=== PATIENT | male | born 1960 | race Two or more races ===

== ENCOUNTER 2024-07-18 13:12 | Inpatient (IN) | payer OTHER, SELFPAY ==
[2024-07-18] VITALS (12 sets, daily range): BP systolic 154–252; BP diastolic 83–129; PULSE 72–96; RESP 14–19; TEMP 36.5–36.6; O2SAT 94–98; BMI 29.2
--- NOTE | 2024-07-18 13:23 | EDNOTE_ITS ---
ED Fall Injury RME/HPI General Chief Complaint: Fall Stated Complaint: FALL Time Seen by Provider: 07/18/24 13:28 Arrival date/time: 07/18/24 13:12 RME / HPI RME / HPI Narrative: 64 year old male presents to the ED [facility] from work for evaluation after fall today. Per medics, patient reported he was about 6-8 feet above ground on a ladder cutting a tree branch. Reportedly the branch hit the ladder causing the patient to lose his balance and fall, landing on his back (mostly on the left side). Medic state on their arrival patient was ambulatory and walked towards the ambulance. State the patient complained of pain mostly to the left upper back. Also complained of mild pain to his neck that is aggravated with movements. On examination patient had no apparent neuro deficits and lung sounds clear and equal. Prehosptial BS 232, blood pressure 226/120. While in the ED patient became diaphoretic and complained of feeling dizzy. Denies any chest pain, shortness of breath, difficulty or painful breathing. Related Data Previous Rx's ?Medication ?Instructions ?Recorded albuterol sulfate 90 mcg/actuation 2 puff inhalation Q ID PRN 06/01/21 aerosol inhaler shortness of breath or wheez ing #8.5 grams azithromycin 250 mg tablet See Rx Instructions PO .COM PLEX #6 06/01/21 tabs metformin 500 mg tablet 500 mg PO BID #60 tabs 06/01 acetaminophen 500 mg capsule 1,000 mg (2 x 500 mg) PO Q6H PRN 06/02/21 fever or pain #30 caps Allergies Allergy/AdvReac Type Severity Reaction Status Date / Time No Known Allergies Allergy Verified 07/18/24 13:21 Review of Systems Review of Systems Narrative Review of Systems: Constitutional: SEE HPI. DENIES; Fevers Eyes: DENIES; Loss of vision Head/Ear/Nose: DENIES; Loss of hearing Throat: DENIES; Dysphagia Cardiovascular: DENIES; Chest pain, dyspnea or syncope Respiratory: DENIES; Shortness of breath Gastrointestinal: DENIES; Rectal bleeding or melena. Genitourinary: DENIES; Dysuria (painful or difficult urination) Musculoskeletal: SEE HPI Skin: DENIES; Rash Neurological: DENIES; Loss of function or movement Psychiatric: DENIES; recent major life stressor, emotional problem, illicit drug use or abuse Endocrinology: DENIES; Weight change Hematologic/Lymphatic: DENIES; Abnormal bruising Allergic/Immunologic: DENIES; Urticaria (hives) Past Medical History Past Medical History CARDIAC: Negative Congestive Heart Failure RESPIRATORY: Negative Chronic Obstructive Pulmonary Disease (COPD) GENITOURINARY: Negative Renal Disease ENDOCRINE: Negative Diabetes Mellitus Type 1 or Diabetes Mellitus Type 2 Social History SMOKING STATUS: Current every day smoker ED Exam Narrative Physical exam: Physical Exam: (Detailed trauma arrived NOT in C-spine) Constitutional upon initial evaluation: Vital signs reviewed. Well-appearing. No acute distress. O2 saturation is normal on RA. No obvious injury or pain. Primary Survey upon initial evaluation: Airway: Patent and non-obstructed; Breathing: Non-labored with normal respirations. Circulation: Not-Hypotensive; All extremities are warm and have normal/immediate capillary refill. Disability: Alert, cordial, interactive and cooperative. No apparent brain injury and has a normal mental status Exposures: No apparent thermal exposure. Patient arrived not in spinal immobilization and denied c-spine tenderness. Secondary Survey Head & Scalp: Normocephalic, atraumatic. Face: The face is without injury, deformity or tenderness. Ears: Left pinna has no injury and appears normal. Right pinna has no injury and appears normal. Left ear canal has no injury and no discharge/drainage. Right ear canal has no injury and no discharge/drainage. The left tympanic membrane is visualized and has no hemotympanum and appears normal. The right tympanic membrane is visualized and has no hemotympanum and appears normal. Eyes: The sclera are anicteric. OS: Left orbit has no swelling, no discoloration and appears normal. Left eyelid has no swelling, no discoloration and appears normal. The left conjunctiva has no injection, no discharge and no subconjunctival hemorrhage. The left cornea appears normal and the anterior chamber has no obvious violation and no hyphema. OD: Right orbit has no swelling, no discoloration and appears normal. Right eyelid has no swelling, no discoloration and appears normal. The right conjunctiva has no injection, no discharge and no subconju nctival hemorrhage. The right cornea appears normal and the anterior chamber has no obvious violation and no hyphema. Nose: The nose is without deformity, discharge or tenderness. Throat: The mucous membranes have no apparent injury and appear pink and moist. The oral cavity and tongue have no apparent injury and appears normal. The gums and teeth have no apparent injury and appear normal. There is no trismus. Neck/Cervical sign: The neck appears normal. There is no cervical spine pain on palpation. The patient moves the head and neck with no limitation and no pain and displays FULL active ROM. There is no trapezius tenderness. There is no apparent wound, injury, mass or adenopathy. Chest/Thorax/Thoracic spine: The chest wall is normal in size and symmetry. There is no subcutaneous emphysema and no crepitus. The patient displays normal respiratory effort without retractions or accessory muscle use. Left posterior chest has an abrasion and ecchymosis with severe pain on palpation of the lateral posterior thorax and lateral to the scapula area. O therwise the left posterior thorax appears normal Auscultation reveals good air movement with no wheezes and no rales with normal breath sounds. Right chest has good air movement with no wheezes and no rales with normal breath sounds. There is no anterior chest wall or sternal tenderness. There is no lateral rib pain. There is no posterior thoracic pain. There is no spine pain or tenderness on palpation or percussion. Cardiovascular: Auscultation: Regular rate and rhythm; No murmurs, rubs, or gallops; Gastrointestinal: The abdomen is non-distended appears normal. There is no ecchymosis. The abdomen is soft, non-tender with no rebound tenderness and no guarding. There are no hernias. There is no mass. Bowel sounds are present and normal. No CVA tenderness. Pelvis: Stable and non-tender on firm palpation over pubis and iliac wings. There is no visible deformity. Rectal: Not examined no apparent injury no injury Genital Urinary: The external genitalia has no injury, no discharge and appears normal. Lumbar/Sacral: There is no lumbar or sacral pain. There is no L/S spinal tenderness. Extremities/Musculoskeletal: LUE: The clavicle and arm have no apparent injury, are non-tender and has full range of motion. RUE: The clavicle and arm have no apparent injury, are non-tender and has full range of motion. LLE: The left hip, femur, knee, tibia/fibula, ankle and foot have no apparent injury, are non-tender and with full range of motion. RLE: The right hip, femur, knee, tibia/fibula, ankle and foot have no apparent injury, are non-tender and with full range of motion. Skin: No lacerations. No abrasions. The skin appears warm and dry. No rashes. No petechia. No purpura. No abnormal bruising. Mental Status/Psychiatric: Mental status is normal for age and situation. Neurological: The patient is oriented to name and situation. The patient is interactive, cordial, and cooperative and follows commands. The patient has normal speech. The pupils are equal and reactive light. The eye movements appear normal with no diplopia. No obvious focal motor deficits. Per EMS patient was ambulatory at the scene but was not tested here. Course Quality Measures none Orders Category Date Time Status Bedside Blood Glucose NOW Care 07/18/24 13:[address] Screening NOW Care 07/18/24 13:[address] Screening X1 Care 07/18/24 13:29 Completed Syrup Maker Cook NOW Care 07/18/24 13:29 Active EKG (ED ONLY) *Do not use* NOW Care 07/18/24 13:29 Completed Insert IV NOW Care 07/18/24 13:29 Active MRI Screening NOW Care 07/18/24 15:57 Active NPO NOW Care 07/18/24 13:[address] cervical spine wo con Stat Exams 07/18/24 13:[address] chest abdomen pelvis w Stat Exams 07/18/24 13:[address] head/brain wo con Stat Exams 07/18/24 13:[address] thoracic spine wo con Stat Exams 07/18/24 13:28 Completed EKG (ED Only) Stat Exams 07/18/24 13:29 Draft XR chest 1V portable Stat Exams 07/18/24 13:29 Completed Alcohol, Blood Medical Stat Lab 07/18/24 13:40 Completed CBC Stat Lab 07/18/24 13:40 Completed Comprehensive Metabolic Panel Stat Lab 07/18/24 13:40 Completed Drug Screen,Urine Stat Lab 07/18/24 17:21 Received Lactate (Lactic Acid) Stat Lab 07/18/24 13:40 Completed Lactic Acid, 3 HR Stat Lab 07/18/24 17:16 Received Lipase Stat Lab 07/18/24 13:40 Completed Partial Thromboplastin Time Stat Lab 07/18/24 13:40 Completed Prothrombin Time with INR Stat Lab 07/18/24 13:40 Completed Type and Screen Stat Lab 07/18/24 13:40 Completed Urinalysis Stat Lab 07/18/24 17:21 Received Urinalysis, C/S if Indicated Stat Lab 07/18/24 17:21 Received Enalaprilat Inj [Vasotec Inj] Med 07/18/24 17:19 Once 1.25 mg IVP X1 ONE HYDROmorphone INJ [Dilaudid Inj] Med 07/18/24 16:43 Discontinued 1 mg IVP X1 ONE Labetalol IV [Trandate IV] Med 07/18/24 17:19 Once 10 mg IVP X1 ONE Morphine Inj Med 07/18/24 13:27 Discontinued 5 mg IVP X1 ONE Morphine Inj Med 07/18/24 15:46 Discontinued 5 mg IVP X1 ONE Ondansetron Inj [Zofran Inj] Med 07/18/24 13:28 Discontinued 4 mg IV X1 ONE Sodium Chloride 0.9% 1000 ml [Ns] 1,000 ml Med 07/18/24 17:30 Ordered IV 150 mls/hr Sodium Chloride 0.9% 1000 ml [Ns] 1,000 ml Med 07/18/24 13:28 Discontinued IV 999 mls/hr Sodium Chloride 0.9% 500 ml [Ns] 500 ml Med 07/18/24 17:30 Ordered IV 999 mls/hr Tet,Diphth,Pertuss(Acell)-Tdap [Boostrix Vacc] Med 07/18/24 13:35 Discontinued 0.5 ml IMI .ONCE ONE hydrALAZINE INJ [Apresoline Inj] Med 07/18/24 15:46 Discontinued 20 mg IV X1 ONE hydrALAZINE INJ [Apresoline Inj] Med 07/18/24 17:19 Once 20 mg IV X1 ONE Vital Signs Vital signs: Vital Signs Temperature 97.8 F 07/18/24 13:13 Pulse Rate 79 07/18/24 13:13 Respiratory Rate 19 07/18/24 13:13 Blood Pressure 236/126 H 07/18/24 13:13 Pulse Oximetry (%) 97 07/18/24 13:13 Oxygen Delivery Method Room Air 07/18/24 13:13 Pulse ox is 97% on room air which is adequate. Fall MDM Narrative MDM Narrative:: Patient is 64-year-old who fell from a ladder with his feet at approximately 6 feet after a branch she was cutting struck the ladder and destabilized the ladders footing. He appears to have a contusion to the left posterior thorax with ecchymosis and lots of pain. On arrival he is diaphoretic he is he is quite hypertensive with a systolic in the 222 range. I made a goal to treat his pain we will image him to see if he is got any intrathoracic significant injuries. Clinically he is breathing well his O2 sat is good there is no crepitance and there is no subcutaneous air at this time. The head and neck do not appear to have any injury although he has some slight tenderness to the neck and head area but he is moving them freely. But he does have significant distracting pain. Also his abdomen and anterior chest do not appear to have any injury. His pelvis is stable. Lower extremities unremarkable is got some abrasions on them but the hips femurs knees and tib-fib ankle feet are all within normal limits. Medical workup is ordered and pending at 1330 hrs. Note patient is significant elevated blood pressures with his pain and the systolics are up to the 225-240 range for short time. Patient initially got some hydralazine and pain medicine got some more pain medicine and got some Dilaudid and her blood pressures came down to systolics in the 180 range. He was much more comfortable than they have drifted up to the 190 range. Clearly has hypertensive urgency and labs came back as follows white count 10.5 hemoglobin 17.0 PT 11.4 INR 1 sodium 138 potassium 3.5 chloride 101 CO2 25.3 BUN 20 creatinine 1.1 glucose is elevated to 69 lactic acid is 3.2 transaminases are elevated at 7457 and total bilirubin 0.4. Ethyl alcohol was negative. CT scan of the head his imaging results came back as follows CT scan of the head came back negative CT scan of the chest abdomen pelvis revealed no hemopneumothorax. There is a acute fracture of the left fourth rib and transverse process fractures of the lumbar spine at levels [address] dictation is a little uncertain so I confirmed this with Dr. De Leon. Initial plain chest x-ray was done which was negative for any hemopneumothorax. Cervical spine CT came back negative for fracture. I called the hospitalist and discussed the case at length and they agree admit the patient for intractable pain since there is no evidence of internal organ injury on the CT scans. He also where the hypertensive urgency and the multiple medications that have been prescribed I will require close follow-up. Patient data External records reviewed:: [facility] previous records (I reviewed ED visit on 06/02/2021 for covid-19) and EMS form Clinical information provided by:: patient and EMS Social determinants that could affect healthcare access:: none Patient has the following chronic illnesses:: none reported How is presenting disease/condition affected by chronic disease/condition?: no chronic disease Evaluation data The following diagnostics were reviewed and interpreted by me:: lab results, radiology exam(s) and EKG tracing(s) (sinus rhythm, rate 75, no STEMI) Lab and/or radiology exams considered but not ordered:: none Interpretation Summary: Ordering Physician: Leandro Clark MD Date of Service: 07/18/24 Procedure(s): CT thoracic spine wo con Accession Number(s): [id number] cc: eLandro Clark MD; Gunnar Hoskins MD; NO PRIMARY/FAMILY,PHYSICIAN~ Examination: CT thoracic spine, without contrast. 2-D sagittal reconstructions. 2-D coronal reconstructions. 3-D reconstructions. Date and time of exam:July 18, 2024, 1359 hrs. Indications: Patient fell today with injury to the back, in CTDI: vol (mGy):23.4 DLP: (mGycm):800 Technique: Multiple 1.25 mm axial sections of the thoracic spine without intravenous contrast have been obtained. 2-D sagittal and coronal reconstructions have been obtained. 3-D reconstructions have been obtained. Low dose protocols were performed. One or more of the following dose reduction techniques were used; automated exposure control, adjustment of the mA and/or KV according to patient size, use of iterative reconstruction technique. Findings: Prominent osteopenia. Mild kyphosis dorsal spine Moderate to advanced diffuse thoracic disc narrowing No acute thoracic fracture No focal thoracic disc protrusion No focal thoracic disc protrusion Impression: No acute thoracic fracture Dictated By: Gunnar Hoskins MD Signed By: <Electronically signed by Gunnar Hoskins MD in OV> 07/18/24 1512 Ordering Physician: Leandro Clark MD Date of Service: 07/18/24 Procedure(s): CT cervical spine wo con Accession Number(s): [id number] cc: Leandro Clark MD; Gunnar Hoskins MD; NO PRIMARY/FAMILY,PHYSICIAN~ Examination: CT cervical spine without contrast 2-D sagittal reconstructions 2-D coronal reconstructions 3-D reconstructions. Exam date and time:July 18, 2024, 1354 hrs. Indications: Patient fell today with injury to the neck, neck pain CTDI:vol (mGy) 8.79 DLP: (mGycm) 198 Technique: Multiple 2 mm axial sections of the cervical spine have been obtained. The coronal and sagittal reconstructions have been obtained. 3-D reconstructions have been obtained. Low dose protocols were performed. One or more of the following dose reduction techniques were used; automated exposure control, adjustment of the mA and/or KV according to patient size, use of iterative reconstruction technique. Findings: Axial sections demonstrate intact base of the skull. C1 exhibit satisfactory relationship to the odontoid. No acute cervical vertebral body fracture seen. Alignment posterior spinous processes satisfactory. Impression: No acute cervical fracture. Dictated By: Gunnar Hoskins MD Signed By: <Electronically signed by Gunnar Hoskins MD in OV> 07/18/24 1508 Ordering Physician: Leandro Clark MD Date of Service: 07/18/24 Procedure(s): XR chest 1V portable Accession Number(s): [id number] cc: Leandro Clark MD; Gunnar Hoskins MD~ Examination: AP chest single view Technique: AP portable semiupright chest single view Exam date and time: July 18 22,025, 1240 hrs. Comparison May 31, 2021 Indications: Patient fell today with injury to the chest, chest pain Findings: Mild prominence left ventricle No pneumothorax Multiple left rib deformities Impression: No pneumothorax Recommend left rib series follow-up Dictated By: Gunnar Hoskins MD Signed By: <Electronically signed by Gunnar Hoskins MD in OV> 07/18/24 1353 Ordering Physician: Leandro Clark MD Date of Service: 07/18/24 Procedure(s): CT chest abdomen pelvis w Accession Number(s): [id number] cc: Leandro Clark MD; Gunnar Hoskins MD; NO PRIMARY/FAMILY,PHYSICIAN~ Examination: CT chest with intravenous contrast CT abdomen with intravenous contrast CT pelvis with intravenous contrast 2-D coronal and sagittal reconstructions Time of exam: July 19, 19992024 1410 hrs. Indications: Patient fell today with into the chest and abdomen, chest pain abdomen pain CTDI: vol (mGy) : 19.8 DLP: (mGycm): 850 Technique: Multiple axial images of the chest, abdomen and pelvis with intravenous contrast, 3.0 mm slice thickness. Images obtained post intravenous injection Isovue 370 60 cc. 2-D sagittal and coronal reconstructions. Low dose protocols were performed. One or more of the following dose reduction techniques were used; automated exposure control, adjustment of the mA and/or KV according to patient size, use of iterative reconstruction technique. Findings: Thoracic aorta pulmonary arteries intact No hemopericardium No pneumothorax pulmonary contusion or hemothorax The sternum thoracic and lumbar vertebral bodies appear intact No acute displaced fracture left fourth rib Acute fractures left second and fourth transverse processes Iliac bones and hips appear intact No liver splenic or renal laceration Abdominal aorta intact No free blood in the abdomen or pelvis Urinary bladder intact Impression: Acute displaced fracture left fourth rib No hemopericardium, pneumothorax pulmonary contusion or hemothorax No liver splenic or renal laceration Acute fractures left second fourth transverse processes Abdominal aorta intact No free blood in the abdomen or pelvis Dictated By: Gunnar Hoskins MD Signed By: <Electronically signed by Gunnar Hoskins MD in OV> 07/18/24 1540 Ordering Physician: Leandro Clark MD Date of Service: 07/18/24 Procedure(s): CT head/brain wo [facility] Accession Number(s): [id number] cc: Leandro Clark MD; Gunnar Hoskins MD; NO PRIMARY/FAMILY,PHYSICIAN~ Examination: CT brain head without contrast. 2-D sagittal coronal reconstructions Date and time of exam:July 18, 2024, 1354 hrs. Indications: Patient fell today with injury to the head, head pain CTDI: vol (mGy):49.6 DLP: (mGycm):1008 Technique: Multiple CT axial sections of the brain have been obtained, 5 mm slice thickness. Contrast has not been administered. 2-D sagittal, coronal reconstructions have been obtained Low dose protocols were performed. One or more of the following dose reduction techniques were used; automated exposure control, adjustment of the mA and/or KV according to patient size, use of iterative reconstruction technique. Findings: No significant ventricular enlargement. Small cerebral calcifications Intra-axial or extra-axial hemorrhage density is not seen. No mass effect or midline shift Basal cisterns are not remarkable. Fourth ventricle is midline. Cranial vault intact. Impression: Negative for acute hemorrhage, mass effect or midline shift Dictated By: Gunnar Hoskins MD Signed By: <Electronically signed by Gunnar Hoskins MD in OV> 07/18/24 4130 Medications / Prescriptions Medications or Prescriptions considered but not ordered:: None Medication administrations:: Medication Administration History Enalaprilat (Enalaprilat Inj 1.25 Mg/Ml Vial) 1.25 mg IVP X1 ONE Stop: 07/18/24 17:20 Hydralazine HCl (Hydralazine Inj 20 Mg/Ml Vial) 20 mg IV X1 ONE Stop: 07/18/24 17:20 Sodium Chloride (Ns) 1,000 mls @ 150 mls/hr IV .Q6H40M ONE Stop: 07/19/24 00:09 Sodium Chloride (Ns) 500 mls @ 999 mls/hr IV .Q31M ONE Stop: 07/18/24 18:00 Labetalol HCl (Labetalol Inj 5 Mg/Ml Vial 20 Ml) 10 mg IVP X1 ONE Stop: 07/18/24 17:20 Discontinued Medications Diphtheria/Tetanus/Acell Pertussis (Diphth,Pertuss(Acell),Tet Vac 0.5 Ml Syr- Adult) 0.5 ml IMi .ONCE ONE Stop: 07/18/24 13:36 Last Admin: 07/18/24 16:11 Dose: 0.5 ml Documented By: RD Hydralazine HCl (Hydralazine Inj 20 Mg/Ml Vial) 20 mg IV X1 ONE Stop: 07/18/24 15:47 Last Admin: 07/18/24 16:09 Dose: 20 mg Documented By: RD Hydromorphone HCl (Hydromorphone Inj 2 Mg/Ml Vial) 1 mg IVP X1 ONE Stop: 07/18/24 16:44 Last Admin: 07/18/24 16:50 Dose: 1 mg Documented By: JOSE Sodium Chloride (Ns) 1,000 mls @ 999 mls/hr IV .Q1H1M ONE Stop: 07/18/24 14:28 Last Infusion: 07/18/24 15:05 Dose: Infused Documented By: Admin: 07/18/24 13:39 Dose: 999 mls/hr Documented By: RYANN Morphine Sulfate (Morphine Sulf Inj 10 Mg/Ml Vial) 5 mg IVP X1 ONE Stop: 07/18/24 13:28 Last Admin: 07/18/24 13:37 Dose: 5 mg Documented By: RYANN Morphine Sulfate (Morphine Sulf Inj 10 Mg/Ml Vial) 5 mg IVP X1 ONE Stop: 07/18/24 15:47 Last Admin: 07/18/24 16:10 Dose: 5 mg Documented By: JOSE Ondansetron HCl (Ondansetron Inj 2 Mg/Ml Inj 2 Ml) 4 mg IV X1 ONE; Protocol Stop: 07/18/24 13:29 Last Admin: 07/18/24 13:39 Dose: 4 mg Documented By: RYANN See above Consultations Consultation(s) initiated? (list below): Yes Diagnosis Fall Differential Diagnosis: syncope, dislocation of shoulder region, fracture of wrist, compression fracture, concussion with loss of consciousness and concussion without loss of consciousness Most likely diagnosis given after review of the tests above:: Fall from a high distance with contusion of the left thorax with a rib fracture on the left and 2 transverse process lumbar fractures and hypertensive emergency urgency as the systolics went up to 245. Will admit him for intractable pain and manage his blood pressure. Admission Indicated Admission indicated?: indicated Admission Request Was there a request for admission?: Yes Admission Attestation Admission request attestation: Discussed case with [] from Hospitalist service regarding admission. Discussed patients ED course, exam findings, labs, and radiology results. The Hospitalist [agrees,declines] to accept the patient for admission. Disposition Plan Disposition Plan: Admit (Hospitalist resident Dr. Damon) Critical Care Time Critical Care Time Critical Care Time: Yes Total Critical Care Time (min.): 55 Attestation: Patient had a fall from 6 to 8 feet with contusion to the thorax with fractures of the lumbar processes and a single rib fracture with no pulmonary contusion and no hemopneumothorax. His blood pressure has been up to 240 requiring multiple IV meds to control his blood pressure. High mechanism the high probability of sudden, clinically significant deterioration in the patient's condition required the highest level of my preparedness to intervene urgently. The services I provided to this patient were to treat and/or prevent clinically significant deterioration. Services included the following: chart data review, reviewing nursing notes and/or old charts, documentation time, consultant electronics collaboration regarding findings and treatment options, medication orders and management, direct patient care, vital sign assessments and ordering, interpreting and reviewing diagnostic studies and lab tests. Aggregate critical care time includes only time during which I was engaged in work directly related to the patient's care, as described above, whether at bedside or elsewhere in the Emergency Department. It did not include time spent performing other reported procedures or the services of residents, students, nurses or physician assistants. Discharge Plan Plan Patient Disposition: Admit Acute Care w/in Hospital Disposition Comment: Hospitalist admit Prescriptions/Referrals Prescriptions/Med Rec: No Action acetaminophen 500 mg capsule 1,000 mg PO Q6H PRN (Reason: fever or pain) Qty: 30 0RF azithromycin 250 mg tablet See Rx Instructions .ROUTE .COMPLEX Qty: 6 0RF Rx Instructions: For 250 mg dose pack: take 500 mg today (day 1), then 250 mg for 4 days (days 2-5) albuterol sulfate 90 mcg/actuation HFA aerosol inhaler 2 puff inhalation QID PRN (Reason: shortness of breath or wheezing) Qty: 8.5 0RF metformin 500 mg tablet 500 mg PO BID Qty: 60 0RF Referrals: No Primary/Family,Physician [Primary Care Provider] - In 1 week Problem List Clinical Impression: Fall, Chest wall contusion, Fracture of rib, Closed fracture of transverse process of lumbar vertebra, Intractable pain, Hypertensive urgency, Hyperglycemia Impression comment: Patient fell 8 feet from a ladder Patient/Caregiver Discharge Instructions Print Language: Qatari Stand Alone Forms: [employer] Info., Patient Portal Info Letter
--- NOTE | 2024-07-18 13:28 | XR_ITS ---
Examination: CT thoracic spine, without contrast. 2-D sagittal reconstructions. 2-D coronal reconstructions. 3-D reconstructions. Date and time of exam:July 18, 2024, 1359 hrs. Indications: Patient fell today with injury to the back, in CTDI: vol (mGy):23.4 DLP: (mGycm):800 Technique: Multiple 1.25 mm axial sections of the thoracic spine without intravenous contrast have been obtained. 2-D sagittal and coronal reconstructions have been obtained. 3-D reconstructions have been obtained. Low dose protocols were performed. One or more of the following dose reduction techniques were used; automated exposure control, adjustment of the mA and/or KV according to patient size, use of iterative reconstruction technique. Findings: Prominent osteopenia. Mild kyphosis dorsal spine Moderate to advanced diffuse thoracic disc narrowing No acute thoracic fracture No focal thoracic disc protrusion No focal thoracic disc protrusion Impression: No acute thoracic fracture
--- NOTE | 2024-07-18 13:29 | XR_ITS ---
Examination: CT brain head without contrast. 2-D sagittal coronal reconstructions Date and time of exam:July 18, 2024, 1354 hrs. Indications: Patient fell today with injury to the head, head pain CTDI: vol (mGy):49.6 DLP: (mGycm):1008 Technique: Multiple CT axial sections of the brain have been obtained, 5 mm slice thickness. Contrast has not been administered. 2-D sagittal, coronal reconstructions have been obtained Low dose protocols were performed. One or more of the following dose reduction techniques were used; automated exposure control, adjustment of the mA and/or KV according to patient size, use of iterative reconstruction technique. Findings: No significant ventricular enlargement. Small cerebral calcifications Intra-axial or extra-axial hemorrhage density is not seen. No mass effect or midline shift Basal cisterns are not remarkable. Fourth ventricle is midline. Cranial vault intact. Impression: Negative for acute hemorrhage, mass effect or midline shift
--- NOTE | 2024-07-18 13:29 | XR_ITS ---
Examination: CT cervical spine without contrast 2-D sagittal reconstructions 2-D coronal reconstructions 3-D reconstructions. Exam date and time:July 18, 2024, 1354 hrs. Indications: Patient fell today with injury to the neck, neck pain CTDI:vol (mGy) 8.79 DLP: (mGycm) 198 Technique: Multiple 2 mm axial sections of the cervical spine have been obtained. The coronal and sagittal reconstructions have been obtained. 3-D reconstructions have been obtained. Low dose protocols were performed. One or more of the following dose reduction techniques were used; automated exposure control, adjustment of the mA and/or KV according to patient size, use of iterative reconstruction technique. Findings: Axial sections demonstrate intact base of the skull. C1 exhibit satisfactory relationship to the odontoid. No acute cervical vertebral body fracture seen. Alignment posterior spinous processes satisfactory. Impression: No acute cervical fracture.
--- NOTE | 2024-07-18 13:29 | XR_ITS ---
Examination: CT chest with intravenous contrast CT abdomen with intravenous contrast CT pelvis with intravenous contrast 2-D coronal and sagittal reconstructions Time of exam: July 19, 19992024 1410 hrs. Indications: Patient fell today with into the chest and abdomen, chest pain abdomen pain CTDI: vol (mGy) : 19.8 DLP: (mGycm): 850 Technique: Multiple axial images of the chest, abdomen and pelvis with intravenous contrast, 3.0 mm slice thickness. Images obtained post intravenous injection Isovue 370 60 cc. 2-D sagittal and coronal reconstructions. Low dose protocols were performed. One or more of the following dose reduction techniques were used; automated exposure control, adjustment of the mA and/or KV according to patient size, use of iterative reconstruction technique. Findings: Thoracic aorta pulmonary arteries intact No hemopericardium No pneumothorax pulmonary contusion or hemothorax The sternum thoracic and lumbar vertebral bodies appear intact No acute displaced fracture left fourth rib Acute fractures left second and fourth transverse processes Iliac bones and hips appear intact No liver splenic or renal laceration Abdominal aorta intact No free blood in the abdomen or pelvis Urinary bladder intact Impression: Acute displaced fracture left fourth rib No hemopericardium, pneumothorax pulmonary contusion or hemothorax No liver splenic or renal laceration Acute fractures left second fourth transverse processes Abdominal aorta intact No free blood in the abdomen or pelvis
--- NOTE | 2024-07-18 13:29 | XR_ITS ---
Examination: AP chest single view Technique: AP portable semiupright chest single view Exam date and time: July 18 22,025, 1240 hrs. Comparison May 31, 2021 Indications: Patient fell today with injury to the chest, chest pain Findings: Mild prominence left ventricle No pneumothorax Multiple left rib deformities Impression: No pneumothorax Recommend left rib series follow-up
--- NOTE | 2024-07-18 13:29 | EKG_ITS ---
[facility] Test Date: 2024-07-18 Pat Name: KATHIE ORO Department: Room: - Gender: Male Rn Oncology: : 1960 Requested By: Leandro Clark Order Number: [id number] Reading MD: Leandro Clark Measurements Intervals [place] Rate: 75 P: 93 TN: 178 QRS: 80 QRSD: 105 T: 104 QT: 396 QTc: 445 Interpretive Statements SINUS RHYTHM WITH OCCASIONAL SUPRAVENTRICULAR PREMATURE COMPLEXES INCOMPLETE RIGHT BUNDLE BRANCH BLOCK [90+ ms QRS DURATION, TERMINAL R IN V1/V2, 40+ ms S IN I/aVL/V4/V5/V6] SEPTAL MYOCARDIAL INFARCTION , OF INDETERMINATE AGE [40+ ms Q WAVE IN V1/V2] No previous ECG available for comparison /store/S0/[id number]/ecg/[id number].pdf
[2024-07-18] MEDS: MORPHINE SULF INJ 10 MG/ML VIAL 5 MG IVP ×2 (13:37→16:10)
[2024-07-18] MEDS: ONDANSETRON INJ 2 MG/ML INJ 2 ML 4 MG IV (13:39)
[2024-07-18] MEDS: SODIUM CHLORIDE 0.9% 1000 ML 1,000 ML 999 ML IV (13:39)
[2024-07-18 13:53] LABS: Lactate (Lactic Acid) 3.2 mMol/L (0.4-2.0)
[2024-07-18 13:57] LABS: Basophils # (Auto) 0.1 Thou/mm3 (0.0-0.2); Basophils % (Auto) 1 % (0-2.5); Eosinophils # (Auto) 0.1 Thou/mm3 (0.0-0.5); Eosinophils % (Auto) 1 % (0-10); Hematocrit 48.5 % (41.0-53.0); Immature Granulocytes % (Auto) 1 % (0-0); Immature Granulocytes Auto 0.08 Thou/mm3 (0.00-0.00); Lymphocytes # (Auto) 2.8 Thou/mm3 (1.0-4.8); Lymphocytes % (Auto) 27 % (10-50); Mean Corpuscular HGB Conc 35.1 g/dl (31.0-37.0); Mean Corpuscular Hemoglobin 31.1 pg (25.0-35.0); Mean Corpuscular Volume 89 fL (80-100); Monocytes # (Auto) 0.8 Thou/mm3 (0.0-0.8); Monocytes % (Auto) 7 % (0-12); Neutrophils # (Auto) 6.7 Thou/mm3 (1.8-7.7); Neutrophils % (Auto) 63 % (37-80); Nucleated Red Blood Cell % 0 /100 WBC (0); Platelet Count 331 Thou/mm3 (140-440); RDW Standard Deviation 38.3 fL (35.1-43.9); Red Blood Count 5.47 Miln/mm3 (4.50-5.90); White Blood Count 10.5 Thou/mm3 (3.8-10.6)
[2024-07-18 14:15] LABS: Partial Thromboplastin Time 22.3 Seconds (22.0-36.0); Prothrombin Time 11.4 Seconds (9.0-12.2)
[2024-07-18 14:16] LABS: Alanine Aminotransferase 57 U/L (10-49); Albumin, Serum 4.3 gm/dL (3.4-4.8); Albumin/Globulin Ratio 1.3 (1.2-2.2); Alcohol, Blood Medical < 3.0 mg/dL (0-10.0); Alkaline Phosphatase 80 U/L (46-116); Anion Gap 13 (7-16); Aspartate Amino Transferase 74 U/L (0-34); BUN/Creatinine Ratio 18 Ratio (12-20); Bilirubin,Total 0.4 mg/dL (0.3-1.2); Blood Urea Nitrogen 20 mg/dL (9-23); Calcium 9.4 mg/dL (8.3-10.6); Calcium (Corrected) 9.4 mg/dL (8.5-10.1); Carbon Dioxide 25.3 mMol/L (20.0-31.0); Chloride 101 mMol/L (98-107); Creatinine (Component) 1.1 mg/dL (0.6-1.3); Globulin 3.2 gm/dL (2.3-3.5); Glucose 269 mg/dL (74-106); Lipase 52 U/L (12-53); Osmolality,Calculated 289 (275-295); Potassium 3.5 mMol/L (3.4-5.1); Sodium 139 mMol/L (136-145); Total Protein 7.5 gm/dL (5.7-8.2); eGFR > 60 See Note
[2024-07-18] MEDS: hydrALAZINE INJ 20 MG/ML VIAL IV (16:09)
[2024-07-18] MEDS: DIPHTH,PERTUSS(ACELL),TET VAC 0.5 ML SYR- ADULT IMi (16:11)
--- NOTE | 2024-07-18 16:44 | PC.NURSE ---
Received verbal order from ER provider fro 1 mg Dilaudid IV x 1.
[2024-07-18 16:46] LABS: Reflex Lactate? Y
[2024-07-18] MEDS: HYDROmorphone INJ 2 MG/ML VIAL 1 MG IVP ×2 (16:50→18:25)
[2024-07-18 17:27] LABS: Lactic Acid, 3 HR 2.5 mMol/L (0.4-2.0)
[2024-07-18 17:30] LABS: Collection Type, Urine Clean Catch; Squamous Epithelial Cell,Urine 0 /hpf (0-5)
[2024-07-18 17:38] LABS: Bilirubin,Urine Negative (Negative); Blood,Urine Trace (Negative); Clarity,Urine Clear (Clear/Hazy); Color,Urine Colorless (Lt Yel-Yel); Culture Indicated,Urine Not Indicated; Glucose, Urine 4+ (Negative); Ketones,Urine 1+ (Negative); Leukocyte Esterase,Urine Negative (Negative); Nitrite,Urine Negative (Negative); PH,Urine 6.5 (5.0-7.0); Protein,Urine Trace (Neg - Trace); RBC,Urine 1 /hpf (0-3); Specific Gravity,Urine 1.027 (1.001-1.035); Urobilinogen,Urine Negative mg/dL (0.0-1.0); WBC,Urine < 1 /hpf (0-5)
[2024-07-18 17:44] LABS: Amphetamine/Methamp Scrn,U Positive (Negative); Barbiturate Screen,Urine Negative (Negative); Benzodiazepines Screen,Urine Negative (Negative); Benzoylecgonine Screen, Ur Negative (Negative); Fentanyl Screen,Urine Negative (Negative); Opiate Screen,Urine Positive (Negative); THC Screen,Urine Negative (Negative)
[2024-07-18] MEDS: LABETALOL INJ 5 MG/ML VIAL 20 ML 10 MG IVP (17:56)
[2024-07-18] MEDS: SODIUM CHLORIDE 0.9% 1000 ML 1,000 ML 150 ML IV (17:59)
[2024-07-18] MEDS: SODIUM CHLORIDE 0.9% 500 ML 500 ML 999 ML IV (17:59)
--- NOTE | 2024-07-18 18:04 | PC.NURSE ---
PATIENT STATES PAIN 7/10. RECEIVED VERBAL ORDER FROM ER PROVIDER, DR DC, FOR 1 MG DILAUDID IV X 1.
--- NOTE | 2024-07-18 18:14 | PD.RESHP ---
Documentation for date of: 07/18/24 [facility] History of Present Illness Chief complaint: Fall History of present illness: 64-year-old male with past medical history of hypertension was brought to the ED due to a fall. Patient this morning 07/18/2024 was on top of a tree cutting a branch when he fell from the tree and landed on his back. Patient denies any loss of consciousness or syncope prior to the event. At the time of the fall patient did not experience any pain however on transit to the ED patient started developing 10 out of 10 pain more pronounced on the back. At this time patient denies any fever, chills, shortness of breath, chest pain, abdominal pain, nausea, vomiting, numbness or tingling in all 4 extremities. Patient will be admitted for intractable pain secondary to a fall and the [facility] protocol. ED course: Vitals on arrival 236/126, HR 79, O2 sat 97% on room air. Labs significant for hemoglobin 17, glucose 269, lactic acid 2.5, AST 74, ALT 57, urinalysis shows plus for glucose, +1 ketones. U tox shows positive for opiates, methamphetamine. Head CT negative, cervical and thoracic spine CT negative, CT abdomen chest pelvis negative for any acute internal bleeding. EKG shows sinus tachycardia. In the ED patient received morphine, Zofran, 2.5 L NS, hydralazine, tetanus shot, PMHx: As above SX Hx: None Social Hx: Used to smoke marijuana claims he stopped after the of his son, has been drinking every day for 14 years at least 2 to 3, 12 ounce beers. FHx: unknown Review of Systems Review of Systems Narrative Review of Systems: Narrative ROS GENERAL: Denies fevers/chills or diaphoresis. HEENT: Denies headache or visual/hearing changes. Denies nasal discharge. NEURO: Denies unusual weakness or difficulty speaking. CARDIO: Denies chest pain or palpitations. PULM: Denies SOB, coughing, or wheezing. GI: Denies abdominal pain, N/V/C/D/reflux/gas, bright red blood per rectum or melena. Reports having BMs. URO: Denies burning/itching/pain/urinary changes. MSK/EXT/SKIN: +back pain, issues/changes in upper or lower extremities, itchiness, or superficial pain. PSYCH: Cooperative, pleasant mood & affect. The rest of the review of systems is otherwise negative. Exam Vital Signs Temp Pulse Resp BP Pulse Ox O2 Del Method O2 Flow Rate 97.7 F 78 15 154/83 H 96 Nasal Cannula 2 07/18/24 18:09 07/18/24 18:09 07/18/24 18:09 07/18/24 18:09 07/18/24 18:09 07/18/24 18:09 07/18/24 18:09 Narrative Exam Physical Exam GENERAL: acute distress, AAOx3 HEENT: Moist mucosa. Eyes open,cross eyed CARDIO: Heart RRR, no obvious murmurs PULM: No noted coughing/dyspnea CTA B/L, no R/W/R GI: Abdomen soft, nondistended, no pain on palpation. BSx4 SKIN/MSK/EXT: back pain on palpation. Pedal pulses present B/L NEURO: AAOx3, no focal neuro deficits, able to move all 4 extremities Results: Labs 07/19/24 04:46 07/19/24 04:46 Labs: Short CBC 07/18/24 Range/Units 13:40 WBC 10.5 (3.8-10.6) Thou/mm3 Hgb 17.0 H (13.5-16.0) g/dL Hct 48.5 (41.0-53.0) % Plt Count 331 (140-440) Thou/mm3 BMP 07/18/24 13:40 Sodium 139 Potassium 3.5 Chloride 101 Carbon Dioxide 25.3 BUN 20 Creatinine 1.1 Glucose 269 H Calcium 9.4 Liver Function 07/18/24 Range/Units 13:40 Total Bilirubin 0.4 (0.3-1.2) mg/dL AST 74 H (0-34) U/L ALT 57 H (10-49) U/L Alkaline Phosphatase 80 (46-116) U/L Albumin 4.3 (3.4-4.8) gm/dL Urine 07/18/24 Range/Units 17:21 Urine Color Colorless A (Lt Yel-Yel) Urine Clarity Clear (Clear/Hazy) Urine pH 6.5 (5.0-7.0) Ur Specific [place] 1.027 (1.001-1.035) Urine Protein Trace (Neg - Trace) Urine Glucose (UA) 4+ A (Negative) Quality Measures Quality Measures none Medications Home Medications and Allergies Home Medications ?Medication ?Instructions ?Recorded ?Confirmed ?Type No Known Home Medications 07/19/24 07/19/24 History Allergies Allergy/AdvReac Type Severity Reaction Status Date / Time No Known Allergies Allergy Verified 07/18/24 13:21 Visit Medications Acetaminophen (Acetaminophen 325 Mg Tablet) 650 mg PO Q6H PRN PRN Reason: Fever >101.5 Stop: 08/17/24 18:02 Acetaminophen (Acetaminophen 325 Mg Tablet) 650 mg PO Q6H PRN PRN Reason: PAIN SCALE 1-3 (mild Stop: 08/17/24 18:02 Hydrocodone Bitart/Acetaminophen (Hydrocodone/Apap 10/325 Tab) 1 tab PO Q6H PRN PRN Reason: PAIN SCALE 4-10(Mod-Sev Stop: 07/23/24 18:02 Folic Acid (Folic Acid 1 Mg Tablet) 1 mg PO BID JOSEMANUEL Stop: 07/23/24 20:59 Gabapentin (Gabapentin 300 Mg Capsule) 300 mg PO Q6H JOSEMANUEL Stop: 08/17/24 18:14 Hydromorphone HCl (Hydromorphone Inj 2 Mg/Ml Vial) 1 mg IVP Q4HR PRN; Protocol PRN Reason: BREAKTHROUGH PAIN Stop: 07/23/24 18:02 Sodium Chloride (Ns) 1,000 mls @ 150 mls/hr IV .Q6H40M ONE Stop: 07/19/24 00:09 Last Admin: 07/18/24 17:59 Dose: 150 mls/hr Lorazepam (Lorazepam 0.5 Mg Tablet) 0.5 mg PO Q4HR PRN PRN Reason: CIWA Score 2-6 Stop: 07/23/24 18:07 Lorazepam (Lorazepam 2 Mg/Ml Vial) 0.5 mg IV Q2HR PRN PRN Reason: CIWA SCORE 7-13 Stop: 07/23/24 18:07 Lorazepam (Lorazepam 2 Mg/Ml Vial) 1 mg IV Q2HR PRN PRN Reason: CIWA SCORE 14-19 Stop: 07/23/24 18:07 Lorazepam (Lorazepam 2 Mg/Ml Vial) 2 mg IV Q2HR PRN PRN Reason: CIWA SCORE 20-25 Stop: 07/23/24 18:07 Ondansetron HCl (Ondansetron Inj 2 Mg/Ml Inj 2 Ml) 4 mg IV Q6H PRN; Protocol PRN Reason: NAUSEA OR VOMITING Stop: 08/17/24 18:02 Thiamine HCl (Thiamine 100 Mg Tablet) 100 mg PO BID JOSEMANUEL Stop: 07/23/24 20:59 Discontinued Medications Diphtheria/Tetanus/Acell Pertussis (Diphth,Pertuss(Acell),Tet Vac 0.5 Ml Syr- Adult) 0.5 ml IMi .ONCE ONE Stop: 07/18/24 13:36 Last Admin: 07/18/24 16:11 Dose: 0.5 ml Enalaprilat (Enalaprilat Inj 1.25 Mg/Ml Vial) 1.25 mg IVP X1 ONE Stop: 07/18/24 17:20 Hydralazine HCl (Hydralazine Inj 20 Mg/Ml Vial) 20 mg IV X1 ONE Stop: 07/18/24 15:47 Last Admin: 07/18/24 16:09 Dose: 20 mg Hydralazine HCl (Hydralazine Inj 20 Mg/Ml Vial) 20 mg IV X1 ONE Stop: 07/18/24 17:20 Hydromorphone HCl (Hydromorphone Inj 2 Mg/Ml Vial) 1 mg IVP X1 ONE Stop: 07/18/24 16:44 Last Admin: 07/18/24 16:50 Dose: 1 mg Hydromorphone HCl (Hydromorphone Inj 2 Mg/Ml Vial) 1 mg IVP X1 ONE Stop: 07/18/24 18:05 Sodium Chloride (Ns) 1,000 mls @ 999 mls/hr IV .Q1H1M ONE Stop: 07/18/24 14:28 Last Infusion: 07/18/24 15:05 Dose: Infused Sodium Chloride (Ns) 500 mls @ 999 mls/hr IV .Q31M ONE Stop: 07/18/24 18:00 Last Admin: 07/18/24 17:59 Dose: 999 mls/hr Labetalol HCl (Labetalol Inj 5 Mg/Ml Vial 20 Ml) 10 mg IVP X1 ONE Stop: 07/18/24 17:20 Last Admin: 07/18/24 17:56 Dose: 10 mg Morphine Sulfate (Morphine Sulf Inj 10 Mg/Ml Vial) 5 mg IVP X1 ONE Stop: 07/18/24 13:28 Last Admin: 07/18/24 13:37 Dose: 5 mg Morphine Sulfate (Morphine Sulf Inj 10 Mg/Ml Vial) 5 mg IVP X1 ONE Stop: 07/18/24 15:47 Last Admin: 07/18/24 16:10 Dose: 5 mg Ondansetron HCl (Ondansetron Inj 2 Mg/Ml Inj 2 Ml) 4 mg IV X1 ONE; Protocol Stop: 07/18/24 13:29 Last Admin: 07/18/24 13:39 Dose: 4 mg Assessment & Plan Plan 64-year-old male with past medical history of hypertension who came to the ED after a fall from a tree. Will be admitted for intractable pain and CIWA protocol. #Intractable pain #Displaced left fourth rib fracture #Acute fractures of left second and fourth lumbar transverse processes 07/18/2024 was on top of a tree cutting a branch when he fell from the tree and landed on his back. Patient denies any loss of consciousness or syncope prior to the event. At the time of the fall patient did not experience any pain however on transit to the ED patient started developing 10 out of 10 pain more pronounced on the back Head CT negative, cervical and thoracic spine CT negative, CT abdomen chest pelvis negative for any acute internal bleeding ? Tylenol ? [place] 10 p.o. ? Dilaudid for breakthrough pain #Hypertensive urgency Patient arrived with systolic blood pressure over 250 Already corrected more than 25% ? Labetalol 10 mg IV as needed for SBP > 220 #Alcohol use disorder #Substance use disorder Patient is an everyday drinker has been drinking every day for the past 14 years Patient denies any drug use however on urine toxicology patient is positive for opioids and methamphetamine positive for opioids likely due to pain medications received in the ED. ? On CIWA protocol with as needed Ativan ? Thiamine ? Folate ? consider social science instructor referall Case discussed with my attending Dr. Johana Cox MD PGY-1 Disposition: Med tele Fluids: None Feeding: regular Thrombo prophylaxis: SCDs Gastric Ulcer prophylaxis: none CODE STATUS: Full code Attending Provider Attestation/Addendum I attest that I was physically present for the evaluation, physical examination, lab and imaging review of the patient with the residents. I discussed the case with the residents and agree with the findings and plans of care as documented above. Patient is a 64 years old male with past medical history of hypertension who presented to the ED after a fall. Patient had accidental fall while he was cutting a branch of a tree and landed on his back. Denies any lightheadedness, dizziness or syncopal episode before the fall. Denies hitting his head, loss of consciousness. He started having 10/10 pain on his back and decided to visit the ED. In the ED, his blood pressure was very high 236/126 on presentation, rest of the vitals are within normal limits. Lab results show lactate of 2.5, AST 74 ALT 57. Urine toxicology is positive for opiates, methamphetamine. Head CT, cervical spine CT were both negative. CT chest/abdomen/pelvis showed left-sided rib fractures. We will admit the patient for management of intractable pain secondary to rib fractures and hypertensive urgency. Patient also drinks alcohol every day. We will start him on analgesic regimen, as needed labetalol for blood pressure control, thiamine, multivitamin and CIWA protocol. Terra Vaughn MD
[2024-07-18] MEDS: GABAPENTIN 300 MG CAPSULE PO ×2 (19:09→23:46)
[2024-07-18] MEDS: FOLIC ACID 1 MG TABLET PO (21:08)
[2024-07-18] MEDS: THIAMINE 100 MG TABLET PO (21:08)
[2024-07-18] MEDS: amLODIPine BESYLATE 5 MG TABLET PO (22:37)
--- NOTE | 2024-07-18 23:55 | PC.NURSE ---
Notified Dr. Ngo regarding patient's BP of 187/95, HR 87. patient not c/o pain, discomfort. No PRNs on board, patient was given amlodipine about an hour ago but BP remains about the same. Per Dr. Ngo patient's BP has been reduced over 25% since admission and going down slowly. To notify MD if SBP > 200, DBP > 100.
[2024-07-19] VITALS (12 sets, daily range): BP systolic 157–187; BP diastolic 80–95; PULSE 76–99; RESP 15–19; TEMP 36.1–37.7; O2SAT 94–97
[2024-07-19] MEDS: amLODIPine BESYLATE 5 MG TABLET PO (00:14)
[2024-07-19] MEDS: LORazepam 0.5 MG TABLET PO (04:32)
--- NOTE | 2024-07-19 04:42 | PC.NURSE ---
informed Dr. Paniagua regarding patient's BP of 168/83, per MD, no PRNs need to be given. Patient has PRN labatelol IV 5 mg, patient is on a box but per protocol, cannot be given on med/surg floor. Notified Dr. Paniagua of this if they wanted to changed PRN BP medication, per MD keep order for now. Notify MD if SBP > 200.
[2024-07-19 05:57] LABS: Basophils % (Auto) 0 % (0-2.5); Eosinophils % (Auto) 0 % (0-10); Hematocrit 42.6 % (41.0-53.0); Hemoglobin 15.2 g/dL (13.5-16.0); Immature Granulocytes % (Auto) 0 % (0-0); Immature Granulocytes Auto 0.06 Thou/mm3 (0.00-0.00); Lymphocytes # (Auto) 0.8 Thou/mm3 (1.0-4.8); Lymphocytes % (Auto) 6 % (10-50); Mean Corpuscular HGB Conc 35.7 g/dl (31.0-37.0); Mean Corpuscular Hemoglobin 32.2 pg (25.0-35.0); Mean Corpuscular Volume 90 fL (80-100); Monocytes # (Auto) 0.8 Thou/mm3 (0.0-0.8); Monocytes % (Auto) 6 % (0-12); Neutrophils % (Auto) 88 % (37-80); Nucleated Red Blood Cell % 0 /100 WBC (0); Platelet Count 518 Thou/mm3 (140-440); RDW Standard Deviation 40.4 fL (35.1-43.9); Red Blood Count 4.72 Miln/mm3 (4.50-5.90); White Blood Count 13.6 Thou/mm3 (3.8-10.6)
[2024-07-19] MEDS: GABAPENTIN 300 MG CAPSULE PO ×2 (06:12→12:10)
[2024-07-19 06:30] LABS: Alanine Aminotransferase 45 U/L (10-49); Albumin, Serum 3.9 gm/dL (3.4-4.8); Albumin/Globulin Ratio 1.3 (1.2-2.2); Alkaline Phosphatase 72 U/L (46-116); Anion Gap 13 (7-16); Aspartate Amino Transferase 44 U/L (0-34); BUN/Creatinine Ratio 16 Ratio (12-20); Bilirubin,Total 0.6 mg/dL (0.3-1.2); Blood Urea Nitrogen 16 mg/dL (9-23); Calcium 8.6 mg/dL (8.3-10.6); Calcium (Corrected) 8.7 mg/dL (8.5-10.1); Carbon Dioxide 23.9 mMol/L (20.0-31.0); Chloride 99 mMol/L (98-107); Estimated Creatinine Clearance 90.2 mL/min (>60); Glucose 337 mg/dL (74-106); Magnesium 1.8 mg/dL (1.6-2.6); Osmolality,Calculated 286 (275-295); Phosphorous 3.4 mg/dL (2.4-5.1); Potassium 3.5 mMol/L (3.4-5.1); Sodium 136 mMol/L (136-145); Total Protein 6.9 gm/dL (5.7-8.2); eGFR > 60 See Note
[2024-07-19] MEDS: amLODIPine BESYLATE 5 MG TABLET 10 MG PO (08:19)
[2024-07-19] MEDS: THIAMINE 100 MG TABLET PO (08:19)
[2024-07-19] MEDS: FOLIC ACID 1 MG TABLET PO (08:19)
[2024-07-19 08:28] LABS: Lactate (Lactic Acid) 3.2 mMol/L (0.4-2.0)
[2024-07-19 08:41] LABS: Glucose Estimated Average 209 mg/dL (80-131); Hemoglobin A1C 8.9 % Hgb (4.8-6.0)
--- NOTE | 2024-07-19 10:22 | XR_ITS ---
Examination: CT brain head without contrast. 2-D sagittal coronal reconstructions Date and time of exam:07/19/2024, 10:45 AM Indication facial droop COMPARISON: 07/18/2024 CTDI: vol (mGy):51.4 DLP: (mGycm):1060 Technique: Multiple CT axial sections of the brain have been obtained, 5 mm slice thickness. Contrast has not been administered. 2-D sagittal, coronal reconstructions have been obtained Low dose protocols were performed. One or more of the following dose reduction techniques were used; automated exposure control, adjustment of the mA and/or KV according to patient size, use of iterative reconstruction technique. Findings: Interval low density changes images in the cerebellum. Findings are most prominent in the posterior portion of the cerebellum on the left and extend across the midline to the medial portion of the right cerebellum. No significant ventricular enlargement. Intra-axial or extra-axial hemorrhage density is not seen. No mass effect or midline shift Basal cisterns remain patent. Fourth ventricle is midline. Cranial vault intact. Impression: Interval low density changes in cerebellum as above. Findings consistent with recent/evolving infarct. MRI exam may provide additional diagnostic information. Negative for acute hemorrhage, mass effect or midline shift
--- NOTE | 2024-07-19 11:04 | XR_ITS ---
Examination: CTA carotids with intravenous contrast CTA brain, head with intravenous contrast. 2-D sagittal, coronal reconstructions. 3-D reconstructions. Exam date and time: 07/19/2024 1110 hrs. Indications: Stroke alert, onset focal neurologic deficit today CTDI: vol (mGy) 17.3 DLP: (mGycm) 172 Technique: Multiple CTA axial brain, head carotid images post intravenous contrast injection 75 cc, Isovue-370. 2-D sagittal, coronal reconstructions. 3-D reconstructions, 3-D post processing including vascular maximum intensity projection images. Low dose protocols were performed. One or more of the following dose reduction techniques were used; automated exposure control, adjustment of the mA and/or KV according to patient size, use of iterative reconstruction technique. Findings: No significant common carotid carotid bifurcation or internal carotid artery stenoses Dominant left vertebral artery with no significant stenoses No cerebral large vessel arterial occlusions thrombus or dissection Impression: No significant neck arterial stenoses No cerebral large vessel occlusions or thrombus
[2024-07-19 11:26] LABS: Reflex Lactate? Y
[2024-07-19] MEDS: INSULIN LISPRO (AdmeLOG) 1 UNIT/0.01 ML UNIT SC (12:06)
[2024-07-19] MEDS: Aspirin 325 MG TABLET PO (12:10)
[2024-07-19] MEDS: RINGERS LACTATED 1000 ML 1,000 ML 100 ML IV (12:13)
[2024-07-19 12:28] LABS: Lactic Acid, 3 HR 2.2 mMol/L (0.4-2.0)
--- NOTE | 2024-07-19 12:40 | ESDS_ITS ---
Planned Discharge Date 07/19/24 DS: Providers Provider Date of admission: 07/18/24 18:03 Primary care physician: Physician No Primary/Family Admitting Provider: Terra Vaughn MD Attending Provider on Admission: Terra Vaughn MD Consults: 07/18/24 22:48 Referral Physical Therapy Routine Comment: Physician Instructions: Referral Respiratory Therapy Routine Comment: 07/19/24 09:18 Consult to Orthopedic Stat Comment: Consulting Provider: Raymond Llamas 07/19/24 12:03 Referral - Fat Pressroom Worker Stat Service Needed for Transfer: Neurosurgery Addl Comments:: Patient will require neurosurgery services for decompression of the skull. 07/19/24 12:26 Consult to Neurology / Tele-Neurology Stat Comment: Consulting Provider: Tevin Kirk 07/19/24 12:30 Referral Speech Therapy Stat Comment: Attending Provider on DC: Terra Vaughn MD Discharging Provider: Alvaro Cox MD Anticipated date of discharge: 07/19/24 DS: Diagnosis Problem List Completed Was Problem List Reviewed/Reconciled?: Yes Hospital Course Hospital Course Hospital course: 64-year-old male with past medical history of hypertension was brought to the ED due to a fall. Patient this morning 07/18/2024 was on top of a tree cutting a branch when he fell from the tree and landed on his back. Patient denies any loss of consciousness or syncope prior to the event. At the time of the fall patient did not experience any pain however on transit to the ED patient started developing 10 out of 10 pain more pronounced on the back. In the ED initial head CT was negative for any acute hemorrhage, midline shift, or mass effect. Patient will be admitted for intractable pain secondary to a fall and the CIWA protocol. During hospital stay patient's pain was managed with p.o. and IV medications. However on examination the next day 07/19/2024 patient was complaining of left-sided drooping of the face, blurry vision, dizziness and unable to walk. Patient was evaluated and had equal strength across all 4 extremities, left-sided drooping of the face. Stroke alert was called and teleneurology was consulted was found that NIHSS of 6. Head CT was done and showed hypodensity changes in the cerebellum most prominent in the posterior portion of the cerebellum on the left and extended across the midline to the medial portion of the right cerebellum. At this time teleneurology recommended to transfer the patient for possible neurosurgical evaluation with possible bur hole procedure for brain decompression as stroke can likely evolve. At this time patient is medically stable for transfer. Patient is requiring Neurosurgical evaluation at this time not available at this institution. Patient is pending facility to accept the case. Problem list: #Acute cerebellar CVA #Intractable pain #Displaced left fourth rib fracture #Acute fractures of left second and fourth lumbar transverse processes #Hypertensive urgency #Newly diagnosed Diabetes mellitus #Alcohol use disorder #Substance use disorder Case discussed with my senior Dr. Kirk PGY-[address] Johana Cox MD PGY-1 Time Spent with Patient Time attestation: Total time spent providing and/or coordinating discharge services: Exam Vital Signs Temp Pulse Resp BP Pulse Ox O2 Del Method O2 Flow Rate 98.1 F 95 18 170/82 H 94 L Room Air 2 07/19/24 08:00 07/19/24 08:19 07/19/24 08:00 07/19/24 08:19 07/19/24 08:00 07/19/24 08:00 07/19/24 00:00 Discharge Plan Plan Patient Disposition: [facility] Facility Pt Being Transferred to: [facility] Needed for Transfer: Neurosurgery Patient condition on transfer: Stable Prescriptions/Referrals Prescriptions/Med Rec: No Action No Known Home Medications Referrals: No Primary/Family,Physician [Primary Care Provider] - Patient/Caregiver Discharge Instructions Print Language: Chinese Stand Alone Forms: [facility] Award Info., Patient Portal Info Letter Discharge Order Discharge Orders: Discharge (Routine); Ordered 07/19/24 Ordered By: Alvaro Cox Quality Discharge Quality Measures VTE prophylaxis MD Attestestation MD Attestation I attest that I was physically present for the evaluation, physical examination, lab and imaging review of the patient with the residents. I discussed the case with the residents and agree with the findings and plans of care as documented above. Patient is a 64 years old male with past medical history of hypertension who presented to the ED after a fall. Patient had accidental fall while he was cutting a branch of a tree and landed on his back. He was then admitted to medical floor for management of intractable pain secondary to displaced left fourth rib fracture, acute fractures of left second and fourth lumbar transverse processes and hypertensive urgency. He also drinks alcohol regularly and was started on CIWA protocol. Patient is also found to have elevated glucose and hemoglobin A1c of 8.9. Has been started on insulin regimen. This morning, a rapid response was called as patient started having diminished sensation on left side of his face. The nurse also stated that he is having left facial droop. He also stated that patient was not able to transfer overnight due to being unsteady. Had NIHSS score of 6 at the bedside, stroke alert was called, patient underwent CT head and teleneurology consult/stroke workup. Discussed with teleneurologist, stated that patient has a large infarct which is recent/evolving on left side of the cerebellum extending across the midline to medial portion of right cerebellum. She also stated that she is concerned as the infarction is large, starting to have some edema which gets worse in day 3-5. She also mentioned that with large infarct, there is a risk for hemorrhagic conversion. Recommended to start patient on aspirin and start transfer process to facility with neurosurgery backup if the edema is to worsen. Discussed with in-house teleneurology and transfer nurse and started the process. Terra Vaughn MD
--- NOTE | 2024-07-19 13:01 | PC.CC ---
Addendum entered by Lani Jacques RN 07/19/24 17:03: I called [facility] and I let them know patient has been picked up and is on his way by [facility]. Addendum entered by Lani Jacques RN 07/19/24 17:00: Patient left to [facility] with [facility]. I gave number to Joelle to call and give report. Packet given to ambulance along wiht CD. Addendum entered by Lani Jacques RN 07/19/24 15:39: Patient has been accepted by Dr. Jimenes with [facility]. [facility] states patient will be going to the ED at [facility]. The number to call and give report is [phone]. I called for a CD and I completed paperwork. Addendum entered by Ailyn Betts RN 07/19/24 13:07: 12:52 called [facility] to initiate transfer request. Spoke to [facility], faxed over information and pushed over images. Original Note: 1203-received referral for neurosurgery for decompression of the skull.
--- NOTE | 2024-07-19 14:00 | PD.TNEURO ---
Tele Neuro Consultation Consultation Date 07/19/24 Most Recent Vital Signs Last Vital Signs Temp 98.6 F 07/19/24 12:00 Pulse 95 07/19/24 12:00 Resp 15 07/19/24 12:00 BP 180/90 H 07/19/24 12:00 Pulse Ox 94 L 07/19/24 12:00 O2 Del Method Aerosol Mask 07/19/24 12:00 O2 Flow Rate 2 07/19/24 00:00 Laboratory-Coagulation Panel PT 11.4 Seconds (9.0-12.2) 07/18/24 13:40 INR 1.0 (0.9-1.3) 07/18/24 13:40 APTT 22.3 Seconds (22.0-36.0) 07/18/24 13:40 Consultation Narrative [facility] Tele[facility]urology Consult Services Patient Name:???Phu Melendez Date of :???1960 Identification Number:??? Date of Service:???07/19/2024 10:36:07 Diagnosis:?I63.89 - Cerebrovascular accident (CVA) due to other mechanism (HCCC) Impression: ?64 y/o with HTN, substance abuse with L sided ataxia from cerebellar infarction. NIHSS = 4. BP elevated. CT/head with L cerebellar hemispheric infarction extending to the R hemisphere, no hemorrhage. ?CTA without LVO. Not a lytic candidate due to size of infarct/vascular territory and actual LKW (has been unable to walk since prior to this am). CT/head yesterday without evidence of infarction. ?Recomend: ASA 325 now and 81 daily thereafter. BP 160-180s. Neurosurgical consultation as days 3-5 most at risk of post CVA edema, which could cause herniation. ECHO, PT/OT given fall risk. CERTIFIED WELLNESS PROGRAM COORDINATOR evals. Tele. MRI/brain. HbA1c. Neuro f/u. Our recommendations are outlined below. Recommendations: ? Stroke/Telemetry Floor ? Neuro Checks ? Bedside Swallow Eval ? DVT Prophylaxis ? IV Fluids, Normal Saline ? Head of Bed 30 Degrees ? Euglycemia and Avoid Hyperthermia (PRN Acetaminophen) Sign Out: ? Discussed with Emergency Department Provider Advanced Imaging:CTA Head and Neck Completed. LVO:No Patient in not a candidate for JIMMIE Metrics: Last Known Well: 07/19/2024 09:15:00 Dispatch Time: 07/19/2024 10:36:06 Initial Response Time: 07/19/2024 10:39:02Symptoms: N/T L face, L facial droop. Initial patient interaction: 07/19/2024 10:45:11 NIHSS Assessment Completed: 07/19/2024 11:01:39Patient is not a candidate for Thrombolytic. Thrombolytic Medical Decision: 07/19/2024 11:01:40Patient was not deemed candidate for Thrombolytic because of following reasons: Significant head trauma or stroke in previous 3 months . I personally Reviewed the CT Head and it Showed a L cerebellar infarction, > 2/3 of hemisphere. no hemorrhage. wik CT/head negative yesterday at 1354 Radiologist was not called back for review of advanced imaging. Primary Provider Notified of Diagnostic Impression and Management Plan on: 07/19/2024 11:40:57 Spoke With: Trinity Able to Reach 07/19/2024 11:40:57 History of Present Illness:Patient is a 64 year old Male. Inpatient stroke alert was called for symptoms of N/T L face, L facial droop. 64 y/o with HTN, substance abuse. Admitted s/p fall 6' from tree, rib fx, intractable pain. At 1013 he had L facial droop, numbness but had no symptoms at 0915 at administration of am meds. Had meth, opioids, EtOH on board. On CIWA--rec'd lorazepam this am. Not able to walk since admission--per patient. Seen making transfer to bedside commode, very unsteady. ? Past Medical History: ?Hypertension Medications: No Anticoagulant use? No Antiplatelet use Reviewed EMR for current medications Allergies:? Reviewed Social History: Drug Use: Yes Family History: There is no family history of premature cerebrovascular disease pertinent to this consultation ROS : 14 Points Review of Systems was performed and was negative except mentioned in HPI. Past Surgical History: There Is No Surgical History Contributory To Today?s Visit ? Examination: BP(170/82),?Pulse(78),?Blood Glucose(315) 1A: Level of Consciousness - Alert; keenly responsive?+ 0 1B: Ask Month and Age - Both Questions Right?+ 0 1C: Blink Eyes & Squeeze Hands - Performs Both Tasks?+ 0 2: Test Horizontal Extraocular Movements - Normal?+ 0 3: Test Visual Chery - No Visual Loss?+ 0 4: Test Facial Palsy (Use Grimace if Obtunded) - Normal symmetry?+ 0 5A: Test Left Arm Motor Drift - No Drift for 10 Seconds?+ 0 5B: Test Right Arm Motor Drift - No Drift for 10 Seconds?+ 0 6A: Test Left Leg Motor Drift - No Drift for 5 Seconds?+ 0 6B: Test Right Leg Motor Drift - No Drift for 5 Seconds?+ 0 7: Test Limb Ataxia (FNF/Heel-Hagan) - Ataxia in 2 Limbs?+ 2 8: Test Sensation - Mild-Moderate Loss: Less Sharp/More Dull?+ 1 9: Test Language/Aphasia - Normal; No aphasia?+ 0 10: Test Dysarthria - Mild-Moderate Dysarthria: Slurring but can be understood?+ 1 11: Test Extinction/Inattention - No abnormality?+ 0 NIHSS Score:?4 NIHSS Free Text :?OD exophoria--chronic/lifelong ?LT on L is different/stronger Pre-Morbid Modified Gibson Scale:0 Points = No symptoms at all Spoke with :Juan This consult was conducted in real time using interactive audio and video technology. Patient was informed of the technology being used for this visit and agreed to proceed. Patient located in hospital and provider located at home/office setting. Patient is being evaluated for possible acute neurologic impairment and high probability of imminent or life-threatening deterioration. I spent total of 35 minutes providing care to this patient, including time for face to face visit via telemedicine, review of medical records, imaging studies and discussion of findings with providers, the patient and/or family. Dr Erma Mcguire [facility] For Inpatient follow-up with [facility] physician please call [facility] at . As we are not an outpatient service for any post hospital discharge needs please contact the hospital for assistance. If you have any questions for the [facility] physicians or need to reconsult for clinical or diagnostic changes please contact us via [facility] at . ?
--- NOTE | 2024-07-19 16:50 | PC.NURSE ---
pt.transferred to [facility] via ambulance with all personal belongings.phone report given to Renata,triage nurse.pt.brothcurt Titus was notified.
== END 2024-07-19 16:45 | disposition short-term general hospital (02) | DRG 205 ==
LOC: SERX 17:33 → SERHOLD 18:58 → S3NX 22:24 → S2NX 07-19 11:25
PROVIDERS: Student in an Organized Health Care Education/Training Program; Admitting Provider Student in an Organized Health Care Education/Training Program; Emergency Provider Emergency Medicine; Visit Provider Student in an Organized Health Care Education/Training Program
DX: S22.32XA Fracture of one rib, left side, initial encounter for closed fracture (principal); I63.549 Cerebral infarction due to unspecified occlusion or stenosis of unspecified cerebellar artery; S32.028A Other fracture of second lumbar vertebra, initial encounter for closed fracture; S32.048A Other fracture of fourth lumbar vertebra, initial encounter for closed fracture; I16.0 Hypertensive urgency; E11.65 Type 2 diabetes mellitus with hyperglycemia; F17.200 Nicotine dependence, unspecified, uncomplicated; I10 Essential (primary) hypertension; F10.10 Alcohol abuse, uncomplicated; R29.810 Facial weakness; R29.706 NIHSS score 6; R27.0 Ataxia, unspecified; W14.XXXA Fall from tree, initial encounter; Z79.84 Long term (current) use of oral hypoglycemic drugs; Z79.899 Other long term (current) drug therapy
CPT/HCPCS: 36415; 70450; 70496; 70498; 71045; 71260; 72125; 72128; 74177; 80053; 80307; 80320; 81001; 83036; 83605; 83690; 83735; 84100; 85025; 85610; 85730; 86850; 86900; 86901; 90715; 92610; 93225; A4649; J0360; J1815; J2270; J2405; J3490; J7030; J7040; J7120; Q9967; A9270; G0480; J1920

== ENCOUNTER 2024-08-18 19:07 | Inpatient (IN) | payer OTHER, SELFPAY ==
[2024-08-18 19:20] VITALS: PULSE 82; RESP 15; O2SAT 95
[2024-08-18 20:00] VITALS: BP 135/72; PULSE 63; PULSE 65; RESP 10; TEMP 37; O2SAT 99
--- NOTE | 2024-08-18 20:35 | EVENTNT_ITS ---
Documentation for date of: 08/18/24 Event Note Event Note: Mr. Melendez fell off a 6-foot ladder at work on 07/18/24 and was found to have a displaced fracture of the left fourth rib, as well as acute fractures of the left second and fourth lumbar transverse processes. During hospitalization, hypodensity changes were noted in the cerebellum, most prominent in the posterior portion on the left side, extending across the midline to the medial portion of the right cerebellum. He was transferred to [facility] on 07/19 for further evaluation. His ICU course was complicated by progressive neurologic decline, necessitating intubation and sedation, followed by tracheostomy and PEG placement. Imaging revealed extensive infarcts in the bilateral cerebral hemispheres and corpus callosum, raising concerns for multifocal vascular territory infarcts and a possible vasculitis or encephalomyelitis process. He developed MSSA pneumonia with bacteremia, which was treated with cefepime and later transitioned to Ancef. He also experienced right upper extremity superficial thrombophlebitis and persistent SIRS. Despite treatment, he remained nonverbal and nonresponsive, with severe anasarca and a poor neurologic prognosis. Palliative care was involved. DNR/full treatment. He is being transferred back for continued supportive and possibly palliative care.
--- NOTE | 2024-08-18 21:01 | XR_ITS ---
Examination: AP chest single view Technique one AP portable semiupright chest single view Exam date and time: August 18, 2024 2129 hrs. Indications: Chest pain shortness of breath today Comparison: July 18, 2024 Findings: Interval extensive bilateral lung opacity Mild prominence left ventricle Tracheostomy tube tip 5.6 cm above myles Impression: Interval extensive bilateral pneumonia
[2024-08-18 21:35] LABS: Basophils % (Auto) 0 % (0-2.5); Eosinophils # (Auto) 0.1 Thou/mm3 (0.0-0.5); Eosinophils % (Auto) 1 % (0-10); Hematocrit 24.1 % (41.0-53.0); Immature Granulocytes % (Auto) 1 % (0-0); Immature Granulocytes Auto 0.05 Thou/mm3 (0.00-0.00); Lymphocytes # (Auto) 1.3 Thou/mm3 (1.0-4.8); Lymphocytes % (Auto) 14 % (10-50); Mean Corpuscular Hemoglobin 30.1 pg (25.0-35.0); Mean Corpuscular Volume 94 fL (80-100); Monocytes # (Auto) 0.9 Thou/mm3 (0.0-0.8); Monocytes % (Auto) 9 % (0-12); Neutrophils # (Auto) 7.1 Thou/mm3 (1.8-7.7); Neutrophils % (Auto) 75 % (37-80); Nucleated Red Blood Cell % 0 /100 WBC (0); Platelet Count 363 Thou/mm3 (140-440); RDW Standard Deviation 44.7 fL (35.1-43.9); Red Blood Count 2.56 Miln/mm3 (4.50-5.90); White Blood Count 9.4 Thou/mm3 (3.8-10.6)
[2024-08-18 21:36] LABS: Hemoglobin 7.7 g/dL (13.5-16.0)
[2024-08-18 22:04] LABS: Alanine Aminotransferase 14 U/L (10-49); Albumin, Serum 3.6 gm/dL (3.4-4.8); Albumin/Globulin Ratio 1.2 (1.2-2.2); Alkaline Phosphatase 142 U/L (46-116); Anion Gap 9 (7-16); Aspartate Amino Transferase 29 U/L (0-34); BUN/Creatinine Ratio 27 Ratio (12-20); Bilirubin,Total 0.5 mg/dL (0.3-1.2); Blood Urea Nitrogen 16 mg/dL (9-23); Calcium 8.4 mg/dL (8.3-10.6); Calcium (Corrected) 8.7 mg/dL (8.5-10.1); Carbon Dioxide 26.9 mMol/L (20.0-31.0); Chloride 104 mMol/L (98-107); Creatinine (Component) 0.6 mg/dL (0.6-1.3); Estimated Creatinine Clearance 239.1 mL/min (>60); Glucose 135 mg/dL (74-106); Osmolality,Calculated 282 (275-295); Potassium 3.5 mMol/L (3.4-5.1); Sodium 140 mMol/L (136-145); Total Protein 6.6 gm/dL (5.7-8.2); eGFR > 60 See Note
--- NOTE | 2024-08-18 22:17 | PD.RESHP ---
Documentation for date of: 08/18/24 [facility] History of Present Illness History of present illness: The patient is a 64-year-old male with significant past medical history of uncontrolled hypertension and diabetes mellitus type 2 who was initially admitted to [facility] on 07/18/2024 after he had a fall from 6 feet ladder while cutting tree branches at work, was transferred to [facility] after being found to have acute cerebellar stroke and displaced fracture of the left fourth rib, as well as acute fractures of the left second and fourth lumbar transverse processes for further neurosurgical management , was transferred back to [facility] on 08/18/2024. His ICU course in [facility] was complicated by progressive neurological decline, requiring further intubation and sedation, followed by tracheostomy and PEG tube placement. History was obtained from chart review. Imaging revealed extensive infarct in the bilateral cerebral hemispheres and corpus callosum, raising concerns for multifocal vascular territory infract and a possible vasculitis or encephalomyelitis process. He also developed MSSA pneumonia with bacteremia, was initially treated with cefepime and later switched to cefazolin. He was also found to have right upper extremity superficial thrombophlebitis and persistent SIRS. He has currently remained nonverbal and nonresponsive with severe anasarca and poor neurological prognosis. He is being transferred back to our facility with DNR/full treatment, requiring continuing supportive care and possible palliative care. During presentation, his vitals were stable with blood pressure 135/72, RR 10, saturating 99% on mechanical ventilation. Labs revealed hemoglobin 7.7, CMP fairly stable and CXR revealed interval extensive bilateral pneumonia. PMH: As mentioned above SHX: Tracheostomy and PEG tube placement Family history: Unobtainable Social history: Unobtainable Medications: Polyethylene glycol 17 g twice daily, bisacodyl 10 mg rectally daily, cefazolin 2 g IV 3 times daily, cholecalciferol 1000 units daily, carvedilol 12.5 Mg twice daily, insulin glargine 15 units daily, enoxaparin 40 Mg daily, hydralazine 100 Mg 3 times daily, baclofen 5 mg 3 times daily, doxazosin 1 mg daily, amlodipine 10 mg daily, thiamine 100 Mg daily, atorvastatin 80 Mg daily, multivitamin 1 tab daily, aspirin 81 Mg daily, esomeprazole 40 Mg daily, losartan 100 Mg daily, insulin regular 0 to 18 units 4 times daily, Lasix, senna docusate 2 tablets daily at night as needed for constipation, acetaminophen 500 mg every 6 hourly as needed for fever, fentanyl 50 mcg every 2 hourly as for agitation, DuoNeb as needed every 4 hourly for wheezing, hydralazine 10 mg IV every 4 hourly and labetalol 10 mg every 4 hourly as needed for hypertensive urgency. Allergies: No known drug allergies Patient is currently admitted to telemetry unit. Review of Systems Review of Systems ROS Unobtainable: unobtainable due to mental status and due to endotracheal tube Exam Vital Signs Temp Pulse Resp BP Pulse Ox O2 Del Method 98.6 F 63 10 L 135/72 H 99 Mechanical Ventilation 08/18/24 20:00 08/18/24 20:00 08/18/24 20:00 08/18/24 20:00 08/18/24 20:00 08/18/24 20:00 Narrative Exam General: No acute distress, comfortable in bed HEENT: Moist mucous membranes, oropharynx clear, pupils bilaterally reactive left 6 mm and right 4 mm Neck: Supple, No masses, No JVD CVS: S1S2 Regular rate and rhythm, No murmurs, rubs or gallops Lungs: Normal respiratory effort and rate, on vent Abd: Soft, NT/ND, +BS, no organomegaly, on PEG tube Ext: Anasarca, warm and well perfused Skin: No rash Psych: Unobtainable Neuro: Sensation: Withdraws from pain stimulus in bilateral lower extremity and right upper extremity, no withdrawal in left upper extremity, moving right side spontaneously Cranial nerves: CN palsy, limited cranial nerve exam due to patient's participation Results: Labs 08/18/24 21:09 08/18/24 21:09 Labs: Short CBC 08/18/24 Range/Units 21:09 WBC 9.4 (3.8-10.6) Thou/mm3 Hgb 7.7 L (13.5-16.0) g/dL Hct 24.1 L (41.0-53.0) % Plt Count 363 D (140-440) Thou/mm3 BMP 08/18/24 21:09 Sodium 140 Potassium 3.5 Chloride 104 Carbon Dioxide 26.9 BUN 16 Creatinine 0.6 Glucose 135 H Calcium 8.4 Liver Function 08/18/24 Range/Units 21:09 Total Bilirubin 0.5 (0.3-1.2) mg/dL AST 29 (0-34) U/L ALT 14 (10-49) U/L Alkaline Phosphatase 142 H (46-116) U/L Albumin 3.6 (3.4-4.8) gm/dL Quality Measures Quality Measures VTE prophylaxis Medications Home Medications and Allergies Home Medications ?Medication ?Instructions ?Recorded ?Confirmed ?Type No Known Home Medications 07/19/24 07/19/24 History Allergies Allergy/AdvReac Type Severity Reaction Status Date / Time No Known Allergies Allergy Verified 07/18/24 13:21 Visit Medications Acetaminophen (Acetaminophen 325 Mg Tablet) 650 mg PO Q6H PRN PRN Reason: Fever >100.5 Stop: 09/17/24 21:28 Hydrocodone Bitart/Acetaminophen (Hydrocodone/Apap 5/325 Tablet) 1 tab GT Q4HR PRN PRN Reason: PAIN SCALE 4-6 (Moderate Stop: 08/23/24 21:28 Albuterol/Ipratropium (Albuterol/Ipratropium (Duoneb) Rt Yelena 3 Ml Nebu) 3 ml INH Q4HRRT PRN PRN Reason: sob or wheeze Stop: 09/17/24 22:59 Amlodipine Besylate (Amlodipine Besylate 5 Mg Tablet) 10 mg GT QDAY [facility]SEMANUEL Stop: 09/18/24 08:59 Aspirin (Aspirin 81 Mg Chew) 81 mg GT QDAY [facility]SEMANUEL Stop: 09/18/24 08:59 Atorvastatin Calcium (Atorvastatin Calcium 20 Mg Tablet) 80 mg GT HS [facility]SEMANUEL Stop: 09/18/24 20:59 Baclofen (Baclofen 10 Mg Tablet) 5 mg GT TID JOSEMANUEL Stop: 09/17/24 21:59 Bisacodyl (Bisacodyl 10 Mg Supp) 10 mg AK QDAY PRN; Protocol PRN Reason: CONSTIPATION Stop: 09/17/24 21:40 Carvedilol (Carvedilol 12.5 Mg Tablet) 12.5 mg GT BIDWM JOSEMANUEL Stop: 09/18/24 07:59 Dextrose (Dextrose 50%-Water Inj 50 Ml Syringe) 25 ml IV Q15MIN PRN PRN Reason: BG 50-70 responsive npo pt Stop: 09/17/24 21:28 Dextrose (Dextrose 50%-Water Inj 50 Ml Syringe) 50 ml IV Q15MIN PRN PRN Reason: BG <50 OR BG <70 & pt unresponsive Stop: 09/17/24 21:28 Doxazosin Mesylate (Doxazosin Mesylate 1 Mg Tablet) 1 mg GT HS [facility] Stop: 09/18/24 20:59 Enoxaparin Sodium (Enoxaparin Sod Inj 40 Mg/0.4 Ml Syringe) 40 mg SC QDAY [facility] Stop: 09/02/24 08:59 Fentanyl Citrate (Fentanyl Cit Inj 50 Mcg/Ml Amp 2ml) 50 mcg IV Q2H PRN PRN Reason: Breakthrough Pain or agitation Stop: 08/23/24 21:46 Glucagon (Glucagon Inj 1 Mg Vial) 1 mg IM Q15MIN PRN PRN Reason: BG <70, and no IV access Hydralazine HCl (Hydralazine Hcl 25 Mg Tablet) 100 mg GT TID [facility] Stop: 09/17/24 21:59 Hydralazine HCl (Hydralazine Inj 20 Mg/Ml Vial) 10 mg IV Q4H PRN PRN Reason: SBP >180 or DBP >120 and HR <70 Stop: 09/17/24 21:51 Cefazolin Sodium (Ancef 2gm Ivpb) 2 gm in 100 mls @ 100 mls/hr IV Q8HR [facility] Stop: 08/25/24 21:59 Insulin Glargine (Insulin Glargine (Lantus) 5 Unit/0.05 Ml (Per 5 Units)) 15 unit SC QDAY [facility] Stop: 09/18/24 08:59 Insulin Human Lispro (Insulin Lispro (Admelog) 1 Unit/0.01 Ml Unit) 0 unit SC Q6HR [facility]; Protocol Stop: 09/18/24 00:00 Labetalol HCl (Labetalol Inj 5 Mg/Ml Vial 20 Ml) 10 mg IVP Q4H PRN PRN Reason: SBP>180 or DBP >120 and HR >70 Stop: 09/17/24 21:51 Losartan Potassium (Losartan Potassium 25 Mg Tablet) 100 mg GT QDAY [facility] Stop: 09/18/24 08:59 Multivitamins (Multivitamins Tablet) 1 tab PO QDAY [facility] Stop: 09/18/24 08:59 Ondansetron HCl (Ondansetron Inj 2 Mg/Ml Inj 2 Ml) 4 mg IV Q6H PRN; Protocol PRN Reason: NAUSEA OR VOMITING Stop: 09/17/24 21:28 Pantoprazole Sodium (Pantoprazole Inj 40 Mg Vial) 40 mg IVP QDAY [facility] Stop: 09/18/24 08:59 Polyethylene Glycol (Polyethylene Glycol 17 Gm Packet) 17 gm GT BID [facility] Stop: 09/17/24 21:44 Sennosides (Senna/Docusate Sod 1 Tab Tablet) 2 tab PO HS [facility]SE[facility]UEL; Protocol Stop: 09/18/24 20:59 Thiamine HCl (Thiamine 100 Mg Tablet) 100 mg GT QDAY [facility] Stop: 09/18/24 08:59 Vitamin D (Cholecalciferol (Vitamin D3) 1,000 Iu Tablet) 1,000 iu GT QDAY [facility] Stop: 09/18/24 08:59 Assessment & Plan Plan The patient is a 64-year-old male with significant past medical history of uncontrolled hypertension and diabetes mellitus type 2 who was initially admitted to [facility] on 07/18/2024 after he had a fall from 6 feet ladder while cutting tree branches at work, was transferred to [facility] after being found to have acute cerebellar stroke and displaced fracture of the left fourth rib, as well as acute fractures of the left second and fourth lumbar transverse processes for further neurosurgical management , was transferred back to [facility] on 08/18/2024. He is being transferred back to our facility with DNR/full treatment, requiring continuing supportive care and possible palliative care. Patient is currently admitted to telemetry unit. #Acute ischemic multifocal multiple vascular territory stroke MRI on 08/09/2024 at [facility] revealed extensive area of restricted diffusion involving both cerebral hemispheres, right centrum semimobile, corpus callosum, and posterior fossa, with possible acute disseminated encephalomyelitis or vasculitis related etiology, CTh on 413 revealed improving mass effect associated with known infarcts without new process - Continue to monitor on telemetry unit - Continue on aspirin 81 Mg daily and Lipitor 80 Mg daily at night - Sodium goal 140-150 - Maintain normotension #Diabetes mellitus type 2 A1c ordered - Lantus 15 units daily - Sliding scale insulin level 2 with lispro every 6 hour #MSSA bacteremia Patient initially had MSSA pneumonia, and was treated with cefepime for 10 days, blood culture positive with 1/2 positive blood cultures for MSSA Echo done on 08/12/2024 revealed LVEF 55 to 60%, poorly visualized valves, no pericardial effusion - Repeat blood culture ordered - Continue with cefazolin 2 g every 8 hourly until 09/20/2024 - Follow-up on anti-MOG serum, aquaporin 4 antibody from [facility] - VDRL negative, cryptococcal negative, AFB, fungal cultures negative to date as per record #Uncontrolled hypertension The patient's blood pressure was continuously sustained above 200 mmhg - SBP goal less than 160 mmHg - Losartan 100 Mg daily - Hydralazine 100 Mg every 8 hourly - Amlodipine 10 mg daily - Carvedilol 12.5 Mg twice daily - Labetalol/hydralazine IV as needed #Chronic respiratory failure Initially intubated for increased work of breathing, not improving on BiPAP, s/p trach and PEG on 08/05/2024, and was noted to have adenovirus positive on 08/04/2024 - Had not elevated to 30 degree - Peridex oral hygiene every 4 hourly - ABG as needed #Glaucoma of left eye - Follow-up outpatient ophthalmology #Urinary retention - Indwelling Hutchins, Hutchins care - Continue doxazosin 1 mg daily #Myoclonus Spontaneous contraction to noxious stimuli - Baclofen 5 mg 3 times daily #Vitamin D deficiency - Vitamin D 1000 units daily Health maintenance: Dispo: Patient is transferred back from [facility] after undergoing tracheostomy and PEG tube placement, currently admitted to telemetry unit Diet: Via PEG tube DVT prophylaxis: Subcu enoxaparin 40 Mg daily CODE STATUS: DNR The patient's management plan was discussed with my attending physician MD Eric Fritz MD, PGY2 Attending Provider Attestation/Addendum Pt was evaluated and plan formulated together with the housestaff team. I have reviewed the residents note above and agree with most of its content. Please refer to the residents note for additional details.
[2024-08-18 22:38] VITALS: BP 135/72; PULSE 60
[2024-08-18] MEDS: POLYETHYLENE GLYCOL 17 GM PACKET GT (22:38)
[2024-08-18] MEDS: BACLOFEN 10 MG TABLET 5 MG GT (22:38)
[2024-08-18] MEDS: hydrALAZINE HCL 25 MG TABLET 100 MG GT (22:38)
[2024-08-18] MEDS: ceFAZolin/D5W 2 GM IV 2 GM/100 ML BAG IV (22:46)
[2024-08-18 23:00] VITALS: PULSE 75; RESP 13; O2SAT 96
[2024-08-19] VITALS (17 sets, daily range): BP systolic 107–142; BP diastolic 55–87; PULSE 52–86; RESP 13–20; TEMP 36.1–36.6; O2SAT 94–98; BMI 31.8; BMI 31.7
[2024-08-19] MEDS: BACLOFEN 10 MG TABLET 5 MG GT ×3 (05:35→21:53)
[2024-08-19] MEDS: ceFAZolin/D5W 2 GM IV 2 GM/100 ML BAG IV ×3 (05:35→21:53)
[2024-08-19] MEDS: hydrALAZINE HCL 25 MG TABLET 100 MG GT ×3 (05:35→21:53)
[2024-08-19 05:51] LABS: Basophils % (Auto) 0 % (0-2.5); Eosinophils # (Auto) 0.1 Thou/mm3 (0.0-0.5); Eosinophils % (Auto) 2 % (0-10); Hematocrit 23.8 % (41.0-53.0); Immature Granulocytes % (Auto) 1 % (0-0); Immature Granulocytes Auto 0.04 Thou/mm3 (0.00-0.00); Lymphocytes # (Auto) 1.6 Thou/mm3 (1.0-4.8); Lymphocytes % (Auto) 20 % (10-50); Mean Corpuscular HGB Conc 31.9 g/dl (31.0-37.0); Mean Corpuscular Hemoglobin 29.9 pg (25.0-35.0); Mean Corpuscular Volume 94 fL (80-100); Monocytes # (Auto) 0.7 Thou/mm3 (0.0-0.8); Monocytes % (Auto) 10 % (0-12); Neutrophils # (Auto) 5.2 Thou/mm3 (1.8-7.7); Neutrophils % (Auto) 68 % (37-80); Nucleated Red Blood Cell % 0 /100 WBC (0); Platelet Count 355 Thou/mm3 (140-440); RDW Standard Deviation 44.7 fL (35.1-43.9); Red Blood Count 2.54 Miln/mm3 (4.50-5.90); White Blood Count 7.7 Thou/mm3 (3.8-10.6)
[2024-08-19 05:55] LABS: Hemoglobin 7.6 g/dL (13.5-16.0)
[2024-08-19 06:17] LABS: Glucose Estimated Average 189 mg/dL (80-131); Hemoglobin A1C 8.2 % Hgb (4.8-6.0)
[2024-08-19 06:27] LABS: Alanine Aminotransferase 11 U/L (10-49); Albumin, Serum 3.4 gm/dL (3.4-4.8); Albumin/Globulin Ratio 1.2 (1.2-2.2); Alkaline Phosphatase 140 U/L (46-116); Anion Gap 8 (7-16); Aspartate Amino Transferase 26 U/L (0-34); BUN/Creatinine Ratio 22 Ratio (12-20); Bilirubin,Total 0.5 mg/dL (0.3-1.2); Blood Urea Nitrogen 13 mg/dL (9-23); Calcium 8.3 mg/dL (8.3-10.6); Calcium (Corrected) 8.8 mg/dL (8.5-10.1); Carbon Dioxide 28.3 mMol/L (20.0-31.0); Cardiac Risk Estimate 2.6 RATIO (4.0-6.7); Chloride 106 mMol/L (98-107); Cholesterol 63 mg/dL (132-200); Creatinine (Component) 0.6 mg/dL (0.6-1.3); Estimated Creatinine Clearance 151.5 mL/min (>60); Globulin 2.9 gm/dL (2.3-3.5); Glucose 116 mg/dL (74-106); HDL Cholesterol 24 mg/dL (40-60); LDL Cholesterol,Calculated 25 mg/dL (0-130); Magnesium 2.1 mg/dL (1.6-2.6); Osmolality,Calculated 284 (275-295); Phosphorous 3.2 mg/dL (2.4-5.1); Potassium 3.3 mMol/L (3.4-5.1); Sodium 142 mMol/L (136-145); Thyroid Stimulating Hormone 1.18 uIU/mL (0.55-4.78); Total Protein 6.3 gm/dL (5.7-8.2); Triglycerides 69 mg/dL (30-150); eGFR > 60 See Note
[2024-08-19] MEDS: POTASSIUM CHLORIDE 10% 20 MEQ/15 ML UDC 40 MEQ GT (09:09)
[2024-08-19] MEDS: ENOXAPARIN SOD INJ 40 MG/0.4 ML SYRINGE SC (09:10)
[2024-08-19] MEDS: LOSARTAN POTASSIUM 25 MG TABLET 100 MG GT (09:10)
[2024-08-19] MEDS: MULTIVITAMINS TABLET 1 TAB PO (09:10)
[2024-08-19] MEDS: ASPIRIN 81 MG CHEW GT (09:11)
[2024-08-19] MEDS: PANTOPRAZOLE INJ 40 MG VIAL IVP (09:11)
[2024-08-19] MEDS: amLODIPine BESYLATE 5 MG TABLET 10 MG GT (09:11)
[2024-08-19] MEDS: POLYETHYLENE GLYCOL 17 GM PACKET GT (09:11)
[2024-08-19] MEDS: CHOLECALCIFEROL (Vitamin D3) 1,000 IU TABLET 1000 IU GT (09:12)
[2024-08-19] MEDS: carVEDILOL 12.5 MG TABLET GT (09:12)
[2024-08-19] MEDS: THIAMINE 100 MG TABLET GT (09:13)
--- NOTE | 2024-08-19 10:54 | PC.DIETICIAN ---
Nutrition prescription Glucerna 1.2 at 45 ml/hr via PEG tube by pump. Advance 10 ml every 8 hrs to goal rate of 65 ml/hr x 24 hrs. If no IV fluids, water flushes of 30 ml/hr (or per MD).
--- NOTE | 2024-08-19 13:09 | ESPR_ITS ---
<Statement entered by Bayron Foley MD - 08/22/24 13:01> I reviewed above note and agree with findings and plans. I have also personally examined the patient with medicine team and went over assessment and plan with medical team including advisory internship and resident physician. Documentation for date of: 08/19/24 Senior resident attestation: Patient is a 64-year-old male, status post trach and PEG, DNR status but full treatment. Transferred back from [facility] following hospitalization for multiple medical problems including ischemic stroke including multiple vascular territories, possible embolic stroke versus vasculitis/encephalitis, on antibiotics cefazolin through September 20 for MSSA bacteremia and possible infective endocarditis,, patient unable to tolerate YANELIS at [facility]. Other medical problems include anemia, anasarca, diabetes mellitus and hypertension. Will get cardiology and neurology on board, possible YANELIS if cardiology agrees. Continue antibiotics as recommended by [facility] ID specialist. #Concern for infective endocarditis #MSSA bacteremia #Ischemic stroke, likely embolic #DM Patient evaluated and examined at the bedside, plan of care discussed with rest of the team including my attending physician, except as noted. Quresh PGY2 Subjective Subjective Interval history: Patient is a 64-year-old male with a limited past medical history of alcohol use disorder and possible history of meth use disorder who was initially admitted on 07/19/2024 secondary to intractable pain from the left fourth rib and fractures of the 2nd and 4th lumbar transverse processes with hypertensive urgency after sustaining a fall from a 6 foot ladder. Upon admission patient began to complain of blurry vision and left-sided facial droop. Stroke alert called and CT head showed low density changes in the cerebellum on the left and extended across the midline in the medial portion of the right cerebellum. Patient was subsequently transferred to [facility] given risk of herniation. Upon arrival to [facility] patient was initially really admitted to the neuro CCU for acute ischemic stroke and eventually upgraded on 07/24/2024 to ICU as Glascow score of 11. MRI on 07/30 showed acute infarcts in the bilateral corpus callosum and repeat MRI on 08 09 showed ischemia in both cerebral hemisphere, right centrum semi-Avolio, corpus callosum, posterior fossa. Patient was trached and pegged and eventually downgraded back to neuro CCU on . In addition patient was treated for bacteremia shown to be MSSA given positive blood cultures 1 out of 2. Patient was started on cefazolin to be continued until September 20, 2024. Patient returned overnight to [facility] where care was assumed on 08/18/2024. Spoke with family decision maker, Phu Melendez, who stated their hope is that their is improvement with his fathers medical prognosis. They would like to place patient in a subacute within [place]. Patient's son stated that YANELIS failed during ICU stay as they were unable to perform the procedure while the patient was intubated. Patient's son was unaware that patient was using meth/amphetamines. ANASARCA developed after ICU stay. Phu Melendez (Son), call [phone]. Exam Vital Signs Temp Pulse Resp BP Pulse Ox O2 Del Method FiO2 97.0 F 52 L 19 136/67 H 98 Mechanical Ventilation 40 08/19/24 08:00 08/19/24 11:43 08/19/24 08:00 08/19/24 09:12 08/19/24 11:43 08/19/24 08:00 08/19/24 11:43 Narrative Exam General Appearance: Alert & Oriented X0, well-nourished male who is lying in bed in no acute distress, with lower pedal edema noted 2+ and mild scrotal swelling as well. HEENT: Skull symmetrical and atraumatic. Conjunctivae pin and moist. Pupils equal, round, reactive to light and accommodation (PERRL). External ear without lesion or discharge. Straight, nares patient, mucosa pink, no discharge. No thyroid nodule appreciated. No cervical lymphadenopathy. Cardio: Normal Rate and Rhythm with S1 and S2 heart sounds. No murmurs or extra heart sounds auscultated. No bruits on carotid auscultation. No peripheral edema or cyanosis. Lungs: Symmetric with good expansion. Chest and back non-tender. Breath sounds vesicular without crackles up upper airway sounds, likely secondary to being on trach. Abdomen: Non-tender, Non-distended, Normal Reactive Bowel Sounds Neuro: YES Alert, NO cooperative, No oriented to person, NO place, and NO time. unable to follow commands, no motor function. Objective Labs 08/20/24 04:46 08/20/24 04:46 Labs: Laboratory Results - last 24 hr 08/18/24 08/19/24 21:09 05:03 WBC 9.4 7.7 RBC 2.56 L 2.54 L Hgb 7.7 L 7.6 L Hct 24.1 L 23.8 L MCV 94 94 MCH 30.1 29.9 MCHC 32.0 31.9 RDW Std Deviation 44.7 H 44.7 H Plt Count 363 D 355 Neut % (Auto) 75 68 Lymph % (Auto) 14 20 Nicholas % (Auto) 9 10 Eos % (Auto) 1 2 Baso % (Auto) 0 0 Neut # (Auto) 7.1 5.2 Lymph # (Auto) 1.3 1.6 Nicholas # (Auto) 0.9 H 0.7 Eos # (Auto) 0.1 0.1 Baso # (Auto) 0.0 0.0 Immature Gran # (Auto) 0.05 H 0.04 H Absolute Nucleated RBC 0.00 0.00 Immature Gran % 1 H 1 H Nucleated RBC % 0 0 Sodium 140 142 Potassium 3.5 3.3 L Chloride 104 106 Carbon Dioxide 26.9 28.3 Anion Gap 9 8 BUN 16 13 Creatinine 0.6 0.6 Estim Creat Clear Calc 239.1 151.5 eGFR > 60 > 60 BUN/Creatinine Ratio 27 H 22 H Glucose [address] Glu mg/dL 189 H Hemoglobin A1c 8.2 H Calculated Osmolality 282 284 Calcium 8.4 8.3 Corrected Calcium 8.7 8.8 Phosphorus 3.2 Magnesium 2.1 Total Bilirubin 0.5 0.5 AST 29 26 ALT 14 11 Alkaline Phosphatase 142 H 140 H Total Protein 6.6 6.3 Albumin 3.6 3.4 Globulin 3.0 2.9 Albumin/Globulin Ratio 1.2 1.2 Triglycerides 69 Cholesterol 63 L LDL Cholesterol, Calc 25 HDL Cholesterol 24 L Cholesterol/HDL Ratio 2.6 L TSH 1.18 Quality Measures Quality Measures VTE prophylaxis Assessment & Plan Assessment Current Active Medications: Generic Name Dose Route Start Last Admin Trade Name Freq PRN Reason Stop Dose Admin Acetaminophen 650 mg 08/18/24 21:29 Acetaminophen 325 Mg Tablet PO 09/17/24 21:28 Q6H PRN Fever >100.5 Hydrocodone Bitart/Acetaminophen 1 tab 08/18/24 21:29 Hydrocodone/Apap 5/325 Tablet GT 08/23/24 21:28 Q4HR PRN PAIN SCALE 4-6 (Moderate Albuterol/Ipratropium 3 ml 08/18/24 21:52 Albuterol/Ipratropium (Duoneb) Rt Yelena 3 Ml Nebu INH 09/17/24 22:59 Q4HRRT PRN sob or wheeze Amlodipine Besylate 10 mg 08/19/24 09:00 08/19/24 09:11 Amlodipine Besylate 5 Mg Tablet GT 09/18/24 08:59 10 mg QDAY JOSEMANUEL Administration Aspirin 81 mg 08/19/24 09:00 08/19/24 09:11 Aspirin 81 Mg Chew GT 09/18/24 08:59 81 mg QDAY JOSEMANUEL Administration Atorvastatin Calcium 80 mg 08/19/24 21:00 Atorvastatin Calcium 20 Mg Tablet GT 09/18/24 20:59 HS JOSEMANUEL Baclofen 5 mg 08/18/24 22:00 08/19/24 05:35 Baclofen 10 Mg Tablet GT 09/17/24 21:59 5 mg TID JOSEMANUEL Administration Bisacodyl 10 mg 08/18/24 21:41 Bisacodyl 10 Mg Supp NH 09/17/24 21:40 QDAY PRN CONSTIPATION Protocol Carvedilol 12.5 mg 08/19/24 08:00 08/19/24 09:12 Carvedilol 12.5 Mg Tablet GT 09/18/24 07:59 12.5 mg BIDWM JOSEMANUEL Administration Dextrose 25 ml 08/18/24 21:29 Dextrose 50%-Water Inj 50 Ml Syringe IV 09/17/24 21:28 Q15MIN PRN BG 50-70 responsive npo pt Dextrose 50 ml 08/18/24 21:29 Dextrose 50%-Water Inj 50 Ml Syringe IV 09/17/24 21:28 Q15MIN PRN BG <50 OR BG <70 & pt unresponsive Doxazosin Mesylate 1 mg 08/19/24 21:00 Doxazosin Mesylate 1 Mg Tablet GT 09/18/24 20:59 HS JOSEMANUEL Enoxaparin Sodium 40 mg 08/19/24 09:00 08/19/24 09:10 Enoxaparin Sod Inj 40 Mg/0.4 Ml Syringe SC 09/02/24 08:59 40 mg QDAY JOSEMANUEL Administration Fentanyl Citrate 50 mcg 08/18/24 21:47 Fentanyl Cit Inj 50 Mcg/Ml Amp 2ml IV 08/23/24 21:46 Q2H PRN Breakthrough Pain or agitation Glucagon 1 mg 08/18/24 21:29 Glucagon Inj 1 Mg Vial IM Q15MIN PRN BG <70, and no IV access Hydralazine HCl 100 mg 08/18/24 22:00 08/19/24 05:35 Hydralazine Hcl 25 Mg Tablet GT 09/17/24 21:59 100 mg TID JOSEMANUEL Administration Hydralazine HCl 10 mg 08/18/24 21:52 Hydralazine Inj 20 Mg/Ml Vial IV 09/17/24 21:51 Q4H PRN SBP >180 or DBP >120 and HR <70 Cefazolin Sodium 2 gm in 100 mls @ 100 mls/hr 08/18/24 22:00 08/19/24 05:35 Ancef 2gm Ivpb IV 09/20/24 21:00 100 mls/hr Q8HR JOSEMANUEL Administration Insulin Glargine 15 unit 08/19/24 09:00 08/19/24 08:49 Insulin Glargine (Lantus) 5 Unit/0.05 Ml (Per 5 Units) SC 09/18/24 08:59 Not Given QDAY [facility] Insulin Human Lispro 0 unit 08/19/24 00:00 08/19/24 11:45 Insulin Lispro (Admelog) 1 Unit/0.01 Ml Unit SC 09/18/24 00:00 Not Given Q6HR [facility] Protocol Labetalol HCl 10 mg 08/18/24 21:52 Labetalol Inj 5 Mg/Ml Vial 20 Ml IVP 09/17/24 21:51 Q4H PRN SBP>180 or DBP >120 and HR >70 Losartan Potassium 100 mg 08/19/24 09:00 08/19/24 09:10 Losartan Potassium 25 Mg Tablet GT 09/18/24 08:59 100 mg QDAY JOSEMANUEL Administration Multivitamins 1 tab 08/19/24 09:00 08/19/24 09:10 Multivitamins Tablet PO 09/18/24 08:59 1 tab QDAY JOSEMANUEL Administration Ondansetron HCl 4 mg 08/18/24 21:29 Ondansetron Inj 2 Mg/Ml Inj 2 Ml IV 09/17/24 21:28 Q6H PRN NAUSEA OR VOMITING Protocol Pantoprazole Sodium 40 mg 08/19/24 09:00 08/19/24 09:11 Pantoprazole Inj 40 Mg Vial IVP 09/18/24 08:59 40 mg QDAY JOSEMANUEL Administration Polyethylene Glycol 17 gm 08/18/24 21:45 08/19/24 09:11 Polyethylene Glycol 17 Gm Packet GT 09/17/24 21:44 17 gm BID JOSEMANUEL Administration Sennosides 2 tab 08/19/24 21:00 Senna/Docusate Sod 1 Tab Tablet PO 09/18/24 20:59 HS JOSEMANUEL Protocol Thiamine HCl 100 mg 08/19/24 09:00 08/19/24 09:13 Thiamine 100 Mg Tablet GT 09/18/24 08:59 100 mg QDAY JOSEMANUEL Administration Vitamin D 1,000 iu 08/19/24 09:00 08/19/24 09:12 Cholecalciferol (Vitamin D3) 1,000 Iu Tablet GT 09/18/24 08:59 1,000 iu QDAY JOSEMANUEL Administration Plan Patient is a 64-year-old male with a limited past medical history of alcohol use disorder and possible history of meth use disorder who was initially admitted on 07/19/2024 secondary to intractable pain from the left fourth rib and fractures of the 2nd and 4th lumbar transverse processes who was then transfered to [facility] for cerebellar stroke and now returned to [facility] on 08/18/2024 for subacute placement and bacteremia w/ ischemic stroke. #CVA #Ischemic stroke #Cerebellar Stroke & Cerebellar Hemispheres MRI on 08/09/2024 at [facility] revealed extensive area of restricted diffusion involving both cerebral hemispheres, right centrum semimobile, corpus callosum, and posterior fossa, with possible acute disseminated encephalomyelitis or vasculitis related etiology, CTh on 413 revealed improving mass effect associated with known infarcts without new process Plan: - Continue to monitor on telemetry unit - Continue on aspirin 81 Mg daily and Lipitor 80 Mg daily at night - Sodium goal 140-150 - Maintain normotension -Consider Neurology Consult #MSSA bacteremia Patient initially had MSSA pneumonia, and was treated with cefepime for 10 days, blood culture positive with 1/2 positive blood cultures for MSSA-->per son, family is open to YANELIS but is understanding of patient's prognosis. Rule out endocarditis. [facility] Echo done on 08/12/2024: LVEF 55 to 60%, poorly visualized valves, no pericardial effusion Plan: - Repeat blood culture ordered - Continue with cefazolin 2 g every 8 hourly until 09/20/2024 - Follow-up on anti-MOG serum, aquaporin 4 antibody from [facility] - VDRL negative, cryptococcal negative, AFB, fungal cultures negative to date as per record -Cardiology consulted, appreciate recommendations. #Diabetes mellitus type 2 Per chart review patient was started on Lantus at [facility], limited history if patient was being treated prior to admission for diabetes. A1c on admission 8.2 Plan: - Lantus 15 units daily - Sliding scale insulin level 2 with lispro every 6 hour #Uncontrolled hypertension The patient's blood pressure was continuously sustained above 200 mhg likely secondary to stroke but has been well controlled since admission. Plan: - SBP goal less than 160 mmHg - Losartan 100 Mg daily - Hydralazine 100 Mg every 8 hourly - Amlodipine 10 mg daily - Carvedilol 12.5 Mg twice daily - Labetalol/hydralazine IV as needed #Chronic respiratory failure Initially intubated for increased work of breathing, not improving on BiPAP, s/p trach and PEG on 08/05/2024, and was noted to have adenovirus positive on 08/04/2024 Plan: - Had not elevated to 30 degree - Peridex oral hygiene every 4 hourly - ABG as needed #Glaucoma of left eye - Follow-up outpatient ophthalmology #Urinary retention - Indwelling Hutchins, Hutchins care - Continue doxazosin 1 mg daily #Myoclonus Spontaneous contraction to noxious stimuli - Baclofen 5 mg 3 times daily #Vitamin D deficiency - Vitamin D 1000 units daily Health maintenance: Dispo: Patient is transferred back from [facility] after undergoing tracheostomy and PEG tube placement, currently admitted to telemetry unit and subacute placement Diet: Via PEG tube DVT prophylaxis: Subcu enoxaparin 40 Mg daily CODE STATUS: DNR - The patient's plan was discussed with attending Dr. Foley and senior residents Dr. Joe Malagon MD PGY1 Internal Medicine
[2024-08-19] MEDS: INSULIN LISPRO (AdmeLOG) 1 UNIT/0.01 ML UNIT SC (17:05)
--- NOTE | 2024-08-19 18:55 | ESCONSULT_ITS ---
<Statement entered by Ben Hutton MD - 08/20/24 00:20> I have personally seen and examined the patient separately on the above date of service and discussed the plan of care with the resident. I reviewed the resident Dr. Angelo Orellana consultation progress note and agree with the resident findings and plan in the note above and have also edited the documentation to reflect my findings and plan. 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 Patient did have some facial droop at that point of time and was diagnosed with a CVA. Due to the risk of herniation patient was transferred to [facility] for neurosurgical evaluation. Patient did have post CVA edema suspected and eventually had a hypodensity in the right corpus callosum and required intubation and mechanical ventilation and eventual tracheostomy and PEG tube placement. Patient was made DNR and DNI but wanted to continue full medical treatment. Patient was sent back to [facility] on on 08/18/2024. Patient was diagnosed with apparently MSSA bacteremia at the outside hospital and was treated with IV antibiotics. Here patient had again repeat blood cultures positive with 1 out of 2 of MSSA. Echocardiac was done on 08/12/2024 did show normal LV function, RV function, trace to mild valvular abnormalities but with poorly visualized valves. Cardiology now consulted for further evaluation of rule out endocarditis given the MSSA bacteremia. 1. MSSA bacteremia 2. Ischemic stroke/CVA involving the cerebral also the corpus callosum 3. Type 2 diabetes mellitus 4. Chronic respiratory failure status post tracheostomy on mechanical ventilation 5. Hypertension 6. Status post PEG tube During my interview patient unable to verbalize anything in the family or friends are at the bedside but unable to provide any kind of history. Will need to find out if patient had any history of cirrhosis and any history of previous gastric ulcers or bleeding and any kind of previous esophageal interventions or any kind of strictures. No corroborative history of available at the present point of time. Recommend the primary team to obtain more corroborative history for the patient and Plan for a YANELIS once the history is confirmed to rule out any kind of contraindications for performing the procedure as it will be high risk procedure for this patient. YANELIS is an appropriate procedure for this patient given his indication of MSSA bacteremia and also has a history of CVA. Will follow-up with the patient tomorrow morning once more history is obtained. Plan for a YANELIS after that. Management of rest of the medical conditions as per primary team and other consultants. Thank you for the consult and allowing me to participate in the care of the patient. Cardiology will continue to follow. Ben Hutton M.D. 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 He was found to have acute displaced fracture of left fourth rib as well as acute fractures of left second and fourth lumbar transverse processes and during hospital stay developed left-sided facial drooping, blurry vision, dizziness, and ataxia and CT head showed hypodensity in posterior cerebellum that extended to right hemisphere without hemorrhage and teleneurology recommended neurosurgical consultation for risk of post-CVA edema and risk of herniation. Patient transferred to [facility] for further management and per records, hospital course complicated by progressive neurological decline as repeat CT head revealed evolved hypodensity in right corpus callosum, requiring intubation and sedation, and eventually tracheostomy and PEG tube placement on 08/05. GOC meeting held with family and decision was made for DNR/full treatment. On 08/18/2024, patient was transferred back to [facility]. Of note, he developed MSSA pneumonia and bacteremia and initially treated with IV antibiotics with concern for possible infective endocarditis. YANELIS attempted during hospital course at [facility] but was unable to be obtained at that time due to technical difficulties while being intubated. TTE on 08/12 at [facility] showed LVEF 55-60%, poorly visualized valves, no pericardial effusion. Cardiology consulted to re-attempt YANELIS while in-house to rule out endocarditis. cc:: cc: Bayron Foley MD Review of Systems Review of Systems ROS Unobtainable: unobtainable due to mental status and due to endotracheal tube Exam Vital Signs Temp Pulse Resp BP Pulse Ox O2 Del Method FiO2 97.7 F 86 15 138/63 H 97 Mechanical Ventilation 40 08/19/24 16:00 08/19/24 16:00 08/19/24 16:00 08/19/24 16:00 08/19/24 16:00 08/19/24 16:00 08/19/24 11:43 Narrative Exam General: tracheostomy in place on MV, eyes open to voice, does not follow commands HEENT: NC/AT, mucous membranes moist, bilateral sclera anicteric Cardiovascular: regular rate and rhythm, S1/S2 present, no murmurs appreciated Pulmonary: clear to auscultation bilaterally, no rales/rhonchi/wheezes Abdominal: soft, non-tender, non-distended, no rebound/guarding, normal bowel sounds present Musculoskeletal: upper extremities edematous, normal ROM Skin: warm and dry, intact, no rashes Neuro: unable to assess Results Labs 08/19/24 05:03 08/19/24 05:03 Labs: Short CBC 08/18/24 08/19/24 Range/Units 21:09 05:03 WBC 9.4 7.7 (3.8-10.6) Thou/mm3 Hgb 7.7 L 7.6 L (13.5-16.0) g/dL Hct 24.1 L 23.8 L (41.0-53.0) % Plt Count 363 D 355 (140-440) Thou/mm3 BMP 08/18/24 08/19/24 21:09 05:03 Sodium 140 142 Potassium 3.5 3.3 L Chloride 104 106 Carbon Dioxide 26.9 28.3 BUN 16 13 Creatinine 0.6 0.6 Glucose 135 H 116 H Calcium 8.4 8.3 Liver Function 08/18/24 08/19/24 Range/Units 21:09 05:03 Total Bilirubin 0.5 0.5 (0.3-1.2) mg/dL AST 29 26 (0-34) U/L ALT 14 11 (10-49) U/L Alkaline Phosphatase 142 H 140 H (46-116) U/L Albumin 3.6 3.4 (3.4-4.8) gm/dL Quality Measures Quality Measures VTE prophylaxis Medications Home Medications and Allergies Home Medications ?Medication ?Instructions ?Recorded ?Confirmed ?Type No Known Home Medications 07/19/2408/05 History Allergies Allergy/AdvReac Type Severity Reaction Status Date / Time No Known Allergies Allergy Verified 07/18/24 13:21 Visit Medications Acetaminophen (Acetaminophen 325 Mg Tablet) 650 mg PO Q6H PRN PRN Reason: Fever >100.5 Stop: 09/17/24 21:28 Hydrocodone Bitart/Acetaminophen (Hydrocodone/Apap 5/325 Tablet) 1 tab GT Q4HR PRN PRN Reason: PAIN SCALE 4-6 (Moderate Stop: 08/23/24 21:28 Albuterol/Ipratropium (Albuterol/Ipratropium (Duoneb) Rt Yelena 3 Ml Nebu) 3 ml INH Q4HRRT PRN PRN Reason: sob or wheeze Stop: 09/17/24 22:59 Amlodipine Besylate (Amlodipine Besylate 5 Mg Tablet) 10 mg GT QDAY JOSEMANUEL Stop: 09/18/24 08:59 Last Admin: 08/19/24 09:11 Dose: 10 mg Aspirin (Aspirin 81 Mg Chew) 81 mg GT QDAY JOSEMANUEL Stop: 09/18/24 08:59 Last Admin: 08/19/24 09:11 Dose: 81 mg Atorvastatin Calcium (Atorvastatin Calcium 20 Mg Tablet) 80 mg GT HS JOSEMANUEL Stop: 09/18/24 20:59 Baclofen (Baclofen 10 Mg Tablet) 5 mg GT TID JOSEMANUEL Stop: 09/17/24 21:59 Last Admin: 08/19/24 14:48 Dose: 5 mg Bisacodyl (Bisacodyl 10 Mg Supp) 10 mg MO QDAY PRN; Protocol PRN Reason: CONSTIPATION Stop: 09/17/24 21:40 Carvedilol (Carvedilol 12.5 Mg Tablet) 12.5 mg GT BIDWM [facility] Stop: 09/18/24 07:59 Last Admin: 08/19/24 16:56 Dose: Not Given Dextrose (Dextrose 50%-Water Inj 50 Ml Syringe) 25 ml IV Q15MIN PRN PRN Reason: BG 50-70 responsive npo pt Stop: 09/17/24 21:28 Dextrose (Dextrose 50%-Water Inj 50 Ml Syringe) 50 ml IV Q15MIN PRN PRN Reason: BG <50 OR BG <70 & pt unresponsive Stop: 09/17/24 21:28 Doxazosin Mesylate (Doxazosin Mesylate 1 Mg Tablet) 1 mg GT HS [facility] Stop: 09/18/24 20:59 Enoxaparin Sodium (Enoxaparin Sod Inj 40 Mg/0.4 Ml Syringe) 40 mg SC QDAY [facility] Stop: 09/02/24 08:59 Last Admin: 08/19/24 09:10 Dose: 40 mg Fentanyl Citrate (Fentanyl Cit Inj 50 Mcg/Ml Amp 2ml) 50 mcg IV Q2H PRN PRN Reason: Breakthrough Pain or agitation Stop: 08/23/24 21:46 Glucagon (Glucagon Inj 1 Mg Vial) 1 mg IM Q15MIN PRN PRN Reason: BG <70, and no IV access Hydralazine HCl (Hydralazine Hcl 25 Mg Tablet) 100 mg GT TID [facility] Stop: 09/17/24 21:59 Last Admin: 08/19/24 14:47 Dose: 100 mg Hydralazine HCl (Hydralazine Inj 20 Mg/Ml Vial) 10 mg IV Q4H PRN PRN Reason: SBP >180 or DBP >120 and HR <70 Stop: 09/17/24 21:51 Cefazolin Sodium (Ancef 2gm Ivpb) 2 gm in 100 mls @ 100 mls/hr IV Q8HR [facility] Stop: 08/26/24 13:59 Last Admin: 08/19/24 15:09 Dose: 100 mls/hr Insulin Glargine (Insulin Glargine (Lantus) 5 Unit/0.05 Ml (Per 5 Units)) 15 unit SC QDAY [facility] Stop: 09/18/24 08:59 Last Admin: 08/19/24 08:49 Dose: Not Given Insulin Human Lispro (Insulin Lispro (Admelog) 1 Unit/0.01 Ml Unit) 0 unit SC Q6HR [facility]; Protocol Stop: 09/18/24 00:00 Last Admin: 08/19/24 17:05 Dose: 2 unit Labetalol HCl (Labetalol Inj 5 Mg/Ml Vial 20 Ml) 10 mg IVP Q4H PRN PRN Reason: SBP>180 or DBP >120 and HR >70 Stop: 09/17/24 21:51 Losartan Potassium (Losartan Potassium 25 Mg Tablet) 100 mg GT QDAY JOSEMANUEL Stop: 09/18/24 08:59 Last Admin: 08/19/24 09:10 Dose: 100 mg Multivitamins (Multivitamins Tablet) 1 tab PO QDAY JOSEMANUEL Stop: 09/18/24 08:59 Last Admin: 08/19/24 09:10 Dose: 1 tab Ondansetron HCl (Ondansetron Inj 2 Mg/Ml Inj 2 Ml) 4 mg IV Q6H PRN; Protocol PRN Reason: NAUSEA OR VOMITING Stop: 09/17/24 21:28 Pantoprazole Sodium (Pantoprazole Inj 40 Mg Vial) 40 mg IVP QDAY JOSEMANUEL Stop: 09/18/24 08:59 Last Admin: 08/19/24 09:11 Dose: 40 mg Polyethylene Glycol (Polyethylene Glycol 17 Gm Packet) 17 gm GT BID JOSEMANUEL Stop: 09/17/24 21:44 Last Admin: 08/19/24 09:11 Dose: 17 gm Sennosides (Senna/Docusate Sod 1 Tab Tablet) 2 tab PO HS JOSEMANUEL; Protocol Stop: 09/18/24 20:59 Thiamine HCl (Thiamine 100 Mg Tablet) 100 mg GT QDAY JOSEMANUEL Stop: 09/18/24 08:59 Last Admin: 08/19/24 09:13 Dose: 100 mg Vitamin D (Cholecalciferol (Vitamin D3) 1,000 Iu Tablet) 1,000 iu GT QDAY JOSEMANUEL Stop: 09/18/24 08:59 Last Admin: 08/19/24 09:12 Dose: 1,000 iu Discontinued Medications Cefazolin Sodium (Ancef 2gm Ivpb) 2 gm in 100 mls @ 100 mls/hr IV Q8HR JOSEMANUEL Stop: 09/20/24 21:00 Last Admin: 08/19/24 15:04 Dose: Not Given Potassium Chloride (Potassium Chloride 10% 20 Meq/15 Ml Udc) 40 meq GT X1 ONE Stop: 08/19/24 07:59 Last Admin: 08/19/24 09:09 Dose: 40 meq Assessment & Plan Plan Phu Melendez is a 64-year-old male with history of uncontrolled hypertension and type 2 diabetes mellitus who was initially admitted to [facility] on 07/18/2024 for acute displaced fracture of left fourth rib as well as acute fractures of left second and fourth lumbar transverse processes. During hospital stay developed left-sided facial drooping, blurry vision, dizziness, and ataxia and CT head showed hypodensity in posterior cerebellum that extended to right hemisphere without hemorrhage and teleneurology recommended neurosurgical consultation for risk of post-CVA edema and risk of herniation. Transferred to [facility] for further management and per records, hospital course complicated by progressive neurological decline as repeat CT head revealed evolved hypodensity in right corpus callosum, requiring intubation and sedation, and eventually tracheostomy and PEG tube placement on 08/05. GOC meeting held with family and decision was made for DNR/full treatment. On 08/18/2024, patient was transferred back to [facility]. Cardiology consulted for YANELIS while in-house to rule out endocarditis given MSSA bacteremia. #MSSA bacteremia #? Infective endocarditis Patient initially had MSSA pneumonia, and was treated with cefepime for 10 days, blood culture positive with 1/2 positive blood cultures for MSSA TTE done on 08/12/2024 revealed LVEF 55 to 60%, poorly visualized valves, no pericardial effusion. YANELIS attempted but per family, unable to be done due to technical difficulties while intubated. ? Plan for YANELIS in ICU if arrangements can be made given that patient is on MV ? Once arrangements made, NPO after midnight #CVA #Ischemic stroke in cerebellum and cerebral hemispheres #Type 2 diabetes mellitus #MSSA bacteremia #Uncontrolled hypertension #Chronic respiratory failure #Glaucoma of left eye #Urinary retention #Myoclonus #Vitamin D deficiency ? Management of above conditions per primary team ----- Plan discussed with attending physician Dr. Brennen Orellana MD PGY-1 Internal Medicine
[2024-08-19] MEDS: ATORVASTATIN CALCIUM 20 MG TABLET 80 MG GT (21:54)
[2024-08-20] VITALS (27 sets, daily range): BP systolic 110–162; BP diastolic 61–91; PULSE 54–77; RESP 12–20; TEMP 36.1–36.5; O2SAT 96–100
[2024-08-20] MEDS: BACLOFEN 10 MG TABLET 5 MG GT ×2 (05:28→21:11)
[2024-08-20] MEDS: ceFAZolin/D5W 2 GM IV 2 GM/100 ML BAG IV ×2 (05:28→22:01)
[2024-08-20] MEDS: hydrALAZINE HCL 25 MG TABLET 100 MG GT ×2 (05:29→21:12)
[2024-08-20] MEDS: INSULIN LISPRO (AdmeLOG) 1 UNIT/0.01 ML UNIT SC ×2 (05:29→12:18)
[2024-08-20 05:44] LABS: Basophils % (Auto) 0 % (0-2.5); Eosinophils # (Auto) 0.1 Thou/mm3 (0.0-0.5); Eosinophils % (Auto) 1 % (0-10); Hematocrit 26.5 % (41.0-53.0); Immature Granulocytes % (Auto) 0 % (0-0); Immature Granulocytes Auto 0.04 Thou/mm3 (0.00-0.00); Lymphocytes # (Auto) 1.3 Thou/mm3 (1.0-4.8); Lymphocytes % (Auto) 13 % (10-50); Mean Corpuscular HGB Conc 32.1 g/dl (31.0-37.0); Mean Corpuscular Hemoglobin 30.2 pg (25.0-35.0); Mean Corpuscular Volume 94 fL (80-100); Monocytes # (Auto) 0.9 Thou/mm3 (0.0-0.8); Monocytes % (Auto) 9 % (0-12); Neutrophils # (Auto) 7.7 Thou/mm3 (1.8-7.7); Neutrophils % (Auto) 77 % (37-80); Nucleated Red Blood Cell % 0 /100 WBC (0); Platelet Count 393 Thou/mm3 (140-440); RDW Standard Deviation 44.7 fL (35.1-43.9); Red Blood Count 2.81 Miln/mm3 (4.50-5.90)
[2024-08-20 06:11] LABS: Alanine Aminotransferase 10 U/L (10-49); Albumin, Serum 3.4 gm/dL (3.4-4.8); Albumin/Globulin Ratio 1.1 (1.2-2.2); Alkaline Phosphatase 152 U/L (46-116); Anion Gap 8 (7-16); Aspartate Amino Transferase 26 U/L (0-34); BUN/Creatinine Ratio 23 Ratio (12-20); Bilirubin,Total 0.6 mg/dL (0.3-1.2); Blood Urea Nitrogen 14 mg/dL (9-23); Calcium 8.4 mg/dL (8.3-10.6); Calcium (Corrected) 8.9 mg/dL (8.5-10.1); Carbon Dioxide 25.8 mMol/L (20.0-31.0); Chloride 106 mMol/L (98-107); Creatinine (Component) 0.6 mg/dL (0.6-1.3); Estimated Creatinine Clearance 151.5 mL/min (>60); Globulin 3.1 gm/dL (2.3-3.5); Glucose 182 mg/dL (74-106); Osmolality,Calculated 284 (275-295); Phosphorous 3.1 mg/dL (2.4-5.1); Potassium 3.6 mMol/L (3.4-5.1); Sodium 140 mMol/L (136-145); Total Protein 6.5 gm/dL (5.7-8.2); eGFR > 60 See Note
[2024-08-20 06:25] LABS: Hemoglobin 8.5 g/dL (13.5-16.0)
[2024-08-20] MEDS: PANTOPRAZOLE INJ 40 MG VIAL IVP (08:23)
[2024-08-20] MEDS: ENOXAPARIN SOD INJ 40 MG/0.4 ML SYRINGE SC (08:24)
[2024-08-20] MEDS: LOSARTAN POTASSIUM 25 MG TABLET 100 MG GT (08:24)
[2024-08-20] MEDS: amLODIPine BESYLATE 5 MG TABLET 10 MG GT (08:24)
[2024-08-20] MEDS: ASPIRIN 81 MG CHEW GT (08:24)
[2024-08-20] MEDS: CHOLECALCIFEROL (Vitamin D3) 1,000 IU TABLET 1000 IU GT (08:24)
[2024-08-20] MEDS: POLYETHYLENE GLYCOL 17 GM PACKET GT ×2 (08:25→21:12)
[2024-08-20] MEDS: carVEDILOL 12.5 MG TABLET GT ×2 (08:25→18:42)
[2024-08-20] MEDS: POTASSIUM CHLORIDE 10% 20 MEQ/15 ML UDC 40 MEQ GT (08:25)
[2024-08-20] MEDS: MULTIVITAMINS TABLET 1 TAB PO (08:25)
[2024-08-20] MEDS: THIAMINE 100 MG TABLET GT (08:31)
[2024-08-20] MEDS: INSULIN GLARGINE (Lantus) 5 UNIT/0.05 ML (PER 5 UNITS) 15 UNIT SC (08:31)
--- NOTE | 2024-08-20 09:21 | ECHO_ITS ---
Transesophageal Echo Report Ht (in): 70 Wt (lb): 229 Exam Location: [facility] Status: Inpatient [employer]er: ANN Solorzano^^^^ Indications: Procedure Performed: BP: 149 / 91 HR: 87 Technical Quality: Very technically difficult study FINDINGS Left Ventricle The left ventricle is not well visualized. Right Ventricle The right ventricle not well visualized. Left Atrium Left atrium not well visualized. Right Atrium Right atrium is not well visualized. Atrial Appendages Left atrial appendage not well visualized. Atrial Septum The interatrial septum not well visualized. Aorta The aortic root and proximal ascending aorta are not well visualized. Mitral Valve The mitral valve is not well visualized. Aortic Valve The aortic valve is not well visualized. Tricuspid Valve The tricuspid valve is not well visualized. Pulmonic Valve The pulmonic valve is not well visualized. Vessels Inferior vena cava not well visualized. CONCLUSIONS Indication: Bacteremia-rule out endocarditis YANELIS attempted but probe could not be passed beyond the oropharyngeal cavity in spite of maximum sedation. Procedure was terminated and primary team informed of the same. Ben Hutton (Electronically Signed) Final Date: 20 August 2024 20:01
[2024-08-20] MEDS: MUPIROCIN OINT 2% 15 GM TUBE TOP ×2 (09:24→21:13)
--- NOTE | 2024-08-20 13:04 | PD.RESPRO ---
Documentation for date of: 08/20/24 Subjective Subjective Interval history: No acute overnight events noted. Seen and examined at bedside, remains on mechanical ventilation and saturating 99% on 40% FiO2. Spoke to son over the phone and updated him regarding need for YANELIS. He states that patient did not regularly see doctors or go to the hospital, and thus is confident that patient has never had any esophageal procedures done or any history of esophageal pathologies, history of gastric ulcers or episodes of hematemesis/hemoptysis. Vital signs stable. Labs reviewed and globin 8.5, K 3.6, Mg 2.0. Otherwise labs unremarkable. Exam Vital Signs Temp Pulse Resp BP Pulse Ox O2 Del Method FiO2 97.1 F 60 14 129/68 99 Mechanical Ventilation 40 08/20/24 12:00 08/20/24 12:20 08/20/24 12:00 08/20/24 12:00 08/20/24 12:20 08/20/24 12:00 08/20/24 12:20 Narrative Exam General: tracheostomy in place on MV, eyes open to voice, does not follow commands HEENT: NC/AT, mucous membranes moist, bilateral sclera anicteric Cardiovascular: regular rate and rhythm, S1/S2 present, no murmurs appreciated Pulmonary: clear to auscultation bilaterally, no rales/rhonchi/wheezes Abdominal: soft, non-tender, non-distended, no rebound/guarding, normal bowel sounds present Musculoskeletal: upper extremities edematous, normal ROM Skin: warm and dry, intact, no rashes Neuro: unable to assess Objective Labs 08/20/24 04:46 08/20/24 04:46 Labs: Laboratory Results - last 24 hr 08/20/24 04:46 WBC 10.0 RBC 2.81 L Hgb 8.5 L Hct 26.5 L MCV 94 MCH 30.2 MCHC 32.1 RDW Std Deviation 44.7 H Plt Count 393 D Neut % (Auto) 77 Lymph % (Auto) 13 Rice % (Auto) 9 Eos % (Auto) 1 Baso % (Auto) 0 Neut # (Auto) 7.7 Lymph # (Auto) 1.3 Rice # (Auto) 0.9 H Eos # (Auto) 0.1 Baso # (Auto) 0.0 Immature Gran # (Auto) 0.04 H Absolute Nucleated RBC 0.00 Immature Gran % 0 Nucleated RBC % 0 Sodium 140 Potassium 3.6 Chloride 106 Carbon Dioxide 25.8 Anion Gap 8 BUN 14 Creatinine 0.6 Estim Creat Clear Calc 151.5 eGFR > 60 BUN/Creatinine Ratio 23 H Glucose 182 H D Calculated Osmolality 284 Calcium 8.4 Corrected Calcium 8.9 Phosphorus 3.1 Magnesium 2.0 Total Bilirubin 0.6 AST 26 ALT 10 Alkaline Phosphatase 152 H Total Protein 6.5 Albumin 3.4 Globulin 3.1 Albumin/Globulin Ratio 1.1 L Quality Measures Quality Measures VTE prophylaxis Assessment & Plan Assessment Current Active Medications: Generic Name Dose Route Start Last Admin Trade Name Freq PRN Reason Stop Dose Admin Acetaminophen 650 mg 08/18/24 21:29 Acetaminophen 325 Mg Tablet PO 09/17/24 21:28 Q6H PRN Fever >100.5 Hydrocodone Bitart/Acetaminophen 1 tab 08/18/24 21:29 Hydrocodone/Apap 5/325 Tablet GT 08/23/24 21:28 Q4HR PRN PAIN SCALE 4-6 (Moderate Albuterol/Ipratropium 3 ml 08/18/24 21:52 Albuterol/Ipratropium (Duoneb) Rt Yelena 3 Ml Nebu INH 09/17/24 22:59 Q4HRRT PRN sob or wheeze Amlodipine Besylate 10 mg 08/19/24 09:00 08/20/24 08:24 Amlodipine Besylate 5 Mg Tablet GT 09/18/24 08:59 10 mg QDAY JOSEMANUEL Administration Aspirin 81 mg 08/19/24 09:00 08/20/24 08:24 Aspirin 81 Mg Chew GT 09/18/24 08:59 81 mg QDAY JOSEMANUEL Administration Atorvastatin Calcium 80 mg 08/19/24 21:00 08/19/24 21:54 Atorvastatin Calcium 20 Mg Tablet GT 09/18/24 20:59 80 mg HS JOSEMANUEL Administration Baclofen 5 mg 08/18/24 22:00 08/20/24 05:28 Baclofen 10 Mg Tablet GT 09/17/24 21:59 5 mg TID JOSEMANUEL Administration Bisacodyl 10 mg 08/18/24 21:41 Bisacodyl 10 Mg Supp CO 09/17/24 21:40 QDAY PRN CONSTIPATION Protocol Carvedilol 12.5 mg 08/19/24 08:00 08/20/24 08:25 Carvedilol 12.5 Mg Tablet GT 09/18/24 07:59 12.5 mg BIDWM JOSEMANUEL Administration Dextrose 25 ml 08/18/24 21:29 Dextrose 50%-Water Inj 50 Ml Syringe IV 09/17/24 21:28 Q15MIN PRN BG 50-70 responsive npo pt Dextrose 50 ml 08/18/24 21:29 Dextrose 50%-Water Inj 50 Ml Syringe IV 09/17/24 21:28 Q15MIN PRN BG <50 OR BG <70 & pt unresponsive Doxazosin Mesylate 1 mg 08/19/24 21:00 08/19/24 21:55 Doxazosin Mesylate 1 Mg Tablet 09/18/24 20:59 Not Given HS JOSEMANUEL Enoxaparin Sodium 40 mg 08/19/24 09:00 08/20/24 08:24 Enoxaparin Sod Inj 40 Mg/0.4 Ml Syringe SC 09/02/24 08:59 40 mg QDAY JOSEMANUEL Administration Fentanyl Citrate 50 mcg 08/18/24 21:47 Fentanyl Cit Inj 50 Mcg/Ml Amp 2ml IV 08/23/24 21:46 Q2H PRN Breakthrough Pain or agitation Glucagon 1 mg 08/18/24 21:29 Glucagon Inj 1 Mg Vial IM Q15MIN PRN BG <70, and no IV access Hydralazine HCl 100 mg 08/18/24 22:00 08/20/24 05:29 Hydralazine Hcl 25 Mg Tablet 09/17/24 21:59 100 mg TID JOSEMANUEL Administration Hydralazine HCl 10 mg 08/18/24 21:52 Hydralazine Inj 20 Mg/Ml Vial IV 09/17/24 21:51 Q4H PRN SBP >180 or DBP >120 and HR <70 Cefazolin Sodium 2 gm in 100 mls @ 100 mls/hr 08/19/24 14:00 08/20/24 05:28 Ancef 2gm Ivpb IV 08/26/24 13:59 100 mls/hr Q8HR JOSEMANUEL Administration Insulin Glargine 15 unit 08/19/24 09:00 08/20/24 08:31 Insulin Glargine (Lantus) 5 Unit/0.05 Ml (Per 5 Units) SC 09/18/24 08:59 15 unit QDAY JOSEMANUEL Administration Insulin Human Lispro 0 unit 08/19/24 00:00 08/20/24 12:18 Insulin Lispro (Admelog) 1 Unit/0.01 Ml Unit SC 09/18/24 00:00 2 unit Q6HR JOSEMANUEL Administration Protocol Labetalol HCl 10 mg 08/18/24 21:52 Labetalol Inj 5 Mg/Ml Vial 20 Ml IVP 09/17/24 21:51 Q4H PRN SBP>180 or DBP >120 and HR >70 Losartan Potassium 100 mg 08/19/24 09:00 08/20/24 08:24 Losartan Potassium 25 Mg Tablet GT 09/18/24 08:59 100 mg QDAY JOSEMANUEL Administration Multivitamins 1 tab 08/19/24 09:00 08/20/24 08:25 Multivitamins Tablet PO 09/18/24 08:59 1 tab QDAY JOSEMANUEL Administration Mupirocin 0 gm 08/20/24 09:00 08/20/24 09:24 Mupirocin Oint 2% 15 Gm Tube TOP 08/25/24 08:59 1 appl BID JOSEMANUEL Administration Ondansetron HCl 4 mg 08/18/24 21:29 Ondansetron Inj 2 Mg/Ml Inj 2 Ml IV 09/17/24 21:28 Q6H PRN NAUSEA OR VOMITING Protocol Pantoprazole Sodium 40 mg 08/19/24 09:00 08/20/24 08:23 Pantoprazole Inj 40 Mg Vial IVP 09/18/24 08:59 40 mg QDAY JOSEMANUEL Administration Polyethylene Glycol 17 gm 08/18/24 21:45 08/20/24 08:25 Polyethylene Glycol 17 Gm Packet GT 09/17/24 21:44 17 gm BID JOSEMANUEL Administration Sennosides 2 tab 08/19/24 21:00 08/19/24 21:54 Senna/Docusate Sod 1 Tab Tablet PO 09/18/24 20:59 Not Given HS JOSEMANUEL Protocol Thiamine HCl 100 mg 08/19/24 09:00 08/20/24 08:31 Thiamine 100 Mg Tablet GT 09/18/24 08:59 100 mg QDAY JOSEMANUEL Administration Vitamin D 1,000 iu 08/19/24 09:00 08/20/24 08:24 Cholecalciferol (Vitamin D3) 1,000 Iu Tablet GT 09/18/24 08:59 1,000 iu QDAY JOSEMANUEL Administration Mikal Melendez is a 64-year-old male with history of uncontrolled hypertension and type 2 diabetes mellitus who was initially admitted to [facility] on 07/18/2024 for acute displaced fracture of left fourth rib as well as acute fractures of left second and fourth lumbar transverse processes. During hospital stay developed left-sided facial drooping, blurry vision, dizziness, and ataxia and CT head showed hypodensity in posterior cerebellum that extended to right hemisphere without hemorrhage and teleneurology recommended neurosurgical consultation for risk of post-CVA edema and risk of herniation. Transferred to [facility] for further management and per records, hospital course complicated by progressive neurological decline as repeat CT head revealed evolved hypodensity in right corpus callosum, requiring intubation and sedation, and eventually tracheostomy and PEG tube placement on 08/05. GOC meeting held with family and decision was made for DNR/full treatment. On 08/18/2024, patient was transferred back to [facility]. Cardiology consulted for YANELIS while in-house to rule out endocarditis given MSSA bacteremia. #MSSA bacteremia #? Infective endocarditis Patient initially had MSSA pneumonia, and was treated with cefepime for 10 days, blood culture positive with 1/2 positive blood cultures for MSSA TTE done on 08/12/2024 revealed LVEF 55 to 60%, poorly visualized valves, no pericardial effusion. YANELIS attempted at [facility] but per family, unable to be done due to technical difficulties while intubated. ? YANELIS attempted in afternoon but was unsuccessful; suspect possible increased esophageal tone in setting of recent stroke as unable to pass probe #CVA #Ischemic stroke in cerebellum and cerebral hemispheres #Type 2 diabetes mellitus #MSSA bacteremia #Uncontrolled hypertension #Chronic respiratory failure #Glaucoma of left eye #Urinary retention #Myoclonus #Vitamin D deficiency ? Management of above conditions per primary team ----- Plan discussed with attending physician Dr. Brennen Orellana MD PGY-1 Internal Medicine Attending Provider Attestation/Addendum I have personally seen and examined the patient separately on the above date of service and discussed the plan of care with the resident. I reviewed the resident Dr. Angelo Orellana consultation progress note and agree with the resident findings and plan in the note above and have also edited the documentation to reflect my findings and plan. Ben Hutton M.D. Interventional Cardiology
--- NOTE | 2024-08-20 13:36 | ESCONSULT_ITS ---
HPI Data of Consult Requesting Physician: Bayron Foley MD Admitting Provider: Terra Vaughn MD Attending Provider: Bayron Foley MD Primary Care Provider: Physician No Primary/Family Consult Narrative History of present illness: 64-year-old man with past medical history of uncontrolled hypertension diabetes mellitus type 2, substance use disorder who was transferred back to [facility]. Patient was initially admitted on 07/18/2024 after he had a fall from 6 feet ladder and during hospital patient was altered and was found to have acute cerebral stroke was transferred to [facility] neurosurgical management. The patient was transferred back to [facility] on 08/18/2024. Per chart review ICU course in [facility] was complicated by progressive neurological decline, requiring further intubation and sedation, followed by tracheostomy and PEG tube placement. Per medical record [facility] brain MRI showed extensive infarct in the bilateral cerebral hemispheres and corpus callosum, raising concerns for multifocal vascular territory infract and a possible vasculitis or encephalomyelitis process. Patient presents MSSA's bacteremia for which cardiology which he wants to rule out possible endocarditis. Neurology was consulted for possible repeat MRI to rule out possible septic emboli stroke. ROS: Obtainable due to patient altered mental status Past medical history: Uncontrolled hypertension, diabetes mellitus type 2, substance use disorder, cerebellar stroke, displaced rib fractures Past surgical history: Tracheostomy and PEG tube placement Family history: Unknown Social history: Used to drink alcohol and methamphetamine Travel history: None relevant Allergies: Unknown allergy cc:: cc: Bayron Foley MD Exam Vital Signs Temp Pulse Resp BP Pulse Ox O2 Del Method FiO2 97.1 F 60 14 129/68 99 Mechanical Ventilation 40 08/20/24 12:00 08/20/24 12:20 08/20/24 12:00 08/20/24 12:00 08/20/24 12:20 08/20/24 12:00 08/20/24 12:20 Narrative Exam General: No acute distress, AOx0, frail HEENT: NC/AT, sluggish pupils, EOMI, Good conjugate gaze, moist mucous membranes, tracheostomy tube in place connected to mechanical ventilator Neck: Supple, No masses, No adenopathy, carotid pulse 2+ bilaterally without bruits, No JVD, normal range of motion. Chest: Symmetrical, atraumatic, and with equal expansion , Nontender on palpation no deformity and no crepitus. CVS: S1 and S2 present, Regular rate and rhythm, No murmurs, rubs or gallops perceived during auscultation. Lungs: Normal respiratory effort, CTAB, no wheezing, rhonchi or rales perceived during auscultation, No intercostal or subcostal retraction. Abdomen : Soft, PEG tube in place, no tenderness to palpation, no guarding ,no rebound, +BS Extremities: Bilateral upper and lower extremity edema. Skin: Intact, no rashes, no lesions, no erythema or jaundice noted Neuro: AOx0, not following commands, non verbal, responds to noxious stimuli, not able to track on bilateral upper and lower extremities, gait: Not evaluated Psych: Difficult to assess the patient mental status Results Labs 08/21/24 05:05 08/20/24 04:46 Labs: Short CBC 08/20/24 Range/Units 04:46 WBC 10.0 (3.8-10.6) Thou/mm3 Hgb 8.5 L (13.5-16.0) g/dL Hct 26.5 L (41.0-53.0) % Plt Count 393 D (140-440) Thou/mm3 BMP 08/20/24 04:46 Sodium 140 Potassium 3.6 Chloride 106 Carbon Dioxide 25.8 BUN 14 Creatinine 0.6 Glucose 182 H D Calcium 8.4 Liver Function 08/20/24 Range/Units 04:46 Total Bilirubin 0.6 (0.3-1.2) mg/dL AST 26 (0-34) U/L ALT 10 (10-49) U/L Alkaline Phosphatase 152 H (46-116) U/L Albumin 3.4 (3.4-4.8) gm/dL Quality Measures Quality Measures VTE prophylaxis Medications Home Medications and Allergies Home Medications ?Medication ?Instructions ?Recorded ?Confirmed ?Type No Known Home Medications 07/19/2408/05 History Allergies Allergy/AdvReac Type Severity Reaction Status Date / Time No Known Allergies Allergy Verified 07/18/24 13:21 Visit Medications Acetaminophen (Acetaminophen 325 Mg Tablet) 650 mg PO Q6H PRN PRN Reason: Fever >100.5 Stop: 09/17/24 21:28 Hydrocodone Bitart/Acetaminophen (Hydrocodone/Apap 5/325 Tablet) 1 tab GT Q4HR PRN PRN Reason: PAIN SCALE 4-6 (Moderate Stop: 08/23/24 21:28 Albuterol/Ipratropium (Albuterol/Ipratropium (Duoneb) Rt Yelena 3 Ml Nebu) 3 ml INH Q4HRRT PRN PRN Reason: sob or wheeze Stop: 09/17/24 22:59 Amlodipine Besylate (Amlodipine Besylate 5 Mg Tablet) 10 mg GT QDAY JOSEMANUEL Stop: 09/18/24 08:59 Last Admin: 08/20/24 08:24 Dose: 10 mg Aspirin (Aspirin 81 Mg Chew) 81 mg GT QDAY JOSEMANUEL Stop: 09/18/24 08:59 Last Admin: 08/20/24 08:24 Dose: 81 mg Atorvastatin Calcium (Atorvastatin Calcium 20 Mg Tablet) 80 mg GT HS [facility] Stop: 09/18/24 20:59 Last Admin: 08/19/24 21:54 Dose: 80 mg Baclofen (Baclofen 10 Mg Tablet) 5 mg GT TID JOSEMANUEL Stop: 09/17/24 21:59 Last Admin: 08/20/24 05:28 Dose: 5 mg Bisacodyl (Bisacodyl 10 Mg Supp) 10 mg MT QDAY PRN; Protocol PRN Reason: CONSTIPATION Stop: 09/17/24 21:40 Carvedilol (Carvedilol 12.5 Mg Tablet) 12.5 mg GT BIDWM [facility] Stop: 09/18/24 07:59 Last Admin: 08/20/24 08:25 Dose: 12.5 mg Dextrose (Dextrose 50%-Water Inj 50 Ml Syringe) 25 ml IV Q15MIN PRN PRN Reason: BG 50-70 responsive npo pt Stop: 09/17/24 21:28 Dextrose (Dextrose 50%-Water Inj 50 Ml Syringe) 50 ml IV Q15MIN PRN PRN Reason: BG <50 OR BG <70 & pt unresponsive Stop: 09/17/24 21:28 Doxazosin Mesylate (Doxazosin Mesylate 1 Mg Tablet) 1 mg GT HS [facility] Stop: 09/18/24 20:59 Last Admin: 08/19/24 21:55 Dose: Not Given Enoxaparin Sodium (Enoxaparin Sod Inj 40 Mg/0.4 Ml Syringe) 40 mg SC QDAY JOSEMANUEL Stop: 09/02/24 08:59 Last Admin: 08/20/24 08:24 Dose: 40 mg Fentanyl Citrate (Fentanyl Cit Inj 50 Mcg/Ml Amp 2ml) 50 mcg IV Q2H PRN PRN Reason: Breakthrough Pain or agitation Stop: 08/23/24 21:46 Glucagon (Glucagon Inj 1 Mg Vial) 1 mg IM Q15MIN PRN PRN Reason: BG <70, and no IV access Hydralazine HCl (Hydralazine Hcl 25 Mg Tablet) 100 mg GT TID [facility] Stop: 09/17/24 21:59 Last Admin: 08/20/24 05:29 Dose: 100 mg Hydralazine HCl (Hydralazine Inj 20 Mg/Ml Vial) 10 mg IV Q4H PRN PRN Reason: SBP >180 or DBP >120 and HR <70 Stop: 09/17/24 21:51 Cefazolin Sodium (Ancef 2gm Ivpb) 2 gm in 100 mls @ 100 mls/hr IV Q8HR [facility] Stop: 08/26/24 13:59 Last Admin: 08/20/24 05:28 Dose: 100 mls/hr Insulin Glargine (Insulin Glargine (Lantus) 5 Unit/0.05 Ml (Per 5 Units)) 15 unit SC QDAY [facility] Stop: 09/18/24 08:59 Last Admin: 08/20/24 08:31 Dose: 15 unit Insulin Human Lispro (Insulin Lispro (Admelog) 1 Unit/0.01 Ml Unit) 0 unit SC Q6HR [facility]; Protocol Stop: 09/18/24 00:00 Last Admin: 08/20/24 12:18 Dose: 2 unit Labetalol HCl (Labetalol Inj 5 Mg/Ml Vial 20 Ml) 10 mg IVP Q4H PRN PRN Reason: SBP>180 or DBP >120 and HR >70 Stop: 09/17/24 21:51 Losartan Potassium (Losartan Potassium 25 Mg Tablet) 100 mg GT QDAY [facility] Stop: 09/18/24 08:59 Last Admin: 08/20/24 08:24 Dose: 100 mg Multivitamins (Multivitamins Tablet) 1 tab PO QDAY [facility] Stop: 09/18/24 08:59 Last Admin: 08/20/24 08:25 Dose: 1 tab Mupirocin (Mupirocin Oint 2% 15 Gm Tube) 0 gm TOP BID [facility] Stop: 08/25/24 08:59 Last Admin: 08/20/24 09:24 Dose: 1 appl Ondansetron HCl (Ondansetron Inj 2 Mg/Ml Inj 2 Ml) 4 mg IV Q6H PRN; Protocol PRN Reason: NAUSEA OR VOMITING Stop: 09/17/24 21:28 Pantoprazole Sodium (Pantoprazole Inj 40 Mg Vial) 40 mg IVP QDAY [facility] Stop: 09/18/24 08:59 Last Admin: 08/20/24 08:23 Dose: 40 mg Polyethylene Glycol (Polyethylene Glycol 17 Gm Packet) 17 gm GT BID [facility] Stop: 09/17/24 21:44 Last Admin: 08/20/24 08:25 Dose: 17 gm Sennosides (Senna/Docusate Sod 1 Tab Tablet) 2 tab PO HS [facility]; Protocol Stop: 09/18/24 20:59 Last Admin: 08/19/24 21:54 Dose: Not Given Thiamine HCl (Thiamine 100 Mg Tablet) 100 mg GT QDAY [facility] Stop: 09/18/24 08:59 Last Admin: 08/20/24 08:31 Dose: 100 mg Vitamin D (Cholecalciferol (Vitamin D3) 1,000 Iu Tablet) 1,000 iu GT QDAY [facility] Stop: 09/18/24 08:59 Last Admin: 08/20/24 08:24 Dose: 1,000 iu Discontinued Medications Cefazolin Sodium (Ancef 2gm Ivpb) 2 gm in 100 mls @ 100 mls/hr IV Q8HR [facility] Stop: 09/20/24 21:00 Last Admin: 08/19/24 15:04 Dose: Not Given Potassium Chloride (Potassium Chloride 10% 20 Meq/15 Ml Udc) 40 meq GT X1 ONE Stop: 08/19/24 07:59 Last Admin: 08/19/24 09:09 Dose: 40 meq Potassium Chloride (Potassium Chloride 10% 20 Meq/15 Ml Udc) 40 meq PO X1 ONE Stop: 08/20/24 07:38 Last Admin: 08/20/24 08:46 Dose: Not Given Potassium Chloride (Potassium Chloride 10% 20 Meq/15 Ml Udc) 40 meq GT X1 ONE Stop: 08/20/24 07:38 Last Admin: 08/20/24 08:25 Dose: 40 meq Assessment & Plan Plan #Bilateral cerebral infarct brain MRI showed extensive infarct in the bilateral cerebral hemispheres and corpus callosum, raising concerns for multifocal vascular territory infract and a possible vasculitis or encephalomyelitis process. CT head on 08/17 revealed improving mass effect associated with known infarcts without new process We will order EEG to assess if patient has brain activity as well as brain MRI without contrast Plan: ? Continue aspirin 81 mg p.o. daily ? Continue atorvastatin 80 mg p.o. daily ? EEG ordered ? Brain MRI without contrast ordered #MSSA bacteremia #Diabetes mellitus type 2 #Uncontrolled hypertension #Chronic respiratory failure #Glaucoma of left eye #Urinary retention #Myoclonus #Vitamin D deficiency Patient discussed with my attending Dr Yelena Whitmore MD PGY-3 Disclaimer: Despite multiple revisions, due to the dictation software being used, the document bellow may not be free of grammatical errors including phonetic/typographic errors. However, this does not deter from our commitment to providing health care in the patient's best interest in mind. Attending Provider Attestation/Addendum I personally have seen and examined the patient at the bedside and I agree with the resident's findings, assessment and plan of care. Will follow-up with the MRI brain without contrast and EEG for prognosis. His condition is critical and his prognosis is poor clinically
--- NOTE | 2024-08-20 13:53 | ESPR_ITS ---
<Statement entered by Bayron Foley MD - 08/26/24 13:48> I reviewed above note and agree with findings and plans. I have also personally examined the patient with medicine team and went over assessment and plan with medical team including process engineering intern and resident physician. Documentation for date of: 08/20/24 Senior resident attestation: Patient is a 64-year-old male, status post trach and PEG, DNR status but full treatment. Transferred back from [facility] following hospitalization for multiple medical problems including ischemic stroke including multiple vascular territories, possible embolic stroke versus vasculitis/encephalitis, on antibiotics cefazolin through September 20 for MSSA bacteremia and possible infective endocarditis, patient unable to tolerate YANELIS at [facility]. Other medical problems include anemia, anasarca, diabetes mellitus and hypertension. Will get cardiology and neurology on board, possible YANELIS if cardiology agrees. Continue antibiotics as recommended by [facility] ID specialist. Cardiology was consulted, following the patient, unsuccessful attempted YANELIS as unable to pass scope, neurology following the patient, ordered repeat MRI and EEG. #MSSA bacteremia #Concern for infective endocarditis?prior unsuccessful YANELIS at [facility], as well as unsuccessful attempt at YANELIS again today, patient currently stays on cefazolin through September 20 per ID recommendations from [facility]. #Ischemic stroke, likely embolic?repeat MRI ordered to rule out septic emboli. #DM Patient evaluated and examined at the bedside, plan of care discussed with rest of the team including my attending physician, except as noted. Quresh PGY2 Subjective Subjective Interval history: No overnight events. Patient continues to be alert but not oriented x 0. Cardiology consulted, possible YANELIS in ICU, currently NPO if procedure moves forward. Neurology consulted given ischemic stroke. Pending recommendations for possible repeat MRI. Continue cefazolin until September 20, 2024 for MSSA bacteremia. Exam Vital Signs Temp Pulse Resp BP Pulse Ox O2 Del Method FiO2 97.1 F 60 14 129/68 99 Mechanical Ventilation 40 08/20/24 12:00 08/20/24 12:20 08/20/24 12:08/20/24 12:00 08/20/24 12:20 08/20/24 12:08/20/24 12:20 Narrative Exam General Appearance: Alert & Oriented X0, well-nourished male who is lying in bed in no acute distress, with lower pedal edema noted 2+ and mild scrotal swelling as well. HEENT: Skull symmetrical and atraumatic. Conjunctivae pin and moist. Pupils equal, round, reactive but slow to react to light and accommodation (PERRL). External ear without lesion or discharge. Straight, nares patient, mucosa pink, no discharge. No thyroid nodule appreciated. No cervical lymphadenopathy. Cardio: Normal Rate and Rhythm with S1 and S2 heart sounds. No murmurs or extra heart sounds auscultated. No bruits on carotid auscultation. No peripheral edema or cyanosis. Lungs: Symmetric with good expansion. Chest and back non-tender. Breath sounds vesicular without crackles up upper airway sounds, likely secondary to being on trach. Abdomen: Non-tender, Non-distended, Normal Reactive Bowel Sounds Neuro: YES Alert, NO cooperative, No oriented to person, NO place, and NO time. unable to follow commands, no motor function. Objective Labs 08/21/24 05:05 08/21/24 05:05 Labs: Laboratory Results - last 24 hr 08/20/24 04:46 WBC 10.0 RBC 2.81 L Hgb 8.5 L Hct 26.5 L MCV 94 MCH 30.2 MCHC 32.1 RDW Std Deviation 44.7 H Plt Count 393 D Neut % (Auto) 77 Lymph % (Auto) 13 [place] % (Auto) 9 Eos % (Auto) 1 Baso % (Auto) 0 Neut # (Auto) 7.7 Lymph # (Auto) 1.3 [place] # (Auto) 0.9 H Eos # (Auto) 0.1 Baso # (Auto) 0.0 Immature Gran # (Auto) 0.04 H Absolute Nucleated RBC 0.00 Immature Gran % 0 Nucleated RBC % 0 Sodium 140 Potassium 3.6 Chloride 106 Carbon Dioxide 25.8 Anion Gap 8 BUN 14 Creatinine 0.6 Estim Creat Clear Calc 151.5 eGFR > 60 BUN/Creatinine Ratio 23 H Glucose 182 H D Calculated Osmolality 284 Calcium 8.4 Corrected Calcium 8.9 Phosphorus 3.1 Magnesium 2.0 Total Bilirubin 0.6 AST 26 ALT 10 Alkaline Phosphatase 152 H Total Protein 6.5 Albumin 3.4 Globulin 3.1 Albumin/Globulin Ratio 1.1 L Quality Measures Quality Measures VTE prophylaxis Assessment & Plan Assessment Current Active Medications: Generic Name Dose Route Start Last Admin Trade Name Freq PRN Reason Stop Dose Admin Acetaminophen 650 mg 04/14/25 21:29 Acetaminophen 325 Mg Tablet PO 09/17/24 21:28 Q6H PRN Fever >100.5 Hydrocodone Bitart/Acetaminophen 1 tab 08/18/24 21:29 Hydrocodone/Apap 5/325 Tablet GT 08/23/24 21:28 Q4HR PRN PAIN SCALE 4-6 (Moderate Albuterol/Ipratropium 3 ml 08/18/24 21:52 Albuterol/Ipratropium (Duoneb) Rt Yelena 3 Ml Nebu INH 09/17/24 22:59 Q4HRRT PRN sob or wheeze Amlodipine Besylate 10 mg 08/19/24 09:00 08/20/24 08:24 Amlodipine Besylate 5 Mg Tablet GT 09/18/24 08:59 10 mg QDAY JOSEMANUEL Administration Aspirin 81 mg 08/19/24 09:00 08/20/24 08:24 Aspirin 81 Mg Chew GT 09/18/24 08:59 81 mg QDAY JOSEMANUEL Administration Atorvastatin Calcium 80 mg 08/19/24 21:00 08/19/24 21:54 Atorvastatin Calcium 20 Mg Tablet GT 09/18/24 20:59 80 mg HS JOSEMANUEL Administration Baclofen 5 mg 08/18/24 22:00 08/20/24 05:28 Baclofen 10 Mg Tablet GT 09/17/24 21:59 5 mg TID JOSEMANUEL Administration Bisacodyl 10 mg 08/18/24 21:41 Bisacodyl 10 Mg Supp MS 09/17/24 21:40 QDAY PRN CONSTIPATION Protocol Carvedilol 12.5 mg 08/19/24 08:00 08/20/24 08:25 Carvedilol 12.5 Mg Tablet GT 09/18/24 07:59 12.5 mg BIDWM JOSEMANUEL Administration Dextrose 25 ml 08/18/24 21:29 Dextrose 50%-Water Inj 50 Ml Syringe IV 09/17/24 21:28 Q15MIN PRN BG 50-70 responsive npo pt Dextrose 50 ml 08/18/24 21:29 Dextrose 50%-Water Inj 50 Ml Syringe IV 09/17/24 21:28 Q15MIN PRN BG <50 OR BG <70 & pt unresponsive Doxazosin Mesylate 1 mg 08/19/24 21:00 08/19/24 21:55 Doxazosin Mesylate 1 Mg Tablet GT 09/18/24 20:59 Not Given HS JOSEMANUEL Enoxaparin Sodium 40 mg 08/19/24 09:00 08/20/24 08:24 Enoxaparin Sod Inj 40 Mg/0.4 Ml Syringe SC 09/02/24 08:59 40 mg QDAY JOSEMANUEL Administration Fentanyl Citrate 50 mcg 08/18/24 21:47 Fentanyl Cit Inj 50 Mcg/Ml Amp 2ml IV 08/23/24 21:46 Q2H PRN Breakthrough Pain or agitation Glucagon 1 mg 08/18/24 21:29 Glucagon Inj 1 Mg Vial IM Q15MIN PRN BG <70, and no IV access Hydralazine HCl 100 mg 08/18/24 22:00 08/20/24 05:29 Hydralazine Hcl 25 Mg Tablet GT 09/17/24 21:59 100 mg TID JOSEMANUEL Administration Hydralazine HCl 10 mg 08/18/24 21:52 Hydralazine Inj 20 Mg/Ml Vial IV 09/17/24 21:51 Q4H PRN SBP >180 or DBP >120 and HR <70 Cefazolin Sodium 2 gm in 100 mls @ 100 mls/hr 08/19/24 14:00 08/20/24 05:28 Ancef 2gm Ivpb IV 08/26/24 13:59 100 mls/hr Q8HR JOSEMANUEL Administration Insulin Glargine 15 unit 08/19/24 09:00 08/20/24 08:31 Insulin Glargine (Lantus) 5 Unit/0.05 Ml (Per 5 Units) SC 09/18/24 08:59 15 unit QDAY JOSEMANUEL Administration Insulin Human Lispro 0 unit 08/19/24 00:00 08/20/24 12:18 Insulin Lispro (Admelog) 1 Unit/0.01 Ml Unit SC 09/18/24 00:00 2 unit Q6HR JOSEMANUEL Administration Protocol Labetalol HCl 10 mg 08/18/24 21:52 Labetalol Inj 5 Mg/Ml Vial 20 Ml IVP 09/17/24 21:51 Q4H PRN SBP>180 or DBP >120 and HR >70 Losartan Potassium 100 mg 08/19/24 09:00 08/20/24 08:24 Losartan Potassium 25 Mg Tablet GT 09/18/24 08:59 100 mg QDAY JOSEMANUEL Administration Multivitamins 1 tab 08/19/24 09:00 08/20/24 08:25 Multivitamins Tablet PO 09/18/24 08:59 1 tab QDAY JOSEMANUEL Administration Mupirocin 0 gm 08/20/24 09:00 08/20/24 09:24 Mupirocin Oint 2% 15 Gm Tube TOP 08/25/24 08:59 1 appl BID JOSEMANUEL Administration Ondansetron HCl 4 mg 08/18/24 21:29 Ondansetron Inj 2 Mg/Ml Inj 2 Ml IV 09/17/24 21:28 Q6H PRN NAUSEA OR VOMITING Protocol Pantoprazole Sodium 40 mg 08/19/24 09:00 08/20/24 08:23 Pantoprazole Inj 40 Mg Vial IVP 09/18/24 08:59 40 mg QDAY JOSEMANUEL Administration Polyethylene Glycol 17 gm 08/18/24 21:45 08/20/24 08:25 Polyethylene Glycol 17 Gm Packet GT 09/17/24 21:44 17 gm BID JOSEMANUEL Administration Sennosides 2 tab 08/19/24 21:00 08/19/24 21:54 Senna/Docusate Sod 1 Tab Tablet PO 09/18/24 20:59 Not Given HS JOSEMANUEL Protocol Thiamine HCl 100 mg 08/19/24 09:00 08/20/24 08:31 Thiamine 100 Mg Tablet GT 09/18/24 08:59 100 mg QDAY JOSEMANUEL Administration Vitamin D 1,000 iu 08/19/24 09:00 08/20/24 08:24 Cholecalciferol (Vitamin D3) 1,000 Iu Tablet GT 09/18/24 08:59 1,000 iu QDAY JOSEMANUEL Administration Plan Patient is a 64-year-old male with a limited past medical history of alcohol use disorder and possible history of meth use disorder who was initially admitted on 07/19/2024 secondary to intractable pain from the left fourth rib and fractures of the 2nd and 4th lumbar transverse processes who was then transfered to [facility] for cerebellar stroke and now returned to [facility] on 08/18/2024 for subacute placement and bacteremia w/ ischemic stroke. #Ischemic stroke, involving Cerebellar & Cerebral Hemispheres MRI on 08/09/2024 at [facility] revealed extensive area of restricted diffusion involving both cerebral hemispheres, right centrum semimobile, corpus callosum, and posterior fossa. Repeat CT head at [facility] on 4/13 revealed improving mass effect associated with known infarcts without new process. ddx: less likely secondary to infectious cause as VDRL negative, cryptococcal negative, AFB, fungal cultures negative to date as per record Plan: - Continue to monitor on telemetry unit - Continue on aspirin 81 Mg daily and Lipitor 80 Mg daily at night - Sodium goal 140-150 - Maintain normotension -Neurlogy consulted, Dr. Kirk, appreciate recommendations. #MSSA bacteremia #Concern for infective endocarditis Patient initially had MSSA pneumonia, and was treated with cefepime for 10 days, blood culture positive with 1/2 positive blood cultures for MSSA-->per son, family is open to YANELIS but is understanding of patient's prognosis. Rule out endocarditis. [facility] Echo done on 08/12/2024: LVEF 55 to 60%, poorly visualized valves, no pericardial effusion Plan: - Continue with cefazolin 2 g every 8 hourly until 09/20/2024 -Mupirocin for nasal -Blood cultures Negative 24 hours - Follow-up on anti-MOG serum, aquaporin 4 antibody from [facility] -Cardiology consulted, Dr. Hutton, appreciate recommendations. #Diabetes mellitus type 2 Per chart review patient was started on Lantus at [facility], limited history if patient was being treated prior to admission for diabetes. A1c on admission 8.2 Plan: - Lantus 15 units daily - Sliding scale insulin level 2 with lispro every 6 hour #Hypertension #Uncontrolled hypertension, improved The patient's blood pressure was continuously sustained above 200 mhg likely secondary to stroke but has been well controlled since admission. Plan: - SBP goal less than 160 mmHg - Losartan 100 Mg daily - Hydralazine 100 Mg every 8 hourly - Amlodipine 10 mg daily - Carvedilol 12.5 Mg twice daily - Labetalol/hydralazine IV as needed #Chronic respiratory failure Initially intubated for increased work of breathing, not improving on BiPAP, s/p trach and PEG on 08/05/2024, and was noted to have adenovirus positive on 08/04/2024 Plan: - Had not elevated to 30 degree - Peridex oral hygiene every 4 hourly - ABG as needed #ANASARCA, improved Likely secondary to statis given inability to move and mild scrotal swelling. Plan -Consider lasix if need be. #Glaucoma of left eye - Follow-up outpatient ophthalmology #Urinary retention - Indwelling Hutchins, Hutchins care - Continue doxazosin 1 mg daily #Myoclonus Spontaneous contraction to noxious stimuli - Baclofen 5 mg 3 times daily #Vitamin D deficiency - Vitamin D 1000 units daily Health maintenance: Dispo: Patient is transferred back from [facility] after undergoing tracheostomy and PEG tube placement, currently admitted to telemetry unit and subacute placement Diet: Via PEG tube DVT prophylaxis: Subcu enoxaparin 40 Mg daily CODE STATUS: DNR - The patient's plan was discussed with attending Dr. Foley and senior residents Dr. Joe Malagon MD PGY1 Internal Medicine
--- NOTE | 2024-08-20 14:47 | PC.NURSE ---
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 transferred via [facility] with Radha LAY and Yulissa CRAIG.
--- NOTE | 2024-08-20 15:19 | PC.SS ---
rounding note: Patient was transferred to our hospital from [facility]. Patient is on vent/trache/peg. He was transferred to [facility] and returned two days ago. Patient was initially admitted for a CVA. Patient's son, is Phu Melendez Jr. and is the medical decision maker. Patient is a DNR. SS met with the [facility] nurse. Patient is non verbal. He is not alert. Patient hospital stay and subacute will be paid for by . SS spoke to ALIREZA Agee at [facility] and they have accepted patient for placement. Patient is on i.v. antibiotics. Pending Neuro Recs. Phu Melendez Jr., son,
[2024-08-20] MEDS: MIDAZOLAM INJ 1 MG/ML VIAL 2 ML 6 MG IV (15:45)
[2024-08-20] MEDS: fentaNYL CIT INJ 50 mCg/ML AMP 2ML 100 MCG IV (15:45)
[2024-08-20] MEDS: BENZOCAINE 20% (Hurricaine) SPRAY 1 DOSE TOP (16:12)
[2024-08-20] MEDS: SENNA/DOCUSATE SOD 1 TAB TABLET 2 TAB PO (21:11)
[2024-08-20] MEDS: ATORVASTATIN CALCIUM 20 MG TABLET 80 MG GT (21:11)
[2024-08-20] MEDS: DOXAZOSIN MESYLATE 1 MG TABLET GT (21:12)
[2024-08-21] VITALS (16 sets, daily range): BP systolic 132–170; BP diastolic 69–85; PULSE 63–97; RESP 14–24; TEMP 35.7–36.7; O2SAT 96–98
--- NOTE | 2024-08-21 00:14 | RESP.EEG ---
EEG COMPLETED AND READY FOR REVIEW.
[2024-08-21] MEDS: ceFAZolin/D5W 2 GM IV 2 GM/100 ML BAG IV ×3 (05:44→21:12)
[2024-08-21] MEDS: hydrALAZINE HCL 25 MG TABLET 100 MG GT ×3 (05:44→21:09)
[2024-08-21] MEDS: BACLOFEN 10 MG TABLET 5 MG GT ×3 (05:45→21:08)
[2024-08-21 05:49] LABS: Basophils # (Auto) 0.1 Thou/mm3 (0.0-0.2); Basophils % (Auto) 1 % (0-2.5); Eosinophils # (Auto) 0.1 Thou/mm3 (0.0-0.5); Eosinophils % (Auto) 1 % (0-10); Hematocrit 26.5 % (41.0-53.0); Immature Granulocytes % (Auto) 0 % (0-0); Immature Granulocytes Auto 0.04 Thou/mm3 (0.00-0.00); Lymphocytes # (Auto) 1.2 Thou/mm3 (1.0-4.8); Lymphocytes % (Auto) 13 % (10-50); Mean Corpuscular HGB Conc 31.7 g/dl (31.0-37.0); Mean Corpuscular Hemoglobin 30.1 pg (25.0-35.0); Mean Corpuscular Volume 95 fL (80-100); Monocytes # (Auto) 0.7 Thou/mm3 (0.0-0.8); Monocytes % (Auto) 8 % (0-12); Neutrophils # (Auto) 7.4 Thou/mm3 (1.8-7.7); Neutrophils % (Auto) 77 % (37-80); Nucleated Red Blood Cell % 0 /100 WBC (0); Platelet Count 352 Thou/mm3 (140-440); RDW Standard Deviation 45.6 fL (35.1-43.9); Red Blood Count 2.79 Miln/mm3 (4.50-5.90); White Blood Count 9.6 Thou/mm3 (3.8-10.6)
[2024-08-21 05:53] LABS: Hemoglobin 8.4 g/dL (13.5-16.0)
[2024-08-21 06:09] LABS: Alanine Aminotransferase 10 U/L (10-49); Albumin, Serum 3.4 gm/dL (3.4-4.8); Alkaline Phosphatase 141 U/L (46-116); Anion Gap 7 (7-16); Aspartate Amino Transferase 24 U/L (0-34); BUN/Creatinine Ratio 24 Ratio (12-20); Bilirubin,Total 0.5 mg/dL (0.3-1.2); Blood Urea Nitrogen 12 mg/dL (9-23); Calcium 8.5 mg/dL (8.3-10.6); Carbon Dioxide 25.6 mMol/L (20.0-31.0); Chloride 108 mMol/L (98-107); Creatinine (Component) 0.5 mg/dL (0.6-1.3); Estimated Creatinine Clearance 181.9 mL/min (>60); Globulin 3.3 gm/dL (2.3-3.5); Glucose 137 mg/dL (74-106); Magnesium 1.9 mg/dL (1.6-2.6); Osmolality,Calculated 282 (275-295); Phosphorous 3.4 mg/dL (2.4-5.1); Potassium 3.6 mMol/L (3.4-5.1); Sodium 141 mMol/L (136-145); Total Protein 6.7 gm/dL (5.7-8.2); eGFR > 60 See Note
[2024-08-21] MEDS: Magnesium Sulfate 2 GM Ivpb 2 GM/50 ML BAG IV (08:03)
[2024-08-21] MEDS: POTASSIUM CHLORIDE 10% 20 MEQ/15 ML UDC 40 MEQ GT (08:04)
[2024-08-21] MEDS: POLYETHYLENE GLYCOL 17 GM PACKET GT ×2 (08:04→20:16)
[2024-08-21] MEDS: THIAMINE 100 MG TABLET GT (08:04)
[2024-08-21] MEDS: ENOXAPARIN SOD INJ 40 MG/0.4 ML SYRINGE SC (08:04)
[2024-08-21] MEDS: PANTOPRAZOLE INJ 40 MG VIAL IVP (08:04)
[2024-08-21] MEDS: ASPIRIN 81 MG CHEW GT (08:04)
[2024-08-21] MEDS: CHOLECALCIFEROL (Vitamin D3) 1,000 IU TABLET 1000 IU GT (08:05)
[2024-08-21] MEDS: MULTIVITAMINS TABLET 1 TAB PO (08:05)
[2024-08-21] MEDS: carVEDILOL 12.5 MG TABLET GT ×2 (08:14→17:35)
[2024-08-21] MEDS: INSULIN GLARGINE (Lantus) 5 UNIT/0.05 ML (PER 5 UNITS) 16 UNIT SC (08:15)
[2024-08-21] MEDS: LOSARTAN POTASSIUM 25 MG TABLET 100 MG GT (08:15)
[2024-08-21] MEDS: amLODIPine BESYLATE 5 MG TABLET 10 MG GT (08:15)
[2024-08-21] MEDS: MUPIROCIN OINT 2% 15 GM TUBE TOP ×2 (08:16→20:16)
--- NOTE | 2024-08-21 09:16 | PD.RESPRO ---
Documentation for date of: 08/21/24 Subjective Subjective Interval history: No acute overnight events noted. Seen and examined at bedside, remains on mechanical ventilation and saturating 98% on 50% FiO2. Underwent YANELIS yesterday [place] [address] but was unable to perform, but probe could not be passed beyond the oropharyngeal cavity despite maximum sedation and so procedure was terminated and primary team informed of the same. Otherwise, labs reviewed and hemoglobin stable at 8.4, K 3.6, Mg 1.9, but otherwise labs unremarkable. Exam Vital Signs Temp Pulse Resp BP Pulse Ox O2 Del Method FiO2 96.9 F 71 19 144/73 H 98 Mechanical Ventilation 40 08/21/24 04:00 08/21/24 08:15 08/21/24 04:00 08/21/24 08:15 08/21/24 07:31 08/21/24 04:00 08/21/24 07:31 Narrative Exam General: tracheostomy in place on MV, eyes open to voice, does not follow commands HEENT: NC/AT, mucous membranes moist, bilateral sclera anicteric Cardiovascular: regular rate and rhythm, S1/S2 present, no murmurs appreciated Pulmonary: clear to auscultation bilaterally, no rales/rhonchi/wheezes Abdominal: soft, non-tender, non-distended, no rebound/guarding, normal bowel sounds present Musculoskeletal: upper extremities edematous, normal ROM Skin: warm and dry, intact, no rashes Neuro: unable to assess Objective Labs 08/22/24 04:32 08/22/24 04:32 Labs: Laboratory Results - last 24 hr 08/21/24 05:05 WBC 9.6 RBC 2.79 L Hgb 8.4 L Hct 26.5 L MCV 95 MCH 30.1 MCHC 31.7 RDW Std Deviation 45.6 H Plt Count 352 D Neut % (Auto) 77 Lymph % (Auto) 13 [place] % (Auto) 8 Eos % (Auto) 1 Baso % (Auto) 1 Neut # (Auto) 7.4 Lymph # (Auto) 1.2 [place] # (Auto) 0.7 Eos # (Auto) 0.1 Baso # (Auto) 0.1 Immature Gran # (Auto) 0.04 H Absolute Nucleated RBC 0.00 Immature Gran % 0 Nucleated RBC % 0 Sodium 141 Potassium 3.6 Chloride 108 H Carbon Dioxide 25.6 Anion Gap 7 BUN 12 Creatinine 0.5 L Estim Creat Clear Calc 181.9 eGFR > 60 BUN/Creatinine Ratio 24 H Glucose 137 H Calculated Osmolality 282 Calcium 8.5 Corrected Calcium 9.0 Phosphorus 3.4 Magnesium 1.9 Total Bilirubin 0.5 AST 24 ALT 10 Alkaline Phosphatase 141 H Total Protein 6.7 Albumin 3.4 Globulin 3.3 Albumin/Globulin Ratio 1.0 L Quality Measures Quality Measures VTE prophylaxis Assessment & Plan Assessment Current Active Medications: Generic Name Dose Route Start Last Admin Trade Name Freq PRN Reason Stop Dose Admin Acetaminophen 650 mg 08/18/24 21:29 Acetaminophen 325 Mg Tablet PO 09/17/24 21:28 Q6H PRN Fever >100.5 Hydrocodone Bitart/Acetaminophen 1 tab 08/18/24 21:29 Hydrocodone/Apap 5/325 Tablet GT 08/23/24 21:28 Q4HR PRN PAIN SCALE 4-6 (Moderate Albuterol/Ipratropium 3 ml 08/18/24 21:52 Albuterol/Ipratropium (Duoneb) Rt Yelena 3 Ml Nebu INH 09/17/24 22:59 Q4HRRT PRN sob or wheeze Amlodipine Besylate 10 mg 08/19/24 09:00 08/21/24 08:15 Amlodipine Besylate 5 Mg Tablet GT 09/18/24 08:59 10 mg QDAY JOSEMANUEL Administration Aspirin 81 mg 08/19/24 09:00 08/21/24 08:04 Aspirin 81 Mg Chew GT 09/18/24 08:59 81 mg QDAY JOSEMANUEL Administration Atorvastatin Calcium 80 mg 08/19/24 21:00 08/20/24 21:11 Atorvastatin Calcium 20 Mg Tablet GT 09/18/24 20:59 80 mg HS JOSEMANUEL Administration Baclofen 5 mg 08/18/24 22:00 08/21/24 05:45 Baclofen 10 Mg Tablet GT 09/17/24 21:59 5 mg TID JOSEMANUEL Administration Bisacodyl 10 mg 08/18/24 21:41 Bisacodyl 10 Mg Supp IA 09/17/24 21:40 QDAY PRN CONSTIPATION Protocol Carvedilol 12.5 mg 08/19/24 08:00 08/21/24 08:14 Carvedilol 12.5 Mg Tablet GT 09/18/24 07:59 12.5 mg BIDWM JOSEMANUEL Administration Dextrose 25 ml 08/18/24 21:29 Dextrose 50%-Water Inj 50 Ml Syringe IV 09/17/24 21:28 Q15MIN PRN BG 50-70 responsive npo pt Dextrose 50 ml 08/18/24 21:29 Dextrose 50%-Water Inj 50 Ml Syringe IV 09/17/24 21:28 Q15MIN PRN BG <50 OR BG <70 & pt unresponsive Doxazosin Mesylate 1 mg 08/19/24 21:00 08/20/24 21:12 Doxazosin Mesylate 1 Mg Tablet GT 09/18/24 20:59 1 mg HS JOSEMANUEL Administration Enoxaparin Sodium 40 mg 08/19/24 09:00 08/21/24 08:04 Enoxaparin Sod Inj 40 Mg/0.4 Ml Syringe SC 09/02/24 08:59 40 mg QDAY JOSEMANUEL Administration Fentanyl Citrate 50 mcg 08/18/24 21:47 Fentanyl Cit Inj 50 Mcg/Ml Amp 2ml IV 08/23/24 21:46 Q2H PRN Breakthrough Pain or agitation Glucagon 1 mg 08/18/24 21:29 Glucagon Inj 1 Mg Vial IM Q15MIN PRN BG <70, and no IV access Hydralazine HCl 100 mg 08/18/24 22:00 08/21/24 05:44 Hydralazine Hcl 25 Mg Tablet GT 09/17/24 21:59 100 mg TID JOSEMANUEL Administration Hydralazine HCl 10 mg 08/18/24 21:52 Hydralazine Inj 20 Mg/Ml Vial IV 09/17/24 21:51 Q4H PRN SBP >180 or DBP >120 and HR <70 Cefazolin Sodium 2 gm in 100 mls @ 100 mls/hr 08/19/24 14:00 08/21/24 07:19 Ancef 2gm Ivpb IV 09/20/24 08:29 Infused Q8HR JOSEMANUEL Infusion Insulin Glargine 16 unit 08/21/24 09:00 08/21/24 08:15 Insulin Glargine (Lantus) 5 Unit/0.05 Ml (Per 5 Units) SC 09/20/24 08:59 16 unit QDAY JOSEMANUEL Administration Insulin Human Lispro 0 unit 08/19/24 00:00 08/21/24 05:38 Insulin Lispro (Admelog) 1 Unit/0.01 Ml Unit SC 09/18/24 00:00 Not Given Q6HR JOSEMANUEL Protocol Labetalol HCl 10 mg 08/18/24 21:52 Labetalol Inj 5 Mg/Ml Vial 20 Ml IVP 09/17/24 21:51 Q4H PRN SBP>180 or DBP >120 and HR >70 Losartan Potassium 100 mg 08/19/24 09:00 08/21/24 08:15 Losartan Potassium 25 Mg Tablet GT 09/18/24 08:59 100 mg QDAY JOSEMANUEL Administration Multivitamins 1 tab 08/19/24 09:00 08/21/24 08:05 Multivitamins Tablet PO 09/18/24 08:59 1 tab QDAY JOSEMANUEL Administration Mupirocin 0 gm 08/20/24 09:00 08/21/24 08:16 Mupirocin Oint 2% 15 Gm Tube TOP 08/25/24 08:59 1 appl BID JOSEMANUEL Administration Ondansetron HCl 4 mg 08/18/24 21:29 Ondansetron Inj 2 Mg/Ml Inj 2 Ml IV 09/17/24 21:28 Q6H PRN NAUSEA OR VOMITING Protocol Pantoprazole Sodium 40 mg 08/19/24 09:00 08/21/24 08:04 Pantoprazole Inj 40 Mg Vial IVP 09/18/24 08:59 40 mg QDAY JOSEMANUEL Administration Polyethylene Glycol 17 gm 08/18/24 21:45 08/21/24 08:04 Polyethylene Glycol 17 Gm Packet GT 09/17/24 21:44 17 gm BID JOSEMANUEL Administration Sennosides 2 tab 08/19/24 21:00 08/20/24 21:11 Senna/Docusate Sod 1 Tab Tablet PO 09/18/24 20:59 2 tab HS JOSEMANUEL Administration Protocol Thiamine HCl 100 mg 08/19/24 09:00 08/21/24 08:04 Thiamine 100 Mg Tablet GT 09/18/24 08:59 100 mg QDAY JOSEMANUEL Administration Vitamin D 1,000 iu 08/19/24 09:00 08/21/24 08:05 Cholecalciferol (Vitamin D3) 1,000 Iu Tablet GT 09/18/24 08:59 1,000 iu QDAY JOSEMANUEL Administration Plan Phu Melendez is a 64-year-old male with history of uncontrolled hypertension and type 2 diabetes mellitus who was initially admitted to [facility] on 07/18/2024 for acute displaced fracture of left fourth rib as well as acute fractures of left second and fourth lumbar transverse processes. During hospital stay developed left-sided facial drooping, blurry vision, dizziness, and ataxia and CT head showed hypodensity in posterior cerebellum that extended to right hemisphere without hemorrhage and teleneurology recommended neurosurgical consultation for risk of post-CVA edema and risk of herniation. Transferred to [facility] for further management and per records, hospital course complicated by progressive neurological decline as repeat CT head revealed evolved hypodensity in right corpus callosum, requiring intubation and sedation, and eventually tracheostomy and PEG tube placement on 08/05. GOC meeting held with family and decision was made for DNR/full treatment. On 08/18/2024, patient was transferred back to [facility]. Cardiology consulted for YANEILS while in-house to rule out endocarditis given MSSA bacteremia. #MSSA bacteremia #? Infective endocarditis Patient initially had MSSA pneumonia, and was treated with cefepime for 10 days, blood culture positive with 1/2 positive blood cultures for MSSA TTE done on 08/12/2024 revealed LVEF 55 to 60%, poorly visualized valves, no pericardial effusion. YANELIS attempted at [facility] but per family, unable to be done due to technical difficulties while intubated. ? YANELIS attempted in afternoon but was unsuccessful; suspect possible increased esophageal tone in setting of recent stroke as unable to pass probe #Type 2 diabetes mellitus A1c 8.2% on 08/2024 Goal blood sugar range of 140-180 #Uncontrolled hypertension Noted to be on multiple blood pressure medications with BP ranging in 130s-150s/70s, suspect to be secondary to CVA. ? Amlodipine 10 mg daily ? Carvedilol 12.5 mg BID ? Hydralazine 100 mg TID ? Labetolol 10 mg PRN ? 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 Management of above conditions per primary team ----- Plan discussed with attending physician Dr. Brennen Orellana MD PGY-1 Internal Medicine Attending Provider Attestation/Addendum I have personally seen and examined the patient separately on the above date of service and discussed the plan of care with the resident. I reviewed the resident Dr. Angelo Orellana consultation progress note and agree with the resident findings and plan in the note above and have also edited the documentation to reflect my findings and plan. Ben Hutton M.D. Interventional Cardiology
--- NOTE | 2024-08-21 11:15 | PD.RESPRO ---
Documentation for date of: 08/21/24 Subjective Subjective Interval history: No overnight acute events This morning at the bedside patient is AO x 0, nonverbal, responding to noxious stimuli, not able to track, presenting myoclonus on right U/L extremities. YANELIS was unsuccessful to rule out possible endocarditis. EEG was taken pending report, primary team wants to rule out possibility of septic emboli for which they would like to have brain MRI with and without contrast. Due to patient critical condition prognosis is guarded. Exam Vital Signs Temp Pulse Resp BP Pulse Ox O2 Del Method FiO2 97.7 F 71 20 144/73 H 98 Room Air 50 08/21/24 08:00 08/21/24 08:15 08/21/24 08:00 08/21/24 08:15 08/21/24 08:00 08/21/24 08:00 08/21/24 08:00 Narrative Exam General: No acute distress, AOx0, frail HEENT: NC/AT, sluggish pupils, EOMI, Good conjugate gaze, moist mucous membranes, tracheostomy tube in place connected to mechanical ventilator Neck: Supple, No masses, No adenopathy, carotid pulse 2+ bilaterally without bruits, No JVD, normal range of motion. Chest: Symmetrical, atraumatic, and with equal expansion , Nontender on palpation no deformity and no crepitus. CVS: S1 and S2 present, Regular rate and rhythm, No murmurs, rubs or gallops perceived during auscultation. Lungs: Normal respiratory effort, CTAB, no wheezing, rhonchi or rales perceived during auscultation, No intercostal or subcostal retraction. Abdomen : Soft, PEG tube in place, no tenderness to palpation, no guarding ,no rebound, +BS Extremities: Bilateral upper and lower extremity edema. Skin: Intact, no rashes, no lesions, no erythema or jaundice noted Neuro: AOx0, not following commands, non verbal, responds to noxious stimuli, not able to track gait: Not evaluated, myoclonus on right U/L extremities Psych: Difficult to assess the patient mental status Objective Labs 08/21/24 05:05 08/21/24 05:05 Labs: Laboratory Results - last 24 hr 08/21/24 05:05 WBC 9.6 RBC 2.79 L Hgb 8.4 L Hct 26.5 L MCV 95 MCH 30.1 MCHC 31.7 RDW Std Deviation 45.6 H Plt Count 352 D Neut % (Auto) 77 Lymph % (Auto) 13 [place] % (Auto) 8 Eos % (Auto) 1 Baso % (Auto) 1 Neut # (Auto) 7.4 Lymph # (Auto) 1.2 [place] # (Auto) 0.7 Eos # (Auto) 0.1 Baso # (Auto) 0.1 Immature Gran # (Auto) 0.04 H Absolute Nucleated RBC 0.00 Immature Gran % 0 Nucleated RBC % 0 Sodium 141 Potassium 3.6 Chloride 108 H Carbon Dioxide 25.6 Anion Gap 7 BUN 12 Creatinine 0.5 L Estim Creat Clear Calc 181.9 eGFR > 60 BUN/Creatinine Ratio 24 H Glucose 137 H Calculated Osmolality 282 Calcium 8.5 Corrected Calcium 9.0 Phosphorus 3.4 Magnesium 1.9 Total Bilirubin 0.5 AST 24 ALT 10 Alkaline Phosphatase 141 H Total Protein 6.7 Albumin 3.4 Globulin 3.3 Albumin/Globulin Ratio 1.0 L Quality Measures Quality Measures VTE prophylaxis Assessment & Plan Assessment Current Active Medications: Generic Name Dose Route Start Last Admin Trade Name Freq PRN Reason Stop Dose Admin Acetaminophen 650 mg 08/18/24 21:29 Acetaminophen 325 Mg Tablet PO 09/17/24 21:28 Q6H PRN Fever >100.5 Hydrocodone Bitart/Acetaminophen 1 tab 08/18/24 21:29 Hydrocodone/Apap 5/325 Tablet GT 08/23/24 21:28 Q4HR PRN PAIN SCALE 4-6 (Moderate Albuterol/Ipratropium 3 ml 08/18/24 21:52 Albuterol/Ipratropium (Duoneb) Rt Yelena 3 Ml Nebu INH 09/17/24 22:59 Q4HRRT PRN sob or wheeze Amlodipine Besylate 10 mg 08/19/24 09:00 08/21/24 08:15 Amlodipine Besylate 5 Mg Tablet GT 09/18/24 08:59 10 mg QDAY JOSEMANUEL Administration Aspirin 81 mg 08/19/24 09:00 08/21/24 08:04 Aspirin 81 Mg Chew GT 09/18/24 08:59 81 mg QDAY JOSEMANUEL Administration Atorvastatin Calcium 80 mg 08/19/24 21:00 08/20/24 21:11 Atorvastatin Calcium 20 Mg Tablet GT 09/18/24 20:59 80 mg HS JOSEMANUEL Administration Baclofen 5 mg 08/18/24 22:00 08/21/24 05:45 Baclofen 10 Mg Tablet GT 09/17/24 21:59 5 mg TID JOSEMANUEL Administration Bisacodyl 10 mg 08/18/24 21:41 Bisacodyl 10 Mg Supp [place] 09/17/24 21:40 QDAY PRN CONSTIPATION Protocol Carvedilol 12.5 mg 08/19/24 08:00 08/21/24 08:14 Carvedilol 12.5 Mg Tablet GT 09/18/24 07:59 12.5 mg BIDWM JOSEMANUEL Administration Dextrose 25 ml 08/18/24 21:29 Dextrose 50%-Water Inj 50 Ml Syringe IV 09/17/24 21:28 Q15MIN PRN BG 50-70 responsive npo pt Dextrose 50 ml 08/18/24 21:29 Dextrose 50%-Water Inj 50 Ml Syringe IV 09/17/24 21:28 Q15MIN PRN BG <50 OR BG <70 & pt unresponsive Doxazosin Mesylate 1 mg 08/19/24 21:00 08/20/24 21:12 Doxazosin Mesylate 1 Mg Tablet GT 09/18/24 20:59 1 mg HS JOSEMANUEL Administration Enoxaparin Sodium 40 mg 08/19/24 09:00 08/21/24 08:04 Enoxaparin Sod Inj 40 Mg/0.4 Ml Syringe SC 09/02/24 08:59 40 mg QDAY JOSEMANUEL Administration Fentanyl Citrate 50 mcg 08/18/24 21:47 Fentanyl Cit Inj 50 Mcg/Ml Amp 2ml IV 08/23/24 21:46 Q2H PRN Breakthrough Pain or agitation Glucagon 1 mg 08/18/24 21:29 Glucagon Inj 1 Mg Vial IM Q15MIN PRN BG <70, and no IV access Hydralazine HCl 100 mg 08/18/24 22:00 08/21/24 05:44 Hydralazine Hcl 25 Mg Tablet GT 09/17/24 21:59 100 mg TID JOSEMANUEL Administration Hydralazine HCl 10 mg 08/18/24 21:52 Hydralazine Inj 20 Mg/Ml Vial IV 09/17/24 21:51 Q4H PRN SBP >180 or DBP >120 and HR <70 Cefazolin Sodium 2 gm in 100 mls @ 100 mls/hr 08/19/24 14:00 08/21/24 07:19 Ancef 2gm Ivpb IV 09/20/24 08:29 Infused Q8HR JOSEMANUEL Infusion Insulin Glargine 16 unit 08/21/24 09:00 08/21/24 08:15 Insulin Glargine (Lantus) 5 Unit/0.05 Ml (Per 5 Units) SC 09/20/24 08:59 16 unit QDAY JOSEMANUEL Administration Insulin Human Lispro 0 unit 08/19/24 00:00 08/21/24 05:38 Insulin Lispro (Admelog) 1 Unit/0.01 Ml Unit SC 09/18/24 00:00 Not Given Q6HR JOSEMANUEL Protocol Labetalol HCl 10 mg 08/18/24 21:52 Labetalol Inj 5 Mg/Ml Vial 20 Ml IVP 09/17/24 21:51 Q4H PRN SBP>180 or DBP >120 and HR >70 Losartan Potassium 100 mg 08/19/24 09:00 08/21/24 08:15 Losartan Potassium 25 Mg Tablet GT 09/18/24 08:59 100 mg QDAY JOSEMANUEL Administration Multivitamins 1 tab 08/19/24 09:00 08/21/24 08:05 Multivitamins Tablet PO 09/18/24 08:59 1 tab QDAY JOSEMANUEL Administration Mupirocin 0 gm 08/20/24 09:00 08/21/24 08:16 Mupirocin Oint 2% 15 Gm Tube TOP 08/25/24 08:59 1 appl BID JOSEMANUEL Administration Ondansetron HCl 4 mg 08/18/24 21:29 Ondansetron Inj 2 Mg/Ml Inj 2 Ml IV 09/17/24 21:28 Q6H PRN NAUSEA OR VOMITING Protocol Pantoprazole Sodium 40 mg 08/19/24 09:00 08/21/24 08:04 Pantoprazole Inj 40 Mg Vial IVP 09/18/24 08:59 40 mg QDAY JOSEMANUEL Administration Polyethylene Glycol 17 gm 08/18/24 21:45 08/21/24 08:04 Polyethylene Glycol 17 Gm Packet GT 09/17/24 21:44 17 gm BID JOSEMANUEL Administration Sennosides 2 tab 08/19/24 21:00 08/20/24 21:11 Senna/Docusate Sod 1 Tab Tablet PO 09/18/24 20:59 2 tab HS JOSEMANUEL Administration Protocol Thiamine HCl 100 mg 08/19/24 09:00 08/21/24 08:04 Thiamine 100 Mg Tablet GT 09/18/24 08:59 100 mg QDAY JOSEMANUEL Administration Vitamin D 1,000 iu 08/19/24 09:00 08/21/24 08:05 Cholecalciferol (Vitamin D3) 1,000 Iu Tablet GT 09/18/24 08:59 1,000 iu QDAY JOSEMANUEL Administration Plan Bilateral cerebral infarct brain MRI showed extensive infarct in the bilateral cerebral hemispheres and corpus callosum, raising concerns for multifocal vascular territory infract and a possible vasculitis or encephalomyelitis process. CT head on 08/17 revealed improving mass effect associated with known infarcts without new process We will order EEG to assess if patient has brain activity as well as brain MRI without contrast I spoke with primary team and they want to rule out septic emboli stroke for which they would like to have brain MRI with and without contrast Due to patient critical condition patient has poor prognosis Plan: ? Continue aspirin 81 mg p.o. daily ? Continue atorvastatin 80 mg p.o. daily ? EEG pending report ? Pending brain MRI with and without close contrast #MSSA bacteremia #Diabetes mellitus type 2 #Uncontrolled hypertension #Chronic respiratory failure #Glaucoma of left eye #Urinary retention #Myoclonus #Vitamin D deficiency Patient discussed with my attending Dr Yelena Whitmore MD PGY-3 Disclaimer: Despite multiple revisions, due to the dictation software being used, the document bellow may not be free of grammatical errors including phonetic/typographic errors. However, this does not deter from our commitment to providing health care in the patient's best interest in mind. Attending Provider Attestation/Addendum I personally have seen and examined the patient at the bedside and agree with resident findings, assessment and plan of care. Will follow-up with EEG. MRI brain: Pending. Patient's mental status is declining and his prognosis continues to be poor.
[2024-08-21] MEDS: INSULIN LISPRO (AdmeLOG) 1 UNIT/0.01 ML UNIT SC ×2 (12:02→23:23)
--- NOTE | 2024-08-21 12:49 | ESPR_ITS ---
<Statement entered by Bayron Foley MD - 09/01/24 13:16> I reviewed above note and agree with findings and plans. I have also personally examined the patient with medicine team and went over assessment and plan with medical team including post graduate internship and resident physician. Documentation for date of: 08/21/24 Senior resident attestation: Patient is a 64-year-old male, status post trach and PEG, DNR status but full treatment. Transferred back from [facility] following hospitalization for multiple medical problems including ischemic stroke including multiple vascular territories, possible embolic stroke versus vasculitis/encephalitis, on antibiotics cefazolin through September 20 for MSSA bacteremia and possible infective endocarditis, patient unable to tolerate YANELIS at [facility]. Other medical problems include anemia, anasarca, diabetes mellitus and hypertension. Will get cardiology and neurology on board, possible YANELIS if cardiology agrees. Continue antibiotics as recommended by [facility] ID specialist. Cardiology was consulted, following the patient, unsuccessful attempted YANELIS as unable to pass scope, neurology following the patient, ordered repeat MRI and EEG. Pending neuro recs, pt can be discharged to Subacute and complete antibiotics for possible infective endocarditis. #MSSA bacteremia #Possible infective endocarditis?prior unsuccessful YANELIS at [facility], as well as unsuccessful attempt at YANELIS again today, patient currently stays on cefazolin through September 20 per ID recommendations from [facility]. #Ischemic stroke, likely embolic?repeat MRI ordered to rule out septic emboli. #Encephalopathjy, multifactorial, pt is in vegative state, Per medical records palliative services were offered at [facility] but family not agreeable at that time, Neurology follwoing the pateint, have ordered EEg and MRI brain, pending neuro recs. #DM Patient evaluated and examined at the bedside, plan of care discussed with rest of the team including my attending physician, except as noted. Quresh PGY2 Subjective Subjective Interval history: No overnight events. No change in patient status, remains alert but not orientated X 0, unable to follow commands, and non-verbal. Lack of purposeful response to stimuli to tactile or auditory. YANELIS unsuccessful as procedure could not continue past oropharyngeal cavity. Pending EEG and MRI per cardiology recommendations. Continue cefempime. Exam Vital Signs Temp Pulse Resp BP Pulse Ox O2 Del Method FiO2 97.7 F 71 20 144/73 H 98 Room Air 50 08/21/24 08:00 08/21/24 08:15 08/21/24 08:00 08/21/24 08:15 08/21/24 08:00 08/21/24 08:00 08/21/24 12:00 Narrative Exam General Appearance: Alert & Oriented X0, well-nourished male who is lying in bed in no acute distress, with lower pedal edema noted 2+ and mild scrotal swelling as well. HEENT: Skull symmetrical and atraumatic. Conjunctivae pin and moist. External ear without lesion or discharge. Straight, nares patient, mucosa pink, no discharge. No thyroid nodule appreciated. No cervical lymphadenopathy. Cardio: Normal Rate and Rhythm with S1 and S2 heart sounds. No murmurs or extra heart sounds auscultated. No bruits on carotid auscultation. No peripheral edema or cyanosis. Lungs: Symmetric with good expansion. Chest and back non-tender. Breath sounds vesicular without crackles up upper airway sounds, likely secondary to being on trach. Abdomen: Non-tender, Non-distended, Normal Reactive Bowel Sounds Neuro: YES Alert, NO cooperative, No oriented to person, NO place, and NO time. unable to follow commands, no motor function. Objective Labs 08/21/24 05:05 08/21/24 05:05 Labs: Laboratory Results - last 24 hr 08/21/24 05:05 WBC 9.6 RBC 2.79 L Hgb 8.4 L Hct 26.5 L MCV 95 MCH 30.1 MCHC 31.7 RDW Std Deviation 45.6 H Plt Count 352 D Neut % (Auto) 77 Lymph % (Auto) 13 [place] % (Auto) 8 Eos % (Auto) 1 Baso % (Auto) 1 Neut # (Auto) 7.4 Lymph # (Auto) 1.2 [place] # (Auto) 0.7 Eos # (Auto) 0.1 Baso # (Auto) 0.1 Immature Gran # (Auto) 0.04 H Absolute Nucleated RBC 0.00 Immature Gran % 0 Nucleated RBC % 0 Sodium 141 Potassium 3.6 Chloride 108 H Carbon Dioxide 25.6 Anion Gap 7 BUN 12 Creatinine 0.5 L Estim Creat Clear Calc 181.9 eGFR > 60 BUN/Creatinine Ratio 24 H Glucose 137 H Calculated Osmolality 282 Calcium 8.5 Corrected Calcium 9.0 Phosphorus 3.4 Magnesium 1.9 Total Bilirubin 0.5 AST 24 ALT 10 Alkaline Phosphatase 141 H Total Protein 6.7 Albumin 3.4 Globulin 3.3 Albumin/Globulin Ratio 1.0 L Quality Measures Quality Measures VTE prophylaxis Assessment & Plan Assessment Current Active Medications: Generic Name Dose Route Start Last Admin Trade Name Freq PRN Reason Stop Dose Admin Acetaminophen 650 mg 08/18/24 21:29 Acetaminophen 325 Mg Tablet PO 09/17/24 21:28 Q6H PRN Fever >100.5 Hydrocodone Bitart/Acetaminophen 1 tab 08/18/24 21:29 Hydrocodone/Apap 5/325 Tablet GT 08/23/24 21:28 Q4HR PRN PAIN SCALE 4-6 (Moderate Albuterol/Ipratropium 3 ml 08/18/24 21:52 Albuterol/Ipratropium (Duoneb) Rt Yelena 3 Ml Nebu INH 09/17/24 22:59 Q4HRRT PRN sob or wheeze Amlodipine Besylate 10 mg 08/19/24 09:00 08/21/24 08:15 Amlodipine Besylate 5 Mg Tablet GT 09/18/24 08:59 10 mg QDAY JOSEMANUEL Administration Aspirin 81 mg 08/19/24 09:00 08/21/24 08:04 Aspirin 81 Mg Chew GT 09/18/24 08:59 81 mg QDAY JOSEMANUEL Administration Atorvastatin Calcium 80 mg 08/19/24 21:00 08/20/24 21:11 Atorvastatin Calcium 20 Mg Tablet GT 09/18/24 20:59 80 mg HS JOSEMANUEL Administration Baclofen 5 mg 08/18/24 22:00 08/21/24 05:45 Baclofen 10 Mg Tablet GT 09/17/24 21:59 5 mg TID JOSEMANUEL Administration Bisacodyl 10 mg 08/18/24 21:41 Bisacodyl 10 Mg Supp ME 09/17/24 21:40 QDAY PRN CONSTIPATION Protocol Carvedilol 12.5 mg 08/19/24 08:00 08/21/24 08:14 Carvedilol 12.5 Mg Tablet GT 09/18/24 07:59 12.5 mg BIDWM JOSEMANUEL Administration Dextrose 25 ml 08/18/24 21:29 Dextrose 50%-Water Inj 50 Ml Syringe IV 09/17/24 21:28 Q15MIN PRN BG 50-70 responsive npo pt Dextrose 50 ml 08/18/24 21:29 Dextrose 50%-Water Inj 50 Ml Syringe IV 09/17/24 21:28 Q15MIN PRN BG <50 OR BG <70 & pt unresponsive Doxazosin Mesylate 1 mg 08/19/24 21:00 08/20/24 21:12 Doxazosin Mesylate 1 Mg Tablet GT 09/18/24 20:59 1 mg HS JOSEMANUEL Administration Enoxaparin Sodium 40 mg 08/19/24 09:00 08/21/24 08:04 Enoxaparin Sod Inj 40 Mg/0.4 Ml Syringe SC 09/02/24 08:59 40 mg QDAY JOSEMANUEL Administration Fentanyl Citrate 50 mcg 08/18/24 21:47 Fentanyl Cit Inj 50 Mcg/Ml Amp 2ml IV 08/23/24 21:46 Q2H PRN Breakthrough Pain or agitation Glucagon 1 mg 08/18/24 21:29 Glucagon Inj 1 Mg Vial IM Q15MIN PRN BG <70, and no IV access Hydralazine HCl 100 mg 08/18/24 22:00 08/21/24 05:44 Hydralazine Hcl 25 Mg Tablet GT 09/17/24 21:59 100 mg TID JOSEMANUEL Administration Hydralazine HCl 10 mg 08/18/24 21:52 Hydralazine Inj 20 Mg/Ml Vial IV 09/17/24 21:51 Q4H PRN SBP >180 or DBP >120 and HR <70 Cefazolin Sodium 2 gm in 100 mls @ 100 mls/hr 08/19/24 14:00 08/21/24 07:19 Ancef 2gm Ivpb IV 09/20/24 08:29 Infused Q8HR JOSEMANUEL Infusion Insulin Glargine 16 unit 08/21/24 09:00 08/21/24 08:15 Insulin Glargine (Lantus) 5 Unit/0.05 Ml (Per 5 Units) SC 09/20/24 08:59 16 unit QDAY JOSEMANUEL Administration Insulin Human Lispro 0 unit 08/19/24 00:00 08/21/24 12:02 Insulin Lispro (Admelog) 1 Unit/0.01 Ml Unit SC 09/18/24 00:00 2 unit Q6HR JOSEMANUEL Administration Protocol Labetalol HCl 10 mg 08/18/24 21:52 Labetalol Inj 5 Mg/Ml Vial 20 Ml IVP 09/17/24 21:51 Q4H PRN SBP>180 or DBP >120 and HR >70 Losartan Potassium 100 mg 08/19/24 09:00 08/21/24 08:15 Losartan Potassium 25 Mg Tablet GT 09/18/24 08:59 100 mg QDAY JOSEMANUEL Administration Multivitamins 1 tab 08/19/24 09:00 08/21/24 08:05 Multivitamins Tablet PO 09/18/24 08:59 1 tab QDAY JOSEMANUEL Administration Mupirocin 0 gm 08/20/24 09:00 08/21/24 08:16 Mupirocin Oint 2% 15 Gm Tube TOP 08/25/24 08:59 1 appl BID JOSEMANUEL Administration Ondansetron HCl 4 mg 08/18/24 21:29 Ondansetron Inj 2 Mg/Ml Inj 2 Ml IV 09/17/24 21:28 Q6H PRN NAUSEA OR VOMITING Protocol Pantoprazole Sodium 40 mg 08/19/24 09:00 08/21/24 08:04 Pantoprazole Inj 40 Mg Vial IVP 09/18/24 08:59 40 mg QDAY JOSEMANUEL Administration Polyethylene Glycol 17 gm 08/18/24 21:45 08/21/24 08:04 Polyethylene Glycol 17 Gm Packet GT 09/17/24 21:44 17 gm BID JOSEMANUEL Administration Sennosides 2 tab 08/19/24 21:00 08/20/24 21:11 Senna/Docusate Sod 1 Tab Tablet PO 09/18/24 20:59 2 tab HS JOSEMANUEL Administration Protocol Thiamine HCl 100 mg 08/19/24 09:00 08/21/24 08:04 Thiamine 100 Mg Tablet GT 09/18/24 08:59 100 mg QDAY JOSEMANUEL Administration Vitamin D 1,000 iu 08/19/24 09:00 08/21/24 08:05 Cholecalciferol (Vitamin D3) 1,000 Iu Tablet GT 09/18/24 08:59 1,000 iu QDAY JOSEMANUEL Administration Plan Patient is a 64-year-old male with a limited past medical history of alcohol use disorder and possible history of meth use disorder who was initially admitted on 07/19/2024 secondary to intractable pain from the left fourth rib and fractures of the 2nd and 4th lumbar transverse processes who was then transfered to [facility] for cerebellar stroke and now returned to [facility] on 08/18/2024 for subacute placement and bacteremia w/ ischemic stroke. #MSSA bacteremia #Concern for infective endocarditis Patient initially had MSSA pneumonia, and was treated with cefepime for 10 days, blood culture positive with 1/2 positive blood cultures for MSSA. YANELIS procedure unable to procceed past oropharyngeal cavity, continue to treat MSSA bacteremia. [facility] Echo done on 08/12/2024: LVEF 55 to 60%, poorly visualized valves, no pericardial effusion Plan: - Continue with cefazolin 2 g every 8 hourly until 09/20/2024 -Mupirocin for nasal -Blood cultures Negative 24 hours - Follow-up on anti-MOG serum, aquaporin 4 antibody from [facility] -Cardiology consulted, Dr. Hutton, appreciate recommendations. #Acute ischemic stroke, multifocal, likely embolic #Cerebellar & Cerebral Hemispheres MRI on 08/09/2024 at [facility] revealed extensive area of restricted diffusion involving both cerebral hemispheres, right centrum semimobile, corpus callosum, and posterior fossa. Repeat CT head at [facility] on 08/17 revealed improving mass effect associated with known infarcts without new process. ddx: less likely secondary to infectious cause as VDRL negative, cryptococcal negative, AFB, fungal cultures negative to date as per record Plan: - Continue to monitor on telemetry unit - Continue on aspirin 81 Mg daily and Lipitor 80 Mg daily at night - Sodium goal 140-150 - Maintain normotension -Neurlogy consulted, Dr. Kirk, appreciate recommendations. #Diabetes mellitus type 2 Per chart review patient was started on Lantus at [facility], limited history if patient was being treated prior to admission for diabetes. A1c on admission 8.2 Plan: - Lantus 15 units daily - Sliding scale insulin level 2 with lispro every 6 hour #Hypertension #Uncontrolled hypertension, improved The patient's blood pressure was continuously sustained above 200 mhg likely secondary to stroke but has been well controlled since admission. Plan: - SBP goal less than 160 mmHg - Losartan 100 Mg daily - Hydralazine 100 Mg every 8 hourly - Amlodipine 10 mg daily - Carvedilol 12.5 Mg twice daily - Labetalol/hydralazine IV as needed #Chronic respiratory failure Initially intubated for increased work of breathing, not improving on BiPAP, s/p trach and PEG on 08/05/2024, and was noted to have adenovirus positive on 08/04/2024 Plan: - Had not elevated to 30 degree - Peridex oral hygiene every 4 hourly - ABG as needed #ANASARCA, improved Likely secondary to statis given inability to move and mild scrotal swelling. Plan -Consider lasix if need be. #Glaucoma of left eye - Follow-up outpatient ophthalmology #Urinary retention - Indwelling Hutchins, Hutchins care - Continue doxazosin 1 mg daily #Myoclonus Spontaneous contraction to noxious stimuli - Baclofen 5 mg 3 times daily #Vitamin D deficiency - Vitamin D 1000 units daily Health maintenance: Dispo: Patient is transferred back from [facility] after undergoing tracheostomy and PEG tube placement, currently admitted to telemetry unit and subacute placement Diet: Via PEG tube DVT prophylaxis: Subcu enoxaparin 40 Mg daily CODE STATUS: DNR - The patient's plan was discussed with attending Dr. Foley and senior residents Dr. Joe Malagon MD PGY1 Internal Medicine
[2024-08-21] MEDS: DOXAZOSIN MESYLATE 1 MG TABLET GT (20:04)
[2024-08-21] MEDS: ATORVASTATIN CALCIUM 20 MG TABLET 80 MG GT (20:05)
[2024-08-21] MEDS: SENNA/DOCUSATE SOD 1 TAB TABLET 2 TAB PO (20:11)
[2024-08-22] VITALS (17 sets, daily range): BP systolic 131–163; BP diastolic 61–77; PULSE 61–86; RESP 14–22; TEMP 36.3–37.2; O2SAT 96–99; BMI 30.9
--- NOTE | 2024-08-22 | XR_ITS ---
Examination: MRI of brain without intravenous contrast. MRI brain with intravenous contrast. Date and time of exam:August 22, 2024 1433 hours INDICATIONS: Stroke alert July 19, 2024 onset focal neurologic deficit including facial droop Technique: Multiple axial and sagittal images of the brain to been obtained. Siemens high-resolution 1.52 Anna short bore scanner utilized. Sagittal sections, T1 weighted images, TR 500, TE 14, are performed. Axial sections proton-density and T2-weighted images have been obtained. Inversion recovery axial images, TR 9260, TE 111, TR 2500. Diffusion weighted images, axial sections, TR 4800, TE 128, B value 1000. Axial sections, ADC map, TR 4800, TE 128. Axial and coronal images were also obtained post 19 cc gadolinium administered intravenously. Findings:: Enlargement of the sella turcica is not present. The optic chiasm and infundibular stalk are not remarkable. There is no localized enlargement of the medulla or shell. Fourth ventricle and cerebellar tonsils appear normal in position. No subacute area of hemorrhage density is seen. Fourth ventricle is midline. Mass in the cerebellopontine angle region is not evident. 7th and 8th nerve complexes exhibit symmetry Globes are symmetrical Orbital musculature including medial lateral rectus muscles do not exhibit abnormality Increased white matter signal is prominent Effacement of the cortical sulcal markings is not identified. Mass effect upon the ventricular system is not identified. Diffusion-weighted images demonstrate numerous embolic type infarcts right and left cerebellar hemispheres bilateral occipital lobes, posterior corpus callosum, bilateral frontal lobes, right caudate nucleus, extensive infarcts in the parietal lobes Contrast images demonstrate post infarct enhancement bilateral cerebellar hemispheres, left posterior and right posterior temporal lobes occipital lobes, parietal lobes posterior corpus callosum Impression: Extensive embolic type acute infarcts as above
[2024-08-22] MEDS: hydrALAZINE HCL 25 MG TABLET 100 MG GT ×3 (05:20→21:34)
[2024-08-22] MEDS: BACLOFEN 10 MG TABLET 5 MG GT ×3 (05:21→21:34)
[2024-08-22] MEDS: ceFAZolin/D5W 2 GM IV 2 GM/100 ML BAG IV (05:24)
[2024-08-22 05:38] LABS: Basophils % (Auto) 0 % (0-2.5); Eosinophils # (Auto) 0.1 Thou/mm3 (0.0-0.5); Eosinophils % (Auto) 1 % (0-10); Hematocrit 23.8 % (41.0-53.0); Immature Granulocytes % (Auto) 0 % (0-0); Immature Granulocytes Auto 0.05 Thou/mm3 (0.00-0.00); Lymphocytes # (Auto) 1.2 Thou/mm3 (1.0-4.8); Lymphocytes % (Auto) 10 % (10-50); Mean Corpuscular HGB Conc 32.4 g/dl (31.0-37.0); Mean Corpuscular Hemoglobin 30.2 pg (25.0-35.0); Mean Corpuscular Volume 93 fL (80-100); Monocytes # (Auto) 0.9 Thou/mm3 (0.0-0.8); Monocytes % (Auto) 7 % (0-12); Neutrophils # (Auto) 9.7 Thou/mm3 (1.8-7.7); Neutrophils % (Auto) 81 % (37-80); Nucleated Red Blood Cell % 0 /100 WBC (0); Platelet Count 328 Thou/mm3 (140-440); RDW Standard Deviation 45.2 fL (35.1-43.9); Red Blood Count 2.55 Miln/mm3 (4.50-5.90)
[2024-08-22 05:39] LABS: Hemoglobin 7.7 g/dL (13.5-16.0)
[2024-08-22 06:17] LABS: Alanine Aminotransferase 7 U/L (10-49); Albumin, Serum 3.3 gm/dL (3.4-4.8); Albumin/Globulin Ratio 1.1 (1.2-2.2); Alkaline Phosphatase 141 U/L (46-116); Anion Gap 8 (7-16); Aspartate Amino Transferase 21 U/L (0-34); BUN/Creatinine Ratio 18 Ratio (12-20); Bilirubin,Total 0.4 mg/dL (0.3-1.2); Blood Urea Nitrogen 11 mg/dL (9-23); Calcium 8.4 mg/dL (8.3-10.6); Carbon Dioxide 26.4 mMol/L (20.0-31.0); Chloride 105 mMol/L (98-107); Creatinine (Component) 0.6 mg/dL (0.6-1.3); Estimated Creatinine Clearance 149.8 mL/min (>60); Globulin 3.1 gm/dL (2.3-3.5); Glucose 148 mg/dL (74-106); Magnesium 2.1 mg/dL (1.6-2.6); Osmolality,Calculated 279 (275-295); Phosphorous 3.6 mg/dL (2.4-5.1); Potassium 3.6 mMol/L (3.4-5.1); Sodium 139 mMol/L (136-145); Total Protein 6.4 gm/dL (5.7-8.2); eGFR > 60 See Note
--- NOTE | 2024-08-22 07:00 | ECHO_ITS ---
Transthoracic Echo Report Ht (in): 70 Wt (lb): 216 Exam Location: Echo Lab Status: Inpatient Long Term: [facility] Indications: Procedure Performed: BP: 125 / 62 HR: 76 Technical Quality: Technically difficult study MEASUREMENTS (Male / Female) Normal Values 2D ECHO LA Volume Index 30.9 cm?/m? 16 - 28 cm?/m? M-MODE Aortic Root Diameter MM 2.5 cm LA Systolic Diameter MM 5.0 cm LA Ao Ratio MM 2.0 AV Cusp Separation MM 1.5 cm DOPPLER AV Peak Velocity 141.0 cm/s AV Peak Gradient 8.0 mmHg AV Mean Gradient 4.0 mmHg AV Velocity Time Integral 29.0 cm LVOT Peak Velocity 109.0 cm/s LVOT Peak Gradient 4.8 mmHg LVOT Velocity Time Integral 20.2 cm MV Area PHT 3.7 cm? MR Peak Velocity 263.0 cm/s MR Peak Gradient 27.7 mmHg Mitral E Point Velocity 102.0 cm/s Mitral A Point Velocity 63.1 cm/s Mitral E to A Ratio 1.6 LV E' Lateral Velocity 9.6 cm/s Mitral E to LV E' Lateral Ratio 10.7 LV E' Septal Velocity 8.3 cm/s Mitral E to LV E' Septal Ratio 12.3 TR Peak Velocity 244.5 cm/s TR Peak Gradient 23.9 mmHg FINDINGS Left Ventricle Normal left ventricular size, wall thickness, systolic function with no obvious regional wall motion abnormalities. Normal left ventricular diastolic filling pattern for age. The ejection fraction is visually estimated at 55%. Right Ventricle The right ventricle is normal in size and systolic function. The estimated right ventricular systolic pressure, 38 mmHg. RAP 15. Left Atrium The left atrium is normal by two-dimensional, color flow and Doppler imaging with no structural abnormalities, no thrombus formation present. Right Atrium The right atrium is normal by two-dimensional imaging, color flow and Doppler imaging with no structural abnormalities, no thrombus formation present. Atrial Septum The interatrial septum appears normal with no evidence of a shunt. Aorta The aorta is normal by two-dimensional, color flow and Doppler interrogation. Mitral Valve Mild mitral annular calcification. Trace mitral regurgitation. Aortic Valve The aortic valve is trileaflet and normal by two-dimensional, color flow and Doppler interrogation. There is no significant aortic valve regurgitation. Tricuspid Valve There is mild tricuspid valve regurgitation. Pulmonic Valve The pulmonic valve is not well visualized. There is no significant pulmonic valve regurgitation. Vessels Dilated inferior vena cava. Pericardium The pericardium is normal by two-dimensional imaging. There is no significant pericardial effusion. CONCLUSIONS Indication: R/O vegetations No clear valvular vegetations. Consider YANELIS if high index of suspicion. Normal LV size and function. Estimated EF 55-60%. Normal diastolic function. RV is normal in size and systolic function. The estimated RVSP, 38 mmHg. RAP 15. Mild MAC. Trace MR. Mild TR. Dilated IVC. Ben Hutton (Electronically Signed) Final Date: 24 August 2024 13:41
--- NOTE | 2024-08-22 08:43 | PD.RESPRO ---
Documentation for date of: 08/22/24 Subjective Subjective Interval history: No acute overnight events noted. Seen and examined at bedside, remains on mechanical ventilation and saturating 98% on 50% FiO2. Labs and imaging reviewed. Exam Vital Signs Temp Pulse Resp BP Pulse Ox O2 Del Method FiO2 97.8 F 70 15 138/65 H 98 Mechanical Ventilation 40 08/22/24 08:00 08/22/24 08:00 08/22/24 08:00 08/22/24 08:00 08/22/24 08:00 08/22/24 08:00 08/22/24 07:18 Narrative Exam General: tracheostomy in place on MV, eyes open to voice, does not follow commands HEENT: NC/AT, mucous membranes moist, bilateral sclera anicteric Cardiovascular: regular rate and rhythm, S1/S2 present, no murmurs appreciated Pulmonary: clear to auscultation bilaterally, no rales/rhonchi/wheezes Abdominal: soft, non-tender, non-distended, no rebound/guarding, normal bowel sounds present Musculoskeletal: upper extremities edematous, normal ROM Skin: warm and dry, intact, no rashes Neuro: unable to assess Objective Labs 08/23/24 05:08 08/23/24 05:08 Labs: Laboratory Results - last 24 hr 08/22/24 04:32 WBC 12.0 H RBC 2.55 L Hgb 7.7 L Hct 23.8 L MCV 93 MCH 30.2 MCHC 32.4 RDW Std Deviation 45.2 H Plt Count 328 Neut % (Auto) 81 H Lymph % (Auto) 10 [place] % (Auto) 7 Eos % (Auto) 1 Baso % (Auto) 0 Neut # (Auto) 9.7 H Lymph # (Auto) 1.2 [place] # (Auto) 0.9 H Eos # (Auto) 0.1 Baso # (Auto) 0.0 Immature Gran # (Auto) 0.05 H Absolute Nucleated RBC 0.00 Immature Gran % 0 Nucleated RBC % 0 Sodium 139 Potassium 3.6 Chloride 105 Carbon Dioxide 26.4 Anion Gap 8 BUN 11 Creatinine 0.6 Estim Creat Clear Calc 149.8 eGFR > 60 BUN/Creatinine Ratio 18 Glucose 148 H Calculated Osmolality 279 Calcium 8.4 Corrected Calcium 9.0 Phosphorus 3.6 Magnesium 2.1 Total Bilirubin 0.4 AST 21 ALT 7 L Alkaline Phosphatase 141 H Total Protein 6.4 Albumin 3.3 L Globulin 3.1 Albumin/Globulin Ratio 1.1 L Quality Measures Quality Measures VTE prophylaxis Assessment & Plan Assessment Current Active Medications: Generic Name Dose Route Start Last Admin Trade Name Freq PRN Reason Stop Dose Admin Acetaminophen 650 mg 08/18/24 21:29 Acetaminophen 325 Mg Tablet PO 09/17/24 21:28 Q6H PRN Fever >100.5 Hydrocodone Bitart/Acetaminophen 1 tab 08/18/24 21:29 Hydrocodone/Apap 5/325 Tablet GT 08/23/24 21:28 Q4HR PRN PAIN SCALE 4-6 (Moderate Albuterol/Ipratropium 3 ml 08/18/24 21:52 Albuterol/Ipratropium (Duoneb) Rt Yelena 3 Ml Nebu INH 09/17/24 22:59 Q4HRRT PRN sob or wheeze Amlodipine Besylate 10 mg 08/19/24 09:00 08/21/24 08:15 Amlodipine Besylate 5 Mg Tablet GT 09/18/24 08:59 10 mg QDAY JOSEMANUEL Administration Aspirin 81 mg 08/19/24 09:00 08/21/24 08:04 Aspirin 81 Mg Chew GT 09/18/24 08:59 81 mg QDAY JOSEMANUEL Administration Atorvastatin Calcium 80 mg 08/19/24 21:00 08/21/24 20:05 Atorvastatin Calcium 20 Mg Tablet GT 09/18/24 20:59 80 mg HS JOSEMANUEL Administration Baclofen 5 mg 08/18/24 22:00 08/22/24 05:21 Baclofen 10 Mg Tablet GT 09/17/24 21:59 5 mg TID JOSEMANUEL Administration Bisacodyl 10 mg 08/18/24 21:41 Bisacodyl 10 Mg Supp AK 09/17/24 21:40 QDAY PRN CONSTIPATION Protocol Carvedilol 12.5 mg 08/19/24 08:00 08/21/24 17:35 Carvedilol 12.5 Mg Tablet GT 09/18/24 07:59 12.5 mg BIDWM JOSEMANUEL Administration Dextrose 25 ml 08/18/24 21:29 Dextrose 50%-Water Inj 50 Ml Syringe IV 09/17/24 21:28 Q15MIN PRN BG 50-70 responsive npo pt Dextrose 50 ml 08/18/24 21:29 Dextrose 50%-Water Inj 50 Ml Syringe IV 09/17/24 21:28 Q15MIN PRN BG <50 OR BG <70 & pt unresponsive Doxazosin Mesylate 1 mg 08/19/24 21:00 08/21/24 20:04 Doxazosin Mesylate 1 Mg Tablet GT 09/18/24 20:59 1 mg HS JOSEMANUEL Administration Enoxaparin Sodium 40 mg 08/19/24 09:00 08/21/24 08:04 Enoxaparin Sod Inj 40 Mg/0.4 Ml Syringe SC 09/02/24 08:59 40 mg QDAY JOSEMANUEL Administration Fentanyl Citrate 50 mcg 08/18/24 21:47 Fentanyl Cit Inj 50 Mcg/Ml Amp 2ml IV 08/23/24 21:46 Q2H PRN Breakthrough Pain or agitation Glucagon 1 mg 08/18/24 21:29 Glucagon Inj 1 Mg Vial IM Q15MIN PRN BG <70, and no IV access Hydralazine HCl 100 mg 08/18/24 22:00 08/22/24 05:20 Hydralazine Hcl 25 Mg Tablet GT 09/17/24 21:59 100 mg TID JOSEMANUEL Administration Hydralazine HCl 10 mg 08/18/24 21:52 Hydralazine Inj 20 Mg/Ml Vial IV 09/17/24 21:51 Q4H PRN SBP >180 or DBP >120 and HR <70 Cefazolin Sodium 2 gm in 100 mls @ 100 mls/hr 08/19/24 14:00 08/22/24 07:10 Ancef 2gm Ivpb IV 09/20/24 08:29 Infused Q8HR [facility] Infusion Insulin Glargine 16 unit 08/21/24 09:00 08/21/24 08:15 Insulin Glargine (Lantus) 5 Unit/0.05 Ml (Per 5 Units) SC 09/20/24 08:59 16 unit QDAY [facility] Administration Insulin Human Lispro 0 unit 08/19/24 00:00 08/22/24 05:28 Insulin Lispro (Admelog) 1 Unit/0.01 Ml Unit SC 09/18/24 00:00 Not Given Q6HR [facility] Protocol Labetalol HCl 10 mg 08/18/24 21:52 Labetalol Inj 5 Mg/Ml Vial 20 Ml IVP 09/17/24 21:51 Q4H PRN SBP>180 or DBP >120 and HR >70 Losartan Potassium 100 mg 04/15/25 09:00 08/21/24 08:15 Losartan Potassium 25 Mg Tablet GT 09/18/24 08:59 100 mg QDAY JOSEMANUEL Administration Multivitamins 1 tab 08/19/24 09:00 08/21/24 08:05 Multivitamins Tablet PO 09/18/24 08:59 1 tab QDAY JOSEMANUEL Administration Mupirocin 0 gm 08/20/24 09:00 08/21/24 20:16 Mupirocin Oint 2% 15 Gm Tube TOP 08/25/24 08:59 1 appl BID JOSEMANUEL Administration Ondansetron HCl 4 mg 08/18/24 21:29 Ondansetron Inj 2 Mg/Ml Inj 2 Ml IV 09/17/24 21:28 Q6H PRN NAUSEA OR VOMITING Protocol Pantoprazole Sodium 40 mg 08/19/24 09:00 08/21/24 08:04 Pantoprazole Inj 40 Mg Vial IVP 09/18/24 08:59 40 mg QDAY JOSEMANUEL Administration Polyethylene Glycol 17 gm 08/18/24 21:45 08/21/24 20:16 Polyethylene Glycol 17 Gm Packet GT 09/17/24 21:44 17 gm BID JOSEMANUEL Administration Sennosides 2 tab 08/19/24 21:00 08/21/24 20:11 Senna/Docusate Sod 1 Tab Tablet PO 09/18/24 20:59 2 tab HS JOSEMANUEL Administration Protocol Thiamine HCl 100 mg 08/19/24 09:00 08/21/24 08:04 Thiamine 100 Mg Tablet GT 09/18/24 08:59 100 mg QDAY JOSEMANUEL Administration Vitamin D 1,000 iu 08/19/24 09:00 08/21/24 08:05 Cholecalciferol (Vitamin D3) 1,000 Iu Tablet GT 09/18/24 08:59 1,000 iu QDAY JOSEMANUEL Administration Plan Phu Melendez is a 64-year-old male with history of uncontrolled hypertension and type 2 diabetes mellitus who was initially admitted to [facility] on 07/18/2024 for acute displaced fracture of left fourth rib as well as acute fractures of left second and fourth lumbar transverse processes. During hospital stay developed left-sided facial drooping, blurry vision, dizziness, and ataxia and CT head showed hypodensity in posterior cerebellum that extended to right hemisphere without hemorrhage and teleneurology recommended neurosurgical consultation for risk of post-CVA edema and risk of herniation. Transferred to [facility] for further management and per records, hospital course complicated by progressive neurological decline as repeat CT head revealed evolved hypodensity in right corpus callosum, requiring intubation and sedation, and eventually tracheostomy and PEG tube placement on 08/05. GOC meeting held with family and decision was made for DNR/full treatment. On 08/18/2024, patient was transferred back to [facility]. Cardiology consulted for AYNELIS while in-house to rule out endocarditis given MSSA bacteremia. #MSSA bacteremia #? Infective endocarditis Patient initially had MSSA pneumonia, and was treated with cefepime for 10 days, blood culture positive with 1/2 positive blood cultures for MSSA TTE done on 08/12/2024 revealed LVEF 55 to 60%, poorly visualized valves, no pericardial effusion. YANELIS attempted at [facility] but per family, unable to be done due to technical difficulties while intubated. Recommendations: -We will reassess and determine the appropriate next steps and see if we can repeat the YANELIS. #Type 2 diabetes mellitus A1c 8.2% on 08/2024 Goal blood sugar range of 140-180 #Uncontrolled hypertension Noted to be on multiple blood pressure medications with BP ranging in 130s-150s/70s, suspect to be secondary to CVA. ? Amlodipine 10 mg daily ? Carvedilol 12.5 mg BID ? Hydralazine 100 mg TID ? Labetolol 10 mg PRN ? 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 Management of above conditions per primary team ----- Plan discussed with attending physician Dr. Brennen Hull MD PGY-3 Internal Medicine Attending Provider Attestation/Addendum I have personally seen and examined the patient separately on the above date of service and discussed the plan of care with the resident. I reviewed the resident Dr. Efra Hull consultation progress note and agree with the resident findings and plan in the note above and have also edited the documentation to reflect my findings and plan. Cardiology initially consulted for bacteremia and to rule out endocarditis. YANELIS was attempted but unfortunately YANELIS could not be completed and the probe could not be passed beyond the oropharyngeal space. Unclear etiology for now and apparently YANELIS was also attempted at [facility] where he was transferred recently and stayed there for almost a month. Recommend to continue antibiotics for longer term at least 4 to 6 weeks to treat for possible endocarditis as it could not be ruled out. Discussed with the primary team. Cardiology will sign off for now and please call us with any questions or concerns. Ben Hutton M.D. Interventional Cardiology
[2024-08-22] MEDS: ASPIRIN 81 MG CHEW GT (08:46)
[2024-08-22] MEDS: ENOXAPARIN SOD INJ 40 MG/0.4 ML SYRINGE SC (08:46)
[2024-08-22] MEDS: POTASSIUM CHLORIDE 10% 20 MEQ/15 ML UDC 40 MEQ GT (08:46)
[2024-08-22] MEDS: PANTOPRAZOLE INJ 40 MG VIAL IVP (08:46)
[2024-08-22] MEDS: POLYETHYLENE GLYCOL 17 GM PACKET GT ×2 (08:47→20:07)
[2024-08-22] MEDS: INSULIN GLARGINE (Lantus) 5 UNIT/0.05 ML (PER 5 UNITS) 16 UNIT SC (08:47)
[2024-08-22] MEDS: LOSARTAN POTASSIUM 25 MG TABLET 100 MG GT (08:47)
[2024-08-22] MEDS: MULTIVITAMINS TABLET 1 TAB PO (08:48)
[2024-08-22] MEDS: MUPIROCIN OINT 2% 15 GM TUBE TOP ×2 (08:48→20:07)
[2024-08-22] MEDS: carVEDILOL 12.5 MG TABLET GT ×2 (08:48→17:35)
[2024-08-22] MEDS: THIAMINE 100 MG TABLET GT (08:48)
[2024-08-22] MEDS: CHOLECALCIFEROL (Vitamin D3) 1,000 IU TABLET 1000 IU GT (08:48)
[2024-08-22] MEDS: amLODIPine BESYLATE 5 MG TABLET 10 MG GT (08:48)
--- NOTE | 2024-08-22 09:15 | PC.SS ---
Follow up note: Patient to possibly d/c to subacute today. Pending ID rec'. MRI pending. Son remains medical decision maker
--- NOTE | 2024-08-22 09:58 | ESPR_ITS ---
Subjective Subjective Interval history: non communicative man with hx of dm. neuro compromise and resp failure with trach and peg at [facility] sent her for palliative eval and placement. to be on ancef thru 09/20. no S in data presented but reportedly. ancef recommended by [facility] ID team Exam Vital Signs Temp Pulse Resp BP Pulse Ox O2 Del Method FiO2 97.8 F 70 15 138/65 H 98 Mechanical Ventilation 40 08/22/24 08:00 08/22/24 08:48 08/22/24 08:00 08/22/24 08:48 08/22/24 08:00 08/22/24 08:00 08/22/24 07:18 Narrative Exam no line. on vent. 40% non communicative, even in belgian. Objective - Internal Medicine Labs 08/22/24 04:32 08/22/24 04:32 Labs: Laboratory Results - last 24 hr 08/22/24 04:32 WBC 12.0 H RBC 2.55 L Hgb 7.7 L Hct 23.8 L MCV 93 MCH 30.2 MCHC 32.4 RDW Std Deviation 45.2 H Plt Count 328 Neut % (Auto) 81 H Lymph % (Auto) 10 [place] % (Auto) 7 Eos % (Auto) 1 Baso % (Auto) 0 Neut # (Auto) 9.7 H Lymph # (Auto) 1.2 [place] # (Auto) 0.9 H Eos # (Auto) 0.1 Baso # (Auto) 0.0 Immature Gran # (Auto) 0.05 H Absolute Nucleated RBC 0.00 Immature Gran % 0 Nucleated RBC % 0 Sodium 139 Potassium 3.6 Chloride 105 Carbon Dioxide 26.4 Anion Gap 8 BUN 11 Creatinine 0.6 Estim Creat Clear Calc 149.8 eGFR > 60 BUN/Creatinine Ratio 18 Glucose 148 H Calculated Osmolality 279 Calcium 8.4 Corrected Calcium 9.0 Phosphorus 3.6 Magnesium 2.1 Total Bilirubin 0.4 AST 21 ALT 7 L Alkaline Phosphatase 141 H Total Protein 6.4 Albumin 3.3 L Globulin 3.1 Albumin/Globulin Ratio 1.1 L Assessment & Plan A&P Narrative apparent cva with neuro compromise resp failure with staph pneumonia and bacteremia, team unable to do lillian rx planned thru 09/20. ok to move to Rocephin 2 gm/day to finish rx please do weekly cbc, renal panel, esr on iv rx and remove line at end of rx. can check superficially on Sunday Time Spent With Patient Time: Total time spent is greater than 50% in coordination of care (as documented) at patient's floor/unit and/or counseling patient:
--- NOTE | 2024-08-22 10:44 | ESCONSULT_ITS ---
<Statement entered by Glen Rodriguez MD - 08/25/24 10:31> pt seen with resident. all findings confirmed. pt not that interactive. HPI Data of Consult Patient: new to practice Consult date: 08/22/24 Requesting Physician: Bayron Foley MD Admitting Provider: Terra Vaughn MD Attending Provider: Bayron Foley MD Primary Care Provider: Physician No Primary/Family Consult Narrative Reason for consult: MSSA Pneumonia and Bactremia History of present illness: 64-year-old male with past medical history of hypertension, type 2 diabetes who was initially admitted to [facility] on July 18 following a fall from a 6 feet ladder at work and was discovered to then have a acute cerebellar stroke and displaced fracture of the left fourth right rib along with fractures of the left 2nd and 4th lumbar transverse processes. He was later transferred to [facility] where he continued to decline neurologically and due to a low GCS score required intubation and sedation. CT head imaging there revealed extensive infarct in the bilateral cerebral hemispheres and corpus callosum giving concern for a multifocal vascular territory infarct or vasculitis. Patient did not show signs of clinical improvement so underwent a tracheostomy and PEG tube placement. He developed a MSSA pneumonia with bacteremia for which he was initially placed on cefepime that was later transitioned to cefazolin. Patient was scheduled to be on cefazolin until September 20. PMH: As mentioned above SHX: Tracheostomy and PEG tube placement Family history: Unobtainable Social history: Unobtainable Medications: Polyethylene glycol 17 g twice daily, bisacodyl 10 mg rectally daily, cefazolin 2 g IV 3 times daily, cholecalciferol 1000 units daily, carvedilol 12.5 Mg twice daily, insulin glargine 15 units daily, enoxaparin 40 Mg daily, hydralazine 100 Mg 3 times daily, baclofen 5 mg 3 times daily, doxazosin 1 mg daily, amlodipine 10 mg daily, thiamine 100 Mg daily, atorvastatin 80 Mg daily, multivitamin 1 tab daily, aspirin 81 Mg daily, esomeprazole 40 Mg daily, losartan 100 Mg daily, insulin regular 0 to 18 units 4 times daily, Lasix, senna docusate 2 tablets daily at night as needed for constipation, acetaminophen 500 mg every 6 hourly as needed for fever, fentanyl 50 mcg every 2 hourly as for agitation, DuoNeb as needed every 4 hourly for wheezing, hydralazine 10 mg IV every 4 hourly and labetalol 10 mg every 4 hourly as needed for hypertensive urgency. Allergies: No known drug allergies. cc:: cc: Bayron Foley MD Review of Systems Review of Systems ROS Unobtainable: unobtainable due to mental status Exam Vital Signs Temp Pulse Resp BP Pulse Ox O2 Del Method FiO2 97.8 F 70 15 138/65 H 98 Mechanical Ventilation 40 08/22/24 08:00 08/22/24 08:48 08/22/24 08:00 08/22/24 08:48 08/22/24 08:00 08/22/24 08:00 08/22/24 08:00 Narrative Exam General Appearance: Alert & Oriented X0, well-nourished male who is lying in bed in no acute distress, on mechanical ventilation and PEG tube in place HEENT: Skull symmetrical and atraumatic. Conjunctivae pin and moist. External ear without lesion or discharge. Straight, nares patient, mucosa pink, no discharge. No thyroid nodule appreciated. No cervical lymphadenopathy. Cardio: Normal Rate and Rhythm with S1 and S2 heart sounds. No murmurs or extra heart sounds auscultated. No bruits on carotid auscultation. No peripheral edema or cyanosis. Lungs: Symmetric with good expansion. Chest and back non-tender. Abdomen: Non-tender, Non-distended, Normal Reactive Bowel Sounds Neuro: YES Alert, NO cooperative, No oriented to person, NO place, and NO time. unable to follow commands, no motor function. Results Labs 08/22/24 04:32 08/22/24 04:32 Labs: Short CBC 08/22/24 Range/Units 04:32 WBC 12.0 H (3.8-10.6) Thou/mm3 Hgb 7.7 L (13.5-16.0) g/dL Hct 23.8 L (41.0-53.0) % Plt Count 328 (140-440) Thou/mm3 BMP 08/22/24 04:32 Sodium 139 Potassium 3.6 Chloride 105 Carbon Dioxide 26.4 BUN 11 Creatinine 0.6 Glucose 148 H Calcium 8.4 Liver Function 08/22/24 Range/Units 04:32 Total Bilirubin 0.4 (0.3-1.2) mg/dL AST 21 (0-34) U/L ALT 7 L (10-49) U/L Alkaline Phosphatase 141 H (46-116) U/L Albumin 3.3 L (3.4-4.8) gm/dL Quality Measures Quality Measures VTE prophylaxis Medications Home Medications and Allergies Allergies Allergy/AdvReac Type Severity Reaction Status Date / Time No Known Allergies Allergy Verified 07/18/24 13:21 Visit Medications Acetaminophen (Acetaminophen 325 Mg Tablet) 650 mg PO Q6H PRN PRN Reason: Fever >100.5 Stop: 09/17/24 21:28 Hydrocodone Bitart/Acetaminophen (Hydrocodone/Apap 5/325 Tablet) 1 tab GT Q4HR PRN PRN Reason: PAIN SCALE 4-6 (Moderate Stop: 08/23/24 21:28 Albuterol/Ipratropium (Albuterol/Ipratropium (Duoneb) Rt Yelena 3 Ml Nebu) 3 ml INH Q4HRRT PRN PRN Reason: sob or wheeze Stop: 09/17/24 22:59 Amlodipine Besylate (Amlodipine Besylate 5 Mg Tablet) 10 mg GT QDAY [facility] Stop: 09/18/24 08:59 Last Admin: 08/22/24 08:48 Dose: 10 mg Aspirin (Aspirin 81 Mg Chew) 81 mg GT QDAY JOSEMANUEL Stop: 09/18/24 08:59 Last Admin: 08/22/24 08:46 Dose: 81 mg Atorvastatin Calcium (Atorvastatin Calcium 20 Mg Tablet) 80 mg GT HS [facility] Stop: 09/18/24 20:59 Last Admin: 08/21/24 20:05 Dose: 80 mg Baclofen (Baclofen 10 Mg Tablet) 5 mg GT TID JOSEMANUEL Stop: 09/17/24 21:59 Last Admin: 08/22/24 05:21 Dose: 5 mg Bisacodyl (Bisacodyl 10 Mg Supp) 10 mg ME QDAY PRN; Protocol PRN Reason: CONSTIPATION Stop: 09/17/24 21:40 Carvedilol (Carvedilol 12.5 Mg Tablet) 12.5 mg GT BIDWM [facility] Stop: 09/18/24 07:59 Last Admin: 08/22/24 08:48 Dose: 12.5 mg Dextrose (Dextrose 50%-Water Inj 50 Ml Syringe) 25 ml IV Q15MIN PRN PRN Reason: BG 50-70 responsive npo pt Stop: 09/17/24 21:28 Dextrose (Dextrose 50%-Water Inj 50 Ml Syringe) 50 ml IV Q15MIN PRN PRN Reason: BG <50 OR BG <70 & pt unresponsive Stop: 09/17/24 21:28 Doxazosin Mesylate (Doxazosin Mesylate 1 Mg Tablet) 1 mg GT HS [facility] Stop: 09/18/24 20:59 Last Admin: 08/21/24 20:04 Dose: 1 mg Enoxaparin Sodium (Enoxaparin Sod Inj 40 Mg/0.4 Ml Syringe) 40 mg SC QDAY [facility] Stop: 09/02/24 08:59 Last Admin: 08/22/24 08:46 Dose: 40 mg Fentanyl Citrate (Fentanyl Cit Inj 50 Mcg/Ml Amp 2ml) 50 mcg IV Q2H PRN PRN Reason: Breakthrough Pain or agitation Stop: 08/23/24 21:46 Glucagon (Glucagon Inj 1 Mg Vial) 1 mg IM Q15MIN PRN PRN Reason: BG <70, and no IV access Hydralazine HCl (Hydralazine Hcl 25 Mg Tablet) 100 mg GT TID [facility] Stop: 09/17/24 21:59 Last Admin: 08/22/24 05:20 Dose: 100 mg Hydralazine HCl (Hydralazine Inj 20 Mg/Ml Vial) 10 mg IV Q4H PRN PRN Reason: SBP >180 or DBP >120 and HR <70 Stop: 09/17/24 21:51 Cefazolin Sodium (Ancef 2gm Ivpb) 2 gm in 100 mls @ 100 mls/hr IV Q8HR [facility] Stop: 09/20/24 08:29 Last Infusion: 08/22/24 07:10 Dose: Infused Insulin Glargine (Insulin Glargine (Lantus) 5 Unit/0.05 Ml (Per 5 Units)) 16 unit SC QDAY [facility] Stop: 09/20/24 08:59 Last Admin: 08/22/24 08:47 Dose: 16 unit Insulin Human Lispro (Insulin Lispro (Admelog) 1 Unit/0.01 Ml Unit) 0 unit SC Q6HR [facility]; Protocol Stop: 09/18/24 00:00 Last Admin: 08/22/24 05:28 Dose: Not Given Labetalol HCl (Labetalol Inj 5 Mg/Ml Vial 20 Ml) 10 mg IVP Q4H PRN PRN Reason: SBP>180 or DBP >120 and HR >70 Stop: 09/17/24 21:51 Losartan Potassium (Losartan Potassium 25 Mg Tablet) 100 mg GT QDAY [facility] Stop: 09/18/24 08:59 Last Admin: 08/22/24 08:47 Dose: 100 mg Multivitamins (Multivitamins Tablet) 1 tab PO QDAY [facility] Stop: 09/18/24 08:59 Last Admin: 08/22/24 08:48 Dose: 1 tab Mupirocin (Mupirocin Oint 2% 15 Gm Tube) 0 gm TOP BID [facility] Stop: 08/25/24 08:59 Last Admin: 08/22/24 08:48 Dose: 1 appl Ondansetron HCl (Ondansetron Inj 2 Mg/Ml Inj 2 Ml) 4 mg IV Q6H PRN; Protocol PRN Reason: NAUSEA OR VOMITING Stop: 09/17/24 21:28 Pantoprazole Sodium (Pantoprazole Inj 40 Mg Vial) 40 mg IVP QDAY [facility] Stop: 09/18/24 08:59 Last Admin: 08/22/24 08:46 Dose: 40 mg Polyethylene Glycol (Polyethylene Glycol 17 Gm Packet) 17 gm GT BID [facility] Stop: 09/17/24 21:44 Last Admin: 08/22/24 08:47 Dose: 17 gm Sennosides (Senna/Docusate Sod 1 Tab Tablet) 2 tab PO HS [facility]; Protocol Stop: 09/18/24 20:59 Last Admin: 08/21/24 20:11 Dose: 2 tab Thiamine HCl (Thiamine 100 Mg Tablet) 100 mg GT QDAY [facility] Stop: 09/18/24 08:59 Last Admin: 08/22/24 08:48 Dose: 100 mg Vitamin D (Cholecalciferol (Vitamin D3) 1,000 Iu Tablet) 1,000 iu GT QDAY [facility] Stop: 09/18/24 08:59 Last Admin: 08/22/24 08:48 Dose: 1,000 iu Discontinued Medications Benzocaine (Benzocaine 20% (Hurricaine) [place] 1 Dose) 0 dose TOP X1 ONE Stop: 08/20/24 15:45 Last Admin: 08/20/24 16:12 Dose: 1 dose Fentanyl Citrate (Fentanyl Cit Inj 50 Mcg/Ml Amp 2ml) 100 mcg IV X1 ONE Stop: 08/20/24 15:46 Last Admin: 08/20/24 15:45 Dose: 100 mcg Cefazolin Sodium (Ancef 2gm Ivpb) 2 gm in 100 mls @ 100 mls/hr IV Q8HR [facility] Stop: 09/20/24 21:00 Last Admin: 08/19/24 15:04 Dose: Not Given Magnesium Sulfate (Magnesium Sulfate Ivpb) 2 gm in 50 mls @ 25 mls/hr IV X1 ONE Stop: 08/21/24 09:09 Last Infusion: 08/21/24 12:18 Dose: Infused Insulin Glargine (Insulin Glargine (Lantus) 5 Unit/0.05 Ml (Per 5 Units)) 15 unit SC QDAY [facility] Stop: 09/18/24 08:59 Last Admin: 08/20/24 08:31 Dose: 15 unit Midazolam HCl (Midazolam Inj 1 Mg/Ml Vial 2 Ml) 6 mg IV X1 ONE Stop: 08/20/24 15:46 Last Admin: 08/20/24 15:45 Dose: 6 mg Potassium Chloride (Potassium Chloride 10% 20 Meq/15 Ml Udc) 40 meq GT X1 ONE Stop: 08/19/24 07:59 Last Admin: 08/19/24 09:09 Dose: 40 meq Potassium Chloride (Potassium Chloride 10% 20 Meq/15 Ml Udc) 40 meq PO X1 ONE Stop: 08/20/24 07:38 Last Admin: 08/20/24 08:46 Dose: Not Given Potassium Chloride (Potassium Chloride 10% 20 Meq/15 Ml Udc) 40 meq GT X1 ONE Stop: 08/20/24 07:38 Last Admin: 08/20/24 08:25 Dose: 40 meq Potassium Chloride (Potassium Chloride 10% 20 Meq/15 Ml Udc) 40 meq GT X1 ONE Stop: 08/21/24 07:12 Last Admin: 08/21/24 08:04 Dose: 40 meq Potassium Chloride (Potassium Chloride 10% 20 Meq/15 Ml Udc) 40 meq GT X1 ONE Stop: 08/22/24 07:50 Last Admin: 08/22/24 08:46 Dose: 40 meq Assessment & Plan Plan #MSSA Bactremia #MSSA pneumonia Patient was transferred from [facility] with diagnosis of MSSA bacteremia on cefazolin till September 20 Blood cultures here remain negative Unable to assess if patient had a line infection but currently does not have any lines requiring removal YANELIS attempted at [facility] and [facility] with the inability to pass the scope Continue with Ancef until September 20 Will order HIV and hepatitis C testing Unable to rule out if all of this stems from embolic phenomena with valvular vegetations so recommend to continue with antibiotic therapy for total of 6 weeks #Acute ischemic stroke, multifocal, likely embolic #Cerebellar & Cerebral Hemispheres #Uncontrolled hypertension #Type 2 diabetes #Generalized anasarca #Chronic urinary retention #myoclonus #vitamin D deficiency - Management as per primary team Plan of care discussed with supervising attending Dr. Michael Houston M.D. PGY-3
--- NOTE | 2024-08-22 12:26 | PD.RESPRO ---
Documentation for date of: 08/22/24 Subjective Subjective Interval history: No overnight acute events This morning at the bedside patient is AO x 0, nonverbal, non responding to noxious stimuli, not able to track, EEG was normal, pending brain MRI, otherwise patient mentation is declining and overall has a poor prognosis. due to patient critical condition prognosis is guarded. Exam Vital Signs Temp Pulse Resp BP Pulse Ox O2 Del Method FiO2 97.8 F 70 15 138/65 H 98 Mechanical Ventilation 40 08/22/24 08:00 08/22/24 08:48 08/22/24 08:00 08/22/24 08:48 08/22/24 08:00 08/22/24 08:00 08/22/24 12:00 Narrative Exam General: No acute distress, AOx0, frail HEENT: NC/AT, sluggish pupils, EOMI, Good conjugate gaze, moist mucous membranes, tracheostomy tube in place connected to mechanical ventilator Neck: Supple, No masses, No adenopathy, carotid pulse 2+ bilaterally without bruits, No JVD, normal range of motion. Chest: Symmetrical, atraumatic, and with equal expansion , Nontender on palpation no deformity and no crepitus. CVS: S1 and S2 present, Regular rate and rhythm, No murmurs, rubs or gallops perceived during auscultation. Lungs: Normal respiratory effort, CTAB, no wheezing, rhonchi or rales perceived during auscultation, No intercostal or subcostal retraction. Abdomen : Soft, PEG tube in place, no tenderness to palpation, no guarding ,no rebound, +BS Extremities: Bilateral upper and lower extremity edema. Skin: Intact, no rashes, no lesions, no erythema or jaundice noted Neuro: AOx0, not following commands, non verbal,non responds to noxious stimuli, not able to track gait: Not evaluated Psych: Difficult to assess the patient mental status Objective Labs 08/24/24 04:37 08/24/24 04:37 Labs: Laboratory Results - last 24 hr 08/22/24 04:32 WBC 12.0 H RBC 2.55 L Hgb 7.7 L Hct 23.8 L MCV 93 MCH 30.2 MCHC 32.4 RDW Std Deviation 45.2 H Plt Count 328 Neut % (Auto) 81 H Lymph % (Auto) 10 [place] % (Auto) 7 Eos % (Auto) 1 Baso % (Auto) 0 Neut # (Auto) 9.7 H Lymph # (Auto) 1.2 [place] # (Auto) 0.9 H Eos # (Auto) 0.1 Baso # (Auto) 0.0 Immature Gran # (Auto) 0.05 H Absolute Nucleated RBC 0.00 Immature Gran % 0 Nucleated RBC % 0 Sodium 139 Potassium 3.6 Chloride 105 Carbon Dioxide 26.4 Anion Gap 8 BUN 11 Creatinine 0.6 Estim Creat Clear Calc 149.8 eGFR > 60 BUN/Creatinine Ratio 18 Glucose 148 H Calculated Osmolality 279 Calcium 8.4 Corrected Calcium 9.0 Phosphorus 3.6 Magnesium 2.1 Total Bilirubin 0.4 AST 21 ALT 7 L Alkaline Phosphatase 141 H Total Protein 6.4 Albumin 3.3 L Globulin 3.1 Albumin/Globulin Ratio 1.1 L Quality Measures Quality Measures VTE prophylaxis Assessment & Plan Assessment Current Active Medications: Generic Name Dose Route Start Last Admin Trade Name Freq PRN Reason Stop Dose Admin Acetaminophen 650 mg 08/18/24 21:29 Acetaminophen 325 Mg Tablet PO 09/17/24 21:28 Q6H PRN Fever >100.5 Hydrocodone Bitart/Acetaminophen 1 tab 08/18/24 21:29 Hydrocodone/Apap 5/325 Tablet GT 08/23/24 21:28 Q4HR PRN PAIN SCALE 4-6 (Moderate Albuterol/Ipratropium 3 ml 08/18/24 21:52 Albuterol/Ipratropium (Duoneb) Rt Yelena 3 Ml Nebu INH 09/17/24 22:59 Q4HRRT PRN sob or wheeze Amlodipine Besylate 10 mg 08/19/24 09:00 08/22/24 08:48 Amlodipine Besylate 5 Mg Tablet GT 09/18/24 08:59 10 mg QDAY JOSEMANUEL Administration Aspirin 81 mg 08/19/24 09:00 08/22/24 08:46 Aspirin 81 Mg Chew GT 09/18/24 08:59 81 mg QDAY JOSEMANUEL Administration Atorvastatin Calcium 80 mg 08/19/24 21:00 08/21/24 20:05 Atorvastatin Calcium 20 Mg Tablet GT 09/18/24 20:59 80 mg HS JOSEMANUEL Administration Baclofen 5 mg 08/18/24 22:00 08/22/24 05:21 Baclofen 10 Mg Tablet GT 09/17/24 21:59 5 mg TID JOSEMANUEL Administration Bisacodyl 10 mg 08/18/24 21:41 Bisacodyl 10 Mg Supp DE 09/17/24 21:40 QDAY PRN CONSTIPATION Protocol Carvedilol 12.5 mg 08/19/24 08:00 08/22/24 08:48 Carvedilol 12.5 Mg Tablet GT 09/18/24 07:59 12.5 mg BIDWM JOSEMANUEL Administration Dextrose 25 ml 08/18/24 21:29 Dextrose 50%-Water Inj 50 Ml Syringe IV 09/17/24 21:28 Q15MIN PRN BG 50-70 responsive npo pt Dextrose 50 ml 08/18/24 21:29 Dextrose 50%-Water Inj 50 Ml Syringe IV 09/17/24 21:28 Q15MIN PRN BG <50 OR BG <70 & pt unresponsive Doxazosin Mesylate 1 mg 08/19/24 21:00 08/21/24 20:04 Doxazosin Mesylate 1 Mg Tablet GT 09/18/24 20:59 1 mg HS JOSEMANUEL Administration Enoxaparin Sodium 40 mg 08/19/24 09:00 08/22/24 08:46 Enoxaparin Sod Inj 40 Mg/0.4 Ml Syringe SC 09/02/24 08:59 40 mg QDAY JOSEMANUEL Administration Fentanyl Citrate 50 mcg 08/18/24 21:47 Fentanyl Cit Inj 50 Mcg/Ml Amp 2ml IV 08/23/24 21:46 Q2H PRN Breakthrough Pain or agitation Glucagon 1 mg 08/18/24 21:29 Glucagon Inj 1 Mg Vial IM Q15MIN PRN BG <70, and no IV access Hydralazine HCl 100 mg 08/18/24 22:00 08/22/24 05:20 Hydralazine Hcl 25 Mg Tablet GT 09/17/24 21:59 100 mg TID JOSEMANUEL Administration Hydralazine HCl 10 mg 08/18/24 21:52 Hydralazine Inj 20 Mg/Ml Vial IV 09/17/24 21:51 Q4H PRN SBP >180 or DBP >120 and HR <70 Cefazolin Sodium 2 gm in 100 mls @ 100 mls/hr 08/19/24 14:00 08/22/24 07:10 Ancef 2gm Ivpb IV 09/20/24 08:29 Infused Q8HR JOSEMANUEL Infusion Insulin Glargine 16 unit 08/21/24 09:00 08/22/24 08:47 Insulin Glargine (Lantus) 5 Unit/0.05 Ml (Per 5 Units) SC 09/20/24 08:59 16 unit QDAY JOSEMANUEL Administration Insulin Human Lispro 0 unit 08/19/24 00:00 08/22/24 11:52 Insulin Lispro (Admelog) 1 Unit/0.01 Ml Unit SC 09/18/24 00:00 Not Given Q6HR JOSEMANUEL Protocol Labetalol HCl 10 mg 08/18/24 21:52 Labetalol Inj 5 Mg/Ml Vial 20 Ml IVP 09/17/24 21:51 Q4H PRN SBP>180 or DBP >120 and HR >70 Losartan Potassium 100 mg 08/19/24 09:00 08/22/24 08:47 Losartan Potassium 25 Mg Tablet GT 09/18/24 08:59 100 mg QDAY JOSEMANUEL Administration Multivitamins 1 tab 08/19/24 09:00 08/22/24 08:48 Multivitamins Tablet PO 09/18/24 08:59 1 tab QDAY JOSEMANUEL Administration Mupirocin 0 gm 08/20/24 09:00 08/22/24 08:48 Mupirocin Oint 2% 15 Gm Tube TOP 08/25/24 08:59 1 appl BID JOSEMANUEL Administration Ondansetron HCl 4 mg 08/18/24 21:29 Ondansetron Inj 2 Mg/Ml Inj 2 Ml IV 09/17/24 21:28 Q6H PRN NAUSEA OR VOMITING Protocol Pantoprazole Sodium 40 mg 08/19/24 09:00 08/22/24 08:46 Pantoprazole Inj 40 Mg Vial IVP 09/18/24 08:59 40 mg QDAY JOSEMANUEL Administration Polyethylene Glycol 17 gm 08/18/24 21:45 08/22/24 08:47 Polyethylene Glycol 17 Gm Packet GT 09/17/24 21:44 17 gm BID JOSEMANUEL Administration Sennosides 2 tab 08/19/24 21:00 08/21/24 20:11 Senna/Docusate Sod 1 Tab Tablet PO 09/18/24 20:59 2 tab HS JOSEMANUEL Administration Protocol Thiamine HCl 100 mg 08/19/24 09:00 08/22/24 08:48 Thiamine 100 Mg Tablet GT 09/18/24 08:59 100 mg QDAY JOSEMANUEL Administration Vitamin D 1,000 iu 08/19/24 09:00 08/22/24 08:48 Cholecalciferol (Vitamin D3) 1,000 Iu Tablet GT 09/18/24 08:59 1,000 iu QDAY JOSEMANUEL Administration Plan Bilateral cerebral infarct brain MRI showed extensive infarct in the bilateral cerebral hemispheres and corpus callosum, raising concerns for multifocal vascular territory infract and a possible vasculitis or encephalomyelitis process. CT head on 08/17 revealed improving mass effect associated with known infarcts without new process We will order EEG to assess if patient has brain activity as well as brain MRI without contrast I spoke with primary team and they want to rule out septic emboli stroke for which they would like to have brain MRI with and without contrast EEG was normal otherwise patient mentation is declining and overall has poor prognosis Plan: ? Continue aspirin 81 mg p.o. daily ? Continue atorvastatin 80 mg p.o. daily ? Pending brain MRI with and without close contrast #MSSA bacteremia #Diabetes mellitus type 2 #Uncontrolled hypertension #Chronic respiratory failure #Glaucoma of left eye #Urinary retention #Myoclonus #Vitamin D deficiency Patient discussed with my attending Dr Yelena Whitmore MD PGY-3 Disclaimer: Despite multiple revisions, due to the dictation software being used, the document bellow may not be free of grammatical errors including phonetic/typographic errors. However, this does not deter from our commitment to providing health care in the patient's best interest in mind. Attending Provider Attestation/Addendum I personally have seen and examined the patient at the bedside and agree with resident's findings, assessment and plan of care. His condition is unchanged and his prognosis is poor even though his EEG is normal. noted that he is in the process of getting subacute placement.
--- NOTE | 2024-08-22 13:54 | ESCONSULT_ITS ---
RE: KATHIE ORO : 1960 DATE OF CONSULTATION: 08/22/2024 REFERRING PHYSICIAN: Dr. Foley. REASON FOR CONSULTATION: Staphylococcus aureus bacteremia, respiratory failure, and neurologic impairment in a 64-year-old. HISTORY OF PRESENT ILLNESS: The patient is an unfortunate 64-year-old man with significant neurologic impairment. He went to [facility] while ago and developed Staphylococcus aureus bacteremia that was relatively transient and because of his neurologic impairment and potential transfer to [facility] was placed on prolonged antibiotics. note that no trans esophageal echocardiogramwas done for a variety of reasons. Attempt was made here as well, but was unsuccessful. PAST MEDICAL HISTORY: Include diabetes and hypertension. His A1c is not noted. SURGICAL HISTORY: Includes prior trach and PEG, both done at [facility]. ALLERGIES: NONE NOTED. IMMUNIZATIONS: Unavailable. FAMILY HISTORY: Noncontributory. SOCIAL HISTORY: Similarly, noncontributory. There is apparently someone who has a stay in his healthcare, but I am not certain if the formal power of cashier associate has been granted. PHYSICAL EXAMINATION: The patient is noncommunicative. 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 He was determined to have Staphylococcus aureus pneumonia at least . ASSESSMENT: 1. Staphylococcus aureus bacteremia with TRIAGE LICENSED PRACTICAL NURSE lesions. 2. Diabetes. 3. Hypertension. 4. Possible stroke. RECOMMENDATIONS: The patient has respiratory failure and dietary failure as well. He is going to get intravenous antibiotics based on recommendations from [facility]. They apparently saw him when he was more ill and so because he is unresponsive unless the family determines to make him out of comfort care only, then we will finish the planned treatment in mid September as planned. I will check on him superficially again on Sunday. DT: 11:41:55 TT: 12:42:00 Ref: [id number] - TID: [id number] MTDD
--- NOTE | 2024-08-22 14:19 | PD.RESDS ---
Planned Discharge Date 08/22/24 DS: Providers Provider Date of admission: 08/18/24 20:35 Primary care physician: Physician No Primary/Family Admitting Provider: Terra Vaughn MD Attending Provider on Admission: Bayron Foley MD Consults: 08/19/24 07:59 Referral Registered Dietitian Stat Comment: Instructions: Patient is a transfer and on a PEG tube, will need to restart home feeding. Thank you. 08/19/24 11:48 Consult to Cardiology Routine Comment: Consulting Provider: Ben Hutton Instructions: PMH of HTN DM type 2 trachead and PEG after CVA -Transfer back from [facility] for cerebellar stroke -Bacteremia, rule out endocarditis, YANELIS or TTE 08/20/24 11:13 Consult to Neurology / Tele-Neurology Routine Comment: Consulting Provider: Tevin Kirk 08/20/24 18:53 Referral Nutritional Services Routine Comment: Referral Wound Care Routine Comment: 08/21/24 09:22 Consult to Infectious Diseases Routine Comment: MSSA bactermia, unable to do YANELIS to rule out IE Consulting Provider: Glen Rodriguez Attending Provider on DC: Carly Malagon MD Discharging Provider: Carly Malagon MD Hospital Course Hospital Course Hospital course: No overnight acute events This morning at the bedside patient is AO x 0, nonverbal, non responding to noxious stimuli, not able to track, EEG was normal, pending brain MRI, otherwise patient mentation is declining and overall has a poor prognosis. due to patient critical condition prognosis is guarded. Senior resident attestation: Patient is a 64-year-old male, status post trach and PEG, DNR status but full treatment. Transferred back from [facility] following hospitalization for multiple medical problems including ischemic stroke including multiple vascular territories, possible embolic stroke versus vasculitis/encephalitis, on antibiotics cefazolin through September 20 for MSSA bacteremia and possible infective endocarditis, patient unable to tolerate YANELIS at [facility]. Other medical problems include anemia, anasarca, diabetes mellitus and hypertension. Will get cardiology and neurology on board, possible YANELIS if cardiology agrees. Continue antibiotics as recommended by [facility] ID specialist. Cardiology was consulted, following the patient, unsuccessful attempted YANELIS as unable to pass scope, neurology following the patient, ordered repeat MRI and EEG. Pending neuro recs, pt can be discharged to Subacute and complete antibiotics for possible infective endocarditis. Overall prognosis is guarded. Antibiotics changed to ceftriaxone #MSSA bacteremia #Possible infective endocarditis?prior unsuccessful YANELIS at [facility], as well as unsuccessful attempt at YANELIS again today, patient currently stays on cefazolin through September 20 per ID recommendations from [facility]. Per inhouse ID , dr Rodriguez, can finish Rx with Ceftriaxone 2gm qday, #Ischemic stroke, likely embolic?repeat MRI showed Extensive embolic type acute infarcts , per neuro recs continue asprin and statin. #Encephalopathjy, multifactorial, pt is in vegetative state, Per medical records palliative services were offered at [facility] but family not agreeable at that time, Neurology following the patient, EEg normal, and repeat MRI showed Extensive embolic type acute infarcts . #DM Patient evaluated and examined at the bedside, plan of care discussed with rest of the team including my attending physician, except as noted. Quresh PGY2 Time Spent with Patient Time attestation: Total time spent providing and/or coordinating discharge services: Exam Vital Signs Temp Pulse Resp BP Pulse Ox O2 Del Method FiO2 97.4 F 68 18 131/61 H 97 Mechanical Ventilation 40 08/22/24 12:00 08/22/24 14:01 08/22/24 12:00 08/22/24 14:01 08/22/24 13:50 08/22/24 12:00 08/22/24 13:50 Discharge Plan Plan Patient Disposition: er Skilled [facility] (SNF) Patient condition on transfer: Stable Care Plan Goals: Instructions: -Please complete anitbiotic course until September 20 for bacterial infection -Please continue your home medication -Please follow up with your primary care provider within one week of discharge -If your symptoms worsen,please seek immediate medical attention and return to your nearest emergency room -If you do not have a primary care provider, you may follow up at the [facility] at [address], [place] [address], Wound care: Stage 2 over coccyx/sacrum: cleanse with wound cleanser, pat dry, apply thin layer of z-guard to wound bed and cover with allyven dressing daily and PRN for soiling Side to side repositionig Prescriptions/Referrals Prescriptions/Med Rec: New atorvastatin 20 mg Tablet 80 mg G-tube HS 30 Days Qty: 120 0RF carvedilol 12.5 mg Tablet 12.5 mg G-tube BIDWM 30 Days Qty: 60 0RF ipratropium-albuterol 0.5 mg-3 mg(2.5 mg base)/3 mL Solution For Nebulization 3 ml INH Q4HRRT PRN (Reason: sob or wheeze) 30 Days Qty: 90 0RF polyethylene glycol 3350 [HealthyLax] 17 gram Powder In Packet 17 g G-tube BID 30 Days Qty: 30 0RF doxazosin 1 mg Tablet 1 mg G-tube HS 30 Days Qty: 30 0RF sennosides-docusate sodium 8.6-50 mg Tablet 2 tab PO HS 30 Days Qty: 60 0RF pantoprazole 40 mg Recon Soln 40 mg IVP QDAY 30 Days Qty: 25 0RF hydralazine 25 mg Tablet 100 mg G-tube TID 30 Days Qty: 360 0RF amlodipine 5 mg Tablet 10 mg G-tube QDAY 30 Days Qty: 60 0RF baclofen 10 mg Tablet 5 mg G-tube TID 30 Days Qty: 45 0RF bisacodyl 10 mg Suppository 10 mg RI QDAY PRN (Reason: Constipation) 30 Days Qty: 12 0RF aspirin [Children's Aspirin] 81 mg Tablet,Chewable 81 mg G-tube QDAY 30 Days Qty: 30 0RF mupirocin 2 % Ointment 1 applic top BID 5 Days Qty: 15 0RF enoxaparin 40 mg/0.4 mL Syringe 40 mg SCi QDAY 30 Days Qty: 12 0RF cholecalciferol (vitamin D3) 25 mcg (1,000 unit) Tablet 1,000 unit G-tube QDAY 30 Days Qty: 30 0RF ondansetron HCl (PF) 4 mg/2 mL Solution 4 mg IV Q6H PRN (Reason: Nausea Or Vomiting) 30 Days Qty: 20 0RF thiamine mononitrate (vit B1) 100 mg Tablet 100 mg G-tube QDAY 30 Days Qty: 30 0RF multivitamin with folic acid [Tab-A-Renetta] 400 mcg Tablet 1 tab PO QDAY 30 Days Qty: 30 0RF losartan 100 mg tablet 100 mg PO QDAY 30 Days Qty: 30 0RF cefazolin 2 gram recon soln 2 g IV Q8HR Referrals: Ben Hutton MD [Physician] - No Primary/Family,Physician [Primary Care Provider] - Tevin Kirk MD [Physician] - Patient/Caregiver Discharge Instructions Education Materials: Preparing Your Home After Stroke, Discharge Instructions for Stroke Print Language: Moroccan Stand Alone Forms: Zaina Award Info., Patient Portal Info Letter
--- NOTE | 2024-08-22 16:06 | ESPR_ITS ---
<Statement entered by Bayron Foley MD - 09/01/24 13:18> I reviewed above note and agree with findings and plans. I have also personally examined the patient with medicine team and went over assessment and plan with medical team including media intern and resident physician. Documentation for date of: 08/22/24 Senior resident attestation: Patient is a 64-year-old male, status post trach and PEG, DNR status but full treatment. Transferred back from [facility] following hospitalization for multiple medical problems including ischemic stroke including multiple vascular territories, possible embolic stroke versus vasculitis/encephalitis, on antibiotics cefazolin through September 20 for MSSA bacteremia and possible infective endocarditis, patient unable to tolerate YANELIS at [facility]. Other medical problems include anemia, anasarca, diabetes mellitus and hypertension. Will get cardiology and neurology on board, possible YANELIS if cardiology agrees. Continue antibiotics as recommended by [facility] ID specialist. Cardiology was consulted, following the patient, unsuccessful attempted YANELIS as unable to pass scope, neurology following the patient, ordered repeat MRI and EEG. Pending neuro recs, pt can be discharged to Subacute and complete antibiotics for possible infective endocarditis. Overall prognosis is guarded. Antibiotics changed to ceftriaxone #MSSA bacteremia #Possible infective endocarditis?prior unsuccessful YANELIS at [facility], as well as unsuccessful attempt at YANELIS again today, patient currently stays on cefazolin through September 20 per ID recommendations from [facility]. Per inhouse ID , dr Rodriguez, can finish Rx with Ceftriaxone 2gm qday, #Ischemic stroke, likely embolic?repeat MRI showed Extensive embolic type acute infarcts , per neuro recs continue asprin and statin. #Encephalopathjy, multifactorial, pt is in vegetative state, Per medical records palliative services were offered at [facility] but family not agreeable at that time, Neurology following the patient, EEg normal, and repeat MRI showed Extensive embolic type acute infarcts . #DM Patient evaluated and examined at the bedside, plan of care discussed with rest of the team including my attending physician, except as noted. Quresh PGY2 Subjective Subjective Interval history: No overnight events. Patient examined at bedside, non responsive to painful stimuli or auditory stimuli. No purposeful movement. Patient does not appear alert. EEG unremarkable. MRI pending. Subacute will only accept patient M-F and unlikely patient will be able to be discharge until Sunday. Patient switch from Cefazolin to Ceftriaxone 2 grams per day, per infectious disease recommendations. Exam Vital Signs Temp Pulse Resp BP Pulse Ox O2 Del Method FiO2 97.4 F 68 18 131/61 H 97 Mechanical Ventilation 40 08/22/24 12:00 08/22/24 14:01 08/22/24 12:00 08/22/24 14:01 08/22/24 13:50 08/22/24 12:00 08/22/24 16:00 Narrative Exam General Appearance: Alert & Oriented X0, well-nourished male who is lying in bed in no acute distress, with lower pedal edema noted 2+ and mild scrotal swelling as well. NO verbal HEENT: Skull symmetrical and atraumatic. Conjunctivae pin and moist. External ear without lesion or discharge. Straight, nares patient, mucosa pink, no discharge. No thyroid nodule appreciated. No cervical lymphadenopathy. Cardio: Normal Rate and Rhythm with S1 and S2 heart sounds. No murmurs or extra heart sounds auscultated. No bruits on carotid auscultation. No peripheral edema or cyanosis. Lungs: Symmetric with good expansion. Chest and back non-tender. Breath sounds vesicular without crackles up upper airway sounds, likely secondary to being on trach. Abdomen: Non-tender, Non-distended, Normal Reactive Bowel Sounds Neuro: YES Alert, NO cooperative, No oriented to person, NO place, and NO time. unable to follow commands, no motor function. No responding to tactile or auditory stimuli. Objective Labs 08/22/24 04:32 08/22/24 04:32 Labs: Laboratory Results - last 24 hr 08/22/24 04:32 WBC 12.0 H RBC 2.55 L Hgb 7.7 L Hct 23.8 L MCV 93 MCH 30.2 MCHC 32.4 RDW Std Deviation 45.2 H Plt Count 328 Neut % (Auto) 81 H Lymph % (Auto) 10 Rhea % (Auto) 7 Eos % (Auto) 1 Baso % (Auto) 0 Neut # (Auto) 9.7 H Lymph # (Auto) 1.2 Rhea # (Auto) 0.9 H Eos # (Auto) 0.1 Baso # (Auto) 0.0 Immature Gran # (Auto) 0.05 H Absolute Nucleated RBC 0.00 Immature Gran % 0 Nucleated RBC % 0 Sodium 139 Potassium 3.6 Chloride 105 Carbon Dioxide 26.4 Anion Gap 8 BUN 11 Creatinine 0.6 Estim Creat Clear Calc 149.8 eGFR > 60 BUN/Creatinine Ratio 18 Glucose 148 H Calculated Osmolality 279 Calcium 8.4 Corrected Calcium 9.0 Phosphorus 3.6 Magnesium 2.1 Total Bilirubin 0.4 AST 21 ALT 7 L Alkaline Phosphatase 141 H Total Protein 6.4 Albumin 3.3 L Globulin 3.1 Albumin/Globulin Ratio 1.1 L Quality Measures Quality Measures VTE prophylaxis Assessment & Plan Assessment Current Active Medications: Generic Name Dose Route Start Last Admin Trade Name Freq PRN Reason Stop Dose Admin Acetaminophen 650 mg 08/18/24 21:29 Acetaminophen 325 Mg Tablet PO 09/17/24 21:28 Q6H PRN Fever >100.5 Hydrocodone Bitart/Acetaminophen 1 tab 08/18/24 21:29 Hydrocodone/Apap 5/325 Tablet GT 08/23/24 21:28 Q4HR PRN PAIN SCALE 4-6 (Moderate Albuterol/Ipratropium 3 ml 08/18/24 21:52 Albuterol/Ipratropium (Duoneb) Rt Yelena 3 Ml Nebu INH 09/17/24 22:59 Q4HRRT PRN sob or wheeze Amlodipine Besylate 10 mg 08/19/24 09:00 08/22/24 08:48 Amlodipine Besylate 5 Mg Tablet GT 09/18/24 08:59 10 mg QDAY JOSEMANUEL Administration Aspirin 81 mg 08/19/24 09:00 08/22/24 08:46 Aspirin 81 Mg Chew GT 09/18/24 08:59 81 mg QDAY JOSEMANUEL Administration Atorvastatin Calcium 80 mg 08/19/24 21:00 08/21/24 20:05 Atorvastatin Calcium 20 Mg Tablet GT 09/18/24 20:59 80 mg HS JOSEMANUEL Administration Baclofen 5 mg 08/18/24 22:00 08/22/24 14:01 Baclofen 10 Mg Tablet GT 09/17/24 21:59 5 mg TID JOSEMANUEL Administration Bisacodyl 10 mg 08/18/24 21:41 Bisacodyl 10 Mg Supp ME 09/17/24 21:40 QDAY PRN CONSTIPATION Protocol Carvedilol 12.5 mg 08/19/24 08:00 08/22/24 08:48 Carvedilol 12.5 Mg Tablet GT 09/18/24 07:59 12.5 mg BIDWM JOSEMANUEL Administration Dextrose 25 ml 08/18/24 21:29 Dextrose 50%-Water Inj 50 Ml Syringe IV 09/17/24 21:28 Q15MIN PRN BG 50-70 responsive npo pt Dextrose 50 ml 08/18/24 21:29 Dextrose 50%-Water Inj 50 Ml Syringe IV 09/17/24 21:28 Q15MIN PRN BG <50 OR BG <70 & pt unresponsive Doxazosin Mesylate 1 mg 08/19/24 21:00 08/21/24 20:04 Doxazosin Mesylate 1 Mg Tablet GT 09/18/24 20:59 1 mg HS JOSEMANUEL Administration Enoxaparin Sodium 40 mg 08/19/24 09:00 08/22/24 08:46 Enoxaparin Sod Inj 40 Mg/0.4 Ml Syringe SC 09/02/24 08:59 40 mg QDAY JOSEMANUEL Administration Fentanyl Citrate 50 mcg 08/18/24 21:47 Fentanyl Cit Inj 50 Mcg/Ml Amp 2ml IV 08/23/24 21:46 Q2H PRN Breakthrough Pain or agitation Glucagon 1 mg 08/18/24 21:29 Glucagon Inj 1 Mg Vial IM Q15MIN PRN BG <70, and no IV access Hydralazine HCl 100 mg 08/18/24 22:00 08/22/24 14:01 Hydralazine Hcl 25 Mg Tablet GT 09/17/24 21:59 100 mg TID JOSEMANUEL Administration Hydralazine HCl 10 mg 08/18/24 21:52 Hydralazine Inj 20 Mg/Ml Vial IV 09/17/24 21:51 Q4H PRN SBP >180 or DBP >120 and HR <70 Ceftriaxone Sodium 2 gm/ 50 mls @ 100 mls/hr 08/23/24 09:00 Sodium Chloride IV 08/30/24 08:59 QDAY [facility] Insulin Glargine 16 unit 08/21/24 09:00 08/22/24 08:47 Insulin Glargine (Lantus) 5 Unit/0.05 Ml (Per 5 Units) SC 09/20/24 08:59 16 unit QDAY [facility] Administration Insulin Human Lispro 0 unit 08/19/24 00:00 08/22/24 11:52 Insulin Lispro (Admelog) 1 Unit/0.01 Ml Unit SC 09/18/24 00:00 Not Given Q6HR [facility] Protocol Labetalol HCl 10 mg 08/18/24 21:52 Labetalol Inj 5 Mg/Ml Vial 20 Ml IVP 09/17/24 21:51 Q4H PRN SBP>180 or DBP >120 and HR >70 Losartan Potassium 100 mg 08/19/24 09:00 08/22/24 08:47 Losartan Potassium 25 Mg Tablet GT 09/18/24 08:59 100 mg QDAY JOSEMANUEL Administration Multivitamins 1 tab 08/19/24 09:00 08/22/24 08:48 Multivitamins Tablet PO 09/18/24 08:59 1 tab QDAY JOSEMANUEL Administration Mupirocin 0 gm 08/20/24 09:00 08/22/24 08:48 Mupirocin Oint 2% 15 Gm Tube TOP 08/25/24 08:59 1 appl BID JOSEMANUEL Administration Ondansetron HCl 4 mg 08/18/24 21:29 Ondansetron Inj 2 Mg/Ml Inj 2 Ml IV 09/17/24 21:28 Q6H PRN NAUSEA OR VOMITING Protocol Pantoprazole Sodium 40 mg 08/19/24 09:00 08/22/24 08:46 Pantoprazole Inj 40 Mg Vial IVP 09/18/24 08:59 40 mg QDAY JOSEMANUEL Administration Polyethylene Glycol 17 gm 08/18/24 21:45 08/22/24 08:47 Polyethylene Glycol 17 Gm Packet GT 09/17/24 21:44 17 gm BID JOSEMANUEL Administration Sennosides 2 tab 08/19/24 21:00 08/21/24 20:11 Senna/Docusate Sod 1 Tab Tablet PO 09/18/24 20:59 2 tab HS JOSEMANUEL Administration Protocol Thiamine HCl 100 mg 08/19/24 09:00 08/22/24 08:48 Thiamine 100 Mg Tablet GT 09/18/24 08:59 100 mg QDAY JOSEMANUEL Administration Vitamin D 1,000 iu 08/19/24 09:00 08/22/24 08:48 Cholecalciferol (Vitamin D3) 1,000 Iu Tablet GT 09/18/24 08:59 1,000 iu QDAY JOSEMANUEL Administration Plan Patient is a 64-year-old male with a limited past medical history of alcohol use disorder and possible history of meth use disorder who was initially admitted on 07/19/2024 secondary to intractable pain from the left fourth rib and fractures of the 2nd and 4th lumbar transverse processes who was then transfered to [facility] for cerebellar stroke and now returned to [facility] on 08/18/2024 for subacute placement and bacteremia w/ ischemic stroke. #MSSA bacteremia #Concern for infective endocarditis Patient initially had MSSA pneumonia, and was treated with cefepime for 10 days, blood culture positive with 1/2 positive blood cultures for MSSA. YANELIS procedure unable to procceed past oropharyngeal cavity, continue to treat MSSA bacteremia. Blood cultures negative after 48 hours, bacteremia improving. [facility] Echo done on 08/12/2024: LVEF 55 to 60%, poorly visualized valves, no pericardial effusion Plan: -Ceftriaxone 2 grams once daily until 09/20/2024 -D/C cefazolin 2 g every 8 hourly until 09/20/2024 -Mupirocin for nasal - Follow-up on anti-MOG serum, aquaporin 4 antibody from [facility] -Infectious Disease following, Dr. Rodriguez, appreciate recommendation -Cardiology consulted, Dr. Hutton, appreciate recommendations. #Acute ischemic stroke, multifocal, likely embolic #Cerebellar & Cerebral Hemispheres #Encephalopathy likely secondary to stroke MRI on 08/09/2024 at [facility] revealed extensive area of restricted diffusion involving both cerebral hemispheres, right centrum semimobile, corpus callosum, and posterior fossa. Repeat CT head at [facility] on 08/17 revealed improving mass effect associated with known infarcts without new process. ddx: less likely secondary to infectious cause as VDRL negative, cryptococcal negative, AFB, fungal cultures negative to date as per record Plan: - Continue to monitor on telemetry unit - Continue on aspirin 81 Mg daily and Lipitor 80 Mg daily at night - Sodium goal 140-150 - Maintain normotension -Neurlogy consulted, Dr. Kirk, appreciate recommendations. #Diabetes mellitus type 2 Per chart review patient was started on Lantus at [facility], limited history if patient was being treated prior to admission for diabetes. A1c on admission 8.2 Plan: - Lantus 16 units daily - Sliding scale insulin level 2 with lispro every 6 hour #Hypertension #Uncontrolled hypertension, improved The patient's blood pressure was continuously sustained above 200 mhg likely secondary to stroke but has been well controlled since admission. Plan: - SBP goal less than 160 mmHg - Losartan 100 Mg daily - Hydralazine 100 Mg every 8 hourly - Amlodipine 10 mg daily - Carvedilol 12.5 Mg twice daily - Labetalol/hydralazine IV as needed #Chronic respiratory failure Initially intubated for increased work of breathing, not improving on BiPAP, s/p trach and PEG on 08/05/2024, and was noted to have adenovirus positive on 08/04/2024 Plan: - Had not elevated to 30 degree - Peridex oral hygiene every 4 hourly - ABG as needed #ANASARCA, improved Likely secondary to statis given inability to move and mild scrotal swelling. Plan -Consider lasix if need be. #Glaucoma of left eye - Follow-up outpatient ophthalmology #Urinary retention - Indwelling Hutchins, Hutchins care - Continue doxazosin 1 mg daily #Myoclonus Spontaneous contraction to noxious stimuli - Baclofen 5 mg 3 times daily #Vitamin D deficiency - Vitamin D 1000 units daily #PEG tube Health maintenance: Dispo: Patient is transferred back from [facility] after undergoing tracheostomy and PEG tube placement, currently admitted to telemetry unit and subacute placement Diet: Via PEG tube DVT prophylaxis: Subcu enoxaparin 40 Mg daily CODE STATUS: DNR - The patient's plan was discussed with attending Dr. Foley and senior residents Dr. Joe Malagon MD PGY1 Internal Medicine
[2024-08-22] MEDS: DOXAZOSIN MESYLATE 1 MG TABLET GT (20:01)
[2024-08-22] MEDS: SENNA/DOCUSATE SOD 1 TAB TABLET 2 TAB PO (20:06)
[2024-08-22] MEDS: ATORVASTATIN CALCIUM 20 MG TABLET 80 MG GT (20:06)
[2024-08-23] VITALS (17 sets, daily range): BP systolic 125–156; BP diastolic 60–73; PULSE 60–78; RESP 12–23; TEMP 36.1–36.6; O2SAT 91–99; BMI 30.9
[2024-08-23] MEDS: BACLOFEN 10 MG TABLET 5 MG GT ×3 (05:10→21:43)
[2024-08-23] MEDS: hydrALAZINE HCL 25 MG TABLET 100 MG GT ×3 (05:10→21:44)
[2024-08-23 05:47] LABS: Basophils % (Auto) 1 % (0-2.5); Eosinophils # (Auto) 0.1 Thou/mm3 (0.0-0.5); Eosinophils % (Auto) 1 % (0-10); Hematocrit 24.3 % (41.0-53.0); Immature Granulocytes % (Auto) 1 % (0-0); Immature Granulocytes Auto 0.04 Thou/mm3 (0.00-0.00); Lymphocytes # (Auto) 1.3 Thou/mm3 (1.0-4.8); Lymphocytes % (Auto) 16 % (10-50); Mean Corpuscular HGB Conc 32.5 g/dl (31.0-37.0); Mean Corpuscular Hemoglobin 31.3 pg (25.0-35.0); Mean Corpuscular Volume 96 fL (80-100); Monocytes # (Auto) 0.7 Thou/mm3 (0.0-0.8); Monocytes % (Auto) 9 % (0-12); Neutrophils # (Auto) 5.8 Thou/mm3 (1.8-7.7); Neutrophils % (Auto) 73 % (37-80); Nucleated Red Blood Cell % 0 /100 WBC (0); Platelet Count 296 Thou/mm3 (140-440); RDW Standard Deviation 46.5 fL (35.1-43.9); Red Blood Count 2.52 Miln/mm3 (4.50-5.90); White Blood Count 7.9 Thou/mm3 (3.8-10.6)
[2024-08-23 06:03] LABS: Hemoglobin 7.9 g/dL (13.5-16.0)
[2024-08-23 06:16] LABS: Alanine Aminotransferase < 7 U/L (10-49); Albumin, Serum 3.4 gm/dL (3.4-4.8); Albumin/Globulin Ratio 1.1 (1.2-2.2); Alkaline Phosphatase 132 U/L (46-116); Anion Gap 7 (7-16); Aspartate Amino Transferase 21 U/L (0-34); BUN/Creatinine Ratio 18 Ratio (12-20); Bilirubin,Total 0.4 mg/dL (0.3-1.2); Blood Urea Nitrogen 11 mg/dL (9-23); Calcium 8.5 mg/dL (8.3-10.6); Chloride 107 mMol/L (98-107); Creatinine (Component) 0.6 mg/dL (0.6-1.3); Estimated Creatinine Clearance 149.8 mL/min (>60); Globulin 3.1 gm/dL (2.3-3.5); Glucose 142 mg/dL (74-106); Magnesium 1.9 mg/dL (1.6-2.6); Osmolality,Calculated 282 (275-295); Phosphorous 3.9 mg/dL (2.4-5.1); Potassium 3.8 mMol/L (3.4-5.1); Sodium 141 mMol/L (136-145); Total Protein 6.5 gm/dL (5.7-8.2); eGFR > 60 See Note
[2024-08-23 07:20] LABS: HIV (1&2) Antibody Rapid Non-Reactive
[2024-08-23] MEDS: PANTOPRAZOLE INJ 40 MG VIAL IVP (08:22)
[2024-08-23] MEDS: ENOXAPARIN SOD INJ 40 MG/0.4 ML SYRINGE SC (08:22)
[2024-08-23] MEDS: LOSARTAN POTASSIUM 25 MG TABLET 100 MG GT (08:22)
[2024-08-23] MEDS: CHOLECALCIFEROL (Vitamin D3) 1,000 IU TABLET 1000 IU GT (08:23)
[2024-08-23] MEDS: ASPIRIN 81 MG CHEW GT (08:23)
[2024-08-23] MEDS: THIAMINE 100 MG TABLET GT (08:23)
[2024-08-23] MEDS: amLODIPine BESYLATE 5 MG TABLET 10 MG GT (08:23)
[2024-08-23] MEDS: POLYETHYLENE GLYCOL 17 GM PACKET GT ×2 (08:23→21:45)
[2024-08-23] MEDS: carVEDILOL 12.5 MG TABLET GT ×2 (08:23→17:30)
[2024-08-23] MEDS: cefTRIAXone/D5w 2gm 2 GM/50 ML BAG IV (08:24)
[2024-08-23] MEDS: INSULIN GLARGINE (Lantus) 5 UNIT/0.05 ML (PER 5 UNITS) 16 UNIT SC (08:26)
[2024-08-23] MEDS: MUPIROCIN OINT 2% 15 GM TUBE TOP ×2 (08:28→21:45)
[2024-08-23] MEDS: MULTIVITAMINS TABLET 1 TAB PO (08:29)
--- NOTE | 2024-08-23 09:47 | ESPR_ITS ---
Documentation for date of: 08/23/24 Subjective Subjective Interval history: Patient was seen and examined at bedside. No acute overnight events. Labs revealed improvement of leukocytosis, WBC downtrending to 7.9 from 12. Hemoglobin is stable, 7.9, CMP unremarkable. Blood culture repeat 1 negative in 48 hours. MRI revealed extensive embolic infarct, EEG is normal. Blood pressure is well-controlled with amlodipine, losartan and hydrochlorothiazide. Patient is on ceftriaxone 2 g daily until September 20. Patient is cleared to be discharged to subacute. Which most likely will happen on Sunday. For now continue current management. Exam Vital Signs Temp Pulse Resp BP Pulse Ox O2 Del Method FiO2 97.3 F 76 19 125/62 99 Mechanical Ventilation 40 08/23/24 08:00 08/23/24 08:23 08/23/24 08:00 08/23/24 08:23 08/23/24 08:00 08/23/24 08:00 08/23/24 07:00 Narrative Exam General Appearance: Alert & Oriented X0, well-nourished male who is lying in bed in no acute distress, on mechanical ventilation and PEG tube in place HEENT: Skull symmetrical and atraumatic. Conjunctivae pin and moist. External ear without lesion or discharge. Straight, nares patient, mucosa pink, no discharge. No thyroid nodule appreciated. No cervical lymphadenopathy. Cardio: Normal Rate and Rhythm with S1 and S2 heart sounds. No murmurs or extra heart sounds auscultated. No bruits on carotid auscultation. No peripheral edema or cyanosis. Lungs: Symmetric with good expansion. Chest and back non-tender. Abdomen: Non-tender, Non-distended, Normal Reactive Bowel Sounds Neuro: YES Alert, NO cooperative, No oriented to person, NO place, and NO time. unable to follow commands, no motor function. Objective Labs 08/24/24 04:37 08/24/24 04:37 Labs: Laboratory Results - last 24 hr 08/23/24 05:08 WBC 7.9 RBC 2.52 L Hgb 7.9 L Hct 24.3 L MCV 96 MCH 31.3 MCHC 32.5 RDW Std Deviation 46.5 H Plt Count 296 D Neut % (Auto) 73 Lymph % (Auto) 16 [place] % (Auto) 9 Eos % (Auto) 1 Baso % (Auto) 1 Neut # (Auto) 5.8 Lymph # (Auto) 1.3 [place] # (Auto) 0.7 Eos # (Auto) 0.1 Baso # (Auto) 0.0 Immature Gran # (Auto) 0.04 H Absolute Nucleated RBC 0.00 Immature Gran % 1 H Nucleated RBC % 0 Sodium 141 Potassium 3.8 Chloride 107 Carbon Dioxide 27.0 Anion Gap 7 BUN 11 Creatinine 0.6 Estim Creat Clear Calc 149.8 eGFR > 60 BUN/Creatinine Ratio 18 Glucose 142 H Calculated Osmolality 282 Calcium 8.5 Corrected Calcium 9.0 Phosphorus 3.9 Magnesium 1.9 Total Bilirubin 0.4 AST 21 ALT < 7 L Alkaline Phosphatase 132 H Total Protein 6.5 Albumin 3.4 Globulin 3.1 Albumin/Globulin Ratio 1.1 L HIV 1&2 Antibody Rapid Non-Reactive Quality Measures Quality Measures VTE prophylaxis Assessment & Plan Assessment Current Active Medications: Generic Name Dose Route Start Last Admin Trade Name Freq PRN Reason Stop Dose Admin Acetaminophen 650 mg 08/18/24 21:29 Acetaminophen 325 Mg Tablet PO 09/17/24 21:28 Q6H PRN Fever >100.5 Hydrocodone Bitart/Acetaminophen 1 tab 08/18/24 21:29 Hydrocodone/Apap 5/325 Tablet GT 08/23/24 21:28 Q4HR PRN PAIN SCALE 4-6 (Moderate Albuterol/Ipratropium 3 ml 08/18/24 21:52 Albuterol/Ipratropium (Duoneb) Rt Yelena 3 Ml Nebu INH 09/17/24 22:59 Q4HRRT PRN sob or wheeze Amlodipine Besylate 10 mg 08/19/24 09:00 08/23/24 08:23 Amlodipine Besylate 5 Mg Tablet GT 09/18/24 08:59 10 mg QDAY JOSEMANUEL Administration Aspirin 81 mg 08/19/24 09:00 08/23/24 08:23 Aspirin 81 Mg Chew GT 09/18/24 08:59 81 mg QDAY JOSEMANUEL Administration Atorvastatin Calcium 80 mg 08/19/24 21:00 08/22/24 20:06 Atorvastatin Calcium 20 Mg Tablet GT 09/18/24 20:59 80 mg HS JOSEMANUEL Administration Baclofen 5 mg 08/18/24 22:00 08/23/24 05:10 Baclofen 10 Mg Tablet GT 09/17/24 21:59 5 mg TID JOSEMANUEL Administration Bisacodyl 10 mg 08/18/24 21:41 Bisacodyl 10 Mg Supp ND 09/17/24 21:40 QDAY PRN CONSTIPATION Protocol Carvedilol 12.5 mg 08/19/24 08:00 08/23/24 08:23 Carvedilol 12.5 Mg Tablet GT 09/18/24 07:59 12.5 mg BIDWM JOSEMANUEL Administration Dextrose 25 ml 08/18/24 21:29 Dextrose 50%-Water Inj 50 Ml Syringe IV 09/17/24 21:28 Q15MIN PRN BG 50-70 responsive npo pt Dextrose 50 ml 08/18/24 21:29 Dextrose 50%-Water Inj 50 Ml Syringe IV 09/17/24 21:28 Q15MIN PRN BG <50 OR BG <70 & pt unresponsive Doxazosin Mesylate 1 mg 08/19/24 21:00 08/22/24 20:01 Doxazosin Mesylate 1 Mg Tablet GT 09/18/24 20:59 1 mg HS JOSEMANUEL Administration Enoxaparin Sodium 40 mg 08/19/24 09:00 08/23/24 08:22 Enoxaparin Sod Inj 40 Mg/0.4 Ml Syringe SC 09/02/24 08:59 40 mg QDAY JOSEMANUEL Administration Fentanyl Citrate 50 mcg 08/18/24 21:47 Fentanyl Cit Inj 50 Mcg/Ml Amp 2ml IV 08/23/24 21:46 Q2H PRN Breakthrough Pain or agitation Protocol Glucagon 1 mg 08/18/24 21:29 Glucagon Inj 1 Mg Vial IM Q15MIN PRN BG <70, and no IV access Hydralazine HCl 100 mg 08/18/24 22:00 08/23/24 05:10 Hydralazine Hcl 25 Mg Tablet GT 09/17/24 21:59 100 mg TID JOSEMANUEL Administration Hydralazine HCl 10 mg 08/18/24 21:52 Hydralazine Inj 20 Mg/Ml Vial IV 09/17/24 21:51 Q4H PRN SBP >180 or DBP >120 and HR <70 Ceftriaxone Sodium/Dextrose 2 gm in 50 mls @ 100 mls/hr 08/23/24 09:00 08/23/24 08:24 Rocephin/D5w 2gm IV 08/30/24 08:59 100 mls/hr QDAY JOSEMANUEL Administration Insulin Glargine 16 unit 08/21/24 09:00 08/23/24 08:26 Insulin Glargine (Lantus) 5 Unit/0.05 Ml (Per 5 Units) SC 09/20/24 08:59 16 unit QDAY JOSEMANUEL Administration Insulin Human Lispro 0 unit 08/19/24 00:00 08/23/24 04:59 Insulin Lispro (Admelog) 1 Unit/0.01 Ml Unit SC 09/18/24 00:00 Not Given Q6HR JOSEMANUEL Protocol Labetalol HCl 10 mg 08/18/24 21:52 Labetalol Inj 5 Mg/Ml Vial 20 Ml IVP 09/17/24 21:51 Q4H PRN SBP>180 or DBP >120 and HR >70 Losartan Potassium 100 mg 08/19/24 09:00 08/23/24 08:22 Losartan Potassium 25 Mg Tablet GT 09/18/24 08:59 100 mg QDAY JOSEMANUEL Administration Multivitamins 1 tab 08/19/24 09:00 08/23/24 08:29 Multivitamins Tablet PO 09/18/24 08:59 1 tab QDAY JOSEMANUEL Administration Mupirocin 0 gm 08/20/24 09:00 08/23/24 08:28 Mupirocin Oint 2% 15 Gm Tube TOP 08/25/24 08:59 1 appl BID JOSEMANUEL Administration Ondansetron HCl 4 mg 08/18/24 21:29 Ondansetron Inj 2 Mg/Ml Inj 2 Ml IV 09/17/24 21:28 Q6H PRN NAUSEA OR VOMITING Protocol Pantoprazole Sodium 40 mg 08/19/24 09:00 08/23/24 08:22 Pantoprazole Inj 40 Mg Vial IVP 09/18/24 08:59 40 mg QDAY JOSEMANUEL Administration Polyethylene Glycol 17 gm 08/18/24 21:45 08/23/24 08:23 Polyethylene Glycol 17 Gm Packet GT 09/17/24 21:44 17 gm BID JOSEMANUEL Administration Sennosides 2 tab 08/19/24 21:00 08/22/24 20:06 Senna/Docusate Sod 1 Tab Tablet PO 09/18/24 20:59 2 tab HS JOSEMANUEL Administration Protocol Thiamine HCl 100 mg 08/19/24 09:00 08/23/24 08:23 Thiamine 100 Mg Tablet GT 09/18/24 08:59 100 mg QDAY JOSEMANUEL Administration Vitamin D 1,000 iu 08/19/24 09:00 08/23/24 08:23 Cholecalciferol (Vitamin D3) 1,000 Iu Tablet GT 09/18/24 08:59 1,000 iu QDAY JOSEMANUEL Administration Plan Patient is a 64-year-old male with a limited past medical history of alcohol use disorder and possible history of meth use disorder who was initially admitted on 07/19/2024 secondary to intractable pain from the left fourth rib and fractures of the 2nd and 4th lumbar transverse processes who was then transfered to [facility] for cerebellar stroke and now returned to [facility] on 08/18/2024 for subacute placement and bacteremia w/ ischemic stroke. #MSSA bacteremia #Concern for infective endocarditis Patient initially had MSSA pneumonia, and was treated with cefepime for 10 days, blood culture positive with 1/2 positive blood cultures for MSSA. YANELIS procedure unable to procceed past oropharyngeal cavity, continue to treat MSSA bacteremia. Blood cultures negative after 48 hours, bacteremia improving. [facility] Echo done on 08/12/2024: LVEF 55 to 60%, poorly visualized valves, no pericardial effusion Plan: -Ceftriaxone 2 grams once daily until 09/20/2024 -Mupirocin for nasal - Follow-up on anti-MOG serum, aquaporin 4 antibody from [facility] -Infectious Disease following, Dr. Rodriguez, appreciate recommendation -Cardiology consulted, Dr. Hutton, appreciate recommendations. #Acute ischemic stroke, multifocal, likely embolic #Cerebellar & Cerebral Hemispheres #Encephalopathy likely secondary to stroke MRI on 08/09/2024 at [facility] revealed extensive area of restricted diffusion involving both cerebral hemispheres, right centrum semimobile, corpus callosum, and posterior fossa. Repeat CT head at [facility] on 08/17 revealed improving mass effect associated with known infarcts without new process. MRI on 08/22/24at [facility]:Extensive embolic type acute infarcts as above EEG: normal Plan: - Continue to monitor on telemetry unit - Continue on aspirin 81 Mg daily and Lipitor 80 Mg daily at night - Sodium goal 140-150 - Maintain normotension -Neurlogy consulted, Dr. Kirk, recs continue asa an d statin #Diabetes mellitus type 2 Per chart review patient was started on Lantus at [facility], limited history if patient was being treated prior to admission for diabetes. A1c on admission 8.2 Plan: - Lantus 16 units daily - Sliding scale insulin level 2 with lispro every 6 hour #Hypertension #Uncontrolled hypertension, improved The patient's blood pressure was continuously sustained above 200 mhg likely secondary to stroke but has been well controlled since admission. Plan: - SBP goal less than 160 mmHg - Losartan 100 Mg daily - Hydralazine 100 Mg every 8 hourly - Amlodipine 10 mg daily - Carvedilol 12.5 Mg twice daily - Labetalol/hydralazine IV as needed #Chronic respiratory failure Initially intubated for increased work of breathing, not improving on BiPAP, s/p trach and PEG on 08/05/2024, and was noted to have adenovirus positive on 08/04/2024 Plan: - Had not elevated to 30 degree - Peridex oral hygiene every 4 hourly #Glaucoma of left eye - Follow-up outpatient ophthalmology #Urinary retention - Indwelling Hutchins, Hutchins care - Continue doxazosin 1 mg daily #Myoclonus Spontaneous contraction to noxious stimuli - Baclofen 5 mg 3 times daily #Vitamin D deficiency - Vitamin D 1000 units daily #PEG tube Disposition:tele DVT prophylaxis: Subcu enoxaparin 40 Mg daily GI prophylaxis: PPI Diet: PEG tu Lines: PIV CODE STATUS:DNR Patient care was discussed with attending physician Dr. Suman Chinchilla MD PGY-2 I have carefully reviewed this document. Due to imperfections in the voice software, there could be grammatical errors including phonetic/typographic errors. This in no way compromises the medical care the patient is receiving Attending Provider Attestation/Addendum I reviewed labs, imaging, EKG, home medications and prior available records. Face to face evaluation was performed by me. I have personally examined the patient and discussed assessment and plan with the IM team. I reviewed the resident note and agree with the plan with exceptions as below. Acute cerebellar stroke Acute multiple embolic stroke Status post trach and PEG Chronic hypoxic respiratory failure MSSA bacteremia Possible endocarditis Acute cephalopathy Continue aspirin and atorvastatin Continue oxygen delivery through tracheostomy Ordered EEG: Negative Continue IV ceftriaxone till 09/20. ID is following
--- NOTE | 2024-08-23 10:44 | PD.RESPRO ---
Documentation for date of: 08/23/24 Subjective Subjective Interval history: No acute events overnight.?Patient seen and examined at bedside this AM.?Per nursing, ? Labs and vitals were reviewed.?No further complaints at this time. Review of systems otherwise negative except what is mentioned above. Exam Vital Signs Temp Pulse Resp BP Pulse Ox O2 Del Method FiO2 97.3 F 76 19 125/62 99 Mechanical Ventilation 40 08/23/24 08:00 08/23/24 08:23 08/23/24 08:00 08/23/24 08:23 08/23/24 08:00 08/23/24 08:00 08/23/24 07:00 Narrative Exam General: tracheostomy in place on MV, eyes open to voice, does not follow commands HEENT: NC/AT, mucous membranes moist, bilateral sclera anicteric Cardiovascular: regular rate and rhythm, S1/S2 present, no murmurs appreciated Pulmonary: clear to auscultation bilaterally, no rales/rhonchi/wheezes Abdominal: soft, non-tender, non-distended, no rebound/guarding, normal bowel sounds present Musculoskeletal: upper extremities edematous, normal ROM Skin: warm and dry, intact, no rashes Neuro: unable to assess Objective Labs 08/23/24 05:08 08/23/24 05:08 Labs: Laboratory Results - last 24 hr 08/23/24 05:08 WBC 7.9 RBC 2.52 L Hgb 7.9 L Hct 24.3 L MCV 96 MCH 31.3 MCHC 32.5 RDW Std Deviation 46.5 H Plt Count 296 D Neut % (Auto) 73 Lymph % (Auto) 16 [place] % (Auto) 9 Eos % (Auto) 1 Baso % (Auto) 1 Neut # (Auto) 5.8 Lymph # (Auto) 1.3 [place] # (Auto) 0.7 Eos # (Auto) 0.1 Baso # (Auto) 0.0 Immature Gran # (Auto) 0.04 H Absolute Nucleated RBC 0.00 Immature Gran % 1 H Nucleated RBC % 0 Sodium 141 Potassium 3.8 Chloride 107 Carbon Dioxide 27.0 Anion Gap 7 BUN 11 Creatinine 0.6 Estim Creat Clear Calc 149.8 eGFR > 60 BUN/Creatinine Ratio 18 Glucose 142 H Calculated Osmolality 282 Calcium 8.5 Corrected Calcium 9.0 Phosphorus 3.9 Magnesium 1.9 Total Bilirubin 0.4 AST 21 ALT < 7 L Alkaline Phosphatase 132 H Total Protein 6.5 Albumin 3.4 Globulin 3.1 Albumin/Globulin Ratio 1.1 L HIV 1&2 Antibody Rapid Non-Reactive Quality Measures Quality Measures VTE prophylaxis Assessment & Plan Assessment Current Active Medications: Generic Name Dose Route Start Last Admin Trade Name Freq PRN Reason Stop Dose Admin Acetaminophen 650 mg 08/18/24 21:29 Acetaminophen 325 Mg Tablet PO 09/17/24 21:28 Q6H PRN Fever >100.5 Hydrocodone Bitart/Acetaminophen 1 tab 08/18/24 21:29 Hydrocodone/Apap 5/325 Tablet GT 08/23/24 21:28 Q4HR PRN PAIN SCALE 4-6 (Moderate Albuterol/Ipratropium 3 ml 08/18/24 21:52 Albuterol/Ipratropium (Duoneb) Rt Yelena 3 Ml Nebu INH 09/17/24 22:59 Q4HRRT PRN sob or wheeze Amlodipine Besylate 10 mg 08/19/24 09:00 08/23/24 08:23 Amlodipine Besylate 5 Mg Tablet GT 09/18/24 08:59 10 mg QDAY JOSEMANUEL Administration Aspirin 81 mg 08/19/24 09:00 08/23/24 08:23 Aspirin 81 Mg Chew GT 09/18/24 08:59 81 mg QDAY JOSEMANUEL Administration Atorvastatin Calcium 80 mg 08/19/24 21:00 08/22/24 20:06 Atorvastatin Calcium 20 Mg Tablet GT 09/18/24 20:59 80 mg HS JOSEMANUEL Administration Baclofen 5 mg 08/18/24 22:00 08/23/24 05:10 Baclofen 10 Mg Tablet GT 09/17/24 21:59 5 mg TID JOSEMANUEL Administration Bisacodyl 10 mg 08/18/24 21:41 Bisacodyl 10 Mg Supp UT 09/17/24 21:40 QDAY PRN CONSTIPATION Protocol Carvedilol 12.5 mg 08/19/24 08:00 08/23/24 08:23 Carvedilol 12.5 Mg Tablet GT 09/18/24 07:59 12.5 mg BIDWM JOSEMANUEL Administration Dextrose 25 ml 08/18/24 21:29 Dextrose 50%-Water Inj 50 Ml Syringe IV 09/17/24 21:28 Q15MIN PRN BG 50-70 responsive npo pt Dextrose 50 ml 08/18/24 21:29 Dextrose 50%-Water Inj 50 Ml Syringe IV 09/17/24 21:28 Q15MIN PRN BG <50 OR BG <70 & pt unresponsive Doxazosin Mesylate 1 mg 08/19/24 21:00 08/22/24 20:01 Doxazosin Mesylate 1 Mg Tablet GT 09/18/24 20:59 1 mg HS JOSEMANUEL Administration Enoxaparin Sodium 40 mg 08/19/24 09:00 08/23/24 08:22 Enoxaparin Sod Inj 40 Mg/0.4 Ml Syringe SC 09/02/24 08:59 40 mg QDAY JOSEMANUEL Administration Fentanyl Citrate 50 mcg 08/18/24 21:47 Fentanyl Cit Inj 50 Mcg/Ml Amp 2ml IV 08/23/24 21:46 Q2H PRN Breakthrough Pain or agitation Protocol Glucagon 1 mg 08/18/24 21:29 Glucagon Inj 1 Mg Vial IM Q15MIN PRN BG <70, and no IV access Hydralazine HCl 100 mg 08/18/24 22:00 08/23/24 05:10 Hydralazine Hcl 25 Mg Tablet GT 09/17/24 21:59 100 mg TID JOSEMANULE Administration Hydralazine HCl 10 mg 08/18/24 21:52 Hydralazine Inj 20 Mg/Ml Vial IV 09/17/24 21:51 Q4H PRN SBP >180 or DBP >120 and HR <70 Ceftriaxone Sodium/Dextrose 2 gm in 50 mls @ 100 mls/hr 08/23/24 09:00 08/23/24 08:24 Rocephin/D5w 2gm IV 08/30/24 08:59 100 mls/hr QDAY JOSEMANUEL Administration Insulin Glargine 16 unit 08/21/24 09:00 08/23/24 08:26 Insulin Glargine (Lantus) 5 Unit/0.05 Ml (Per 5 Units) SC 09/20/24 08:59 16 unit QDAY JOSEMANUEL Administration Insulin Human Lispro 0 unit 08/19/24 00:00 08/23/24 04:59 Insulin Lispro (Admelog) 1 Unit/0.01 Ml Unit SC 09/18/24 00:00 Not Given Q6HR JOSEMANUEL Protocol Labetalol HCl 10 mg 08/18/24 21:52 Labetalol Inj 5 Mg/Ml Vial 20 Ml IVP 09/17/24 21:51 Q4H PRN SBP>180 or DBP >120 and HR >70 Losartan Potassium 100 mg 08/19/24 09:00 08/23/24 08:22 Losartan Potassium 25 Mg Tablet GT 09/18/24 08:59 100 mg QDAY JOSEMANUEL Administration Multivitamins 1 tab 08/19/24 09:00 08/23/24 08:29 Multivitamins Tablet PO 09/18/24 08:59 1 tab QDAY JOSEMANUEL Administration Mupirocin 0 gm 08/20/24 09:00 08/23/24 08:28 Mupirocin Oint 2% 15 Gm Tube TOP 08/25/24 08:59 1 appl BID JOSEMANUEL Administration Ondansetron HCl 4 mg 08/18/24 21:29 Ondansetron Inj 2 Mg/Ml Inj 2 Ml IV 09/17/24 21:28 Q6H PRN NAUSEA OR VOMITING Protocol Pantoprazole Sodium 40 mg 08/19/24 09:00 08/23/24 08:22 Pantoprazole Inj 40 Mg Vial IVP 09/18/24 08:59 40 mg QDAY JOSEMANUEL Administration Polyethylene Glycol 17 gm 08/18/24 21:45 08/23/24 08:23 Polyethylene Glycol 17 Gm Packet GT 09/17/24 21:44 17 gm BID JOSEMANUEL Administration Sennosides 2 tab 08/19/24 21:00 08/22/24 20:06 Senna/Docusate Sod 1 Tab Tablet PO 09/18/24 20:59 2 tab HS JOSEMANUEL Administration Protocol Thiamine HCl 100 mg 08/19/24 09:00 08/23/24 08:23 Thiamine 100 Mg Tablet GT 09/18/24 08:59 100 mg QDAY JOSEMANUEL Administration Vitamin D 1,000 iu 08/19/24 09:00 08/23/24 08:23 Cholecalciferol (Vitamin D3) 1,000 Iu Tablet GT 09/18/24 08:59 1,000 iu QDAY JOSEMANUEL Administration Plan Phu Melendez is a 64-year-old male with history of uncontrolled hypertension and type 2 diabetes mellitus who was initially admitted to [facility] on 07/18/2024 for acute displaced fracture of left fourth rib as well as acute fractures of left second and fourth lumbar transverse processes. During hospital stay developed left-sided facial drooping, blurry vision, dizziness, and ataxia and CT head showed hypodensity in posterior cerebellum that extended to right hemisphere without hemorrhage and teleneurology recommended neurosurgical consultation for risk of post-CVA edema and risk of herniation. Transferred to [facility] for further management and per records, hospital course complicated by progressive neurological decline as repeat CT head revealed evolved hypodensity in right corpus callosum, requiring intubation and sedation, and eventually tracheostomy and PEG tube placement on 08/05. GOC meeting held with family and decision was made for DNR/full treatment. On 08/18/2024, patient was transferred back to [facility]. Cardiology consulted for YANELIS while in-house to rule out endocarditis given MSSA bacteremia. #MSSA bacteremia #? Infective endocarditis Patient initially had MSSA pneumonia, and was treated with cefepime for 10 days, blood culture positive with 1/2 positive blood cultures for MSSA TTE done on 08/12/2024 revealed LVEF 55 to 60%, poorly visualized valves, no pericardial effusion. YANELIS attempted at [facility] but per family, unable to be done due to technical difficulties while intubated. Recommendations: -We will reassess and determine the appropriate next steps and see if we can repeat the YANELIS. #Type 2 diabetes mellitus A1c 8.2% on 08/2024 Goal blood sugar range of 140-180 #Uncontrolled hypertension Noted to be on multiple blood pressure medications with BP ranging in 130s-150s/70s, suspect to be secondary to CVA. ? Amlodipine 10 mg daily ? Carvedilol 12.5 mg BID ? Hydralazine 100 mg TID ? Labetolol 10 mg PRN ? 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 Management of above conditions per primary team ----- Plan discussed with attending physician Dr. Brennen Sanders PGY-2
[2024-08-23] MEDS: INSULIN LISPRO (AdmeLOG) 1 UNIT/0.01 ML UNIT SC ×2 (17:25→23:35)
[2024-08-23] MEDS: ATORVASTATIN CALCIUM 20 MG TABLET 80 MG GT (21:42)
[2024-08-23] MEDS: SENNA/DOCUSATE SOD 1 TAB TABLET 2 TAB PO (21:43)
[2024-08-23] MEDS: DOXAZOSIN MESYLATE 1 MG TABLET GT (21:44)
[2024-08-24] VITALS (16 sets, daily range): BP systolic 139–160; BP diastolic 67–80; PULSE 69–81; RESP 13–20; TEMP 36.4–36.6; O2SAT 92–98; BMI 31.1
[2024-08-24] MEDS: hydrALAZINE HCL 25 MG TABLET 100 MG GT ×3 (05:15→22:45)
[2024-08-24] MEDS: BACLOFEN 10 MG TABLET 5 MG GT ×3 (05:15→21:45)
[2024-08-24] MEDS: INSULIN LISPRO (AdmeLOG) 1 UNIT/0.01 ML UNIT SC (05:20)
[2024-08-24 06:13] LABS: Basophils % (Auto) 0 % (0-2.5); Eosinophils # (Auto) 0.1 Thou/mm3 (0.0-0.5); Eosinophils % (Auto) 1 % (0-10); Hematocrit 25.7 % (41.0-53.0); Immature Granulocytes % (Auto) 0 % (0-0); Immature Granulocytes Auto 0.03 Thou/mm3 (0.00-0.00); Lymphocytes # (Auto) 1.2 Thou/mm3 (1.0-4.8); Lymphocytes % (Auto) 12 % (10-50); Mean Corpuscular HGB Conc 31.9 g/dl (31.0-37.0); Mean Corpuscular Hemoglobin 30.7 pg (25.0-35.0); Mean Corpuscular Volume 96 fL (80-100); Monocytes # (Auto) 0.8 Thou/mm3 (0.0-0.8); Monocytes % (Auto) 8 % (0-12); Neutrophils # (Auto) 7.8 Thou/mm3 (1.8-7.7); Neutrophils % (Auto) 78 % (37-80); Nucleated Red Blood Cell % 0 /100 WBC (0); Platelet Count 311 Thou/mm3 (140-440); RDW Standard Deviation 47.1 fL (35.1-43.9); Red Blood Count 2.67 Miln/mm3 (4.50-5.90)
[2024-08-24 06:15] LABS: Hemoglobin 8.2 g/dL (13.5-16.0)
[2024-08-24 07:04] LABS: Alanine Aminotransferase < 7 U/L (10-49); Albumin, Serum 3.4 gm/dL (3.4-4.8); Alkaline Phosphatase 142 U/L (46-116); Anion Gap 4 (7-16); Aspartate Amino Transferase 20 U/L (0-34); BUN/Creatinine Ratio 20 Ratio (12-20); Bilirubin,Total 0.5 mg/dL (0.3-1.2); Blood Urea Nitrogen 12 mg/dL (9-23); Calcium 8.6 mg/dL (8.3-10.6); Calcium (Corrected) 9.1 mg/dL (8.5-10.1); Carbon Dioxide 27.1 mMol/L (20.0-31.0); Chloride 107 mMol/L (98-107); Creatinine (Component) 0.6 mg/dL (0.6-1.3); Estimated Creatinine Clearance 150.2 mL/min (>60); Globulin 3.3 gm/dL (2.3-3.5); Glucose 155 mg/dL (74-106); Osmolality,Calculated 278 (275-295); Potassium 3.6 mMol/L (3.4-5.1); Sodium 138 mMol/L (136-145); Total Protein 6.7 gm/dL (5.7-8.2); eGFR > 60 See Note
[2024-08-24] MEDS: ENOXAPARIN SOD INJ 40 MG/0.4 ML SYRINGE SC (08:06)
[2024-08-24] MEDS: cefTRIAXone/D5w 2gm 2 GM/50 ML BAG IV (08:06)
[2024-08-24] MEDS: MULTIVITAMIN 15 ML UDC GT (08:06)
[2024-08-24] MEDS: POLYETHYLENE GLYCOL 17 GM PACKET GT ×2 (08:06→21:45)
[2024-08-24] MEDS: ASPIRIN 81 MG CHEW GT (08:07)
[2024-08-24] MEDS: LOSARTAN POTASSIUM 25 MG TABLET 100 MG GT (08:07)
[2024-08-24] MEDS: LANSOPRAZOLE 30 MG TAB.RAP.DR GT (08:07)
[2024-08-24] MEDS: amLODIPine BESYLATE 5 MG TABLET 10 MG GT (08:07)
[2024-08-24] MEDS: THIAMINE 100 MG TABLET GT (08:08)
[2024-08-24] MEDS: CHOLECALCIFEROL (Vitamin D3) 1,000 IU TABLET 1000 IU GT (08:08)
[2024-08-24] MEDS: carVEDILOL 12.5 MG TABLET GT ×2 (08:08→16:13)
[2024-08-24] MEDS: MUPIROCIN OINT 2% 15 GM TUBE TOP ×2 (08:09→21:45)
[2024-08-24] MEDS: INSULIN GLARGINE (Lantus) 5 UNIT/0.05 ML (PER 5 UNITS) 16 UNIT SC (08:09)
[2024-08-24] MEDS: POTASSIUM CHLORIDE 10% 20 MEQ/15 ML UDC 40 MEQ GT (11:57)
--- NOTE | 2024-08-24 13:09 | ESPR_ITS ---
Documentation for date of: 08/24/24 Subjective Subjective Interval history: No overnight evetns. No pyrexia reported overnight. Alert but non-verbal. Patient able to follow commands and raised right foot when promted but unable to raise left foot, only move it. Withdrew to painful stimuli. Plan to d/c patient to subacute within the next 24 hours. Exam Vital Signs Temp Pulse Resp BP Pulse Ox O2 Del Method FiO2 97.8 F 79 19 139/74 H 95 Mechanical Ventilation 40 08/24/24 12:00 08/24/24 12:17 08/24/24 12:00 08/24/24 12:00 08/24/24 12:17 08/24/24 12:00 08/24/24 12:17 Narrative Exam General Appearance: Alert & Oriented X0, well-nourished male who is lying in bed in no acute distress, with lower pedal edema noted 2+ and mild scrotal swelling as well. NO verbal HEENT: Skull symmetrical and atraumatic. Conjunctivae pin and moist. External ear without lesion or discharge. Straight, nares patient, mucosa pink, no discharge. No thyroid nodule appreciated. No cervical lymphadenopathy. Cardio: Normal Rate and Rhythm with S1 and S2 heart sounds. No murmurs or extra heart sounds auscultated. No bruits on carotid auscultation. No peripheral edema or cyanosis. Lungs: Symmetric with good expansion. Chest and back non-tender. Breath sounds vesicular without crackles up upper airway sounds, likely secondary to being on trach. Abdomen: Non-tender, Non-distended, Normal Reactive Bowel Sounds Neuro: YES Alert, yes cooperative, No oriented to person, NO place, and NO time. unable to follow commands, no motor function in upper extremities and right lower limb 2/5 and left lower limb 1/5. No responding to tactile or auditory stimuli. Objective Labs 08/25/24 05:48 08/25/24 05:48 Labs: Laboratory Results - last 24 hr 08/24/24 04:37 WBC 10.0 RBC 2.67 L Hgb 8.2 L Hct 25.7 L MCV 96 MCH 30.7 MCHC 31.9 RDW Std Deviation 47.1 H Plt Count 311 Neut % (Auto) 78 Lymph % (Auto) 12 [place] % (Auto) 8 Eos % (Auto) 1 Baso % (Auto) 0 Neut # (Auto) 7.8 H Lymph # (Auto) 1.2 [place] # (Auto) 0.8 Eos # (Auto) 0.1 Baso # (Auto) 0.0 Immature Gran # (Auto) 0.03 H Absolute Nucleated RBC 0.00 Immature Gran % 0 Nucleated RBC % 0 Sodium 138 Potassium 3.6 Chloride 107 Carbon Dioxide 27.1 Anion Gap 4 L BUN 12 Creatinine 0.6 Estim Creat Clear Calc 150.2 eGFR > 60 BUN/Creatinine Ratio 20 Glucose 155 H Calculated Osmolality 278 Calcium 8.6 Corrected Calcium 9.1 Total Bilirubin 0.5 AST 20 ALT < 7 L Alkaline Phosphatase 142 H Total Protein 6.7 Albumin 3.4 Globulin 3.3 Albumin/Globulin Ratio 1.0 L Quality Measures Quality Measures VTE prophylaxis Assessment & Plan Assessment Current Active Medications: Generic Name Dose Route Start Last Admin Trade Name Freq PRN Reason Stop Dose Admin Acetaminophen 650 mg 08/18/24 21:29 Acetaminophen 325 Mg Tablet PO 09/17/24 21:28 Q6H PRN Fever >100.5 Albuterol/Ipratropium 3 ml 08/18/24 21:52 Albuterol/Ipratropium (Duoneb) Rt Yelena 3 Ml Nebu INH 09/17/24 22:59 Q4HRRT PRN sob or wheeze Amlodipine Besylate 10 mg 08/19/24 09:00 08/24/24 08:07 Amlodipine Besylate 5 Mg Tablet GT 09/18/24 08:59 10 mg QDAY JOSEMANUEL Administration Aspirin 81 mg 08/19/24 09:00 08/24/24 08:07 Aspirin 81 Mg Chew GT 09/18/24 08:59 81 mg QDAY JOSEMANUEL Administration Atorvastatin Calcium 80 mg 08/19/24 21:00 08/23/24 21:42 Atorvastatin Calcium 20 Mg Tablet GT 09/18/24 20:59 80 mg HS JOSEMANUEL Administration Baclofen 5 mg 08/18/24 22:00 08/24/24 05:15 Baclofen 10 Mg Tablet GT 09/17/24 21:59 5 mg TID JOSEMANUEL Administration Bisacodyl 10 mg 08/18/24 21:41 Bisacodyl 10 Mg Supp ME 09/17/24 21:40 QDAY PRN CONSTIPATION Protocol Carvedilol 12.5 mg 08/19/24 08:00 08/24/24 08:08 Carvedilol 12.5 Mg Tablet GT 09/18/24 07:59 12.5 mg BIDWM JOSEMANUEL Administration Dextrose 25 ml 08/18/24 21:29 Dextrose 50%-Water Inj 50 Ml Syringe IV 09/17/24 21:28 Q15MIN PRN BG 50-70 responsive npo pt Dextrose 50 ml 08/18/24 21:29 Dextrose 50%-Water Inj 50 Ml Syringe IV 09/17/24 21:28 Q15MIN PRN BG <50 OR BG <70 & pt unresponsive Doxazosin Mesylate 1 mg 08/19/24 21:00 08/23/24 21:44 Doxazosin Mesylate 1 Mg Tablet GT 09/18/24 20:59 1 mg HS JOSEMANUEL Administration Enoxaparin Sodium 40 mg 08/19/24 09:00 08/24/24 08:06 Enoxaparin Sod Inj 40 Mg/0.4 Ml Syringe SC 09/02/24 08:59 40 mg QDAY JOSEMANUEL Administration Glucagon 1 mg 08/18/24 21:29 Glucagon Inj 1 Mg Vial IM Q15MIN PRN BG <70, and no IV access Hydralazine HCl 100 mg 08/18/24 22:00 08/24/24 05:15 Hydralazine Hcl 25 Mg Tablet GT 09/17/24 21:59 100 mg TID JOSEMANUEL Administration Hydralazine HCl 10 mg 08/18/24 21:52 Hydralazine Inj 20 Mg/Ml Vial IV 09/17/24 21:51 Q4H PRN SBP >180 or DBP >120 and HR <70 Ceftriaxone Sodium/Dextrose 2 gm in 50 mls @ 100 mls/hr 08/23/24 09:00 08/24/24 08:06 Rocephin/D5w 2gm IV 08/30/24 08:59 100 mls/hr QDAY JOSEMANUEL Administration Insulin Glargine 16 unit 08/21/24 09:00 08/24/24 08:09 Insulin Glargine (Lantus) 5 Unit/0.05 Ml (Per 5 Units) SC 09/20/24 08:59 16 unit QDAY JOSEMANUEL Administration Insulin Human Lispro 0 unit 08/19/24 00:00 08/24/24 12:07 Insulin Lispro (Admelog) 1 Unit/0.01 Ml Unit SC 09/18/24 00:00 Not Given Q6HR JOSEMANUEL Protocol Labetalol HCl 10 mg 08/18/24 21:52 Labetalol Inj 5 Mg/Ml Vial 20 Ml IVP 09/17/24 21:51 Q4H PRN SBP>180 or DBP >120 and HR >70 Lansoprazole 30 mg 08/24/24 09:00 08/24/24 08:07 Lansoprazole 30 Mg Tab. GT 09/18/24 08:59 30 mg QDAY JOSEMANUEL Administration Losartan Potassium 100 mg 08/19/24 09:00 08/24/24 08:07 Losartan Potassium 25 Mg Tablet GT 09/18/24 08:59 100 mg QDAY JOSEMANUEL Administration Multivitamins/Minerals 15 ml 08/24/24 09:00 08/24/24 08:06 Multivitamin 15 Ml Udc GT 09/18/24 08:59 15 ml QDAY JOSEMANUEL Administration Mupirocin 0 gm 08/20/24 09:00 08/24/24 08:09 Mupirocin Oint 2% 15 Gm Tube TOP 08/25/24 08:59 1 appl BID JOSEMANUEL Administration Ondansetron HCl 4 mg 08/18/24 21:29 Ondansetron Inj 2 Mg/Ml Inj 2 Ml IV 09/17/24 21:28 Q6H PRN NAUSEA OR VOMITING Protocol Polyethylene Glycol 17 gm 08/18/24 21:45 08/24/24 08:06 Polyethylene Glycol 17 Gm Packet GT 09/17/24 21:44 17 gm BID JOSEMANUEL Administration Sennosides 2 tab 08/19/24 21:00 08/23/24 21:43 Senna/Docusate Sod 1 Tab Tablet PO 09/18/24 20:59 2 tab HS JOSEMANUEL Administration Protocol Thiamine HCl 100 mg 08/19/24 09:00 08/24/24 08:08 Thiamine 100 Mg Tablet GT 09/18/24 08:59 100 mg QDAY JOSEMANUEL Administration Vitamin D 1,000 iu 08/19/24 09:00 08/24/24 08:08 Cholecalciferol (Vitamin D3) 1,000 Iu Tablet GT 09/18/24 08:59 1,000 iu QDAY JOSEMANUEL Administration Plan Patient is a 64-year-old male with a limited past medical history of alcohol use disorder and possible history of meth use disorder who was initially admitted on 07/19/2024 secondary to intractable pain from the left fourth rib and fractures of the 2nd and 4th lumbar transverse processes who was then transfered to [facility] for cerebellar stroke and now returned to [facility] on 08/18/2024 for subacute placement and bacteremia w/ ischemic stroke. #MSSA bacteremia #Concern for infective endocarditis Patient initially had MSSA pneumonia, and was treated with cefepime for 10 days, blood culture positive with 1/2 positive blood cultures for MSSA. YANELIS procedure unable to procceed past oropharyngeal cavity, continue to treat MSSA bacteremia. Blood cultures negative after 48 hours, bacteremia improving. [facility] Echo done on 08/12/2024: LVEF 55 to 60%, poorly visualized valves, no pericardial effusion Plan: -Ceftriaxone 2 grams once daily until 09/20/2024 -D/C cefazolin 2 g every 8 hourly until 09/20/2024 -Mupirocin for nasal - Follow-up on anti-MOG serum, aquaporin 4 antibody from [facility] -Infectious Disease following, Dr. Rodriguez, appreciate recommendation -Cardiology consulted, Dr. Hutton, appreciate recommendations. #Acute ischemic stroke, multifocal, likely embolic #Cerebellar & Cerebral Hemispheres #Encephalopathy likely secondary to stroke MRI on 08/09/2024 at [facility] revealed extensive area of restricted diffusion involving both cerebral hemispheres, right centrum semimobile, corpus callosum, and posterior fossa. Repeat CT head at [facility] on 08/17 revealed improving mass effect associated with known infarcts without new process. ddx: less likely secondary to infectious cause as VDRL negative, cryptococcal negative, AFB, fungal cultures negative to date as per record Plan: - Continue to monitor on telemetry unit - Continue on aspirin 81 Mg daily and Lipitor 80 Mg daily at night - Sodium goal 140-150 - Maintain normotension -Neurlogy consulted, Dr. Kirk, appreciate recommendations. #Diabetes mellitus type 2 Per chart review patient was started on Lantus at [facility], limited history if patient was being treated prior to admission for diabetes. A1c on admission 8.2 Plan: - Lantus 16 units daily - Sliding scale insulin level 2 with lispro every 6 hour #Hypertension #Uncontrolled hypertension, improved The patient's blood pressure was continuously sustained above 200 mhg likely secondary to stroke but has been well controlled since admission. Plan: - SBP goal less than 160 mmHg - Losartan 100 Mg daily - Hydralazine 100 Mg every 8 hourly - Amlodipine 10 mg daily - Carvedilol 12.5 Mg twice daily - Labetalol/hydralazine IV as needed #Chronic respiratory failure Initially intubated for increased work of breathing, not improving on BiPAP, s/p trach and PEG on 08/05/2024, and was noted to have adenovirus positive on 08/04/2024 Plan: - Had not elevated to 30 degree - Peridex oral hygiene every 4 hourly - ABG as needed #ANASARCA, improved Likely secondary to statis given inability to move and mild scrotal swelling. Plan -Consider lasix if need be. #Glaucoma of left eye - Follow-up outpatient ophthalmology #Urinary retention - Indwelling Hutchins, Hutchins care - Continue doxazosin 1 mg daily #Myoclonus Spontaneous contraction to noxious stimuli - Baclofen 5 mg 3 times daily #Vitamin D deficiency - Vitamin D 1000 units daily #PEG tube Health maintenance: Dispo: Patient is transferred back from [facility] after undergoing tracheostomy and PEG tube placement, currently admitted to telemetry unit and subacute placement Diet: Via PEG tube DVT prophylaxis: Subcu enoxaparin 40 Mg daily CODE STATUS: DNR - The patient's plan was discussed with attending Dr. Suman Malagon MD PGY1 Internal Medicine Attending Provider Attestation/Addendum I reviewed labs, imaging, EKG, home medications and prior available records. Face to face evaluation was performed by me. I have personally examined the patient and discussed assessment and plan with the IM team. I reviewed the resident note and agree with the plan with exceptions as below. Acute cerebellar stroke Acute multiple embolic stroke Status post trach and PEG Chronic hypoxic respiratory failure MSSA bacteremia Possible endocarditis Acute cephalopathy Continue aspirin and atorvastatin Continue oxygen delivery through tracheostomy Ordered EEG: Negative Continue IV ceftriaxone till 09/20. ID is following. relief worker is working on the placement
[2024-08-24] MEDS: DOXAZOSIN MESYLATE 1 MG TABLET GT (21:45)
[2024-08-24] MEDS: ATORVASTATIN CALCIUM 20 MG TABLET 80 MG GT (21:45)
[2024-08-24] MEDS: SENNA/DOCUSATE SOD 1 TAB TABLET 2 TAB PO (21:45)
--- NOTE | 2024-08-24 23:56 | VVPN_ITS ---
Telemedicine visit statement This visit was conducted with the use of interactive audio and video telecommunications system that permits real time communication between the patient and the provider. Patient's verbal consent for virtual visit was obtained on 08/24/24 at 2356. Documentation for date of: 08/24/24 Subjective Subjective Interval history: Patient was seen virtually, remains trached and on ventilatory support. Only responding to painful stimulation, intermittent myoclonic jerks reported in the right lower extremity. No changes reported since admission Virtual exam Vital Signs Temp Pulse Resp BP Pulse Ox O2 Del Method FiO2 97.8 F 72 17 145/80 H 96 Mechanical Ventilation 40 08/24/24 20:00 08/24/24 22:45 08/24/24 20:00 08/24/24 22:45 08/24/24 20:05 08/24/24 20:00 08/24/24 20:05 Objective Labs 08/24/24 04:37 08/24/24 04:37 Labs: Laboratory Results - last 24 hr 08/24/24 04:37 WBC 10.0 RBC 2.67 L Hgb 8.2 L Hct 25.7 L MCV 96 MCH 30.7 MCHC 31.9 RDW Std Deviation 47.1 H Plt Count 311 Neut % (Auto) 78 Lymph % (Auto) 12 [place] % (Auto) 8 Eos % (Auto) 1 Baso % (Auto) 0 Neut # (Auto) 7.8 H Lymph # (Auto) 1.2 [place] # (Auto) 0.8 Eos # (Auto) 0.1 Baso # (Auto) 0.0 Immature Gran # (Auto) 0.03 H Absolute Nucleated RBC 0.00 Immature Gran % 0 Nucleated RBC % 0 Sodium 138 Potassium 3.6 Chloride 107 Carbon Dioxide 27.1 Anion Gap 4 L BUN 12 Creatinine 0.6 Estim Creat Clear Calc 150.2 eGFR > 60 BUN/Creatinine Ratio 20 Glucose 155 H Calculated Osmolality 278 Calcium 8.6 Corrected Calcium 9.1 Total Bilirubin 0.5 AST 20 ALT < 7 L Alkaline Phosphatase 142 H Total Protein 6.7 Albumin 3.4 Globulin 3.3 Albumin/Globulin Ratio 1.0 L Assessment & Plan Problem List (1) Ischemic encephalopathy: Status: Acute Assessment and plan: Continue with current supportive care. Patient is going to be transferred to subacute facility downstairs.. Patient condition is unchanged and his prognosis is poor even though the EEG is normal.
[2024-08-25] VITALS (13 sets, daily range): BP systolic 120–150; BP diastolic 59–75; PULSE 60–85; RESP 13–20; TEMP 36–36.3; O2SAT 15–99; BMI 30.1
[2024-08-25] MEDS: INSULIN LISPRO (AdmeLOG) 1 UNIT/0.01 ML UNIT SC ×3 (00:39→12:41)
[2024-08-25] MEDS: hydrALAZINE HCL 25 MG TABLET 100 MG GT ×2 (05:41→14:02)
[2024-08-25] MEDS: BACLOFEN 10 MG TABLET 5 MG GT ×2 (05:41→14:01)
[2024-08-25 06:49] LABS: Alanine Aminotransferase 8 U/L (10-49); Albumin, Serum 3.4 gm/dL (3.4-4.8); Alkaline Phosphatase 134 U/L (46-116); Anion Gap 8 (7-16); Aspartate Amino Transferase 19 U/L (0-34); BUN/Creatinine Ratio 20 Ratio (12-20); Bilirubin,Total 0.4 mg/dL (0.3-1.2); Blood Urea Nitrogen 12 mg/dL (9-23); Calcium 8.7 mg/dL (8.3-10.6); Calcium (Corrected) 9.2 mg/dL (8.5-10.1); Carbon Dioxide 27.1 mMol/L (20.0-31.0); Chloride 102 mMol/L (98-107); Creatinine (Component) 0.6 mg/dL (0.6-1.3); Estimated Creatinine Clearance 148.1 mL/min (>60); Globulin 3.5 gm/dL (2.3-3.5); Glucose 170 mg/dL (74-106); Magnesium 1.8 mg/dL (1.6-2.6); Osmolality,Calculated 277 (275-295); Potassium 3.6 mMol/L (3.4-5.1); Sodium 137 mMol/L (136-145); Total Protein 6.9 gm/dL (5.7-8.2); eGFR > 60 See Note
[2024-08-25 07:13] LABS: Basophils % (Auto) 0 % (0-2.5); Eosinophils # (Auto) 0.1 Thou/mm3 (0.0-0.5); Eosinophils % (Auto) 1 % (0-10); Hematocrit 25.6 % (41.0-53.0); Immature Granulocytes % (Auto) 0 % (0-0); Immature Granulocytes Auto 0.03 Thou/mm3 (0.00-0.00); Lymphocytes # (Auto) 1.1 Thou/mm3 (1.0-4.8); Lymphocytes % (Auto) 14 % (10-50); Mean Corpuscular HGB Conc 32.4 g/dl (31.0-37.0); Mean Corpuscular Hemoglobin 30.4 pg (25.0-35.0); Mean Corpuscular Volume 94 fL (80-100); Monocytes # (Auto) 0.7 Thou/mm3 (0.0-0.8); Monocytes % (Auto) 9 % (0-12); Neutrophils # (Auto) 5.9 Thou/mm3 (1.8-7.7); Neutrophils % (Auto) 75 % (37-80); Nucleated Red Blood Cell % 0 /100 WBC (0); Platelet Count 336 Thou/mm3 (140-440); RDW Standard Deviation 46.8 fL (35.1-43.9); Red Blood Count 2.73 Miln/mm3 (4.50-5.90); White Blood Count 7.9 Thou/mm3 (3.8-10.6)
[2024-08-25 07:14] LABS: Hemoglobin 8.3 g/dL (13.5-16.0)
[2024-08-25] MEDS: cefTRIAXone/D5w 2gm 2 GM/50 ML BAG IV (09:23)
[2024-08-25] MEDS: POLYETHYLENE GLYCOL 17 GM PACKET GT (09:23)
[2024-08-25] MEDS: MULTIVITAMIN 15 ML UDC GT (09:23)
[2024-08-25] MEDS: LANSOPRAZOLE 30 MG TAB.RAP.DR GT (09:24)
[2024-08-25] MEDS: ASPIRIN 81 MG CHEW GT (09:24)
[2024-08-25] MEDS: LOSARTAN POTASSIUM 25 MG TABLET 100 MG GT (09:24)
[2024-08-25] MEDS: THIAMINE 100 MG TABLET GT (09:24)
[2024-08-25] MEDS: carVEDILOL 12.5 MG TABLET GT (09:26)
[2024-08-25] MEDS: amLODIPine BESYLATE 5 MG TABLET 10 MG GT (09:27)
[2024-08-25] MEDS: ENOXAPARIN SOD INJ 40 MG/0.4 ML SYRINGE SC (09:27)
[2024-08-25] MEDS: CHOLECALCIFEROL (Vitamin D3) 1,000 IU TABLET 1000 IU GT (09:28)
[2024-08-25] MEDS: INSULIN GLARGINE (Lantus) 5 UNIT/0.05 ML (PER 5 UNITS) 16 UNIT SC (09:35)
--- NOTE | 2024-08-25 11:29 | PD.RESDS ---
Planned Discharge Date 08/25/24 DS: Providers Provider Date of admission: 08/18/24 20:35 Primary care physician: Physician No Primary/Family Admitting Provider: Terra Vaughn MD Attending Provider on Admission: Jarred Will MD Consults: 08/19/24 07:59 Referral Registered Dietitian Stat Comment: Instructions: Patient is a transfer and on a PEG tube, will need to restart home feeding. Thank you. 08/19/24 11:48 Consult to Cardiology Routine Comment: Consulting Provider: Ben Hutton Instructions: PMH of HTN DM type 2 trachead and PEG after CVA -Transfer back from [facility] for cerebellar stroke -Bacteremia, rule out endocarditis, YANELIS or TTE 08/20/24 11:13 Consult to Neurology / Tele-Neurology Routine Comment: Consulting Provider: Tevin Kirk 08/20/24 18:53 Referral Nutritional Services Routine Comment: Referral Wound Care Routine Comment: 08/21/24 09:22 Consult to Infectious Diseases Routine Comment: MSSA bactermia, unable to do YANELIS to rule out IE Consulting Provider: Glen Rodriguez Attending Provider on DC: Carly Malagon MD Discharging Provider: Carly Malagon MD DS: Diagnosis Problem List Completed Was Problem List Reviewed/Reconciled?: Yes Hospital Course Hospital Course Hospital course: Summary: Patient is a 64-year-old male with a past medical history of substance use disorder, hypertension, and diabetes mellitus type 2 who was initially admitted at [facility] on 07/18/2024 after sustaining a fall from a 6 foot ladder that required transfer to [facility] for acute ischemic, multi-focal, including cerebellar stroke . Patient required to be upgraded to ICU secondary to progressive neurological decline. Patient is currently on ventilator and PEG tube feedings. Overall poor prognosis. Found to be MSSA bactermia, treating for possible endocarditis with Ceftriaxone 2 grams once daily until September 20, 2024. ER Course: Patient initially admitted on 07/18/2024 for acute fracture of the second and fourth lumbar transverse processes, who found to have acute Cerebellar stroke on. Patient transfered to [facility] on 07/19/2024 and transfered back to [place] on 08/18/2024. Hospital Course: After being transfered back on 08/18/2024, patient was continued on Cefazolin 2 g every hours for MSSA bacteremia with concerns for infective endocarditis given mutli-focal ischemic stroke, likely embolic in nature. Cardiology consulted, YANELIS procedure unable to be performed by cardiology as unable to move past oropharyngeal airway. Continue to treat empirically for endocarditis. Infectious disease consulted, recommended to switch from Cefazolin to Ceftriaxone 2 grams qday until September 20, 2024. Neurology consulted, repeat MRI head continues to show emoblic type infarcts right and left cerebellar hemisphere, bilateral occipital lobes, posterior corpus callosum, bilateral front lobes, right caudate nucleus, and extensive infarct in the parietal llobes. These findings on MRI head at [place] are similar to [facility] report when patient was transferred back. Patient remains on Atorvastatin and Aspirin. Continue Eliquis for DVT prophylaxis. Restant hypertension and has remained on Amlodipine 10 mg, Hydralazine 100 mg TID, and Losartan 100 mg once daily as well as Coreg 12.5 mg. Sliding scale on board. Lantus 16 once daily with sliding scale. [facility] Echo done on 08/12/2024: LVEF 55 to 60%, poorly visualized valves, no pericardial effusion. Please follow up with anti-MOG serum, aquaporin 4 antibody from [facility]. Overall poor prognosis as patient is non verbal and only responds to painful stimuli. #MSSA bacteremia #Concern for infective endocarditis #Acute ischemic stroke, multifocal, likely embolic #Cerebellar & Cerebral Hemispheres #Encephalopathy likely secondary to stroke #Hypertension #Uncontrolled hypertension, improved #Diabetes mellitus type 2 #Chronic respiratory failure #ANASARCA, improved #Glaucoma of left eye #Urinary retention #Myoclonus #Vitamin D deficiency #PEG tube - The patient's plan was discussed with attending Dr. Suman Malagon MD PGY1 Internal Medicine Time Spent with Patient Time attestation: Total time spent providing and/or coordinating discharge services: at least 30 minutes of care and coordination Time spent: Greater than 30 minutes Exam Vital Signs Temp Pulse Resp BP Pulse Ox O2 Del Method FiO2 97.4 F 69 16 130/60 98 Mechanical Ventilation 40 08/25/24 08:00 08/25/24 09:27 08/25/24 08:00 08/25/24 09:27 08/25/24 08:00 08/25/24 08:00 08/25/24 08:00 Narrative Exam General Appearance: Alert & Oriented X0, well-nourished male who is lying in bed in no acute distress, with lower pedal edema noted 1+ and mild scrotal swelling as well. NON verbal HEENT: Skull symmetrical and atraumatic. Conjunctivae pin and moist. External ear without lesion or discharge. Straight, nares patient, mucosa pink, no discharge. No thyroid nodule appreciated. No cervical lymphadenopathy. Cardio: Normal Rate and Rhythm with S1 and S2 heart sounds. No murmurs or extra heart sounds auscultated. No bruits on carotid auscultation. No peripheral edema or cyanosis. Lungs: Symmetric with good expansion. Chest and back non-tender. Breath sounds vesicular without crackles up upper airway sounds, likely secondary to being on trach. Abdomen: Non-tender, Non-distended, Normal Reactive Bowel Sounds Neuro: YES Alert, no cooperative, No oriented to person, NO place, and NO time. unable to follow commands, no motor function in upper extremities and right lower limb 2/5 and left lower limb 1/5. Not responding to tactile or auditory stimuli. Discharge Plan Plan Patient Disposition: Xfer Skilled [facility] ([facility]NF) Patient condition on transfer: Stable Care Plan Goals: Instructions: -Please complete course of Ceftriaxone 2 grams once daily, until September 20, 2024 for bacterial infection -Glargine 16 units HS and Sliding Scale for diabetes mellitus type 2 -Sodium goal 140-150 and maintain normotension, goal less than 160 systolic blood pressure -Please follow up with anti-MOG serum, aquaporin 4 antibody from [facility] -Please continue your home medication -Please follow up with your primary care provider within one week of discharge -If your symptoms worsen,please seek immediate medical attention and return to your nearest emergency room -diet: Glucerna 1.2 at 45 ml/hr via PEG tube by pump. Advance 10 ml every 8 hrs to goal rate of 65 ml/hr x 24 hrs. If no IV fluids, water flushes of 30 ml/hr (or per MD -If you do not have a primary care provider, you may follow up at the [facility] at [address], [place] [address], Wound care: Stage 2 over coccyx/sacrum: cleanse with wound cleanser, pat dry, apply thin layer of z-guard to wound bed and cover with allyven dressing daily and PRN for soiling Side to side repositioning Prescriptions/Referrals Prescriptions/Med Rec: New atorvastatin 20 mg Tablet 80 mg G-tube HS 30 Days Qty: 120 0RF carvedilol 12.5 mg Tablet 12.5 mg G-tube BIDWM 30 Days Qty: 60 0RF ipratropium-albuterol 0.5 mg-3 mg(2.5 mg base)/3 mL Solution For Nebulization 3 ml INH Q4HRRT PRN (Reason: sob or wheeze) 30 Days Qty: 90 0RF polyethylene glycol 3350 [HealthyLax] 17 gram Powder In Packet 17 g G-tube BID 30 Days Qty: 30 0RF doxazosin 1 mg Tablet 1 mg G-tube HS 30 Days Qty: 30 0RF sennosides-docusate sodium 8.6-50 mg Tablet 2 tab PO HS 30 Days Qty: 60 0RF pantoprazole 40 mg Recon Soln 40 mg IVP QDAY 30 Days Qty: 25 0RF hydralazine 25 mg Tablet 100 mg G-tube TID 30 Days Qty: 360 0RF amlodipine 5 mg Tablet 10 mg G-tube QDAY 30 Days Qty: 60 0RF baclofen 10 mg Tablet 5 mg G-tube TID 30 Days Qty: 45 0RF bisacodyl 10 mg Suppository 10 mg FL QDAY PRN (Reason: Constipation) 30 Days Qty: 12 0RF aspirin [Children's Aspirin] 81 mg Tablet,Chewable 81 mg G-tube QDAY 30 Days Qty: 30 0RF mupirocin 2 % Ointment 1 applic top BID 5 Days Qty: 15 0RF cholecalciferol (vitamin D3) 25 mcg (1,000 unit) Tablet 1,000 unit G-tube QDAY 30 Days Qty: 30 0RF ondansetron HCl (PF) 4 mg/2 mL Solution 4 mg IV Q6H PRN (Reason: Nausea Or Vomiting) 30 Days Qty: 20 0RF thiamine mononitrate (vit B1) 100 mg Tablet 100 mg G-tube QDAY 30 Days Qty: 30 0RF multivitamin with folic acid [Tab-A-Renetta] 400 mcg Tablet 1 tab PO QDAY 30 Days Qty: 30 0RF losartan 100 mg tablet 100 mg PO QDAY 30 Days Qty: 30 0RF ceftriaxone 2 gram recon soln 2 g IV Q24H 28 Days Rx Instructions: until September 20 Eliquis 2.5 mg tablet 2.5 mg PO BID 30 Days Qty: 60 0RF Rx Instructions: continue for DVT prophylaxis insulin glargine [Lantus U-100 Insulin] 100 unit/mL Solution 16 unit SCi QDAY 30 Days Qty: 4.8 0RF lansoprazole 30 mg Tablet,Disintegrat, Delay Rel 30 mg G-tube QDAY 30 Days Qty: 30 0RF [id number] gluconate 12 mg iron/15 mL Liquid 15 ml G-tube QDAY 30 Days Qty: 450 0RF Referrals: Ben Hutton MD [Physician] - No Primary/Family,Physician [Primary Care Provider] - Tevin Kirk MD [Physician] - Patient/Caregiver Discharge Instructions Education Materials: Discharge Instructions for Stroke Print Language: Sinhala Stand Alone Forms: [employer] Award Info., Patient Portal Info Letter Discharge Order Discharge Orders: Discharge (Routine); Ordered 08/25/24 Ordered By: Carly Malagon Quality Discharge Quality Measures VTE prophylaxis Attestestation MD Attestation I reviewed labs, imaging, EKG, home medications and prior available records. Face to face evaluation was performed by me. I have personally examined the patient and discussed assessment and plan with the IM team. I reviewed the resident note and agree with the plan with exceptions as below. Acute cerebellar stroke Acute multiple embolic stroke Status post trach and PEG Chronic hypoxic respiratory failure MSSA bacteremia Possible endocarditis Acute cephalopathy Continue aspirin and atorvastatin Eliquis 2.5 twice daily discussed with neurology: Continue oxygen delivery through tracheostomy Ordered EEG: Negative Continue IV ceftriaxone till 09/20. ID is following. He will go back to SNF Time spent is 40 minutes. More than 50% of the time was spent on patient education and coordination of care.
--- NOTE | 2024-08-25 13:31 | PD.RESPRO ---
Documentation for date of: 08/25/24 Subjective Subjective Interval history: Patient seen at bedside. No acute overnight events. GCS this morning about 9T. Able to follow commands, but hemiparesis noted on the left. Pending transfer to subacute facility. Exam Vital Signs Temp Pulse Resp BP Pulse Ox O2 Del Method FiO2 97.4 F 69 16 130/60 98 Mechanical Ventilation 40 08/25/24 08:00 08/25/24 09:27 08/25/24 08:00 08/25/24 09:27 08/25/24 08:00 08/25/24 08:00 08/25/24 08:00 Narrative Exam GENERAL: Sleeping in bed, awake to voice, follows simple commands, Trached and PEG-d NEURO: Strength preserved in right upper and lower extremity. On the left, 0/5. Patient trach'd unable to fully assess neurological status HEENT: Dry mucosa. Eyes open, symmetrical, & clear CARDIO: No chest pain on palpation. Heart RRR, no obvious murmurs PULM: No noted coughing/dyspnea. Lungs CTA B/L, no R/W/R GI: Abdomen soft, nondistended, no pain on palpation. BSx4 URO/GINNING OPERATOR:: No further abnormalities noted. SKIN/MSK/EXT: No wounds/rashes/edema/amputations, no pain on palpation. Pedal pulses present B/L Objective Labs 08/25/24 05:48 08/25/24 05:48 Labs: Laboratory Results - last 24 hr 08/25/24 05:48 WBC 7.9 RBC 2.73 L Hgb 8.3 L Hct 25.6 L MCV 94 MCH 30.4 MCHC 32.4 RDW Std Deviation 46.8 H Plt Count 336 Neut % (Auto) 75 Lymph % (Auto) 14 Anderson % (Auto) 9 Eos % (Auto) 1 Baso % (Auto) 0 Neut # (Auto) 5.9 Lymph # (Auto) 1.1 Anderson # (Auto) 0.7 Eos # (Auto) 0.1 Baso # (Auto) 0.0 Immature Gran # (Auto) 0.03 H Absolute Nucleated RBC 0.00 Immature Gran % 0 Nucleated RBC % 0 Sodium 137 Potassium 3.6 Chloride 102 Carbon Dioxide 27.1 Anion Gap 8 BUN 12 Creatinine 0.6 Estim Creat Clear Calc 148.1 eGFR > 60 BUN/Creatinine Ratio 20 Glucose 170 H Calculated Osmolality 277 Calcium 8.7 Corrected Calcium 9.2 Magnesium 1.8 Total Bilirubin 0.4 AST 19 ALT 8 L Alkaline Phosphatase 134 H Total Protein 6.9 Albumin 3.4 Globulin 3.5 Albumin/Globulin Ratio 1.0 L Quality Measures Quality Measures VTE prophylaxis Assessment & Plan Assessment Current Active Medications: Generic Name Dose Route Start Last Admin Trade Name Freq PRN Reason Stop Dose Admin Acetaminophen 650 mg 08/18/24 21:29 Acetaminophen 325 Mg Tablet PO 09/17/24 21:28 Q6H PRN Fever >100.5 Albuterol/Ipratropium 3 ml 08/18/24 21:52 Albuterol/Ipratropium (Duoneb) Rt Yelena 3 Ml Nebu INH 09/17/24 22:59 Q4HRRT PRN sob or wheeze Amlodipine Besylate 10 mg 08/19/24 09:00 08/25/24 09:27 Amlodipine Besylate 5 Mg Tablet GT 09/18/24 08:59 10 mg QDAY JOSEMANUEL Administration Aspirin 81 mg 08/19/24 09:00 08/25/24 09:24 Aspirin 81 Mg Chew GT 09/18/24 08:59 81 mg QDAY JOSEMANUEL Administration Atorvastatin Calcium 80 mg 08/19/24 21:00 08/24/24 21:45 Atorvastatin Calcium 20 Mg Tablet GT 09/18/24 20:59 80 mg HS JOSEMANUEL Administration Baclofen 5 mg 08/18/24 22:00 08/25/24 05:41 Baclofen 10 Mg Tablet GT 09/17/24 21:59 5 mg TID JOSEMANUEL Administration Bisacodyl 10 mg 08/18/24 21:41 Bisacodyl 10 Mg Supp VT 09/17/24 21:40 QDAY PRN CONSTIPATION Protocol Carvedilol 12.5 mg 08/19/24 08:00 08/25/24 09:26 Carvedilol 12.5 Mg Tablet GT 09/18/24 07:59 12.5 mg BIDWM JOSEMANUEL Administration Dextrose 25 ml 08/18/24 21:29 Dextrose 50%-Water Inj 50 Ml Syringe IV 09/17/24 21:28 Q15MIN PRN BG 50-70 responsive npo pt Dextrose 50 ml 08/18/24 21:29 Dextrose 50%-Water Inj 50 Ml Syringe IV 09/17/24 21:28 Q15MIN PRN BG <50 OR BG <70 & pt unresponsive Doxazosin Mesylate 1 mg 08/19/24 21:00 08/24/24 21:45 Doxazosin Mesylate 1 Mg Tablet GT 09/18/24 20:59 1 mg HS JOSEMANUEL Administration Enoxaparin Sodium 40 mg 08/19/24 09:00 08/25/24 09:27 Enoxaparin Sod Inj 40 Mg/0.4 Ml Syringe SC 09/02/24 08:59 40 mg QDAY JOSEMANUEL Administration Glucagon 1 mg 08/18/24 21:29 Glucagon Inj 1 Mg Vial IM Q15MIN PRN BG <70, and no IV access Hydralazine HCl 100 mg 08/18/24 22:00 08/25/24 05:41 Hydralazine Hcl 25 Mg Tablet GT 09/17/24 21:59 100 mg TID JOSEMANUEL Administration Hydralazine HCl 10 mg 08/18/24 21:52 Hydralazine Inj 20 Mg/Ml Vial IV 09/17/24 21:51 Q4H PRN SBP >180 or DBP >120 and HR <70 Ceftriaxone Sodium/Dextrose 2 gm in 50 mls @ 100 mls/hr 08/23/24 09:00 08/25/24 09:23 Rocephin/D5w 2gm IV 08/30/24 08:59 100 mls/hr QDAY JOSEMANUEL Administration Insulin Glargine 16 unit 08/21/24 09:00 08/25/24 09:35 Insulin Glargine (Lantus) 5 Unit/0.05 Ml (Per 5 Units) SC 09/20/24 08:59 16 unit QDAY JOSEMANUEL Administration Insulin Human Lispro 0 unit 08/19/24 00:00 08/25/24 12:41 Insulin Lispro (Admelog) 1 Unit/0.01 Ml Unit SC 09/18/24 00:00 2 unit Q6HR JOSEMANUEL Administration Protocol Labetalol HCl 10 mg 08/18/24 21:52 Labetalol Inj 5 Mg/Ml Vial 20 Ml IVP 09/17/24 21:51 Q4H PRN SBP>180 or DBP >120 and HR >70 Lansoprazole 30 mg 08/24/24 09:00 08/25/24 09:24 Lansoprazole 30 Mg Tab.Rap. GT 09/18/24 08:59 30 mg QDAY JOSEMANUEL Administration Losartan Potassium 100 mg 08/19/24 09:00 08/25/24 09:24 Losartan Potassium 25 Mg Tablet GT 09/18/24 08:59 100 mg QDAY JOSEMANUEL Administration Multivitamins/Minerals 15 ml 08/24/24 09:00 08/25/24 09:23 Multivitamin 15 Ml Udc GT 09/18/24 08:59 15 ml QDAY JOSEMANUEL Administration Ondansetron HCl 4 mg 08/18/24 21:29 Ondansetron Inj 2 Mg/Ml Inj 2 Ml IV 09/17/24 21:28 Q6H PRN NAUSEA OR VOMITING Protocol Polyethylene Glycol 17 gm 08/18/24 21:45 08/25/24 09:23 Polyethylene Glycol 17 Gm Packet GT 09/17/24 21:44 17 gm BID JOSEMANUEL Administration Sennosides 2 tab 08/19/24 21:00 08/24/24 21:45 Senna/Docusate Sod 1 Tab Tablet PO 09/18/24 20:59 2 tab HS JOSEMANUEL Administration Protocol Thiamine HCl 100 mg 08/19/24 09:00 08/25/24 09:24 Thiamine 100 Mg Tablet GT 09/18/24 08:59 100 mg QDAY JOSEMANUEL Administration Vitamin D 1,000 iu 08/19/24 09:00 08/25/24 09:28 Cholecalciferol (Vitamin D3) 1,000 Iu Tablet GT 09/18/24 08:59 1,000 iu QDAY JOSEMANUEL Administration Plan Summary: The patient is a 64-year-old male with a past medical history of hypertension, diabetes who initially presented to the ED on 07/18/2024 after a fall and was transferred to [facility] for neurosurgical management. Found to have a stroke, intubated and PEG tube inserted. Currently being managed for encephalopathy, pending transfer to [facility]. #Ischemic Encephalopathy #Bilateral cerebral infarct Brain MRI showed extensive infarct in the bilateral cerebral hemispheres and corpus callosum, raising concerns for multifocal vascular territory infract and a possible vasculitis or encephalomyelitis process. CT head on 08/17 revealed improving mass effect associated with known infarcts without new process Normal LV size and function with EF 55-60%. Negative bubble study. EEG was normal otherwise patient mentation is declining and overall has poor prognosis Plan: ? Continue aspirin 81 mg p.o. daily ? Continue atorvastatin 80 mg p.o. daily #MSSA bacteremia #Diabetes mellitus type 2 #Uncontrolled hypertension #Chronic respiratory failure #Glaucoma of left eye #Urinary retention #Myoclonus #Vitamin D deficiency -Management per primary team Case was discussed with attending physician, Dr Yelena Dukes MD PGY-1 Disclaimer: This note was dictated by speech recognition. Minor errors in technology instructor may be present due to voice recognition software. Attending Provider Attestation/Addendum I personally have seen and examined the patient at the bedside and I agree with resident's findings, assessment and plan of care. Continue with the current management. Patient condition continued to be unchanged and prognosis remains poor
== END 2024-08-25 14:50 | disposition skilled nursing facility (03) | DRG 64 ==
PROVIDERS: Internal Medicine; Internal Medicine Infectious Disease; Student in an Organized Health Care Education/Training Program; Admitting Provider Student in an Organized Health Care Education/Training Program; Visit Provider Student in an Organized Health Care Education/Training Program
DX: I63.449 Cerebral infarction due to embolism of unspecified cerebellar artery (principal); J15.211 Pneumonia due to Methicillin susceptible Staphylococcus aureus; G81.94 Hemiplegia, unspecified affecting left nondominant side; G93.49 Other encephalopathy; J96.11 Chronic respiratory failure with hypoxia; R29.810 Facial weakness; R33.9 Retention of urine, unspecified; H40.9 Unspecified glaucoma; I80.8 Phlebitis and thrombophlebitis of other sites; I10 Essential (primary) hypertension; N50.89 Other specified disorders of the male genital organs; G25.3 Myoclonus; F15.90 Other stimulant use, unspecified, uncomplicated; R60.1 Generalized edema; R27.0 Ataxia, unspecified; D64.9 Anemia, unspecified; E11.9 Type 2 diabetes mellitus without complications; E55.9 Vitamin D deficiency, unspecified; Z93.1 Gastrostomy status; Z93.0 Tracheostomy status; Z79.899 Other long term (current) drug therapy; Z66 Do not resuscitate; Z79.4 Long term (current) use of insulin; Z79.82 Long term (current) use of aspirin; F10.10 Alcohol abuse, uncomplicated; Z51.5 Encounter for palliative care
CPT/HCPCS: 36415; 70553; 71045; 80053; 80061; 83036; 83735; 84100; 84443; 85025; 86703; 86803; 87040; 87081; 93306; 93312; 94002; 94003; 95816; 99152; A9579; J0689; J0696; J1650; J1815; J2250; J2470; J3010; J3475; A9270

== ENCOUNTER 2024-08-25 15:00 | Inpatient (IN) | payer OTHER, SELFPAY ==
[2024-08-25 15:00] VITALS: BP 128/63; PULSE 60; RESP 16; TEMP 36.5; O2SAT 97
[2024-08-25 15:42] VITALS: BMI 25.8
--- NOTE | 2024-08-25 16:07 | PC.SS ---
Resident admitted to subacute care on vent with trach in place and GT for medication and nutrition. Resident is non verbal unable to make needs known, his son Phu is his decision maker. Resident is FULL CODE with full treatment. Phu denies any history of depression anxiety or any traumas. Resident vision and hearing is adequate with no hearing device. Resident does not have and advanced directive or conservatorship in place. This SSD did inform Phu advanced directive is a service offered in facility, resident is unable to participate. Phu asked about conservaorship, this SSD did provide Phu with information on a conservatorship. Resident will be offered initial consultation from environmental research project manager, professional bondsman and environmental research project manager as he will accept. This SSD will make contact with resident and will offer support as needed as he is in a new environment.
--- NOTE | 2024-08-25 17:42 | PC.NURSE ---
Mr. Melendez was transferred from [facility] [place], escorted by respiratory therapist, SWINE EXTENSION FIELD SPECIALIST, and RN. He was placed in his room in his new bed without issue. 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 His admitting diagnosis to Sub-Acute was Acute ischemic multifocal multiple vascular territories stroke, Chronic respiratory failure, Bacteremia due to methicillin susceptible Staphylococcus aureus (MSSA). New order for antibiotic therapy of Rocephin 2 grams every 12 hours until 09/20/2024 related to MSSA. Son (Fan) was made aware of transfer and is agreeable to plan of care. Midline to right upper arm in place and flushing well. Gluteal cleft and medial area open with partial thickness, no drainage or inflammation noted to area. New order for calazime and A&D (1:1) mixture and apply to area. No other skin discoloration or irritation noted to other areas. Last BM was documented from Tele. as 08/24/2024, currently using a 16 Fr. Hutchins Cath. draining clear yellow urine without sediment. Noted discomfort when moving Mr. Melendez about to review his skin integrity, when not moving he did not appear to be in pain. Medications continue to be reviewed and in-putted into the computer system.
[2024-08-25 18:00] VITALS: BP 142/68; PULSE 64; RESP 15; TEMP 36.1; O2SAT 97
[2024-08-25] MEDS: ACETAMINOPHEN 325 MG TABLET 650 MG GT (18:30)
--- NOTE | 2024-08-25 19:27 | PC.NURSE ---
Notified Dr Russ that resident admitted to subacute. Clarified and verified orders. Admitting orders of Eliquis 2.5 mg BID not covered , pharmacy recommended xarelto 10 mg daily. With an order of Zofran 4 mg not covered , pharmacy recommended to give phenergan 25 mg q 6 hrs PRN. With an order for MVI with folic acid. Dr Russ ordered to just give the MVI and give the folic acid 1 mg daily separately and give FeSO4 daily instead of the MVI ferrous gluconate. Resident admitted with DM11, order received from MD to check BS with sliding scale coverage every 6 hours.
[2024-08-25 19:42] VITALS: PULSE 76; RESP 21; O2SAT 97
[2024-08-25] MEDS: ATORVASTATIN 40 MG TABLET 80 MG GT (21:29)
[2024-08-25] MEDS: polyethylene glycoL PKT 17 GM POWD.PACK GT (21:31)
[2024-08-25] MEDS: SENNOSIDES 8.6 MG TABLET 17.2 MG GT (21:32)
[2024-08-25 22:00] VITALS: BP 144/70; PULSE 70
[2024-08-25 22:06] VITALS: BP 144/70; PULSE 70
--- NOTE | 2024-08-25 22:30 | PD.SAHP ---
Physical exam Physical Exam Vital signs: Temp Pulse Resp BP Pulse Ox O2 Del Method FiO2 98 F 75 32 H 187/84 H 99 Mechanical Ventilation 40 08/27/24 05:57 08/27/24 05:57 08/27/24 05:57 08/27/24 05:57 08/27/24 05:57 08/27/24 05:57 08/27/24 01:00 Constitutional Constitutional: no acute distress Comments: VSS HEENT Exam Comments: NAD Neck Exam Neck: Present normal carotid upstroke and trachea midline Chest/Breast/Axilla Exam Comments: NAD Respiratory Exam Respiratory: Present chest non-tender, no resp distress, decreased breath sounds and patient mechanically ventilated Cardiovascular Exam Cardiovascular: Present RRR, S1 and S2 Abdominal Exam Abdominal: Present soft and normoactive bowel sounds Comments: G-tube for feeding Rectal Exam Comments: deferred Exam Comments: NAD Extremities Exam Comments: trace edema Back/Spine/Pelvis Exam Comments: NAD. Pt cannot participate for detailed exam Neurological Exam Comments: spontaneous eye opening, non verbal, no purposeful response to any stimuli. Incontinent of B & B. Rehabilitation potential Diagnosis (1) Ischemic encephalopathy: Status: Chronic (2) Chronic respiratory failure: Status: Chronic (3) Ventilator dependent: Status: Chronic (4) G tube feedings: Status: Acute (5) Tracheostomy in place: Status: Chronic (6) Diabetes mellitus type 2 in nonobese: Status: Acute (7) Closed fracture of transverse process of lumbar vertebra: Status: Chronic Assessment & Plan Assessment: Pt with multiple organ compromise as addressed above and h/o substance abuse with major seemingly irreversible neurological deficit including Encephalopathy and Ventilator dependent respiratory failure and significant comorbidities with a poor prognostic outlook. Plan: Ensure all support medical and nutritional and alleviate all discomfort as far as possible Prognosis Prognosis: Very poor for any meaningful recovery towards independent living If patient not informed of condion, describe why: Pt shows no cognitive function HPI History of Present Illness HPI: Pt a 64 yrs of age male with h/o fall from a ladder with resultant acute , multifocal including cerebellar stroke;infarcts in b/l occipital lobes, posterior corpus callosum, frontal lobes, R. caudate nucleus and extensive infarcts in the parietal lobes on MRI; fracture of 2nd and 4th lumbar vertebrae transverse processes, with Chronic respiratory failure, Ventilator dependent, Trached and Pegged and treated for probable MSSA endocarditis with Cefazolin for several weeks, now in Ischemic Encephalopathy/altered mental status,chronic and with other comorbidities of HTN; DM-II; admitted to DPSNF at [facility] for terminal operations manager care and with acknowledged poor prognosis for any meaningful recovery.
[2024-08-26] VITALS (15 sets, daily range): BP systolic 129–190; BP diastolic 63–87; PULSE 58–78; RESP 17–26; TEMP 36.1–36.8; O2SAT 95–99
[2024-08-26] MEDS: ACETAMINOPHEN 325 MG TABLET 650 MG GT ×3 (02:15→15:12)
[2024-08-26] MEDS: BACLOFEN 10 MG TABLET 5 MG GT ×3 (05:32→21:15)
[2024-08-26] MEDS: HYDRALAZINE 100 MG GT ×3 (05:32→21:16)
[2024-08-26] MEDS: INSULIN GLARGINE 100 UNIT/ML SC (05:42)
[2024-08-26] MEDS: INSULN SC (05:42)
--- NOTE | 2024-08-26 06:40 | PC.NURSE ---
Resident is alert to name, was able to track this nurse. During assessment this nurse noted facial grimacing when ROM of BLUE was performed. This nurse asked Phu are you in pain x2 with resident verbalizing Si PRN Tylenol administered at the time with positive results noted. When asked to squeeze this nurses hand with his right hand, resident followed command. Upon robert-care and robert-rectal care, resident noted with a skin tag type of protrussion to his left buttocks that was noted to bleed upon being cleaned s/p BM. Charge nurse made aware.
[2024-08-26] MEDS: ASPIRIN 81 MG TAB.CHEW GT (08:26)
[2024-08-26] MEDS: AMLODIPINE 5 MG TABLET GT (08:26)
[2024-08-26] MEDS: CHOLECALCIFEROL (VITAMIN D3) 25 MCG TABLET GT (08:27)
[2024-08-26] MEDS: CARVEDILOL 12.5 MG TABLET GT ×2 (08:27→21:14)
[2024-08-26] MEDS: FOLIC ACID 1 MG TABLET GT (08:28)
[2024-08-26] MEDS: FERROUS SULFATE 220 MG/5 ML ELIXIR 330 MG GT (08:28)
[2024-08-26] MEDS: LANSOPRAZOLE 30 MG CAPSULE.DR GT (08:28)
[2024-08-26] MEDS: polyethylene glycoL PKT 17 GM POWD.PACK GT ×2 (08:29→21:15)
[2024-08-26] MEDS: LOSARTAN 100 MG TABLET GT (08:29)
[2024-08-26] MEDS: MULTIVITAMIN 1 TAB TABLET GT (08:30)
[2024-08-26] MEDS: RIVAROXABAN 20 MG TABLET 10 MG GT (08:31)
[2024-08-26] MEDS: SENNOSIDES 8.6 MG TABLET 17.2 MG GT ×2 (08:31→21:15)
[2024-08-26] MEDS: THIAMINE 100 MG GT (08:32)
[2024-08-26] MEDS: cefTRIAXone 2 GM in SODIUM CHLORIDE 0.9% (Popper) 50 ML IV ×2 (08:58→22:00)
[2024-08-26] MEDS: MUPIROCIN NASAL ×2 (12:14→21:19)
[2024-08-26] MEDS: INSULIN REGULAR, HUMAN 100 UNIT/ML VIAL SC (17:22)
[2024-08-26] MEDS: ATORVASTATIN 40 MG TABLET 80 MG GT (21:14)
[2024-08-26] MEDS: DOXAZOSIN 2 MG TABLET 1 MG GT (21:14)
[2024-08-27] VITALS (15 sets, daily range): BP systolic 126–187; BP diastolic 66–84; PULSE 61–75; RESP 19–32; TEMP 36.4–37; O2SAT 98–100
--- NOTE | 2024-08-27 04:45 | PC.NURSE ---
Resident on Rocephin 2gm IV [id number] for staph aureos bacteremia, no adverse effects or side effects noted, 22G to right upper arm, no s/s of infection or infiltration noted, water provided via Gtube, afebrile, resident in room resting with eyes open, respirations even and unlabored, call light within reach, HOB elevated, no s/s of distress noted at this thime.
[2024-08-27] MEDS: BACLOFEN 10 MG TABLET 5 MG GT ×3 (05:32→21:17)
[2024-08-27] MEDS: HYDRALAZINE 100 MG GT ×3 (05:33→21:17)
[2024-08-27] MEDS: INSULN SC (05:33)
[2024-08-27] MEDS: INSULIN GLARGINE 100 UNIT/ML SC (05:33)
[2024-08-27] MEDS: INSULIN REGULAR, HUMAN 100 UNIT/ML VIAL SC (05:34)
[2024-08-27] MEDS: AMLODIPINE 5 MG TABLET GT (09:07)
[2024-08-27] MEDS: CHOLECALCIFEROL (VITAMIN D3) 25 MCG TABLET GT (09:08)
[2024-08-27] MEDS: FERROUS SULFATE 220 MG/5 ML ELIXIR 330 MG GT (09:08)
[2024-08-27] MEDS: CARVEDILOL 12.5 MG TABLET GT ×2 (09:08→21:16)
[2024-08-27] MEDS: ASPIRIN 81 MG TAB.CHEW GT (09:08)
[2024-08-27] MEDS: FOLIC ACID 1 MG TABLET GT (09:09)
[2024-08-27] MEDS: LANSOPRAZOLE 30 MG CAPSULE.DR GT (09:10)
[2024-08-27] MEDS: LOSARTAN 100 MG TABLET GT (09:10)
[2024-08-27] MEDS: polyethylene glycoL PKT 17 GM POWD.PACK GT ×2 (09:11→21:17)
[2024-08-27] MEDS: MULTIVITAMIN 1 TAB TABLET GT (09:11)
[2024-08-27] MEDS: MUPIROCIN NASAL ×2 (09:12→21:17)
[2024-08-27] MEDS: cefTRIAXone 2 GM in SODIUM CHLORIDE 0.9% (Popper) 50 ML IV (09:12)
[2024-08-27] MEDS: THIAMINE 100 MG GT (09:13)
[2024-08-27] MEDS: RIVAROXABAN 20 MG TABLET 10 MG GT (09:13)
[2024-08-27] MEDS: SENNOSIDES 8.6 MG TABLET 17.2 MG GT ×2 (09:13→21:17)
--- NOTE | 2024-08-27 11:02 | PC.IP ---
At [id number] spoke with Phu Melendez RP regarding vaccine administration. Resident has not sought vaccines prior to his injury and hospital admit. RP did consent to Influenza and PCV [address] Russ's verbal order is to hold vaccines until one week after completion of antibiotic therapy. 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 MIRI [place] informed at [id number].
[2024-08-27] MEDS: DOXAZOSIN 2 MG TABLET 1 MG GT (21:16)
[2024-08-27] MEDS: ATORVASTATIN 40 MG TABLET 80 MG GT (21:16)
[2024-08-28] VITALS (15 sets, daily range): BP systolic 134–166; BP diastolic 62–81; PULSE 58–73; RESP 15–21; TEMP 36.8–37; O2SAT 98–99
[2024-08-28] MEDS: BACLOFEN 10 MG TABLET 5 MG GT ×3 (05:38→21:11)
[2024-08-28] MEDS: HYDRALAZINE 100 MG GT ×3 (05:38→21:12)
[2024-08-28] MEDS: INSULIN REGULAR, HUMAN 100 UNIT/ML VIAL SC ×2 (05:44)
[2024-08-28] MEDS: INSULN SC (05:44)
[2024-08-28] MEDS: INSULIN GLARGINE 100 UNIT/ML SC (05:44)
[2024-08-28] MEDS: cefTRIAXone 2 GM in SODIUM CHLORIDE 0.9% (Popper) 50 ML IV (08:10)
[2024-08-28] MEDS: AMLODIPINE 5 MG TABLET GT (09:05)
[2024-08-28] MEDS: FOLIC ACID 1 MG TABLET GT (09:06)
[2024-08-28] MEDS: ASPIRIN 81 MG TAB.CHEW GT (09:06)
[2024-08-28] MEDS: CARVEDILOL 12.5 MG TABLET GT ×2 (09:06→21:10)
[2024-08-28] MEDS: CHOLECALCIFEROL (VITAMIN D3) 25 MCG TABLET GT (09:06)
[2024-08-28] MEDS: FERROUS SULFATE 220 MG/5 ML ELIXIR 330 MG GT (09:06)
[2024-08-28] MEDS: polyethylene glycoL PKT 17 GM POWD.PACK GT ×2 (09:07→21:11)
[2024-08-28] MEDS: LANSOPRAZOLE 30 MG CAPSULE.DR GT (09:07)
[2024-08-28] MEDS: LOSARTAN 100 MG TABLET GT (09:07)
[2024-08-28] MEDS: MUPIROCIN NASAL ×2 (09:09→21:11)
[2024-08-28] MEDS: RIVAROXABAN 20 MG TABLET 10 MG GT (09:10)
[2024-08-28] MEDS: SENNOSIDES 8.6 MG TABLET 17.2 MG GT ×2 (09:11→21:11)
[2024-08-28] MEDS: THIAMINE 100 MG GT (09:11)
[2024-08-28] MEDS: MULTIVITAMIN 1 TAB TABLET GT (09:30)
[2024-08-28] MEDS: DOXAZOSIN 2 MG TABLET 1 MG GT (21:10)
[2024-08-28] MEDS: ATORVASTATIN 40 MG TABLET 80 MG GT (22:10)
--- NOTE | 2024-08-28 22:50 | PD.SAPROG ---
Progress Note - SubAcute DIAGNOSIS (1) Ischemic encephalopathy: Status: Chronic (2) Hyperglycemia: Status: Chronic (3) Closed fracture of transverse process of lumbar vertebra: Status: Chronic OBJECTIVE Most recent vital signs: Last Vital Signs Temp 98.6 F 08/28/24 17:31 Pulse 64 08/28/24 21:12 Resp 16 08/28/24 18:40 BP 149/65 H 08/28/24 21:12 Pulse Ox 98 08/28/24 18:40 O2 Del Method Mechanical Ventilation 08/28/24 05:51 FiO2 40 08/28/24 18:40 Neurological:: awake (spontaneous eye opening, no cognitive response or purposeful movement; Bed bound and incontinent. ) Speech:: none Answers questions:: no Respiratory:: lungs clear (Ventilator dependent) Cardiovascular: RRR Abdomen: soft and nontender Extremities:: edema (none) Tracheostomy:: to ventilator Feeding per:: G tube ASSESSMENT & PLAN Assessment: Pt with multiple organ compromise as addressed above and h/o substance abuse with major seemingly irreversible neurological deficit including Encephalopathy and Ventilator dependent respiratory failure and significant comorbidities with a poor prognostic outlook. Plan: Current treatment , Ventilator settings reviewed and continued
[2024-08-29] VITALS (13 sets, daily range): BP systolic 142–170; BP diastolic 69–80; PULSE 66–89; RESP 15–23; TEMP 36.4–37; O2SAT 97–99
[2024-08-29] MEDS: INSULIN REGULAR, HUMAN 100 UNIT/ML VIAL SC ×5 (00:26→23:43)
[2024-08-29] MEDS: HYDRALAZINE 100 MG GT ×3 (05:54→21:44)
[2024-08-29] MEDS: BACLOFEN 10 MG TABLET 5 MG GT ×3 (05:54→21:44)
[2024-08-29] MEDS: INSULN SC (06:06)
[2024-08-29] MEDS: INSULIN GLARGINE 100 UNIT/ML SC (06:06)
[2024-08-29] MEDS: cefTRIAXone 2 GM in SODIUM CHLORIDE 0.9% (Popper) 50 ML IV (08:45)
[2024-08-29] MEDS: ASPIRIN 81 MG TAB.CHEW GT (09:21)
[2024-08-29] MEDS: AMLODIPINE 5 MG TABLET GT (09:21)
[2024-08-29] MEDS: LANSOPRAZOLE 30 MG CAPSULE.DR GT (09:22)
[2024-08-29] MEDS: MUPIROCIN NASAL ×2 (09:22→21:43)
[2024-08-29] MEDS: CHOLECALCIFEROL (VITAMIN D3) 25 MCG TABLET GT (09:22)
[2024-08-29] MEDS: FOLIC ACID 1 MG TABLET GT (09:22)
[2024-08-29] MEDS: LOSARTAN 100 MG TABLET GT (09:22)
[2024-08-29] MEDS: FERROUS SULFATE 220 MG/5 ML ELIXIR 330 MG GT (09:22)
[2024-08-29] MEDS: CARVEDILOL 12.5 MG TABLET GT ×2 (09:22→21:43)
[2024-08-29] MEDS: polyethylene glycoL PKT 17 GM POWD.PACK GT ×2 (09:23→21:43)
[2024-08-29] MEDS: THIAMINE 100 MG GT (09:23)
[2024-08-29] MEDS: RIVAROXABAN 20 MG TABLET 10 MG GT (09:23)
[2024-08-29] MEDS: SENNOSIDES 8.6 MG TABLET 17.2 MG GT ×2 (09:23→21:44)
[2024-08-29] MEDS: MULTIVITAMIN 1 TAB TABLET GT (09:23)
--- NOTE | 2024-08-29 10:44 | PC.NURSE ---
Resident remains on IV ABT therapy. No A/R noted. resident remains calm. Moves rt arm involuntarily. He pulls on pfeiffer catheter when involuntary movements happened, secured Pfeiffer catheter tubing. Will continue to monitor.
--- NOTE | 2024-08-29 14:48 | PC.SS ---
Resident is laying in bed with head of the bed elevated with call light properly placed with no signs of distress. Resident has trach in place and GT for medication and nutrition. Resident is non verbal unable to make decisions for self. Resident will remain in current care and will continue to have all subacute care needs met by staff. This SSD will make daily contact with resident and will monitor for changes in mood and behavior.
--- NOTE | 2024-08-29 21:32 | PC.NURSE ---
New order obtained for mitten to right hand for pulling at life sustaining tubes and pfeiffre catheter, verbal consent obtain by LORENZO Melendez over the phone, two nurse obtained consent, resident in room resting, call light within reach, HOB elevated, no s/s of distress noted at this time.
[2024-08-29] MEDS: ATORVASTATIN 40 MG TABLET 80 MG GT (21:42)
[2024-08-29] MEDS: DOXAZOSIN 2 MG TABLET 1 MG GT (21:43)
[2024-08-30] VITALS (14 sets, daily range): BP systolic 141–167; BP diastolic 65–75; PULSE 61–89; RESP 15–26; TEMP 36.1–36.8; O2SAT 98–99
--- NOTE | 2024-08-30 05:40 | PC.NURSE ---
Resident on Rocephin 2gm IV Daily for staph aureos bacteremia, no adverse effects or side effects noted, 22G to right upper arm, no s/s of infection or infiltration noted, water provided via Gtube, afebrile, resident in room resting with eyes open, respirations even and unlabored, call light within reach, HOB elevated, no s/s of distress noted at this thime.
[2024-08-30] MEDS: BACLOFEN 10 MG TABLET 5 MG GT ×3 (05:52→21:22)
[2024-08-30] MEDS: HYDRALAZINE 100 MG GT ×3 (05:52→21:22)
[2024-08-30] MEDS: INSULN SC (06:15)
[2024-08-30] MEDS: INSULIN GLARGINE 100 UNIT/ML SC (06:15)
[2024-08-30] MEDS: INSULIN REGULAR, HUMAN 100 UNIT/ML VIAL SC ×3 (06:16→17:31)
[2024-08-30] MEDS: cefTRIAXone 2 GM in SODIUM CHLORIDE 0.9% (Popper) 50 ML IV (09:00)
[2024-08-30] MEDS: AMLODIPINE 5 MG TABLET GT (09:03)
[2024-08-30] MEDS: FOLIC ACID 1 MG TABLET GT (09:04)
[2024-08-30] MEDS: ASPIRIN 81 MG TAB.CHEW GT (09:04)
[2024-08-30] MEDS: CHOLECALCIFEROL (VITAMIN D3) 25 MCG TABLET GT (09:04)
[2024-08-30] MEDS: FERROUS SULFATE 220 MG/5 ML ELIXIR 330 MG GT (09:04)
[2024-08-30] MEDS: CARVEDILOL 12.5 MG TABLET GT ×2 (09:04→21:22)
[2024-08-30] MEDS: THIAMINE 100 MG GT (09:05)
[2024-08-30] MEDS: LOSARTAN 100 MG TABLET GT (09:05)
[2024-08-30] MEDS: SENNOSIDES 8.6 MG TABLET 17.2 MG GT ×2 (09:05→21:22)
[2024-08-30] MEDS: MULTIVITAMIN 1 TAB TABLET GT (09:05)
[2024-08-30] MEDS: MUPIROCIN NASAL (09:05)
[2024-08-30] MEDS: polyethylene glycoL PKT 17 GM POWD.PACK GT ×2 (09:05→21:22)
[2024-08-30] MEDS: LANSOPRAZOLE 30 MG CAPSULE.DR GT (09:05)
[2024-08-30] MEDS: RIVAROXABAN 20 MG TABLET 10 MG GT (09:05)
[2024-08-30] MEDS: ATORVASTATIN 40 MG TABLET 80 MG GT (21:21)
[2024-08-30] MEDS: DOXAZOSIN 2 MG TABLET 1 MG GT (21:22)
[2024-08-31] VITALS (13 sets, daily range): BP systolic 109–173; BP diastolic 57–75; PULSE 59–78; RESP 17–26; TEMP 36.1–37; O2SAT 97–99
[2024-08-31] MEDS: INSULIN REGULAR, HUMAN 100 UNIT/ML VIAL SC ×4 (00:38→17:18)
[2024-08-31] MEDS: HYDRALAZINE 100 MG GT ×3 (05:46→21:08)
[2024-08-31] MEDS: BACLOFEN 10 MG TABLET 5 MG GT ×3 (05:46→21:07)
[2024-08-31] MEDS: INSULN SC (05:47)
[2024-08-31] MEDS: INSULIN GLARGINE 100 UNIT/ML SC (05:47)
--- NOTE | 2024-08-31 06:00 | PC.NURSE ---
Resident receiving Rocephin IV daily for Staph Aureus bacteremia. No adverse reaction noted. Tolerating well. No fevers noted.
[2024-08-31] MEDS: cefTRIAXone 2 GM in SODIUM CHLORIDE 0.9% (Popper) 100 ML IV (08:18)
[2024-08-31] MEDS: MULTIVITAMIN 1 TAB TABLET GT (09:14)
[2024-08-31] MEDS: SENNOSIDES 8.6 MG TABLET 17.2 MG GT (09:14)
[2024-08-31] MEDS: LOSARTAN 100 MG TABLET GT (09:14)
[2024-08-31] MEDS: THIAMINE 100 MG GT (09:14)
[2024-08-31] MEDS: polyethylene glycoL PKT 17 GM POWD.PACK GT (09:14)
[2024-08-31] MEDS: RIVAROXABAN 20 MG TABLET 10 MG GT (09:14)
[2024-08-31] MEDS: ASPIRIN 81 MG TAB.CHEW GT (09:15)
[2024-08-31] MEDS: CARVEDILOL 12.5 MG TABLET GT ×2 (09:15→21:06)
[2024-08-31] MEDS: AMLODIPINE 5 MG TABLET GT (09:15)
[2024-08-31] MEDS: FERROUS SULFATE 220 MG/5 ML ELIXIR 330 MG GT (09:15)
[2024-08-31] MEDS: FOLIC ACID 1 MG TABLET GT (09:15)
[2024-08-31] MEDS: CHOLECALCIFEROL (VITAMIN D3) 25 MCG TABLET GT (09:15)
[2024-08-31] MEDS: LANSOPRAZOLE 30 MG CAPSULE.DR GT (09:15)
[2024-08-31] MEDS: ACETAMINOPHEN 325 MG TABLET 650 MG GT (14:00)
--- NOTE | 2024-08-31 18:07 | PC.NURSE ---
Resident is on IV antibiotic no adverse effect noted.
[2024-08-31] MEDS: DOXAZOSIN 2 MG TABLET 1 MG GT (21:06)
[2024-08-31] MEDS: ATORVASTATIN 40 MG TABLET 80 MG GT (21:06)
[2024-09-01] VITALS (14 sets, daily range): BP systolic 114–169; BP diastolic 53–81; PULSE 67–81; RESP 15–25; TEMP 36.2–36.7; O2SAT 98–99; BMI 25.3
[2024-09-01] MEDS: INSULIN REGULAR, HUMAN 100 UNIT/ML VIAL SC ×4 (00:42→17:39)
[2024-09-01] MEDS: BACLOFEN 10 MG TABLET 5 MG GT ×3 (05:25→21:14)
[2024-09-01] MEDS: HYDRALAZINE 100 MG GT ×3 (05:25→21:13)
[2024-09-01] MEDS: INSULIN GLARGINE 100 UNIT/ML SC (06:01)
[2024-09-01] MEDS: INSULN SC (06:01)
--- NOTE | 2024-09-01 07:08 | PC.NURSE ---
Resident receiving IV Rocephin for Stap Aureus Bacteremia daily at 0900. No fever, no adverse reaction noted.
[2024-09-01] MEDS: cefTRIAXone 2 GM in SODIUM CHLORIDE 0.9% (Popper) 100 ML IV (08:45)
[2024-09-01] MEDS: AMLODIPINE 5 MG TABLET GT (09:16)
[2024-09-01] MEDS: ASPIRIN 81 MG TAB.CHEW GT (09:17)
[2024-09-01] MEDS: CARVEDILOL 12.5 MG TABLET GT ×2 (09:17→21:13)
[2024-09-01] MEDS: CHOLECALCIFEROL (VITAMIN D3) 25 MCG TABLET GT (09:17)
[2024-09-01] MEDS: LOSARTAN 100 MG TABLET GT (09:18)
[2024-09-01] MEDS: LANSOPRAZOLE 30 MG CAPSULE.DR GT (09:18)
[2024-09-01] MEDS: FERROUS SULFATE 220 MG/5 ML ELIXIR 330 MG GT (09:18)
[2024-09-01] MEDS: FOLIC ACID 1 MG TABLET GT (09:18)
[2024-09-01] MEDS: MULTIVITAMIN 1 TAB TABLET GT (09:19)
[2024-09-01] MEDS: RIVAROXABAN 20 MG TABLET 10 MG GT (09:19)
[2024-09-01] MEDS: polyethylene glycoL PKT 17 GM POWD.PACK GT ×2 (09:19→21:13)
[2024-09-01] MEDS: THIAMINE 100 MG GT (09:20)
[2024-09-01] MEDS: SENNOSIDES 8.6 MG TABLET 17.2 MG GT ×2 (09:20→21:13)
[2024-09-01] MEDS: ATORVASTATIN 40 MG TABLET 80 MG GT (21:12)
[2024-09-01] MEDS: DOXAZOSIN 2 MG TABLET 1 MG GT (21:13)
--- NOTE | 2024-09-01 21:40 | PD.SAPROG ---
Progress Note - SubAcute DIAGNOSIS (1) Ischemic encephalopathy: Status: Chronic (2) Hyperglycemia: Status: Chronic (3) Closed fracture of transverse process of lumbar vertebra: Status: Chronic OBJECTIVE Most recent vital signs: Last Vital Signs Temp 97.1 F 09/01/24 17:06 Pulse 77 09/01/24 21:13 Resp 25 H 09/01/24 19:10 BP 155/81 H 09/01/24 21:13 Pulse Ox 99 09/01/24 19:10 O2 Del Method Mechanical Ventilation 09/01/24 05:51 FiO2 40 09/01/24 19:10 Neurological:: awake (spontaneous eye opening, no cognitive response or purposeful movement; Bed bound and incontinent. ) Speech:: none Answers questions:: no Respiratory:: lungs clear (Ventilator dependent) Cardiovascular: RRR Abdomen: soft and nontender Extremities:: edema (none) Tracheostomy:: to ventilator Feeding per:: G tube ASSESSMENT & PLAN Assessment: Pt with multiple organ compromise as addressed above and h/o substance abuse with major seemingly irreversible neurological deficit including Encephalopathy and Ventilator dependent respiratory failure and significant comorbidities with a poor prognostic outlook. VSS Plan: Current treatment , Ventilator settings reviewed and continued
[2024-09-02] VITALS (14 sets, daily range): BP systolic 96–163; BP diastolic 57–78; PULSE 56–84; RESP 16–24; TEMP 36.4–36.6; O2SAT 95–99
[2024-09-02] MEDS: INSULIN REGULAR, HUMAN 100 UNIT/ML VIAL SC ×2 (00:10→17:31)
[2024-09-02] MEDS: HYDRALAZINE 100 MG GT ×3 (05:51→21:08)
[2024-09-02] MEDS: BACLOFEN 10 MG TABLET 5 MG GT ×3 (05:51→21:08)
[2024-09-02] MEDS: INSULN SC (05:52)
[2024-09-02] MEDS: INSULIN GLARGINE 100 UNIT/ML SC (05:52)
[2024-09-02] MEDS: cefTRIAXone 2 GM in SODIUM CHLORIDE 0.9% (Popper) 100 ML IV (09:00)
[2024-09-02] MEDS: AMLODIPINE 5 MG TABLET GT (09:13)
[2024-09-02] MEDS: ASPIRIN 81 MG TAB.CHEW GT (09:14)
[2024-09-02] MEDS: FERROUS SULFATE 220 MG/5 ML ELIXIR 330 MG GT (09:15)
[2024-09-02] MEDS: CHOLECALCIFEROL (VITAMIN D3) 25 MCG TABLET GT (09:15)
[2024-09-02] MEDS: CARVEDILOL 12.5 MG TABLET GT ×2 (09:15→21:08)
[2024-09-02] MEDS: LOSARTAN 100 MG TABLET GT (09:16)
[2024-09-02] MEDS: polyethylene glycoL PKT 17 GM POWD.PACK GT ×2 (09:16→21:08)
[2024-09-02] MEDS: MULTIVITAMIN 1 TAB TABLET GT (09:16)
[2024-09-02] MEDS: FOLIC ACID 1 MG TABLET GT (09:16)
[2024-09-02] MEDS: LANSOPRAZOLE 30 MG CAPSULE.DR GT (09:16)
[2024-09-02] MEDS: RIVAROXABAN 20 MG TABLET 10 MG GT (09:17)
[2024-09-02] MEDS: SENNOSIDES 8.6 MG TABLET 17.2 MG GT ×2 (09:17→21:08)
[2024-09-02] MEDS: THIAMINE 100 MG GT (09:17)
[2024-09-02] MEDS: ACETAMINOPHEN 325 MG TABLET 650 MG GT (09:20)
[2024-09-02] MEDS: ATORVASTATIN 40 MG TABLET 80 MG GT (21:08)
[2024-09-02] MEDS: DOXAZOSIN 2 MG TABLET 1 MG GT (21:08)
[2024-09-03] VITALS (15 sets, daily range): BP systolic 155–175; BP diastolic 66–79; PULSE 65–84; RESP 15–19; TEMP 36.7–36.9; O2SAT 95–99
[2024-09-03] MEDS: BACLOFEN 10 MG TABLET 5 MG GT ×3 (05:37→21:08)
[2024-09-03] MEDS: INSULIN REGULAR, HUMAN 100 UNIT/ML VIAL SC ×5 (05:37→23:19)
[2024-09-03] MEDS: HYDRALAZINE 100 MG GT ×3 (05:38→21:08)
[2024-09-03] MEDS: INSULIN GLARGINE 100 UNIT/ML SC (05:38)
[2024-09-03] MEDS: INSULN SC (05:38)
[2024-09-03] MEDS: AMLODIPINE 5 MG TABLET GT (09:06)
[2024-09-03] MEDS: LANSOPRAZOLE 30 MG CAPSULE.DR GT (09:07)
[2024-09-03] MEDS: FERROUS SULFATE 220 MG/5 ML ELIXIR 330 MG GT (09:07)
[2024-09-03] MEDS: CARVEDILOL 12.5 MG TABLET GT ×2 (09:07→20:42)
[2024-09-03] MEDS: ASPIRIN 81 MG TAB.CHEW GT (09:07)
[2024-09-03] MEDS: FOLIC ACID 1 MG TABLET GT (09:07)
[2024-09-03] MEDS: CHOLECALCIFEROL (VITAMIN D3) 25 MCG TABLET GT (09:07)
[2024-09-03] MEDS: MULTIVITAMIN 1 TAB TABLET GT (09:08)
[2024-09-03] MEDS: RIVAROXABAN 20 MG TABLET 10 MG GT (09:08)
[2024-09-03] MEDS: LOSARTAN 100 MG TABLET GT (09:08)
[2024-09-03] MEDS: SENNOSIDES 8.6 MG TABLET 17.2 MG GT ×2 (09:08→20:44)
[2024-09-03] MEDS: polyethylene glycoL PKT 17 GM POWD.PACK GT ×2 (09:08→20:44)
[2024-09-03] MEDS: THIAMINE 100 MG GT (09:08)
[2024-09-03] MEDS: cefTRIAXone 2 GM in SODIUM CHLORIDE 0.9% (Popper) 100 ML IV (09:12)
--- NOTE | 2024-09-03 15:16 | PC.SS ---
IDT Note: Resident son attended IDT meeting went over report with team was able to speak with MD and asked questions. All questions answered with no other questions or concerns at this time.
[2024-09-03] MEDS: DOXAZOSIN 2 MG TABLET 1 MG GT (20:42)
[2024-09-03] MEDS: ATORVASTATIN 40 MG TABLET 80 MG GT (20:42)
[2024-09-04] VITALS (14 sets, daily range): BP systolic 136–158; BP diastolic 59–78; PULSE 57–81; RESP 14–27; TEMP 36.4–36.8; O2SAT 96–100
[2024-09-04] MEDS: HYDRALAZINE 100 MG GT ×3 (05:32→21:42)
[2024-09-04] MEDS: BACLOFEN 10 MG TABLET 5 MG GT ×3 (05:32→21:42)
[2024-09-04] MEDS: INSULIN GLARGINE 100 UNIT/ML SC (05:34)
[2024-09-04] MEDS: INSULN SC (05:34)
[2024-09-04] MEDS: INSULIN REGULAR, HUMAN 100 UNIT/ML VIAL SC ×3 (05:35→17:17)
[2024-09-04 08:15] LABS: Basophils % (Auto) 1 % (0-2.5); Eosinophils # (Auto) 0.1 Thou/mm3 (0.0-0.5); Eosinophils % (Auto) 1 % (0-10); Hematocrit 26.3 % (41.0-53.0); Immature Granulocytes % (Auto) 0 % (0-0); Immature Granulocytes Auto 0.02 Thou/mm3 (0.00-0.00); Lymphocytes # (Auto) 1.6 Thou/mm3 (1.0-4.8); Lymphocytes % (Auto) 18 % (10-50); Mean Corpuscular HGB Conc 31.6 g/dl (31.0-37.0); Mean Corpuscular Volume 95 fL (80-100); Monocytes # (Auto) 0.7 Thou/mm3 (0.0-0.8); Monocytes % (Auto) 8 % (0-12); Neutrophils # (Auto) 6.2 Thou/mm3 (1.8-7.7); Neutrophils % (Auto) 73 % (37-80); Nucleated Red Blood Cell % 0 /100 WBC (0); Platelet Count 297 Thou/mm3 (140-440); RDW Standard Deviation 46.8 fL (35.1-43.9); Red Blood Count 2.77 Miln/mm3 (4.50-5.90); White Blood Count 8.6 Thou/mm3 (3.8-10.6)
[2024-09-04 08:32] LABS: Hemoglobin 8.3 g/dL (13.5-16.0)
[2024-09-04] MEDS: cefTRIAXone 2 GM in SODIUM CHLORIDE 0.9% (Popper) 100 ML IV (08:32)
[2024-09-04 08:38] LABS: Alanine Aminotransferase 9 U/L (10-49); Albumin, Serum 3.6 gm/dL (3.4-4.8); Albumin/Globulin Ratio 1.2 (1.2-2.2); Alkaline Phosphatase 113 U/L (46-116); Anion Gap 6 (7-16); Aspartate Amino Transferase 15 U/L (0-34); BUN/Creatinine Ratio 23 Ratio (12-20); Bilirubin,Total 0.3 mg/dL (0.3-1.2); Blood Urea Nitrogen 14 mg/dL (9-23); Calcium (Corrected) 9.3 mg/dL (8.5-10.1); Carbon Dioxide 30.6 mMol/L (20.0-31.0); Chloride 103 mMol/L (98-107); Creatinine (Component) 0.6 mg/dL (0.6-1.3); Estimated Creatinine Clearance 148.4 mL/min (>60); Globulin 3.1 gm/dL (2.3-3.5); Glucose 187 mg/dL (74-106); Osmolality,Calculated 284 (275-295); Potassium 4.1 mMol/L (3.4-5.1); Sodium 140 mMol/L (136-145); Total Protein 6.7 gm/dL (5.7-8.2); eGFR > 60 See Note
[2024-09-04] MEDS: ASPIRIN 81 MG TAB.CHEW GT (09:17)
[2024-09-04] MEDS: AMLODIPINE 5 MG TABLET GT (09:17)
[2024-09-04] MEDS: CHOLECALCIFEROL (VITAMIN D3) 25 MCG TABLET GT (09:18)
[2024-09-04] MEDS: CARVEDILOL 12.5 MG TABLET GT ×2 (09:18→20:51)
[2024-09-04] MEDS: FERROUS SULFATE 220 MG/5 ML ELIXIR 330 MG GT (09:18)
[2024-09-04] MEDS: LANSOPRAZOLE 30 MG CAPSULE.DR GT (09:19)
[2024-09-04] MEDS: polyethylene glycoL PKT 17 GM POWD.PACK GT ×2 (09:19→20:53)
[2024-09-04] MEDS: FOLIC ACID 1 MG TABLET GT (09:19)
[2024-09-04] MEDS: LOSARTAN 100 MG TABLET GT (09:19)
[2024-09-04] MEDS: MULTIVITAMIN 1 TAB TABLET GT (09:19)
[2024-09-04] MEDS: RIVAROXABAN 20 MG TABLET 10 MG GT (09:20)
[2024-09-04] MEDS: SENNOSIDES 8.6 MG TABLET 17.2 MG GT ×2 (09:20→20:53)
[2024-09-04] MEDS: THIAMINE 100 MG GT (09:21)
--- NOTE | 2024-09-04 14:55 | PC.SS ---
Resident is laying in bed with head of the bed elevated with call light placed with no signs of distress. Resident remains on vent with trach in place and GT for medication and nutrition. Resident is non verbal unable to make needs known. His son is his decision maker. Resident has no changes in care or condition and will remain in current care and will have all subacute care needs met by staff. This SSD will continue make daily contact and will monitor for changes in mood and behavior.
--- NOTE | 2024-09-04 17:46 | PC.NURSE ---
Dose of Rocephin given this morning for Scoccus aureus bacteremia, no adverse reaction noted. With IV H/L to right FA, no s/s of infiltration noted. GT feeding tolerated well. No s/s of pain or discomfort at this time.
[2024-09-04] MEDS: IPRATROPIUM/ALBUTEROL 3 ML AMPUL.NEB INH (20:14)
[2024-09-04] MEDS: ATORVASTATIN 40 MG TABLET 80 MG GT (20:51)
[2024-09-04] MEDS: DOXAZOSIN 2 MG TABLET 1 MG GT (20:52)
[2024-09-05] VITALS (15 sets, daily range): BP systolic 136–196; BP diastolic 63–93; PULSE 56–99; RESP 14–23; TEMP 36.3–36.9; O2SAT 98–99
[2024-09-05] MEDS: INSULIN REGULAR, HUMAN 100 UNIT/ML VIAL SC ×2 (00:58→06:03)
[2024-09-05] MEDS: HYDRALAZINE 100 MG GT ×3 (05:31→21:30)
[2024-09-05] MEDS: BACLOFEN 10 MG TABLET 5 MG GT ×3 (05:31→21:30)
[2024-09-05] MEDS: INSULN SC (06:01)
[2024-09-05] MEDS: INSULIN GLARGINE 100 UNIT/ML SC (06:01)
--- NOTE | 2024-09-05 06:49 | PC.NURSE ---
Resident remains on IV antibiotics Rocephin for Osteomyelitis to wound to sacrum, no side effects noted
[2024-09-05] MEDS: cefTRIAXone 2 GM in SODIUM CHLORIDE 0.9% (Popper) 100 ML IV (08:30)
[2024-09-05] MEDS: AMLODIPINE 5 MG TABLET GT (09:03)
[2024-09-05] MEDS: ASPIRIN 81 MG TAB.CHEW GT (09:04)
[2024-09-05] MEDS: CARVEDILOL 12.5 MG TABLET GT ×2 (09:04→21:31)
[2024-09-05] MEDS: FERROUS SULFATE 220 MG/5 ML ELIXIR 330 MG GT (09:04)
[2024-09-05] MEDS: FOLIC ACID 1 MG TABLET GT (09:04)
[2024-09-05] MEDS: CHOLECALCIFEROL (VITAMIN D3) 25 MCG TABLET GT (09:04)
[2024-09-05] MEDS: THIAMINE 100 MG GT (09:05)
[2024-09-05] MEDS: MULTIVITAMIN 1 TAB TABLET GT (09:05)
[2024-09-05] MEDS: LOSARTAN 100 MG TABLET GT (09:05)
[2024-09-05] MEDS: SENNOSIDES 8.6 MG TABLET 17.2 MG GT ×2 (09:05→21:31)
[2024-09-05] MEDS: LANSOPRAZOLE 30 MG CAPSULE.DR GT (09:05)
[2024-09-05] MEDS: polyethylene glycoL PKT 17 GM POWD.PACK GT ×2 (09:05→21:31)
[2024-09-05] MEDS: RIVAROXABAN 20 MG TABLET 10 MG GT (09:05)
[2024-09-05] MEDS: ACETAMINOPHEN 325 MG TABLET 650 MG GT (09:47)
[2024-09-05] MEDS: ATORVASTATIN 40 MG TABLET 80 MG GT (21:31)
[2024-09-05] MEDS: DOXAZOSIN 2 MG TABLET 1 MG GT (21:31)
[2024-09-06] VITALS (16 sets, daily range): BP systolic 130–196; BP diastolic 57–88; PULSE 57–78; RESP 14–18; TEMP 36.6–37.1; O2SAT 95–99
[2024-09-06] MEDS: BACLOFEN 10 MG TABLET 5 MG GT ×3 (05:35→21:15)
[2024-09-06] MEDS: HYDRALAZINE 100 MG GT ×3 (05:36→21:14)
[2024-09-06] MEDS: INSULIN GLARGINE 100 UNIT/ML SC (05:37)
[2024-09-06] MEDS: INSULN SC (05:37)
[2024-09-06] MEDS: INSULIN REGULAR, HUMAN 100 UNIT/ML VIAL SC ×4 (05:59→23:28)
[2024-09-06] MEDS: AMLODIPINE 5 MG TABLET GT (08:45)
[2024-09-06] MEDS: CHOLECALCIFEROL (VITAMIN D3) 25 MCG TABLET GT (08:46)
[2024-09-06] MEDS: FOLIC ACID 1 MG TABLET GT (08:46)
[2024-09-06] MEDS: ASPIRIN 81 MG TAB.CHEW GT (08:46)
[2024-09-06] MEDS: FERROUS SULFATE 220 MG/5 ML ELIXIR 330 MG GT (08:46)
[2024-09-06] MEDS: CARVEDILOL 12.5 MG TABLET GT ×2 (08:46→21:15)
[2024-09-06] MEDS: SENNOSIDES 8.6 MG TABLET 17.2 MG GT ×2 (08:47→21:15)
[2024-09-06] MEDS: LANSOPRAZOLE 30 MG CAPSULE.DR GT (08:47)
[2024-09-06] MEDS: polyethylene glycoL PKT 17 GM POWD.PACK GT ×2 (08:47→21:15)
[2024-09-06] MEDS: THIAMINE 100 MG GT (08:47)
[2024-09-06] MEDS: MULTIVITAMIN 1 TAB TABLET GT (08:47)
[2024-09-06] MEDS: RIVAROXABAN 20 MG TABLET 10 MG GT (08:47)
[2024-09-06] MEDS: LOSARTAN 100 MG TABLET GT (08:47)
[2024-09-06] MEDS: cefTRIAXone 2 GM in SODIUM CHLORIDE 0.9% (Popper) 100 ML IV (09:00)
[2024-09-06] MEDS: ATORVASTATIN 40 MG TABLET 80 MG GT (21:15)
[2024-09-06] MEDS: DOXAZOSIN 2 MG TABLET 1 MG GT (21:15)
[2024-09-07] VITALS (14 sets, daily range): BP systolic 130–185; BP diastolic 69–87; PULSE 61–72; RESP 12–18; TEMP 36.7–37; O2SAT 97–100
[2024-09-07] MEDS: HYDRALAZINE 100 MG GT ×3 (05:26→21:23)
[2024-09-07] MEDS: BACLOFEN 10 MG TABLET 5 MG GT ×3 (05:26→21:24)
[2024-09-07] MEDS: INSULIN REGULAR, HUMAN 100 UNIT/ML VIAL SC ×4 (05:27→23:51)
[2024-09-07] MEDS: INSULIN GLARGINE 100 UNIT/ML SC (05:27)
[2024-09-07] MEDS: INSULN SC (05:27)
[2024-09-07] MEDS: CHOLECALCIFEROL (VITAMIN D3) 25 MCG TABLET GT (08:57)
[2024-09-07] MEDS: ASPIRIN 81 MG TAB.CHEW GT (08:57)
[2024-09-07] MEDS: CARVEDILOL 12.5 MG TABLET GT ×2 (08:57→21:24)
[2024-09-07] MEDS: AMLODIPINE 5 MG TABLET GT (08:57)
[2024-09-07] MEDS: FERROUS SULFATE 220 MG/5 ML ELIXIR 330 MG GT (08:58)
[2024-09-07] MEDS: FOLIC ACID 1 MG TABLET GT (08:58)
[2024-09-07] MEDS: MULTIVITAMIN 1 TAB TABLET GT (08:59)
[2024-09-07] MEDS: LANSOPRAZOLE 30 MG CAPSULE.DR GT (08:59)
[2024-09-07] MEDS: SENNOSIDES 8.6 MG TABLET 17.2 MG GT ×2 (08:59→21:24)
[2024-09-07] MEDS: RIVAROXABAN 20 MG TABLET 10 MG GT (08:59)
[2024-09-07] MEDS: LOSARTAN 100 MG TABLET GT (08:59)
[2024-09-07] MEDS: polyethylene glycoL PKT 17 GM POWD.PACK GT ×2 (08:59→21:24)
[2024-09-07] MEDS: THIAMINE 100 MG GT (09:00)
[2024-09-07] MEDS: cefTRIAXone 2 GM in SODIUM CHLORIDE 0.9% (Popper) 100 ML IV (09:30)
--- NOTE | 2024-09-07 12:35 | ESPR_ITS ---
Progress Note - SubAcute DIAGNOSIS (1) Ischemic encephalopathy: Status: Chronic (2) Chronic respiratory failure: Status: Chronic (3) Ventilator dependent: Status: Chronic (4) Hyperglycemia: Status: Chronic (5) Closed fracture of transverse process of lumbar vertebra: Status: Chronic (6) Tracheostomy in place: Status: Chronic (7) G tube feedings: Status: Chronic OBJECTIVE Most recent vital signs: Last Vital Signs Temp 97.8 F 09/11/24 17:58 Pulse 76 09/11/24 21:42 Resp 18 09/11/24 19:25 BP 154/76 H 09/11/24 21:42 Pulse Ox 100 09/11/24 19:25 O2 Del Method Mechanical Ventilation 09/11/24 17:58 FiO2 40 09/11/24 19:25 Neurological:: awake (spontaneous eye opening, no cognitive response or purpose ful movement; Bed bound and incontinent. ) Speech:: none Answers questions:: no Respiratory:: lungs clear (Ventilator dependent) Cardiovascular: RRR Abdomen: soft and nontender Extremities:: edema (none) Tracheostomy:: to ventilator Feeding per:: G tube ASSESSMENT & PLAN Assessment: Pt with multiple organ compromise as addressed above and h/o substance abuse with major seemingly irreversible neurological deficit including Encephalopathy and Ventilator dependent respiratory failure and significant comorbidities with a poor prognostic outlook. VSS Plan: Current treatment , Ventilator settings reviewed and continued
[2024-09-07] MEDS: DOXAZOSIN 2 MG TABLET 1 MG GT (21:24)
[2024-09-07] MEDS: ATORVASTATIN 40 MG TABLET 80 MG GT (21:24)
[2024-09-08] VITALS (14 sets, daily range): BP systolic 130–180; BP diastolic 55–79; PULSE 64–82; RESP 15–36; TEMP 36.2–36.8; O2SAT 96–100; BMI 25.3
[2024-09-08] MEDS: BACLOFEN 10 MG TABLET 5 MG GT ×3 (05:34→21:13)
[2024-09-08] MEDS: HYDRALAZINE 100 MG GT ×3 (05:34→21:14)
[2024-09-08] MEDS: INSULIN GLARGINE 100 UNIT/ML SC (05:36)
[2024-09-08] MEDS: INSULN SC (05:36)
[2024-09-08] MEDS: INSULIN REGULAR, HUMAN 100 UNIT/ML VIAL SC ×3 (05:37→17:39)
--- NOTE | 2024-09-08 06:29 | PC.NURSE ---
Resident receiving Rocephin IV daily @ 0900. No adverse reaction noted. No fever.
[2024-09-08] MEDS: CARVEDILOL 12.5 MG TABLET GT ×2 (08:32→21:12)
[2024-09-08] MEDS: cefTRIAXone 2 GM in SODIUM CHLORIDE 0.9% (Popper) 100 ML IV (08:32)
[2024-09-08] MEDS: ASPIRIN 81 MG TAB.CHEW GT (08:32)
[2024-09-08] MEDS: AMLODIPINE 5 MG TABLET GT (08:32)
[2024-09-08] MEDS: FOLIC ACID 1 MG TABLET GT (08:33)
[2024-09-08] MEDS: FERROUS SULFATE 220 MG/5 ML ELIXIR 330 MG GT (08:33)
[2024-09-08] MEDS: CHOLECALCIFEROL (VITAMIN D3) 25 MCG TABLET GT (08:33)
[2024-09-08] MEDS: RIVAROXABAN 20 MG TABLET 10 MG GT (08:34)
[2024-09-08] MEDS: SENNOSIDES 8.6 MG TABLET 17.2 MG GT ×2 (08:34→21:13)
[2024-09-08] MEDS: LOSARTAN 100 MG TABLET GT (08:34)
[2024-09-08] MEDS: LANSOPRAZOLE 30 MG CAPSULE.DR GT (08:34)
[2024-09-08] MEDS: polyethylene glycoL PKT 17 GM POWD.PACK GT ×2 (08:34→21:13)
[2024-09-08] MEDS: MULTIVITAMIN 1 TAB TABLET GT (08:34)
[2024-09-08] MEDS: THIAMINE 100 MG GT (08:35)
[2024-09-08] MEDS: ACETAMINOPHEN 325 MG TABLET 650 MG GT ×2 (13:31→21:16)
[2024-09-08] MEDS: ATORVASTATIN 40 MG TABLET 80 MG GT (21:12)
[2024-09-08] MEDS: DOXAZOSIN 2 MG TABLET 1 MG GT (21:13)
--- NOTE | 2024-09-08 23:36 | PC.NURSE ---
Resident noted restless with frequent movement about bed, hanging right leg off of side of the bed, rubbing at life sustaining tubes and noted tearful. Resident noted not easily consoled. Reassurance provided, PRN tylenol administered and ADL care provided. Charge nurse notified.
[2024-09-09] VITALS (15 sets, daily range): BP systolic 127–165; BP diastolic 64–95; PULSE 62–76; RESP 14–21; TEMP 36.2–36.8; O2SAT 97–100
--- NOTE | 2024-09-09 00:31 | PC.NURSE ---
Resident on Rocephin IV daily, new 22G IV placed to right AC due to resident pulling off IV, no side effects or adverse reaction noted, water given via Gtube, resident noted to be restless, mitten on to right hand, resident in room resting with eyes open, respirations even and unlabored, HOB elevated, no s/s of distress noted.
[2024-09-09] MEDS: INSULIN REGULAR, HUMAN 100 UNIT/ML VIAL SC ×2 (00:51→05:47)
[2024-09-09] MEDS: HYDRALAZINE 100 MG GT ×3 (05:34→21:23)
[2024-09-09] MEDS: BACLOFEN 10 MG TABLET 5 MG GT ×3 (05:34→21:23)
[2024-09-09] MEDS: INSULIN GLARGINE 100 UNIT/ML SC (05:47)
[2024-09-09] MEDS: INSULN SC (05:47)
[2024-09-09] MEDS: cefTRIAXone 2 GM in SODIUM CHLORIDE 0.9% (Popper) 100 ML IV (09:03)
[2024-09-09] MEDS: AMLODIPINE 5 MG TABLET GT (09:51)
[2024-09-09] MEDS: CARVEDILOL 12.5 MG TABLET GT ×2 (09:54→21:22)
[2024-09-09] MEDS: ASPIRIN 81 MG TAB.CHEW GT (09:54)
[2024-09-09] MEDS: CHOLECALCIFEROL (VITAMIN D3) 25 MCG TABLET GT (09:55)
[2024-09-09] MEDS: FERROUS SULFATE 220 MG/5 ML ELIXIR 330 MG GT (09:55)
[2024-09-09] MEDS: FOLIC ACID 1 MG TABLET GT (09:57)
[2024-09-09] MEDS: LANSOPRAZOLE 30 MG CAPSULE.DR GT (09:57)
[2024-09-09] MEDS: polyethylene glycoL PKT 17 GM POWD.PACK GT ×2 (09:57→21:22)
[2024-09-09] MEDS: LOSARTAN 100 MG TABLET GT (09:57)
[2024-09-09] MEDS: SENNOSIDES 8.6 MG TABLET 17.2 MG GT ×2 (09:58→21:22)
[2024-09-09] MEDS: MULTIVITAMIN 1 TAB TABLET GT (09:58)
[2024-09-09] MEDS: RIVAROXABAN 20 MG TABLET 10 MG GT (09:58)
[2024-09-09] MEDS: THIAMINE 100 MG GT (09:58)
--- NOTE | 2024-09-09 12:07 | PC.NURSE ---
Mr. Melendez continues to receive Rocephin IV daily @0900. No adverse reaction or side effects noted. Vital signs remain at baseline.
[2024-09-09] MEDS: ACETAMINOPHEN 325 MG TABLET 650 MG GT (14:07)
[2024-09-09] MEDS: ATORVASTATIN 40 MG TABLET 80 MG GT (21:22)
[2024-09-09] MEDS: DOXAZOSIN 2 MG TABLET 1 MG GT (21:22)
[2024-09-10] VITALS (15 sets, daily range): BP systolic 102–179; BP diastolic 50–81; PULSE 62–78; RESP 16–19; TEMP 36.4–36.7; O2SAT 98–99
[2024-09-10] MEDS: INSULIN REGULAR, HUMAN 100 UNIT/ML VIAL SC ×4 (00:30→17:17)
[2024-09-10] MEDS: BACLOFEN 10 MG TABLET 5 MG GT ×3 (05:24→21:47)
[2024-09-10] MEDS: HYDRALAZINE 100 MG GT ×3 (05:24→21:46)
[2024-09-10] MEDS: INSULIN GLARGINE 100 UNIT/ML SC (05:30)
[2024-09-10] MEDS: INSULN SC (05:30)
[2024-09-10] MEDS: ASPIRIN 81 MG TAB.CHEW GT (08:55)
[2024-09-10] MEDS: AMLODIPINE 5 MG TABLET GT (08:55)
[2024-09-10] MEDS: CARVEDILOL 12.5 MG TABLET GT ×2 (08:56→21:47)
[2024-09-10] MEDS: CHOLECALCIFEROL (VITAMIN D3) 25 MCG TABLET GT (08:57)
[2024-09-10] MEDS: FERROUS SULFATE 220 MG/5 ML ELIXIR 330 MG GT (08:57)
[2024-09-10] MEDS: LANSOPRAZOLE 30 MG CAPSULE.DR GT (08:58)
[2024-09-10] MEDS: LOSARTAN 100 MG TABLET GT (08:58)
[2024-09-10] MEDS: FOLIC ACID 1 MG TABLET GT (08:58)
[2024-09-10] MEDS: polyethylene glycoL PKT 17 GM POWD.PACK GT ×2 (08:59→21:47)
[2024-09-10] MEDS: RIVAROXABAN 20 MG TABLET 10 MG GT (08:59)
[2024-09-10] MEDS: MULTIVITAMIN 1 TAB TABLET GT (08:59)
[2024-09-10] MEDS: SENNOSIDES 8.6 MG TABLET 17.2 MG GT ×2 (09:00→21:47)
[2024-09-10] MEDS: THIAMINE 100 MG GT (09:01)
[2024-09-10] MEDS: cefTRIAXone 2 GM in SODIUM CHLORIDE 0.9% (Popper) 100 ML IV (09:29)
[2024-09-10] MEDS: ATORVASTATIN 40 MG TABLET 80 MG GT (21:47)
[2024-09-10] MEDS: DOXAZOSIN 2 MG TABLET 1 MG GT (21:47)
[2024-09-11] VITALS (15 sets, daily range): BP systolic 145–173; BP diastolic 66–85; PULSE 63–80; RESP 17–24; TEMP 36.6–36.9; O2SAT 97–100; BMI 25.0
[2024-09-11] MEDS: INSULIN REGULAR, HUMAN 100 UNIT/ML VIAL SC ×2 (00:09→05:33)
[2024-09-11] MEDS: BACLOFEN 10 MG TABLET 5 MG GT ×3 (05:31→21:42)
[2024-09-11] MEDS: HYDRALAZINE 100 MG GT ×3 (05:32→21:39)
[2024-09-11] MEDS: INSULN SC (05:33)
[2024-09-11] MEDS: INSULIN GLARGINE 100 UNIT/ML SC (05:33)
[2024-09-11] MEDS: AMLODIPINE 5 MG TABLET GT (08:54)
[2024-09-11] MEDS: CARVEDILOL 12.5 MG TABLET GT ×2 (08:55→21:42)
[2024-09-11] MEDS: CHOLECALCIFEROL (VITAMIN D3) 25 MCG TABLET GT (08:55)
[2024-09-11] MEDS: ASPIRIN 81 MG TAB.CHEW GT (08:55)
[2024-09-11] MEDS: LANSOPRAZOLE 30 MG CAPSULE.DR GT (08:56)
[2024-09-11] MEDS: FERROUS SULFATE 220 MG/5 ML ELIXIR 330 MG GT (08:56)
[2024-09-11] MEDS: FOLIC ACID 1 MG TABLET GT (08:56)
[2024-09-11] MEDS: polyethylene glycoL PKT 17 GM POWD.PACK GT ×2 (08:57→21:42)
[2024-09-11] MEDS: LOSARTAN 100 MG TABLET GT (08:57)
[2024-09-11] MEDS: MULTIVITAMIN 1 TAB TABLET GT (08:57)
[2024-09-11] MEDS: THIAMINE 100 MG GT (08:58)
[2024-09-11] MEDS: SENNOSIDES 8.6 MG TABLET 17.2 MG GT ×2 (08:58→21:42)
[2024-09-11] MEDS: RIVAROXABAN 20 MG TABLET 10 MG GT (08:58)
[2024-09-11] MEDS: cefTRIAXone 2 GM in SODIUM CHLORIDE 0.9% (Popper) 100 ML IV (09:00)
--- NOTE | 2024-09-11 12:30 | PC.SS ---
Room Visit: Resident is laying bed with head of the bed elevated with call light properly placed with no signs of distress. Resident is unable to make needs known as he has cognitive impairment and no speech, his son Phu is his decision maker. Resident will remain in current care and will have all subacute care needs met by staff. This SSD will make daily contact with resident and will monitor for changes in mood and behavior.
[2024-09-11] MEDS: DOXAZOSIN 2 MG TABLET 1 MG GT (21:42)
[2024-09-11] MEDS: ATORVASTATIN 40 MG TABLET 80 MG GT (21:43)
--- NOTE | 2024-09-11 22:11 | PD.SAPROG ---
Progress Note - SubAcute DIAGNOSIS (1) Ischemic encephalopathy: Status: Chronic (2) Chronic respiratory failure: Status: Chronic (3) Ventilator dependent: Status: Chronic (4) Hyperglycemia: Status: Chronic (5) Closed fracture of transverse process of lumbar vertebra: Status: Chronic (6) Tracheostomy in place: Status: Chronic (7) G tube feedings: Status: Chronic OBJECTIVE Most recent vital signs: Last Vital Signs Temp 97.8 F 09/11/24 17:58 Pulse 76 09/11/24 21:42 Resp 18 09/11/24 19:25 BP 154/76 H 09/11/24 21:42 Pulse Ox 100 09/11/24 19:25 O2 Del Method Mechanical Ventilation 09/11/24 17:58 FiO2 40 09/11/24 19:25 Neurological:: awake (spontaneous eye opening, no cognitive response or purposeful movement; Bed bound and incontinent. ) Speech:: none Answers questions:: no Respiratory:: lungs clear (Ventilator dependent) Cardiovascular: RRR Abdomen: soft and nontender Extremities:: edema (none) Tracheostomy:: to ventilator Feeding per:: G tube ASSESSMENT & PLAN Assessment: Pt with multiple organ compromise as addressed above and h/o substance abuse with major seemingly irreversible neurological deficit including Encephalopathy and Ventilator dependent respiratory failure and significant comorbidities with a poor prognostic outlook. VSS Plan: Current treatment , Ventilator settings reviewed and continued
[2024-09-12] VITALS (15 sets, daily range): BP systolic 127–165; BP diastolic 60–83; PULSE 66–82; RESP 15–22; TEMP 36.6–36.8; O2SAT 97–99
[2024-09-12] MEDS: BACLOFEN 10 MG TABLET 5 MG GT ×3 (05:43→21:19)
[2024-09-12] MEDS: HYDRALAZINE 100 MG GT ×3 (05:44→21:19)
[2024-09-12] MEDS: INSULIN REGULAR, HUMAN 100 UNIT/ML VIAL SC ×2 (05:49→11:55)
[2024-09-12] MEDS: INSULIN GLARGINE 100 UNIT/ML SC (05:50)
[2024-09-12] MEDS: INSULN SC (05:50)
--- NOTE | 2024-09-12 06:31 | PC.NURSE ---
RESIDENT RECEIVING ROCEPHIN DAILY @ 0900 FOR BACTEREMIA. NO ADVERSE REACTION NOTED. NO FEVER NOTED.
[2024-09-12] MEDS: AMLODIPINE 5 MG TABLET GT (09:06)
[2024-09-12] MEDS: CHOLECALCIFEROL (VITAMIN D3) 25 MCG TABLET GT (09:07)
[2024-09-12] MEDS: ASPIRIN 81 MG TAB.CHEW GT (09:07)
[2024-09-12] MEDS: CARVEDILOL 12.5 MG TABLET GT ×2 (09:07→21:18)
[2024-09-12] MEDS: LOSARTAN 100 MG TABLET GT (09:08)
[2024-09-12] MEDS: FOLIC ACID 1 MG TABLET GT (09:08)
[2024-09-12] MEDS: FERROUS SULFATE 220 MG/5 ML ELIXIR 330 MG GT (09:08)
[2024-09-12] MEDS: LANSOPRAZOLE 30 MG CAPSULE.DR GT (09:08)
[2024-09-12] MEDS: polyethylene glycoL PKT 17 GM POWD.PACK GT ×2 (09:09→21:18)
[2024-09-12] MEDS: RIVAROXABAN 20 MG TABLET 10 MG GT (09:09)
[2024-09-12] MEDS: MULTIVITAMIN 1 TAB TABLET GT (09:09)
[2024-09-12] MEDS: THIAMINE 100 MG GT (09:10)
[2024-09-12] MEDS: SENNOSIDES 8.6 MG TABLET 17.2 MG GT ×2 (09:10→21:18)
[2024-09-12] MEDS: cefTRIAXone 2 GM in SODIUM CHLORIDE 0.9% (Popper) 100 ML IV (12:28)
[2024-09-12] MEDS: ATORVASTATIN 40 MG TABLET 80 MG GT (21:18)
[2024-09-12] MEDS: DOXAZOSIN 2 MG TABLET 1 MG GT (21:18)
[2024-09-13] VITALS (14 sets, daily range): BP systolic 103–144; BP diastolic 52–77; PULSE 51–80; RESP 13–18; TEMP 36.7–37.1; O2SAT 97–99
[2024-09-13] MEDS: INSULIN REGULAR, HUMAN 100 UNIT/ML VIAL SC ×4 (05:33→17:32)
[2024-09-13] MEDS: BACLOFEN 10 MG TABLET 5 MG GT ×3 (05:33→20:24)
[2024-09-13] MEDS: HYDRALAZINE 100 MG GT ×3 (05:35→20:24)
[2024-09-13] MEDS: INSULN SC (05:35)
[2024-09-13] MEDS: INSULIN GLARGINE 100 UNIT/ML SC (05:35)
[2024-09-13] MEDS: cefTRIAXone 2 GM in SODIUM CHLORIDE 0.9% (Popper) 100 ML IV (09:00)
[2024-09-13] MEDS: AMLODIPINE 5 MG TABLET GT (09:13)
[2024-09-13] MEDS: CARVEDILOL 12.5 MG TABLET GT ×2 (09:13→20:22)
[2024-09-13] MEDS: ASPIRIN 81 MG TAB.CHEW GT (09:13)
[2024-09-13] MEDS: LANSOPRAZOLE 30 MG CAPSULE.DR GT (09:14)
[2024-09-13] MEDS: FERROUS SULFATE 220 MG/5 ML ELIXIR 330 MG GT (09:14)
[2024-09-13] MEDS: CHOLECALCIFEROL (VITAMIN D3) 25 MCG TABLET GT (09:14)
[2024-09-13] MEDS: FOLIC ACID 1 MG TABLET GT (09:14)
[2024-09-13] MEDS: RIVAROXABAN 20 MG TABLET 10 MG GT (09:15)
[2024-09-13] MEDS: LOSARTAN 100 MG TABLET GT (09:15)
[2024-09-13] MEDS: polyethylene glycoL PKT 17 GM POWD.PACK GT ×2 (09:15→20:24)
[2024-09-13] MEDS: SENNOSIDES 8.6 MG TABLET 17.2 MG GT ×2 (09:15→20:24)
[2024-09-13] MEDS: MULTIVITAMIN 1 TAB TABLET GT (09:15)
[2024-09-13] MEDS: THIAMINE 100 MG GT (09:16)
[2024-09-13] MEDS: ACETAMINOPHEN 325 MG TABLET 650 MG GT ×2 (09:20→17:00)
--- NOTE | 2024-09-13 10:16 | PC.NURSE ---
Continues on abt therapy with no noted side effects. tolerated well. Will continue to monitor.
[2024-09-13] MEDS: ATORVASTATIN 40 MG TABLET 80 MG GT (20:22)
[2024-09-13] MEDS: DOXAZOSIN 2 MG TABLET 1 MG GT (20:23)
[2024-09-14] VITALS (15 sets, daily range): BP systolic 140–161; BP diastolic 70–79; PULSE 60–76; RESP 15–19; TEMP 36.3–36.5; O2SAT 98–99
[2024-09-14] MEDS: INSULIN REGULAR, HUMAN 100 UNIT/ML VIAL SC ×4 (00:11→23:41)
[2024-09-14] MEDS: HYDRALAZINE 100 MG GT ×3 (05:27→21:28)
[2024-09-14] MEDS: BACLOFEN 10 MG TABLET 5 MG GT ×3 (05:27→21:28)
[2024-09-14] MEDS: INSULN SC (05:35)
[2024-09-14] MEDS: INSULIN GLARGINE 100 UNIT/ML SC (05:35)
[2024-09-14] MEDS: AMLODIPINE 5 MG TABLET GT (08:24)
[2024-09-14] MEDS: ASPIRIN 81 MG TAB.CHEW GT (08:25)
[2024-09-14] MEDS: CARVEDILOL 12.5 MG TABLET GT ×2 (08:25→21:28)
[2024-09-14] MEDS: FOLIC ACID 1 MG TABLET GT (08:26)
[2024-09-14] MEDS: FERROUS SULFATE 220 MG/5 ML ELIXIR 330 MG GT (08:26)
[2024-09-14] MEDS: CHOLECALCIFEROL (VITAMIN D3) 25 MCG TABLET GT (08:26)
[2024-09-14] MEDS: LANSOPRAZOLE 30 MG CAPSULE.DR GT (08:27)
[2024-09-14] MEDS: LOSARTAN 100 MG TABLET GT (08:27)
[2024-09-14] MEDS: RIVAROXABAN 20 MG TABLET 10 MG GT (08:28)
[2024-09-14] MEDS: THIAMINE 100 MG GT (08:28)
[2024-09-14] MEDS: SENNOSIDES 8.6 MG TABLET 17.2 MG GT ×2 (08:28→21:28)
[2024-09-14] MEDS: MULTIVITAMIN 1 TAB TABLET GT (08:28)
[2024-09-14] MEDS: polyethylene glycoL PKT 17 GM POWD.PACK GT ×2 (08:28→21:28)
[2024-09-14] MEDS: cefTRIAXone 2 GM in SODIUM CHLORIDE 0.9% (Popper) 100 ML IV (09:00)
[2024-09-14] MEDS: ATORVASTATIN 40 MG TABLET 80 MG GT (21:28)
[2024-09-14] MEDS: DOXAZOSIN 2 MG TABLET 1 MG GT (21:28)
[2024-09-15] VITALS (15 sets, daily range): BP systolic 138–166; BP diastolic 70–76; PULSE 63–73; RESP 15–18; TEMP 36.4–36.8; O2SAT 95–99
[2024-09-15] MEDS: BACLOFEN 10 MG TABLET 5 MG GT ×3 (05:37→21:33)
[2024-09-15] MEDS: HYDRALAZINE 100 MG GT ×3 (05:37→21:33)
[2024-09-15] MEDS: INSULIN REGULAR, HUMAN 100 UNIT/ML VIAL SC ×3 (05:38→17:03)
[2024-09-15] MEDS: INSULIN GLARGINE 100 UNIT/ML SC (05:38)
[2024-09-15] MEDS: INSULN SC (05:38)
[2024-09-15] MEDS: cefTRIAXone 2 GM in SODIUM CHLORIDE 0.9% (Popper) 100 ML IV (08:40)
[2024-09-15] MEDS: AMLODIPINE 5 MG TABLET GT (09:04)
[2024-09-15] MEDS: ASPIRIN 81 MG TAB.CHEW GT (09:04)
[2024-09-15] MEDS: CARVEDILOL 12.5 MG TABLET GT ×2 (09:05→21:31)
[2024-09-15] MEDS: CHOLECALCIFEROL (VITAMIN D3) 25 MCG TABLET GT (09:05)
[2024-09-15] MEDS: FERROUS SULFATE 220 MG/5 ML ELIXIR 330 MG GT (09:05)
[2024-09-15] MEDS: polyethylene glycoL PKT 17 GM POWD.PACK GT ×2 (09:06→21:32)
[2024-09-15] MEDS: MULTIVITAMIN 1 TAB TABLET GT (09:06)
[2024-09-15] MEDS: LOSARTAN 100 MG TABLET GT (09:06)
[2024-09-15] MEDS: FOLIC ACID 1 MG TABLET GT (09:06)
[2024-09-15] MEDS: LANSOPRAZOLE 30 MG CAPSULE.DR GT (09:06)
[2024-09-15] MEDS: RIVAROXABAN 20 MG TABLET 10 MG GT (09:07)
[2024-09-15] MEDS: SENNOSIDES 8.6 MG TABLET 17.2 MG GT ×2 (09:07→21:32)
[2024-09-15] MEDS: THIAMINE 100 MG GT (09:07)
[2024-09-15] MEDS: IPRATROPIUM/ALBUTEROL 3 ML AMPUL.NEB INH (17:49)
--- NOTE | 2024-09-15 20:42 | ESPR_ITS ---
Progress Note - SubAcute DIAGNOSIS (1) Ischemic encephalopathy: Status: Chronic (2) Chronic respiratory failure: Status: Chronic (3) Ventilator dependent: Status: Chronic (4) Hyperglycemia: Status: Chronic (5) Closed fracture of transverse process of lumbar vertebra: Status: Chronic (6) Tracheostomy in place: Status: Chronic (7) G tube feedings: Status: Chronic OBJECTIVE Most recent vital signs: Last Vital Signs Temp 97.6 F 09/15/24 17:48 Pulse 66 09/15/24 17:48 Resp 18 09/15/24 17:48 BP 148/76 H 09/15/24 17:48 Pulse Ox 98 09/15/24 17:48 O2 Del Method Mechanical Ventilation 09/15/24 17:48 FiO2 40 09/15/24 12:19 Neurological:: awake (spontaneous eye opening, no cognitive response or purposef ul movement; Bed bound and incontinent. ) Speech:: none Answers questions:: no Respiratory:: lungs clear (Ventilator dependent) Cardiovascular: RRR Abdomen: soft and nontender Extremities:: edema (none) Tracheostomy:: to ventilator Feeding per:: G tube ASSESSMENT & PLAN Assessment: Pt with multiple organ compromise as addressed above and h/o substance abuse with major seemingly irreversible neurological deficit including Encephalopathy and Ventilator dependent respiratory failure and significant comorbidities with a poor prognostic outlook. VSS Plan: Current treatment , Ventilator settings reviewed and continued
[2024-09-15] MEDS: ACETAMINOPHEN 325 MG TABLET 650 MG GT (21:15)
[2024-09-15] MEDS: ATORVASTATIN 40 MG TABLET 80 MG GT (21:31)
[2024-09-15] MEDS: DOXAZOSIN 2 MG TABLET 1 MG GT (21:32)
[2024-09-16] VITALS (15 sets, daily range): BP systolic 128–174; BP diastolic 67–78; PULSE 62–80; RESP 15–19; TEMP 36.6–36.8; O2SAT 98–99
[2024-09-16] MEDS: INSULIN REGULAR, HUMAN 100 UNIT/ML VIAL SC ×2 (01:01→12:23)
[2024-09-16] MEDS: BACLOFEN 10 MG TABLET 5 MG GT ×3 (05:58→21:15)
[2024-09-16] MEDS: HYDRALAZINE 100 MG GT ×3 (05:58→21:15)
[2024-09-16] MEDS: INSULIN GLARGINE 100 UNIT/ML SC (06:01)
[2024-09-16] MEDS: INSULN SC (06:01)
[2024-09-16] MEDS: AMLODIPINE 5 MG TABLET GT (08:47)
[2024-09-16] MEDS: ASPIRIN 81 MG TAB.CHEW GT (08:49)
[2024-09-16] MEDS: CARVEDILOL 12.5 MG TABLET GT ×2 (08:49→21:14)
[2024-09-16] MEDS: CHOLECALCIFEROL (VITAMIN D3) 25 MCG TABLET GT (08:50)
[2024-09-16] MEDS: FERROUS SULFATE 220 MG/5 ML ELIXIR 330 MG GT (08:50)
[2024-09-16] MEDS: FOLIC ACID 1 MG TABLET GT (08:51)
[2024-09-16] MEDS: LANSOPRAZOLE 30 MG CAPSULE.DR GT (08:51)
[2024-09-16] MEDS: LOSARTAN 100 MG TABLET GT (08:51)
[2024-09-16] MEDS: polyethylene glycoL PKT 17 GM POWD.PACK GT ×2 (08:52→21:14)
[2024-09-16] MEDS: MULTIVITAMIN 1 TAB TABLET GT (08:52)
[2024-09-16] MEDS: RIVAROXABAN 20 MG TABLET 10 MG GT (08:52)
[2024-09-16] MEDS: THIAMINE 100 MG GT (08:53)
[2024-09-16] MEDS: SENNOSIDES 8.6 MG TABLET 17.2 MG GT ×2 (08:53→21:15)
[2024-09-16] MEDS: cefTRIAXone 2 GM in SODIUM CHLORIDE 0.9% (Popper) 100 ML IV (09:35)
--- NOTE | 2024-09-16 17:32 | PC.NURSE ---
During IDT team resident review resident medication list agreed to continue xarelto for 90days then re-eval. order noted and carried out we will continue to monitor.
[2024-09-16] MEDS: ATORVASTATIN 40 MG TABLET 80 MG GT (21:14)
[2024-09-16] MEDS: DOXAZOSIN 2 MG TABLET 1 MG GT (21:14)
[2024-09-17] VITALS (14 sets, daily range): BP systolic 116–171; BP diastolic 60–79; PULSE 57–75; RESP 12–18; TEMP 36.3–37.4; O2SAT 17–99
[2024-09-17] MEDS: BACLOFEN 10 MG TABLET 5 MG GT ×3 (05:39→21:25)
[2024-09-17] MEDS: HYDRALAZINE 100 MG GT ×3 (05:39→21:25)
[2024-09-17] MEDS: INSULIN REGULAR, HUMAN 100 UNIT/ML VIAL SC ×3 (05:39→17:07)
[2024-09-17] MEDS: INSULIN GLARGINE 100 UNIT/ML SC (05:40)
[2024-09-17] MEDS: INSULN SC (05:40)
--- NOTE | 2024-09-17 06:11 | PC.NURSE ---
Resident continues to be on rochepin 2gm IV daily, no adverse reaction or side effects noted, 22G IV to right FA, no s/s of infection or infiltration noted, water provided via Gtube, afebrile, resident in room sleeping, respirations even and unlabored, HOB elevated, call light within reach, no s/s of distress noted.
[2024-09-17] MEDS: AMLODIPINE 5 MG TABLET GT (08:43)
[2024-09-17] MEDS: CARVEDILOL 12.5 MG TABLET GT ×2 (08:46→21:25)
[2024-09-17] MEDS: ASPIRIN 81 MG TAB.CHEW GT (08:46)
[2024-09-17] MEDS: CHOLECALCIFEROL (VITAMIN D3) 25 MCG TABLET GT (08:46)
[2024-09-17] MEDS: cefTRIAXone 2 GM in SODIUM CHLORIDE 0.9% (Popper) 100 ML IV (08:49)
--- NOTE | 2024-09-17 08:52 | PC.NURSE ---
Remains on abt therapy for Bacterimia. No S/E noted. Will continue to monitor.
[2024-09-17] MEDS: FOLIC ACID 1 MG TABLET GT (09:07)
[2024-09-17] MEDS: FERROUS SULFATE 220 MG/5 ML ELIXIR 330 MG GT (09:07)
[2024-09-17] MEDS: LANSOPRAZOLE 30 MG CAPSULE.DR GT (09:08)
[2024-09-17] MEDS: LOSARTAN 100 MG TABLET GT (09:08)
[2024-09-17] MEDS: RIVAROXABAN 20 MG TABLET 10 MG GT (09:09)
[2024-09-17] MEDS: THIAMINE 100 MG GT (09:09)
[2024-09-17] MEDS: MULTIVITAMIN 1 TAB TABLET GT (09:09)
[2024-09-17] MEDS: SENNOSIDES 8.6 MG TABLET 17.2 MG GT ×2 (09:09→21:25)
[2024-09-17] MEDS: polyethylene glycoL PKT 17 GM POWD.PACK GT ×2 (09:09→21:25)
--- NOTE | 2024-09-17 11:44 | PC.SS ---
Room visit: Resident is laying in bed with head of the bed elevated with call light properly placed with no signs of distress. Resident remains on blow by with trach in place and GT for medication and nutrition. His decision maker is his son, he is unable to make needs known. He will remain in current care and will continue to have all subacute care needs met by staff. This SSD will continue to make contact with resident and monitor for changes in mood and behavior and will assist with DC planning as appropriate.
[2024-09-17] MEDS: ACETAMINOPHEN 325 MG TABLET 650 MG GT (14:00)
[2024-09-17] MEDS: DOXAZOSIN 2 MG TABLET 1 MG GT (21:25)
[2024-09-17] MEDS: ATORVASTATIN 40 MG TABLET 80 MG GT (21:26)
[2024-09-18] VITALS (15 sets, daily range): BP systolic 126–173; BP diastolic 65–78; PULSE 65–89; RESP 15–20; TEMP 36.4–37.2; O2SAT 96–99
[2024-09-18] MEDS: HYDRALAZINE 100 MG GT ×3 (05:21→21:26)
[2024-09-18] MEDS: BACLOFEN 10 MG TABLET 5 MG GT ×3 (05:21→21:26)
[2024-09-18] MEDS: INSULIN REGULAR, HUMAN 100 UNIT/ML VIAL SC ×3 (05:23→18:05)
[2024-09-18] MEDS: INSULIN GLARGINE 100 UNIT/ML SC (05:24)
[2024-09-18] MEDS: INSULN SC (05:24)
[2024-09-18] MEDS: AMLODIPINE 5 MG TABLET GT (09:03)
[2024-09-18] MEDS: ASPIRIN 81 MG TAB.CHEW GT (09:04)
[2024-09-18] MEDS: CARVEDILOL 12.5 MG TABLET GT ×2 (09:04→21:27)
[2024-09-18] MEDS: FERROUS SULFATE 220 MG/5 ML ELIXIR 330 MG GT (09:05)
[2024-09-18] MEDS: CHOLECALCIFEROL (VITAMIN D3) 25 MCG TABLET GT (09:05)
[2024-09-18] MEDS: LANSOPRAZOLE 30 MG CAPSULE.DR GT (09:06)
[2024-09-18] MEDS: LOSARTAN 100 MG TABLET GT (09:06)
[2024-09-18] MEDS: FOLIC ACID 1 MG TABLET GT (09:06)
[2024-09-18] MEDS: polyethylene glycoL PKT 17 GM POWD.PACK GT ×2 (09:06→21:27)
[2024-09-18] MEDS: RIVAROXABAN 20 MG TABLET 10 MG GT (09:07)
[2024-09-18] MEDS: MULTIVITAMIN 1 TAB TABLET GT (09:07)
[2024-09-18] MEDS: SENNOSIDES 8.6 MG TABLET 17.2 MG GT ×2 (09:07→21:27)
[2024-09-18] MEDS: THIAMINE 100 MG GT (09:07)
[2024-09-18] MEDS: DOXAZOSIN 2 MG TABLET 1 MG GT (21:27)
[2024-09-18] MEDS: ATORVASTATIN 40 MG TABLET 80 MG GT (21:27)
[2024-09-19] VITALS (14 sets, daily range): BP systolic 123–188; BP diastolic 65–91; PULSE 60–94; RESP 14–22; TEMP 36.6–37.7; O2SAT 96–98
[2024-09-19] MEDS: INSULIN REGULAR, HUMAN 100 UNIT/ML VIAL SC ×4 (00:14→17:00)
[2024-09-19] MEDS: BACLOFEN 10 MG TABLET 5 MG GT ×3 (05:24→21:09)
[2024-09-19] MEDS: HYDRALAZINE 100 MG GT ×3 (05:25→21:09)
[2024-09-19] MEDS: INSULIN GLARGINE 100 UNIT/ML SC (05:35)
[2024-09-19] MEDS: INSULN SC (05:35)
[2024-09-19] MEDS: AMLODIPINE 5 MG TABLET GT (08:56)
[2024-09-19] MEDS: CARVEDILOL 12.5 MG TABLET GT ×2 (08:56→21:09)
[2024-09-19] MEDS: ASPIRIN 81 MG TAB.CHEW GT (08:56)
[2024-09-19] MEDS: CHOLECALCIFEROL (VITAMIN D3) 25 MCG TABLET GT (08:57)
[2024-09-19] MEDS: FERROUS SULFATE 220 MG/5 ML ELIXIR 330 MG GT (08:57)
[2024-09-19] MEDS: LOSARTAN 100 MG TABLET GT (08:58)
[2024-09-19] MEDS: LANSOPRAZOLE 30 MG CAPSULE.DR GT (08:58)
[2024-09-19] MEDS: FOLIC ACID 1 MG TABLET GT (08:58)
[2024-09-19] MEDS: polyethylene glycoL PKT 17 GM POWD.PACK GT ×2 (08:58→21:09)
[2024-09-19] MEDS: RIVAROXABAN 20 MG TABLET 10 MG GT (08:58)
[2024-09-19] MEDS: MULTIVITAMIN 1 TAB TABLET GT (08:58)
[2024-09-19] MEDS: SENNOSIDES 8.6 MG TABLET 17.2 MG GT ×2 (08:59→21:09)
[2024-09-19] MEDS: THIAMINE 100 MG GT (08:59)
[2024-09-19] MEDS: cefTRIAXone 2 GM in SODIUM CHLORIDE 0.9% (Popper) 100 ML IV ×2 (10:09→10:10)
--- NOTE | 2024-09-19 12:40 | ESPR_ITS ---
Progress Note - SubAcute DIAGNOSIS (1) Ischemic encephalopathy: Status: Chronic (2) Chronic respiratory failure: Status: Chronic (3) Ventilator dependent: Status: Chronic (4) Hyperglycemia: Status: Chronic (5) Closed fracture of transverse process of lumbar vertebra: Status: Chronic (6) Tracheostomy in place: Status: Chronic (7) G tube feedings: Status: Chronic OBJECTIVE Most recent vital signs: Last Vital Signs Temp 97.3 F 09/21/24 05:50 Pulse 80 09/21/24 12:52 Resp 16 09/21/24 06:54 BP 159/70 H 09/21/24 08:02 Pulse Ox 99 09/21/24 12:52 O2 Del Method Mechanical Ventilation 09/21/24 05:50 FiO2 40 09/21/24 12:52 Neurological:: awake (spontaneous eye opening, no cognitive response or purposef ul movement; Bed bound and incontinent. ) Speech:: none Answers questions:: no Respiratory:: lungs clear (Ventilator dependent) Cardiovascular: RRR Abdomen: soft and nontender Extremities:: edema (none) Tracheostomy:: to ventilator Feeding per:: G tube ASSESSMENT & PLAN Assessment: Pt with multiple organ compromise as addressed above and h/o substance abuse with major seemingly irreversible neurological deficit including Encephalopathy and Ventilator dependent respiratory failure and significant comorbidities with a poor prognostic outlook. VSS Plan: Current treatment , Ventilator settings reviewed and continued
[2024-09-19] MEDS: ACETAMINOPHEN 325 MG TABLET 650 MG GT (17:04)
[2024-09-19] MEDS: DOXAZOSIN 2 MG TABLET 1 MG GT (21:09)
[2024-09-19] MEDS: ATORVASTATIN 40 MG TABLET 80 MG GT (21:10)
[2024-09-20] VITALS (14 sets, daily range): BP systolic 114–158; BP diastolic 52–77; PULSE 60–93; RESP 13–21; TEMP 36.2–36.9; O2SAT 97–100
--- NOTE | 2024-09-20 00:10 | PC.NURSE ---
while doing patient care noted lower abdomen distended.upon assessment, abdomen felt hard during palpitation. informed charge nurse and advised to replaced new pfeiffer catheter. noted urine color dark brown/dali. got 1550 ml output. no s/s of distress or discomfort after re-inserted new pfeiffer catheter. will monitor for any changes.
[2024-09-20] MEDS: INSULIN REGULAR, HUMAN 100 UNIT/ML VIAL SC ×4 (00:33→17:25)
[2024-09-20] MEDS: HYDRALAZINE 100 MG GT ×3 (05:56→21:10)
[2024-09-20] MEDS: BACLOFEN 10 MG TABLET 5 MG GT ×3 (05:56→21:09)
[2024-09-20] MEDS: INSULN SC (05:58)
[2024-09-20] MEDS: INSULIN GLARGINE 100 UNIT/ML SC (05:58)
[2024-09-20] MEDS: cefTRIAXone 2 GM in SODIUM CHLORIDE 0.9% (Popper) 100 ML IV (08:44)
[2024-09-20] MEDS: ASPIRIN 81 MG TAB.CHEW GT (08:57)
[2024-09-20] MEDS: CARVEDILOL 12.5 MG TABLET GT ×2 (08:57→21:09)
[2024-09-20] MEDS: AMLODIPINE 5 MG TABLET GT (08:57)
[2024-09-20] MEDS: CHOLECALCIFEROL (VITAMIN D3) 25 MCG TABLET GT (08:57)
[2024-09-20] MEDS: FERROUS SULFATE 220 MG/5 ML ELIXIR 330 MG GT (08:58)
[2024-09-20] MEDS: FOLIC ACID 1 MG TABLET GT (08:58)
[2024-09-20] MEDS: RIVAROXABAN 20 MG TABLET 10 MG GT (08:59)
[2024-09-20] MEDS: LOSARTAN 100 MG TABLET GT (08:59)
[2024-09-20] MEDS: polyethylene glycoL PKT 17 GM POWD.PACK GT ×2 (08:59→21:09)
[2024-09-20] MEDS: MULTIVITAMIN 1 TAB TABLET GT (08:59)
[2024-09-20] MEDS: LANSOPRAZOLE 30 MG CAPSULE.DR GT (08:59)
[2024-09-20] MEDS: SENNOSIDES 8.6 MG TABLET 17.2 MG GT ×2 (09:00→21:09)
[2024-09-20] MEDS: THIAMINE 100 MG GT (09:00)
--- NOTE | 2024-09-20 18:38 | PC.NURSE ---
Resident completed the Rocephin this morning, no adverse reaction noted. No s/s of pain discomfort noted.
[2024-09-20] MEDS: ATORVASTATIN 40 MG TABLET 80 MG GT (21:09)
[2024-09-20] MEDS: DOXAZOSIN 2 MG TABLET 1 MG GT (21:09)
[2024-09-21] VITALS (12 sets, daily range): BP systolic 147–164; BP diastolic 68–73; PULSE 69–80; RESP 15–16; TEMP 36.1–36.6; O2SAT 98–100
[2024-09-21] MEDS: INSULIN REGULAR, HUMAN 100 UNIT/ML VIAL SC ×3 (01:24→17:22)
[2024-09-21] MEDS: HYDRALAZINE 100 MG GT ×2 (05:42→21:09)
[2024-09-21] MEDS: BACLOFEN 10 MG TABLET 5 MG GT ×2 (05:42→21:09)
[2024-09-21] MEDS: INSULN SC (05:43)
[2024-09-21] MEDS: INSULIN GLARGINE 100 UNIT/ML SC (05:43)
[2024-09-21] MEDS: ASPIRIN 81 MG TAB.CHEW GT (08:01)
[2024-09-21] MEDS: AMLODIPINE 5 MG TABLET GT (08:01)
[2024-09-21] MEDS: CARVEDILOL 12.5 MG TABLET GT ×2 (08:01→21:10)
[2024-09-21] MEDS: FOLIC ACID 1 MG TABLET GT (08:02)
[2024-09-21] MEDS: FERROUS SULFATE 220 MG/5 ML ELIXIR 330 MG GT (08:02)
[2024-09-21] MEDS: LANSOPRAZOLE 30 MG CAPSULE.DR GT (08:02)
[2024-09-21] MEDS: CHOLECALCIFEROL (VITAMIN D3) 25 MCG TABLET GT (08:02)
[2024-09-21] MEDS: LOSARTAN 100 MG TABLET GT (08:02)
[2024-09-21] MEDS: MULTIVITAMIN 1 TAB TABLET GT (08:03)
[2024-09-21] MEDS: THIAMINE 100 MG GT (08:03)
[2024-09-21] MEDS: SENNOSIDES 8.6 MG TABLET 17.2 MG GT ×2 (08:03→21:10)
[2024-09-21] MEDS: RIVAROXABAN 20 MG TABLET 10 MG GT (08:03)
[2024-09-21] MEDS: polyethylene glycoL PKT 17 GM POWD.PACK GT ×2 (08:03→21:10)
[2024-09-21] MEDS: ATORVASTATIN 40 MG TABLET 80 MG GT (21:10)
[2024-09-21] MEDS: DOXAZOSIN 2 MG TABLET 1 MG GT (21:10)
[2024-09-22] VITALS (14 sets, daily range): BP systolic 103–193; BP diastolic 50–86; PULSE 59–85; RESP 15–20; TEMP 36.4–36.8; O2SAT 97–99
[2024-09-22] MEDS: INSULIN REGULAR, HUMAN 100 UNIT/ML VIAL SC ×4 (00:05→17:04)
[2024-09-22] MEDS: BACLOFEN 10 MG TABLET 5 MG GT ×3 (05:47→22:15)
[2024-09-22] MEDS: HYDRALAZINE 100 MG GT ×3 (05:47→22:33)
[2024-09-22] MEDS: INSULIN GLARGINE 100 UNIT/ML SC (05:48)
[2024-09-22] MEDS: INSULN SC (05:48)
[2024-09-22] MEDS: AMLODIPINE 5 MG TABLET GT (08:55)
[2024-09-22] MEDS: CARVEDILOL 12.5 MG TABLET GT ×2 (08:56→22:33)
[2024-09-22] MEDS: CHOLECALCIFEROL (VITAMIN D3) 25 MCG TABLET GT (08:56)
[2024-09-22] MEDS: ASPIRIN 81 MG TAB.CHEW GT (08:56)
[2024-09-22] MEDS: LANSOPRAZOLE 30 MG CAPSULE.DR GT (08:57)
[2024-09-22] MEDS: FERROUS SULFATE 220 MG/5 ML ELIXIR 330 MG GT (08:57)
[2024-09-22] MEDS: FOLIC ACID 1 MG TABLET GT (08:57)
[2024-09-22] MEDS: LOSARTAN 100 MG TABLET GT (08:57)
[2024-09-22] MEDS: polyethylene glycoL PKT 17 GM POWD.PACK GT ×2 (08:58→22:18)
[2024-09-22] MEDS: RIVAROXABAN 20 MG TABLET 10 MG GT (08:58)
[2024-09-22] MEDS: MULTIVITAMIN 1 TAB TABLET GT (08:58)
[2024-09-22] MEDS: THIAMINE 100 MG GT (08:59)
[2024-09-22] MEDS: SENNOSIDES 8.6 MG TABLET 17.2 MG GT ×2 (08:59→22:18)
--- NOTE | 2024-09-22 15:02 | PC.SS ---
Resident seen by heel sorter/ Dr. Montoya had routine toe nail trim with no new orders or recommendations. Resident will continue current care.
[2024-09-22] MEDS: DOXAZOSIN 2 MG TABLET 1 MG GT (22:16)
[2024-09-22] MEDS: ATORVASTATIN 40 MG TABLET 80 MG GT (22:16)
[2024-09-22] MEDS: ACETAMINOPHEN 325 MG TABLET 650 MG GT (22:34)
[2024-09-23] VITALS (14 sets, daily range): BP systolic 136–173; BP diastolic 67–79; PULSE 71–82; RESP 15–24; TEMP 36.4–36.7; O2SAT 98–100; BMI 24.7
[2024-09-23] MEDS: INSULIN REGULAR, HUMAN 100 UNIT/ML VIAL SC ×4 (00:29→17:44)
[2024-09-23] MEDS: INSULIN GLARGINE 100 UNIT/ML SC (06:33)
[2024-09-23] MEDS: INSULN SC (06:33)
[2024-09-23] MEDS: HYDRALAZINE 100 MG GT ×3 (06:40→21:08)
[2024-09-23] MEDS: BACLOFEN 10 MG TABLET 5 MG GT ×3 (06:40→21:08)
[2024-09-23] MEDS: AMLODIPINE 5 MG TABLET GT (10:09)
[2024-09-23] MEDS: ASPIRIN 81 MG TAB.CHEW GT (10:10)
[2024-09-23] MEDS: CARBAMIDE PEROXIDE OTIC SOL 15 ML BTL 5 DROP BOTH EARS ×2 (10:10→21:09)
[2024-09-23] MEDS: CHOLECALCIFEROL (VITAMIN D3) 25 MCG TABLET GT (10:11)
[2024-09-23] MEDS: FERROUS SULFATE 220 MG/5 ML ELIXIR 330 MG GT (10:11)
[2024-09-23] MEDS: CARVEDILOL 12.5 MG TABLET GT ×2 (10:11→21:10)
[2024-09-23] MEDS: LOSARTAN 100 MG TABLET GT (10:11)
[2024-09-23] MEDS: LANSOPRAZOLE 30 MG CAPSULE.DR GT (10:11)
[2024-09-23] MEDS: FOLIC ACID 1 MG TABLET GT (10:11)
[2024-09-23] MEDS: RIVAROXABAN 20 MG TABLET 10 MG GT (10:12)
[2024-09-23] MEDS: polyethylene glycoL PKT 17 GM POWD.PACK GT ×2 (10:12→21:10)
[2024-09-23] MEDS: MULTIVITAMIN 1 TAB TABLET GT (10:12)
[2024-09-23] MEDS: THIAMINE 100 MG GT (10:13)
[2024-09-23] MEDS: SENNOSIDES 8.6 MG TABLET 17.2 MG GT ×2 (10:13→21:10)
[2024-09-23] MEDS: ACETAMINOPHEN 325 MG TABLET 650 MG GT (10:17)
--- NOTE | 2024-09-23 12:35 | PD.SAPROG ---
Progress Note - SubAcute DIAGNOSIS (1) Ischemic encephalopathy: Status: Chronic (2) Chronic respiratory failure: Status: Chronic (3) Ventilator dependent: Status: Chronic (4) Hyperglycemia: Status: Chronic (5) Closed fracture of transverse process of lumbar vertebra: Status: Chronic (6) Tracheostomy in place: Status: Chronic (7) G tube feedings: Status: Chronic SUBJECTIVE Fever:: none Shortness of Breath:: none Pain:: none OBJECTIVE Most recent vital signs: Last Vital Signs Temp 98.5 F 09/28/24 17:10 Pulse 78 09/28/24 21:14 Resp 15 09/28/24 19:15 BP 177/75 H 09/28/24 21:14 Pulse Ox 99 09/28/24 19:15 O2 Del Method Mechanical Ventilation 09/28/24 17:10 FiO2 40 09/28/24 19:15 Neurological:: awake (spontaneous eye opening, no cognitive response or purposeful movement; Bed bound and incontinent. ) Speech:: none Answers questions:: no Respiratory:: lungs clear (Ventilator dependent) Cardiovascular: RRR Abdomen: soft and nontender Extremities:: edema (none) Tracheostomy:: to ventilator Feeding per:: G tube ASSESSMENT & PLAN Assessment: Pt with multiple organ compromise as addressed above and h/o substance abuse with major seemingly irreversible neurological deficit including Encephalopathy and Ventilator dependent respiratory failure and significant comorbidities with a poor prognostic outlook. VSS. Pt being considered for Neurological rehab and arrangements for transfer being made . Plan: Current treatment , Ventilator settings reviewed and continued. Possible transfer to Neurology rehab on Sunday09/30/24
[2024-09-23] MEDS: ATORVASTATIN 40 MG TABLET 80 MG GT (21:09)
[2024-09-23] MEDS: DOXAZOSIN 2 MG TABLET 1 MG GT (21:10)
[2024-09-24] VITALS (14 sets, daily range): BP systolic 148–191; BP diastolic 69–88; PULSE 46–93; RESP 16–24; TEMP 36.7; O2SAT 98–100
[2024-09-24] MEDS: INSULIN REGULAR, HUMAN 100 UNIT/ML VIAL SC ×3 (00:45→17:16)
[2024-09-24] MEDS: HYDRALAZINE 100 MG GT ×3 (05:55→21:29)
[2024-09-24] MEDS: BACLOFEN 10 MG TABLET 5 MG GT ×3 (05:55→21:29)
[2024-09-24] MEDS: INSULN SC (05:55)
[2024-09-24] MEDS: INSULIN GLARGINE 100 UNIT/ML SC (05:55)
[2024-09-24] MEDS: CARBAMIDE PEROXIDE OTIC SOL 15 ML BTL 5 DROP BOTH EARS ×2 (09:08→21:11)
[2024-09-24] MEDS: AMLODIPINE 5 MG TABLET GT (09:08)
[2024-09-24] MEDS: ASPIRIN 81 MG TAB.CHEW GT (09:08)
[2024-09-24] MEDS: FOLIC ACID 1 MG TABLET GT (09:09)
[2024-09-24] MEDS: LANSOPRAZOLE 30 MG CAPSULE.DR GT (09:09)
[2024-09-24] MEDS: FERROUS SULFATE 220 MG/5 ML ELIXIR 330 MG GT (09:09)
[2024-09-24] MEDS: CARVEDILOL 12.5 MG TABLET GT ×2 (09:09→21:29)
[2024-09-24] MEDS: CHOLECALCIFEROL (VITAMIN D3) 25 MCG TABLET GT (09:09)
[2024-09-24] MEDS: LOSARTAN 100 MG TABLET GT (09:09)
[2024-09-24] MEDS: RIVAROXABAN 20 MG TABLET 10 MG GT (09:10)
[2024-09-24] MEDS: MULTIVITAMIN 1 TAB TABLET GT (09:10)
[2024-09-24] MEDS: SENNOSIDES 8.6 MG TABLET 17.2 MG GT ×2 (09:10→21:29)
[2024-09-24] MEDS: polyethylene glycoL PKT 17 GM POWD.PACK GT ×2 (09:10→21:29)
[2024-09-24] MEDS: THIAMINE 100 MG GT (09:11)
--- NOTE | 2024-09-24 14:56 | PC.SS ---
DC Planning: This SSD spoke with [facility] to go over DC planning. Phu states he is fully aware of the plan for DC to [place] to the Neuro center. Resident will go via aircraft accompanied by aircraft staff, his son will meet him in [place]. Phu states he will be here tomorrow at the 5 o'clock hour to sign anything that needs his signature. Phu has asked if this trial in [place] does not work can resident return to [facility], this SSD informed him the facility would have to send a new referral to facility if an appropriate bed is available for resident to return. This SSD did not make any arrangements for this DC, all arrangements have been made by trimming caser at [facility]. This DC has been imitated by resident MIRI [place]. This SSD informed charge nurse and
[2024-09-24] MEDS: DOXAZOSIN 2 MG TABLET 1 MG GT (21:29)
[2024-09-24] MEDS: ATORVASTATIN 40 MG TABLET 80 MG GT (21:29)
[2024-09-25] VITALS (15 sets, daily range): BP systolic 134–179; BP diastolic 66–81; PULSE 60–88; RESP 14–21; TEMP 36.3–36.7; O2SAT 97–100
[2024-09-25] MEDS: INSULIN REGULAR, HUMAN 100 UNIT/ML VIAL SC ×5 (00:01→23:58)
[2024-09-25] MEDS: INSULN SC (05:45)
[2024-09-25] MEDS: INSULIN GLARGINE 100 UNIT/ML SC (05:45)
[2024-09-25] MEDS: BACLOFEN 10 MG TABLET 5 MG GT ×3 (05:48→21:06)
[2024-09-25] MEDS: HYDRALAZINE 100 MG GT ×3 (05:48→21:06)
[2024-09-25] MEDS: AMLODIPINE 5 MG TABLET GT (08:41)
[2024-09-25] MEDS: CHOLECALCIFEROL (VITAMIN D3) 25 MCG TABLET GT (08:42)
[2024-09-25] MEDS: ASPIRIN 81 MG TAB.CHEW GT (08:42)
[2024-09-25] MEDS: CARVEDILOL 12.5 MG TABLET GT ×2 (08:42→21:05)
[2024-09-25] MEDS: FERROUS SULFATE 220 MG/5 ML ELIXIR 330 MG GT (08:42)
[2024-09-25] MEDS: CARBAMIDE PEROXIDE OTIC SOL 15 ML BTL 5 DROP BOTH EARS ×2 (08:42→21:48)
[2024-09-25] MEDS: THIAMINE 100 MG GT (08:43)
[2024-09-25] MEDS: LOSARTAN 100 MG TABLET GT (08:43)
[2024-09-25] MEDS: polyethylene glycoL PKT 17 GM POWD.PACK GT ×2 (08:43→21:05)
[2024-09-25] MEDS: RIVAROXABAN 20 MG TABLET 10 MG GT (08:43)
[2024-09-25] MEDS: FOLIC ACID 1 MG TABLET GT (08:43)
[2024-09-25] MEDS: MULTIVITAMIN 1 TAB TABLET GT (08:43)
[2024-09-25] MEDS: LANSOPRAZOLE 30 MG CAPSULE.DR GT (08:43)
[2024-09-25] MEDS: SENNOSIDES 8.6 MG TABLET 17.2 MG GT ×2 (08:43→21:04)
[2024-09-25] MEDS: DOXAZOSIN 2 MG TABLET 1 MG GT (21:05)
[2024-09-25] MEDS: ATORVASTATIN 40 MG TABLET 80 MG GT (21:05)
[2024-09-26] VITALS (14 sets, daily range): BP systolic 137–176; BP diastolic 64–76; PULSE 65–83; RESP 17–20; TEMP 36.1–36.7; O2SAT 97–98
[2024-09-26] MEDS: HYDRALAZINE 100 MG GT ×3 (05:35→21:43)
[2024-09-26] MEDS: INSULIN REGULAR, HUMAN 100 UNIT/ML VIAL SC ×3 (05:36→23:36)
[2024-09-26] MEDS: BACLOFEN 10 MG TABLET 5 MG GT ×3 (05:36→21:42)
[2024-09-26] MEDS: INSULN SC (05:37)
[2024-09-26] MEDS: INSULIN GLARGINE 100 UNIT/ML SC (05:37)
[2024-09-26] MEDS: AMLODIPINE 5 MG TABLET GT (08:35)
[2024-09-26] MEDS: ASPIRIN 81 MG TAB.CHEW GT (08:36)
[2024-09-26] MEDS: CARBAMIDE PEROXIDE OTIC SOL 15 ML BTL 5 DROP BOTH EARS ×2 (08:36→21:43)
[2024-09-26] MEDS: CARVEDILOL 12.5 MG TABLET GT ×2 (08:37→21:43)
[2024-09-26] MEDS: CHOLECALCIFEROL (VITAMIN D3) 25 MCG TABLET GT (08:37)
[2024-09-26] MEDS: FERROUS SULFATE 220 MG/5 ML ELIXIR 330 MG GT (08:37)
[2024-09-26] MEDS: LOSARTAN 100 MG TABLET GT (08:52)
[2024-09-26] MEDS: FOLIC ACID 1 MG TABLET GT (08:52)
[2024-09-26] MEDS: LANSOPRAZOLE 30 MG CAPSULE.DR GT (08:52)
[2024-09-26] MEDS: RIVAROXABAN 20 MG TABLET 10 MG GT (08:53)
[2024-09-26] MEDS: SENNOSIDES 8.6 MG TABLET 17.2 MG GT ×2 (08:53→21:44)
[2024-09-26] MEDS: MULTIVITAMIN 1 TAB TABLET GT (08:53)
[2024-09-26] MEDS: THIAMINE 100 MG GT (08:53)
[2024-09-26] MEDS: polyethylene glycoL PKT 17 GM POWD.PACK GT ×2 (08:53→21:44)
--- NOTE | 2024-09-26 11:50 | PC.SS ---
DC Planning: This resident DC date moved to SundaySeptember 30, he will be picked up via ambulance gurney transfer to and taken to airport to board medical aircraft. No cotton picking machine operator time as of now, charge nurse made aware.
[2024-09-26] MEDS: ATORVASTATIN 40 MG TABLET 80 MG GT (21:43)
[2024-09-26] MEDS: DOXAZOSIN 2 MG TABLET 1 MG GT (21:44)
[2024-09-26] MEDS: ACETAMINOPHEN 325 MG TABLET 650 MG GT (21:45)
[2024-09-27] VITALS (14 sets, daily range): BP systolic 123–190; BP diastolic 64–91; PULSE 65–84; RESP 1–19; TEMP 36.2–36.9; O2SAT 98–100
[2024-09-27] MEDS: HYDRALAZINE 100 MG GT ×3 (06:01→21:27)
[2024-09-27] MEDS: BACLOFEN 10 MG TABLET 5 MG GT ×3 (06:01→21:27)
[2024-09-27] MEDS: INSULIN GLARGINE 100 UNIT/ML SC (06:02)
[2024-09-27] MEDS: INSULN SC (06:02)
[2024-09-27] MEDS: INSULIN REGULAR, HUMAN 100 UNIT/ML VIAL SC ×4 (06:03→23:42)
[2024-09-27] MEDS: AMLODIPINE 5 MG TABLET GT (08:38)
[2024-09-27] MEDS: ASPIRIN 81 MG TAB.CHEW GT (08:39)
[2024-09-27] MEDS: CARVEDILOL 12.5 MG TABLET GT ×2 (08:39→21:27)
[2024-09-27] MEDS: CHOLECALCIFEROL (VITAMIN D3) 25 MCG TABLET GT (08:40)
[2024-09-27] MEDS: LOSARTAN 100 MG TABLET GT (08:41)
[2024-09-27] MEDS: MULTIVITAMIN 1 TAB TABLET GT (08:41)
[2024-09-27] MEDS: FOLIC ACID 1 MG TABLET GT (08:41)
[2024-09-27] MEDS: FERROUS SULFATE 220 MG/5 ML ELIXIR 330 MG GT (08:41)
[2024-09-27] MEDS: LANSOPRAZOLE 30 MG CAPSULE.DR GT (08:41)
[2024-09-27] MEDS: polyethylene glycoL PKT 17 GM POWD.PACK GT ×2 (08:41→21:27)
[2024-09-27] MEDS: SENNOSIDES 8.6 MG TABLET 17.2 MG GT ×2 (08:43→21:26)
[2024-09-27] MEDS: THIAMINE 100 MG GT (08:44)
[2024-09-27] MEDS: DOXAZOSIN 2 MG TABLET 1 MG GT (21:27)
[2024-09-27] MEDS: ATORVASTATIN 40 MG TABLET 80 MG GT (21:27)
--- NOTE | 2024-09-27 22:59 | PD.SAPROG ---
Progress Note - SubAcute DIAGNOSIS (1) Ischemic encephalopathy: Status: Chronic (2) Chronic respiratory failure: Status: Chronic (3) Ventilator dependent: Status: Chronic (4) Hyperglycemia: Status: Chronic (5) Closed fracture of transverse process of lumbar vertebra: Status: Chronic (6) Tracheostomy in place: Status: Chronic (7) G tube feedings: Status: Chronic SUBJECTIVE Fever:: none Shortness of Breath:: none Pain:: none OBJECTIVE Most recent vital signs: Last Vital Signs Temp 98.3 F 09/27/24 17:49 Pulse 84 09/27/24 21:27 Resp 18 09/27/24 19:10 BP 190/91 H 09/27/24 21:27 Pulse Ox 100 09/27/24 19:10 O2 Del Method Mechanical Ventilation 09/27/24 17:49 FiO2 40 09/27/24 19:10 Neurological:: awake (spontaneous eye opening, no cognitive response or purposeful movement; Bed bound and incontinent. ) Speech:: none Answers questions:: no Respiratory:: lungs clear (Ventilator dependent) Cardiovascular: RRR Abdomen: soft and nontender Extremities:: edema (none) Tracheostomy:: to ventilator Feeding per:: G tube ASSESSMENT & PLAN Assessment: Pt with multiple organ compromise as addressed above and h/o substance abuse with major seemingly irreversible neurological deficit including Encephalopathy and Ventilator dependent respiratory failure and significant comorbidities with a poor prognostic outlook. VSS. Pt being considered for Neurological rehab and arrangements for transfer being made . Plan: Current treatment , Ventilator settings reviewed and continued. Possible transfer to Neurology rehab on Sunday09/30/24
[2024-09-28] VITALS (15 sets, daily range): BP systolic 101–177; BP diastolic 57–85; PULSE 49–84; RESP 13–18; TEMP 36.6–37; O2SAT 99
[2024-09-28] MEDS: BACLOFEN 10 MG TABLET 5 MG GT ×3 (05:31→21:13)
[2024-09-28] MEDS: HYDRALAZINE 100 MG GT ×3 (05:31→21:13)
[2024-09-28] MEDS: INSULIN GLARGINE 100 UNIT/ML SC (05:32)
[2024-09-28] MEDS: INSULN SC (05:32)
[2024-09-28] MEDS: INSULIN REGULAR, HUMAN 100 UNIT/ML VIAL SC ×2 (05:32→23:10)
[2024-09-28] MEDS: AMLODIPINE 5 MG TABLET GT (09:05)
[2024-09-28] MEDS: ASPIRIN 81 MG TAB.CHEW GT (09:06)
[2024-09-28] MEDS: CARVEDILOL 12.5 MG TABLET GT ×2 (09:06→21:14)
[2024-09-28] MEDS: CHOLECALCIFEROL (VITAMIN D3) 25 MCG TABLET GT (09:07)
[2024-09-28] MEDS: FERROUS SULFATE 220 MG/5 ML ELIXIR 330 MG GT (09:07)
[2024-09-28] MEDS: FOLIC ACID 1 MG TABLET GT (09:08)
[2024-09-28] MEDS: LOSARTAN 100 MG TABLET GT (09:08)
[2024-09-28] MEDS: LANSOPRAZOLE 30 MG CAPSULE.DR GT (09:08)
[2024-09-28] MEDS: MULTIVITAMIN 1 TAB TABLET GT (09:09)
[2024-09-28] MEDS: polyethylene glycoL PKT 17 GM POWD.PACK GT ×2 (09:09→21:14)
[2024-09-28] MEDS: SENNOSIDES 8.6 MG TABLET 17.2 MG GT ×2 (09:10→21:14)
[2024-09-28] MEDS: THIAMINE 100 MG GT (09:10)
[2024-09-28] MEDS: ATORVASTATIN 40 MG TABLET 80 MG GT (21:13)
[2024-09-28] MEDS: DOXAZOSIN 2 MG TABLET 1 MG GT (21:14)
[2024-09-28] MEDS: ACETAMINOPHEN 325 MG TABLET 650 MG GT (21:15)
[2024-09-29] VITALS (13 sets, daily range): BP systolic 128–168; BP diastolic 61–75; PULSE 64–88; RESP 12–18; TEMP 36.1–37.1; O2SAT 96–99
[2024-09-29] MEDS: INSULIN REGULAR, HUMAN 100 UNIT/ML VIAL SC ×2 (05:29→12:25)
[2024-09-29] MEDS: INSULN SC (05:30)
[2024-09-29] MEDS: INSULIN GLARGINE 100 UNIT/ML SC (05:30)
[2024-09-29] MEDS: BACLOFEN 10 MG TABLET 5 MG GT ×3 (05:53→21:15)
[2024-09-29] MEDS: HYDRALAZINE 100 MG GT ×3 (05:54→21:15)
[2024-09-29] MEDS: CARVEDILOL 12.5 MG TABLET GT ×2 (09:18→21:15)
[2024-09-29] MEDS: ASPIRIN 81 MG TAB.CHEW GT (09:18)
[2024-09-29] MEDS: AMLODIPINE 5 MG TABLET GT (09:18)
[2024-09-29] MEDS: LOSARTAN 100 MG TABLET GT (09:19)
[2024-09-29] MEDS: FOLIC ACID 1 MG TABLET GT (09:19)
[2024-09-29] MEDS: polyethylene glycoL PKT 17 GM POWD.PACK GT ×2 (09:19→21:16)
[2024-09-29] MEDS: LANSOPRAZOLE 30 MG CAPSULE.DR GT (09:19)
[2024-09-29] MEDS: CHOLECALCIFEROL (VITAMIN D3) 25 MCG TABLET GT (09:19)
[2024-09-29] MEDS: FERROUS SULFATE 220 MG/5 ML ELIXIR 330 MG GT (09:19)
[2024-09-29] MEDS: SENNOSIDES 8.6 MG TABLET 17.2 MG GT ×2 (09:20→21:16)
[2024-09-29] MEDS: THIAMINE 100 MG GT (09:20)
[2024-09-29] MEDS: MULTIVITAMIN 1 TAB TABLET GT (09:20)
--- NOTE | 2024-09-29 09:22 | PC.NURSE ---
Resident scheduled to be discharged tomorrow going to Rehab center in [place]. Received a call from Jose Reynolds from [facility] requesting resident's lab results and progress note. Called [employer] and made aware of it gave number for resident's case repairer to call. Called Stephanie (case repairer of work comp) and verified before this junior copywriter will send them the things requested and she said that's the company that will be transporting resident to [place].
[2024-09-29] MEDS: RIVAROXABAN 20 MG TABLET 10 MG GT (09:45)
--- NOTE | 2024-09-29 11:28 | PC.NURSE ---
Addendum entered by Coni Spann RN 09/29/24 11:45: Dr russ wants to know the admitting physician . Called Michela and she called the facility. Dr Zachary Oglesby will be the admitting MD, notified Dr Russ Original Note: Received a call from Michela from [facility]. physician support coordinator time for resident tomorrow will be at 06:30
--- NOTE | 2024-09-29 11:39 | PC.NURSE ---
Called resident's son Phu Portillo and made him aware of the miner pick time for resident tomorrow at 06:30 via [facility] and said he'll come this afternoon to see t
--- NOTE | 2024-09-29 18:02 | PC.NURSE ---
PCS form was filled out as requested by [facility] and sent it to them as a ground transportation for the resident going to [facility]. Resident will be transported from [facility] per [facility] and receiving airport will be [facility] in [place]. Spoke with Don in [facility] several times throughout the shift regarding the transport. Asked Don earlier today if we are sending an RT to go with them since resident is on mechanical ventilator and she said no. [facility] will gonna pickup the air crew in [facility] who are trained and they will be landing at 06:10 and resident will be picked up by them at 06:30.
[2024-09-29] MEDS: ATORVASTATIN 40 MG TABLET 80 MG GT (21:15)
[2024-09-29] MEDS: DOXAZOSIN 2 MG TABLET 1 MG GT (21:16)
[2024-09-30] VITALS: BP 154/66; PULSE 68; RESP 17; TEMP 36.1
[2024-09-30 01:26] VITALS: PULSE 87; RESP 14; O2SAT 98
[2024-09-30] MEDS: INSULIN REGULAR, HUMAN 100 UNIT/ML VIAL SC ×2 (02:06→05:35)
[2024-09-30 05:00] VITALS: BP 148/69; PULSE 66; RESP 14; TEMP 36.9; O2SAT 99
[2024-09-30 05:35] VITALS: BP 148/69; PULSE 66
[2024-09-30] MEDS: HYDRALAZINE 100 MG GT (05:35)
[2024-09-30] MEDS: INSULIN GLARGINE 100 UNIT/ML SC (05:35)
[2024-09-30] MEDS: BACLOFEN 10 MG TABLET 5 MG GT (05:35)
[2024-09-30] MEDS: INSULN SC (05:35)
--- NOTE | 2024-09-30 05:40 | PC.NURSE ---
Report given via phone to Keyshawn from [facility], end user support specialist time changed to 0745, [facility] made aware of citrus picker time changed.
[2024-09-30 07:05] VITALS: PULSE 81; RESP 15; O2SAT 98
--- NOTE | 2024-09-30 11:01 | PC.NURSE ---
Resident discharged at 07:57via [facility] with [facility] in stable condition . Receiving facility [facility] in [facility]. Gave report to Jose . No s/s of respiratory distress, no s/s of pain or discomfort, no s/s of hypoglycemia/hyperglycemia noted.
--- NOTE | 2024-09-30 11:15 | PC.SS ---
Resident DC this morning via gurney transfer with [facility], he will admit to [facility]. Family is aware of this DC as it was initiated by family.
== END 2024-09-30 07:57 | disposition other institution (70) | DRG 207 ==
PROVIDERS: Admitting Provider Specialist; PCP Specialist; Visit Provider Specialist
DX: J96.10 Chronic respiratory failure, unspecified whether with hypoxia or hypercapnia (principal); G93.49 Other encephalopathy; Z99.11 Dependence on respirator [ventilator] status; R73.9 Hyperglycemia, unspecified; Z93.0 Tracheostomy status; R29.818 Other symptoms and signs involving the nervous system; S32.029D Unspecified fracture of second lumbar vertebra, subsequent encounter for fracture with routine healing; S32.049D Unspecified fracture of fourth lumbar vertebra, subsequent encounter for fracture with routine healing; W11.XXXD Fall on and from ladder, subsequent encounter; I69.30 Unspecified sequelae of cerebral infarction; E11.9 Type 2 diabetes mellitus without complications; I10 Essential (primary) hypertension
CPT/HCPCS: 36415; 36600; 80053; 82803; 85025; 87205; 94002; 94003; 94004; 94640; J0696; J7050